=== PATIENT | female | born 1950 ===

== ENCOUNTER 2016-11-10 10:00 | Inpatient (IN) | payer MEDICARE, OTHER ==
[2016-11-10 10:00] VITALS: BMI 29.2
[2016-11-10 11:58] LABS: BASO # 0.2 K/uL (0.0-0.2); BASO % 1.2 % (0.0-2.0); EOS # 0.4 K/uL (0.0-0.7); EOS % 2.7 % (0.0-4.0); HEMATOCRIT 31.2 % (34.0-47.0); LYMPH % 6.5 % (20.0-40.0); MEAN CELL VOLUME 93.1 fL (81.0-99.0); MEAN CORPUSCULAR HEMOGLOBIN 29.7 pg (27.0-31.0); MEAN CORPUSCULAR HGB CONC 31.9 g/dL (33.0-37.0); MEAN PLATELET VOLUME 10.2 fL (7.2-11.7); MONO # 1.7 K/uL (0.0-0.8); MONO % 10.5 % (0.0-10.0); NRBC % 0.1 % (0.0-2.0); PLATELET COUNT 223 K/uL (130-400); WHITE BLOOD COUNT 15.8 K/uL (4.8-10.8)
[2016-11-10 12:10] LABS: POTASSIUM 4.7 mmol/L (3.6-5.2)
[2016-11-10 12:12] LABS: BILIRUBIN,TOTAL 0.8 mg/dL (0.2-1.3)
[2016-11-10 12:13] LABS: CALCIUM 9.1 mg/dl (8.6-10.4)
[2016-11-10 12:21] LABS: BASOPHIL 1 % (0-2); EOSINOPHIL 2 % (0-4); NEUTROPHIL 82 % (50-75); TOTAL CELLS COUNTED 100
[2016-11-10 12:22] LABS: LARGE PLATELETS PRESENT
[2016-11-10 12:23] LABS: GIANT PLATELETS PRESENT
--- NOTE | 2016-11-10 13:36 | C.PDOC ---
History Of Present Illness 66-year-old female PMHx includes Hypertension, Hypercholesterolemia, ESRD on HD (MWF- did not go today), presents to the emergency department with complaints of pain in B/L feet and calves. Patient denies numbness/weakness, nausea/ vomiting, fevers/chills, shortness of breath, chest pain, cough. Time Seen by Provider: 11/10/16 10:27 Chief Complaint (Nursing): Lower Extremity Problem/Injury History Per: Patient, EMS History/Exam Limitations: no limitations Onset/Duration Of Symptoms: Days Current Symptoms Are (Timing): Still Present Severity: Moderate Past Medical History Reviewed: Historical Data, Nursing Documentation, Vital Signs Vital Signs: Last Vital Signs Temp 98.9 F 11/23/16 08:00 Pulse 95 H 11/23/16 08:00 Resp 20 11/23/16 08:00 BP 140/72 11/23/16 09:28 Pulse Ox 97 11/23/16 08:00 - Medical History PMH: Anemia, Anxiety, Asthma, Atrial Fibrillation, CAD, CHF, COPD, Depression, Diabetes, Gastritis, HTN, Hypercholesterolemia, Peripheral Edema, Pneumonia, End Stage Renal Disease, Chronic Kidney Disease Surgical History: Carotid Endarterectomy (LEFT), Cholecystectomy, Endoscopy - [facility] Procedures ANGIOPLASTY OF OTHER NON-CORONARY VESSEL(S) (07/20/13) ASSISTANCE WITH RESPIRATORY VENTILATION, 24-96 HRS, CPAP (03/15/16) ATHERECTOMY OF OTHER NON-CORONARY VESSEL(S) (06/29/13) CENTRAL VENOUS CATHETER PLACEMENT WITH GUIDANCE (01/03/13) CONTRAST AORTOGRAM (06/29/13) CONTRAST ARTERIOGRAM-LEG (06/05/14) CORONAR ARTERIOGR-2 CATH (01/17/15) DILATE L FEM ART W INTRALUM DEV, DRUG BLLN, PERC (12/11/15) DILATE R EXT ILIAC ART W DRUG-ELUT INTRALUM, PERC (11/21/15) DILATION OF LEFT FEMORAL ARTERY, PERCUTANEOUS APPROACH (07/15/16) DILATION OF RIGHT FEMORAL ARTERY, PERCUTANEOUS APPROACH (11/21/15) EXCISION OF RIGHT KIDNEY PELVIS, PERC APPROACH, DIAGN (10/27/16) EXTIRPATION OF MATTER FROM L FEM ART, PERC APPROACH (07/15/16) EXTIRPATION OF MATTER FROM R FEM ART, PERC ENDO APPROACH (11/21/15) HEAD & NECK ENDARTER NEC (08/04/14) HEMODIALYSIS (04/09/15) INSEJ [id number] PERIPHERAL NON-CORONARY VES STENT(S) (07/20/13) INSERTION OF ONE VASCULAR STENT (07/20/13) INSERTION OF TWO VASCULAR STENTS (06/29/13) LEFT HEART CARDIAC CATH (06/29/13) LT HEART ANGIOCARDIOGRAM (06/29/13) NON-INVASIVE MECHANICAL VENTILATION (02/23/15) PACKED CELL TRANSFUSION (01/03/13) PERFORMANCE OF URINARY FILTRATION, MULTIPLE (10/27/16) PERFORMANCE OF URINARY FILTRATION, SINGLE (03/15/16) PROCEDURE ON SINGLE VESSEL (08/04/14) RT & LT HEART ANGIOCARD (01/17/15) RT/LEFT HEART CARD CATH (01/17/15) Family History: States: No Known Family Hx - Social History Hx Tobacco Use: No Hx Alcohol Use: No Hx Substance Use: No - Immunization History Hx Tetanus Toxoid Vaccination: Yes Hx Influenza Vaccination: Yes Hx Pneumococcal Vaccination: Yes Review Of Systems Except As Marked, All Systems Reviewed And Found Negative. Constitutional: Negative for: Fever Cardiovascular: Negative for: Chest Pain, Palpitations, Edema Respiratory: Negative for: Cough, Shortness of Breath Musculoskeletal: Positive for: Leg Pain, Foot Pain Skin: Negative for: Rash Neurological: Negative for: Weakness, Numbness Physical Exam - Physical Exam Appears: Well, Non-toxic Skin: Warm, Dry, No Rash Head: Normacephalic Eye(s): bilateral: Normal Inspection Oral Mucosa: Moist Cardiovascular: Rhythm Regular Respiratory: Normal Breath Sounds, No Accessory Muscle Use, No Rales, No Rhonchi , No Wheezing Gastrointestinal/Abdominal: Normal Exam, Bowel Sounds, Soft, No Tenderness Extremity: Normal ROM, Tenderness, No Deformity, Other (LEFT ARM- AV fistula with palpable bruit, right calf TTP and diminished pedal pulse, extremity not cold to touch) Extremity: Bilateral: Normal ROM Neurological/Psych: Oriented x3, Normal Motor, Normal Sensation ED Course And Treatment - Laboratory Results Result Diagrams: 11/23/16 08:14 11/23/16 08:14 O2 Sat by Pulse Oximetry: 93 (RA) Pulse Ox Interpretation: Abnormal - Radiology CXR: Interpreted by Me, Viewed By Me (pulmonary vascular congestion, no infiltrates) - Other Rad foot Xray X-Ray: Interpreted by Me, Viewed By Me (no fractures,dislocations, no gas, (+) vascular calcifications) Progress Note: Blood work, EKG, CXR, venous doppler of leg ordered and reviewed. Patient given PO tylenol. Doppler (-) for acute DVT. PMD confirms history of worsening PVD. - Physician Consult Information Physician Contacted: Haydee Frederick Outcome Of Conversation: Discussed patient with Dr. Trung Frederick, he agrees with admission for severe PVD, leg pain, ESRD on HD. Disposition - Disposition Disposition: HOSPITALIZED Disposition Time: 14:21 Condition: STABLE - Clinical Impression Clinical Impression: PVD (peripheral vascular disease), Leg pain, ESRD on dialysis - Scribe Statement The provider has reviewed the documentation as recorded by the Scriblexie Aguirre All medical record entries made by the Scribe were at my direction and personally dictated by me. I have reviewed the chart and agree that the record accurately reflects my personal performance of the history, physical exam, medical decision making, and the department course for this patient. I have also personally directed, reviewed, and agree with the discharge instructions and disposition. Decision To Admit - Pt Status Changed To: Hospital Disposition Of: Inpatient - Admit Certification Admit to Inpatient:: After my assessment, the patient will require hospitalization for at least two midnights. This is because of the severity of symptoms shown, intensity of services needed, and/or the medical risk in this patient being treated as an outpatient. - InPatient: Physician Admission Certification: I certify that this patient requires 2 or more midnights of care for the following reason:: see notes - . Bed Request Type: Regular Admitting Physician: Haydee Frederick Patient Diagnosis: PVD (peripheral vascular disease), Leg pain, ESRD on dialysis
[2016-11-10 14:41] LABS: TROPONIN I 0.069 ng/mL (0.00-0.120)
--- NOTE | 2016-11-10 14:53 | VASCLAB ---
PROCEDURE: Right Lower Extremity Venous Duplex Exam. HISTORY: rle pain, r/o dvt PRIORS: None. TECHNIQUE: Right common femoral, femoral, popliteal and posterior tibial, peroneal and great saphenous veins were evaluated. Flow was assessed with color Doppler, compressibility, assessment of phasic flow and augmentation response. Report prepared by SHRUTHI Rowland, RVT FINDINGS: RIGHT: 1. Common Femoral Vein: 1.1. Compressibility - Fully compressible: Thrombus - None: Flow - Phasic: Augmentation -Normal: Reflux - None. 2. Femoral Vein: 2.1. Compressibility - Fully compressible: Thrombus - None: Flow - Phasic: Augmentation -Normal: Reflux - None. 3. Popliteal Vein: 3.1. Compressibility - Fully compressible: Thrombus - None: Flow - Phasic: Augmentation -Normal: Reflux - None. 4. Posterior Tibial Vein: 4.1. Compressibility - Fully compressible: Thrombus - None: Flow - Phasic: Augmentation -Normal: Reflux - None. 5. Peroneal Vein: 5.1. Compressibility - Fully compressible: Thrombus - None: Flow - Phasic: Augmentation -Normal: Reflux - None. 6. Great Saphenous Vein: 6.1. Compressibility - Fully compressible: Thrombus -None: Flow - Phasic: Augmentation - Normal: Reflux - None. OTHER FINDINGS: IMPRESSION: No evidence of deep or superficial vein thrombosis of the right lower extremity with excellent venous flow. Normal valve function noted of the right side. Normal venous flow noted in the left common femoral vein.
--- NOTE | 2016-11-10 15:06 | RAD ---
Indication: r/o gas, periosteal elevation Foot left 2nd digit radiographs Comparison: None available Findings: Suboptimal evaluation of the distal phalanges on lateral/oblique view due to overlying soft tissues. Osseous demineralization limits evaluation for acute fracture lines. No acute displaced fracture identified. Linear lucency noted along the distal 2nd phalanx soft tissues of unclear significance; correlate clinically to exclude possibility of laceration. Soft tissue swelling. Extensive vascular calcifications. Impression: Limited study as above. Linear lucency noted along the distal 2nd phalanx soft tissues of unclear significance; correlate clinically to exclude possibility of laceration Soft tissue swelling. Please note that MRI without and with IV contrast is most sensitive in detection for acute osteomyelitis.
--- NOTE | 2016-11-10 15:31 | RAD ---
PROCEDURE: CHEST RADIOGRAPH, 1 VIEW HISTORY: admission, missed hemodialysis COMPARISON: 10/24/2016 FINDINGS: LUNGS: Moderate venous congestion. Bilateral hilar prominence. Bibasilar airspace opacities. Small bilateral pleural effusions. Upper lobe granulomatous changes. PLEURA: As above. CARDIOVASCULAR: Cardiomegaly. Calcification in the aorta OSSEOUS STRUCTURES: No significant abnormalities. VISUALIZED UPPER ABDOMEN: Normal. OTHER FINDINGS: None. IMPRESSION: Moderate venous congestion. Bilateral hilar prominence. Bibasilar airspace opacities. Small bilateral pleural effusions. Upper lobe granulomatous changes.
--- NOTE | 2016-11-10 17:05 | CP.PCM.HP ---
<Haydee Frederick S - Last Filed: 11/10/16 17:09> Past Patient History - Infectious Disease Hx of Infectious Diseases: None - Past Medical History & Family History Past Medical History?: Yes - Past Social History Smoking Status: Former Smoker - CARDIAC Hx Atrial Fibrillation: Yes Hx Congestive Heart Failure: Yes Hx Hypercholesterolemia: Yes Hx Hypertension: Yes Hx Peripheral Edema: Yes - PULMONARY Hx Asthma: Yes Hx Chronic Obstructive Pulmonary Disease (COPD): Yes Hx Pneumonia: Yes - HEENT Hx HEENT Problems: Yes Hx Cataracts: Yes - RENAL Hx Chronic Kidney Disease: Yes - ENDOCRINE/METABOLIC Hx Diabetes Mellitus Type 2: Yes - HEMATOLOGICAL/ONCOLOGICAL Hx Anemia: Yes - INTEGUMENTARY Hx Dermatological Problems: No - MUSCULOSKELETAL/RHEUMATOLOGICAL Hx Falls: Yes - GASTROINTESTINAL Hx Gastritis: Yes - GENITOURINARY/GYNECOLOGICAL Hx Genitourinary Disorders: No - PSYCHIATRIC Hx Anxiety: Yes Hx Depression: Yes Hx Substance Use: No - SURGICAL HISTORY Hx Carotid Endarterectomy: Yes (LEFT) Hx Cholecystectomy: Yes - ANESTHESIA Hx Anesthesia: Yes Hx Anesthesia Reactions: No Hx Malignant Hyperthermia: No Meds Allergies/Adverse Reactions: Allergies Allergy/AdvReac Type Severity Reaction Status Date / Time No Known Allergies Allergy Verified 11/10/16 10:02 Results - Vital Signs Recent Vital Signs: Last Vital Signs Temp 98.4 F 11/10/16 16:33 Pulse 80 11/10/16 16:33 Resp 18 11/10/16 16:33 BP 165/70 H 11/10/16 16:33 Pulse Ox 95 11/10/16 16:33 - Labs Result Diagrams: 11/10/16 11:54 11/10/16 11:54 Assessment & Plan - Assessment and Plan (Free Text) Plan: s/p hd and started having cramps so pt was bourght here for furtehr work up no new issuesw pain med viktoriya as orderd hd consultation with pulm <Mac Sorenson H - Last Filed: 11/11/16 13:39> Results - Vital Signs Recent Vital Signs: Last Vital Signs Temp 97.9 F 11/11/16 08:00 Pulse 86 11/11/16 08:00 Resp 20 11/11/16 08:00 BP 147/78 11/11/16 10:15 Pulse Ox 100 11/11/16 08:00 - Labs Result Diagrams: 11/10/16 11:54 11/10/16 11:54 Labs: Laboratory Results - last 24 hr 11/10/16 11/10/16 11/11/16 17:23 21:38 07:19 POC Glucose (mg/dL) 191 H 178 H 171 H 11/11/16 11:29 POC Glucose (mg/dL) 317 H Assessment & Plan (1) Leg pain, right Status: Acute (2) Acute systolic CHF (congestive heart failure) Status: Acute (3) Asthma attack Status: Acute (4) IDDM (insulin dependent diabetes mellitus) Status: Acute (5) Atrial fibrillation Status: Chronic (6) CAD (coronary artery disease) Status: Chronic (7) CHF (congestive heart failure) Status: Acute (8) COPD (chronic obstructive pulmonary disease) Status: Chronic (9) ESRD on dialysis Status: Chronic (10) HTN (hypertension) Status: Chronic (11) Prophylactic measure Status: Acute
[2016-11-10] MEDS ORDERED: diltiaZEM 300 mg/24 Hours CD Cap PO STA (17:50)
[2016-11-10] MEDS ORDERED: Pantoprazole 40 mg EC Tab PO STA (17:53)
[2016-11-10] MEDS: (Novolog Mix 70/30) Insulin Aspart/Insulin Aspar 100 units/ml SC SCH (22:13)
[2016-11-11] MEDS: Fluticasone-Salmeterol 250-50mcg Diskus INH SCH ×2 (08:24→19:28)
[2016-11-11] MEDS: Albuterol HFA 90 mcg/actuation (8 g) IH PRN ×2 (08:26→19:29)
--- NOTE | 2016-11-11 09:09 | CP.PCM.PN ---
<Mac Sorenson - Last Filed: 11/11/16 16:23> Subjective - Date & Time of Evaluation Date of Evaluation: 11/11/16 Time of Evaluation: 10:00 - Subjective Subjective: Patient was seen and evaluated in room. Patient currently denies pain, shortness of breath, or dizziness. Objective - Vital Signs/Intake and Output Vital Signs (last 24 hours): Temp Pulse Resp BP Pulse Ox 97.9 F 86 20 147/69 100 11/11/16 08:00 11/11/16 08:00 11/11/16 08:00 11/11/16 08:00 11/11/16 08:00 Intake and Output: 11/11/16 11/11/16 06:59 18:59 Intake Total 640 Output Total 0 Balance 640 - Medications Medications: Current Medications Acetaminophen (Tylenol 325mg Tab) 650 mg PO Q6 PRN PRN Reason: pain Last Admin: 11/10/16 20:18 Dose: 650 mg Albuterol (Ventolin Hfa 90 Mcg/Actuation (8 G)) 90 puff IH RQID PRN PRN Reason: Wheezing Last Admin: 11/11/16 08:26 Dose: 1 mcg Alprazolam (Xanax) 0.25 mg PO BID PRN PRN Reason: Anxiety Stop: 11/17/16 17:14 Aspirin (Ecotrin) 81 mg PO DAILY ON LICENSE OF [facility] Calcium Acetate (Phoslo) 667 mg PO TID ON LICENSE OF [facility] Last Admin: 11/10/16 17:31 Dose: 667 mg Clopidogrel Bisulfate (Plavix) 75 mg PO DAILY ON LICENSE OF [facility] Diltiazem HCl (Cardizem Cd) 300 mg PO DAILY ON LICENSE OF [facility] Escitalopram Oxalate (Lexapro) 5 mg PO DAILY ON LICENSE OF [facility] Furosemide (Lasix) 80 mg PO DAILY ON [facility] OF [facility] Gabapentin (Neurontin) 100 mg PO HS ON LICENSE OF [facility] Last Admin: 11/10/16 22:11 Dose: 100 mg Heparin Sodium (Porcine) (Heparin) 5,000 units SC Q8 ON LICENSE OF [facility] Last Admin: 11/11/16 05:24 Dose: 5,000 units Hydralazine HCl (Apresoline) 100 mg PO DAILY ON LICENSE OF [facility] Insulin Aspart (Novolog Mix 70/30 (70/30 Units/Ml)) 20 units SC HS ON LICENSE OF [facility] Last Admin: 11/10/16 22:13 Dose: Not Given Insulin Aspart (Novolog Mix 70/30 (70/30 Units/Ml)) 15 units SC ACB ON LICENSE OF [facility] Isosorbide Mononitrate (Imdur) 60 mg PO DAILY ON LICENSE OF [facility] Pantoprazole Sodium (Protonix Ec Tab) 40 mg PO DAILY ON LICENSE OF [facility] Prednisone (Prednisone Tab) 10 mg PO DAILY [facility] Rosuvastatin Calcium (Crestor) 10 mg PO DAILY ON LICENSE OF [facility] Fluticasone/Salmeterol (Advair Diskus 250/50) 1 puff INH RQ12 [facility] Last Admin: 11/11/16 08:24 Dose: 1 mcg - Constitutional Appears: Non-toxic, No Acute Distress - Respiratory Exam Respiratory Exam: Clear to Ausculation Bilateral. absent: Rhonchi, Wheezes - Cardiovascular Exam Cardiovascular Exam: REGULAR RHYTHM, RRR, +S1, +S2. absent: Gallop, Rubs - Extremities Exam Extremities Exam: Normal Inspection. absent: Pedal Edema - Back Exam Back Exam: NORMAL INSPECTION - Psychiatric Exam Psychiatric exam: Normal Affect, Normal Mood - Skin Skin Exam: Normal Color, Warm Assessment and Plan (1) Leg pain, right Assessment & Plan: X:ray shows soft tissue swelling, doppler negative for any evidence of DVT. Will given Tylenol for pain as needed. Status: Acute (2) IDDM (insulin dependent diabetes mellitus) Assessment & Plan: Patient on 70/30 Novolog 15 units at night and 10 units ACB. Sliding scale insuline with medium protocol and accu checks. Status: Acute (3) COPD (chronic obstructive pulmonary disease) Assessment & Plan: Albuterol prn and Advair. Status: Chronic (4) CAD (coronary artery disease) Assessment & Plan: Crestor 10mg, Aspirin 81mg, and Plavix 75mg Status: Chronic (5) Atrial fibrillation Status: Chronic (6) ESRD on dialysis Assessment & Plan: Patient is scheduled for dialysis tomorrow. Status: Chronic (7) CHF (congestive heart failure) Assessment & Plan: Lasix 80mg daily. Status: Acute (8) HTN (hypertension) Assessment & Plan: Cardizem 300mg daily, Imdur 60mg daily, Hydralazine 100mg TID Status: Chronic (9) Prophylactic measure Assessment & Plan: Pepcid 20mg 0.25mg Xanax prn for anxiety tylenol 650mg Q6H prn for pain Heparin 5000 units SC Q8H. Status: Acute <Frederick,Jayeshkuma S - Last Filed: 11/11/16 21:57> Objective - Vital Signs/Intake and Output Vital Signs (last 24 hours): Temp Pulse Resp BP Pulse Ox 98.7 F 86 20 173/64 H 100 11/11/16 16:09 11/11/16 16:09 11/11/16 16:09 11/11/16 16:09 11/11/16 16:09 - Medications Medications: Current Medications Acetaminophen (Tylenol 325mg Tab) 650 mg PO Q6 PRN PRN Reason: pain Last Admin: 11/10/16 20:18 Dose: 650 mg Albuterol (Ventolin Hfa 90 Mcg/Actuation (8 G)) 90 puff IH RQID PRN PRN Reason: Wheezing Last Admin: 11/11/16 19:29 Dose: 90 mcg Alprazolam (Xanax) 0.25 mg PO BID PRN PRN Reason: Anxiety Stop: 11/17/16 17:14 Aspirin (Ecotrin) 81 mg PO DAILY ON [facility] Last Admin: 11/11/16 10:15 Dose: 81 mg Calcium Acetate (Phoslo) 667 mg PO TID ON [facility] Last Admin: 11/11/16 17:00 Dose: 667 mg Clopidogrel Bisulfate (Plavix) 75 mg PO DAILY ON [facility] Last Admin: 11/11/16 10:15 Dose: 75 mg Diltiazem HCl (Cardizem Cd) 300 mg PO DAILY ON [facility] Last Admin: 11/11/16 10:15 Dose: 300 mg Escitalopram Oxalate (Lexapro) 5 mg PO DAILY ON [facility] Last Admin: 11/11/16 10:15 Dose: 5 mg Famotidine (Pepcid) 20 mg PO DAILY ON [facility] Furosemide (Lasix) 80 mg PO DAILY ON [facility] Last Admin: 11/11/16 10:15 Dose: 80 mg Gabapentin (Neurontin) 100 mg PO HS ON [facility] Last Admin: 11/11/16 21:33 Dose: 100 mg Heparin Sodium (Porcine) (Heparin) 5,000 units SC Q8 ON [facility] Last Admin: 11/11/16 21:32 Dose: 5,000 units Hydralazine HCl (Apresoline) 100 mg PO DAILY ON [facility] Last Admin: 11/11/16 10:16 Dose: 100 mg Insulin Aspart (Novolog Mix 70/30 (70/30 Units/Ml)) 20 units SC [facility] Last Admin: 11/11/16 21:35 Dose: 20 units Insulin Aspart (Novolog Mix 70/30 (70/30 Units/Ml)) 15 units SC ACB ON [facility] Last Admin: 11/11/16 10:17 Dose: 15 units Insulin Human Regular (Novolin R) 0 unit SC ACHS ON LICENSE OF [facility] PRN Reason: Protocol Last Admin: 11/11/16 21:35 Dose: 3 unit Isosorbide Mononitrate (Imdur) 60 mg PO DAILY ON [facility] Last Admin: 11/11/16 10:15 Dose: 60 mg Prednisone (Prednisone Tab) 10 mg PO DAILY ON [facility] Last Admin: 11/11/16 10:15 Dose: 10 mg Rosuvastatin Calcium (Crestor) 10 mg PO HS ON [facility] Last Admin: 11/11/16 21:33 Dose: 10 mg Fluticasone/Salmeterol (Advair Diskus 250/50) 1 puff INH RQ12 ON [facility] Last Admin: 11/11/16 19:28 Dose: 1 puff - Labs Labs: 11/11/16 14:02 11/11/16 14:02 Attending/Attestation - Attestation I have personally seen and examined this patient.: Yes I have fully participated in the care of the patient.: Yes I have reviewed all pertinent clinical information, including history, physical exam and plan: Yes Notes (Text): 11/11/16 21:57 case seen and discussed with staff and resident
[2016-11-11] MEDS ORDERED: Pantoprazole 40 mg EC Tab PO SCH (10:00)
[2016-11-11] MEDS: diltiaZEM 300 mg/24 Hours CD Cap PO SCH (10:15)
[2016-11-11] MEDS: (Novolog Mix 70/30) Insulin Aspart/Insulin Aspar 100 units/ml SC SCH ×2 (10:17→21:35)
[2016-11-11 14:10] LABS: BASO # 0.3 K/uL (0.0-0.2); BASO % 1.7 % (0.0-2.0); EOS # 0.3 K/uL (0.0-0.7); EOS % 1.6 % (0.0-4.0); HEMATOCRIT 30.6 % (34.0-47.0); LYMPH # 0.6 K/uL (1.0-4.3); LYMPH % 3.6 % (20.0-40.0); MEAN CELL VOLUME 93.1 fL (81.0-99.0); MEAN CORPUSCULAR HEMOGLOBIN 28.5 pg (27.0-31.0); MEAN CORPUSCULAR HGB CONC 30.6 g/dL (33.0-37.0); MEAN PLATELET VOLUME 11.2 fL (7.2-11.7); MONO % 6.2 % (0.0-10.0); PLATELET COUNT 182 K/uL (130-400); RED CELL DISTRIBUTION WIDTH 17.9 % (11.5-14.5); WHITE BLOOD COUNT 15.9 K/uL (4.8-10.8)
[2016-11-11 14:19] LABS: POTASSIUM 4.9 mmol/L (3.6-5.2)
[2016-11-11 14:21] LABS: BILIRUBIN,TOTAL 0.5 mg/dL (0.2-1.3); TOTAL PROTEIN 7.5 g/dL (6.3-8.3)
[2016-11-11 14:22] LABS: CALCIUM 8.9 mg/dl (8.6-10.4); MAGNESIUM 2.4 mg/dL (1.6-2.3); PHOSPHOROUS 4.9 mg/dL (2.5-4.5)
[2016-11-11 16:05] LABS: EOSINOPHIL 2 % (0-4); LARGE PLATELETS PRESENT; NEUTROPHIL 87 % (50-75); TOTAL CELLS COUNTED 100
[2016-11-11] MEDS: (Novolin R) Insulin Human Regular 100 units/ml vial SC SCH ×2 (17:01→21:35)
--- NOTE | 2016-11-11 21:58 | CP.PCM.PN ---
Subjective - Date & Time of Evaluation Date of Evaluation: 11/11/16 Time of Evaluation: 08:00 - Subjective Subjective: pain better pt iwth severe pvd Objective - Vital Signs/Intake and Output Vital Signs (last 24 hours): Temp Pulse Resp BP Pulse Ox 98.7 F 86 20 173/64 H 100 11/11/16 16:09 11/11/16 16:09 11/11/16 16:09 11/11/16 16:09 11/11/16 16:09 - Medications Medications: Current Medications Acetaminophen (Tylenol 325mg Tab) 650 mg PO Q6 PRN PRN Reason: pain Last Admin: 11/10/16 20:18 Dose: 650 mg Albuterol (Ventolin Hfa 90 Mcg/Actuation (8 G)) 90 puff IH RQID PRN PRN Reason: Wheezing Last Admin: 11/11/16 19:29 Dose: 90 mcg Alprazolam (Xanax) 0.25 mg PO BID PRN PRN Reason: Anxiety Stop: 11/17/16 17:14 Aspirin (Ecotrin) 81 mg PO DAILY [facility] Last Admin: 11/11/16 10:15 Dose: 81 mg Calcium Acetate (Phoslo) 667 mg PO TID [facility] Last Admin: 11/11/16 17:00 Dose: 667 mg Clopidogrel Bisulfate (Plavix) 75 mg PO DAILY [facility] Last Admin: 11/11/16 10:15 Dose: 75 mg Diltiazem HCl (Cardizem Cd) 300 mg PO DAILY [facility] Last Admin: 11/11/16 10:15 Dose: 300 mg Escitalopram Oxalate (Lexapro) 5 mg PO DAILY [facility] Last Admin: 11/11/16 10:15 Dose: 5 mg Famotidine (Pepcid) 20 mg PO DAILY [facility] Furosemide (Lasix) 80 mg PO DAILY [facility] Last Admin: 11/11/16 10:15 Dose: 80 mg Gabapentin (Neurontin) 100 mg PO HS [facility] Last Admin: 11/11/16 21:33 Dose: 100 mg Heparin Sodium (Porcine) (Heparin) 5,000 units SC Q8 [facility] Last Admin: 11/11/16 21:32 Dose: 5,000 units Hydralazine HCl (Apresoline) 100 mg PO DAILY [facility] Last Admin: 11/11/16 10:16 Dose: 100 mg Insulin Aspart (Novolog Mix 70/30 (70/30 Units/Ml)) 20 units SC HS [facility] Last Admin: 11/11/16 21:35 Dose: 20 units Insulin Aspart (Novolog Mix 70/30 (70/30 Units/Ml)) 15 units SC ACB [facility] Last Admin: 11/11/16 10:17 Dose: 15 units Insulin Human Regular (Novolin R) 0 unit SC ACHS [facility] PRN Reason: Protocol Last Admin: 11/11/16 21:35 Dose: 3 unit Isosorbide Mononitrate (Imdur) 60 mg PO DAILY [facility] Last Admin: 11/11/16 10:15 Dose: 60 mg Prednisone (Prednisone Tab) 10 mg PO DAILY [facility] Last Admin: 11/11/16 10:15 Dose: 10 mg Rosuvastatin Calcium (Crestor) 10 mg PO HS [facility] Last Admin: 11/11/16 21:33 Dose: 10 mg Fluticasone/Salmeterol (Advair Diskus 250/50) 1 puff INH RQ12 [facility] Last Admin: 11/11/16 19:28 Dose: 1 puff - Labs Labs: 11/11/16 14:02 11/11/16 14:02 - Constitutional Appears: Well - Head Exam Head Exam: ATRAUMATIC, NORMAL INSPECTION, NORMOCEPHALIC - Eye Exam Eye Exam: EOMI, Normal appearance, PERRL Pupil Exam: NORMAL ACCOMODATION, PERRL - ENT Exam ENT Exam: Mucous Membranes Moist, Normal Exam - Neck Exam Neck Exam: Full ROM, Normal Inspection. absent: Lymphadenopathy - Respiratory Exam Respiratory Exam: Decreased Breath Sounds - Cardiovascular Exam Cardiovascular Exam: REGULAR RHYTHM, +S1, +S2 - GI/Abdominal Exam GI & Abdominal Exam: Distended, Soft, Diminished Bowel Sounds - Rectal Exam Rectal Exam: Deferred - Neurological Exam Neurological Exam: Oriented x3 Assessment and Plan (1) Acute CHF Status: Acute (2) Acute systolic CHF (congestive heart failure) Status: Acute (3) Anemia Status: Acute (4) Atrial fibrillation with rapid ventricular response Status: Acute (5) CHF (congestive heart failure) Status: Acute (6) Diabetes Status: Acute (7) Dialysis patient, noncompliant Status: Acute (8) ESRD on dialysis Status: Acute (9) Hyperkalemia Status: Acute (10) Peripheral vascular complication Status: Acute (11) Pulmonary arterial hypertension Status: Acute (12) Pulmonary edema with congestive heart failure Status: Acute (13) CAD (coronary artery disease) Status: Chronic - Assessment and Plan (Free Text) Plan: asp plavix dr. 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
[2016-11-12] MEDS: (Novolog Mix 70/30) Insulin Aspart/Insulin Aspar 100 units/ml SC SCH ×2 (08:08→21:56)
[2016-11-12] MEDS: (Novolin R) Insulin Human Regular 100 units/ml vial SC SCH ×4 (08:09→21:57)
[2016-11-12 08:19] LABS: BASO # 0.1 K/uL (0.0-0.2); BASO % 0.8 % (0.0-2.0); EOS # 0.7 K/uL (0.0-0.7); EOS % 4.9 % (0.0-4.0); HEMATOCRIT 28.2 % (34.0-47.0); LYMPH # 1.1 K/uL (1.0-4.3); MEAN CELL VOLUME 92.7 fL (81.0-99.0); MEAN CORPUSCULAR HGB CONC 32.4 g/dL (33.0-37.0); MONO # 1.2 K/uL (0.0-0.8); MONO % 7.8 % (0.0-10.0); PLATELET COUNT 184 K/uL (130-400); RED CELL DISTRIBUTION WIDTH 17.7 % (11.5-14.5); WHITE BLOOD COUNT 15.2 K/uL (4.8-10.8)
[2016-11-12 08:24] LABS: POTASSIUM 4.9 mmol/L (3.6-5.2)
[2016-11-12 08:26] LABS: BILIRUBIN,TOTAL 0.6 mg/dL (0.2-1.3); PHOSPHOROUS 5.2 mg/dL (2.5-4.5); TOTAL PROTEIN 7.5 g/dL (6.3-8.3)
[2016-11-12 08:27] LABS: CALCIUM 9.1 mg/dl (8.6-10.4); MAGNESIUM 2.5 mg/dL (1.6-2.3)
[2016-11-12] MEDS ORDERED: Azithromycin 500mg/250ML NS 250 ML IVPB SCH (08:45)
--- NOTE | 2016-11-12 08:46 | CP.PCM.PN ---
<Keysha Motta H - Last Filed: 11/12/16 08:44> Subjective - Date & Time of Evaluation Date of Evaluation: 11/12/16 Time of Evaluation: 08:00 - Subjective Subjective: PGY2 Medicine Note - Dr. Ld Frederick's service: Patient seen and examined at bedside this AM. Patient reports right leg pain improving but still there. Patient reports SOB with cough productive of white phlegm. Patient denies fever, chills, chest pain, abdominal pain, nausea, vomiting. Objective - Vital Signs/Intake and Output Vital Signs (last 24 hours): Temp Pulse Resp BP Pulse Ox 98.5 F 91 H 20 186/73 H 98 11/12/16 07:49 11/12/16 07:49 11/12/16 07:49 11/12/16 07:49 11/12/16 07:49 Intake and Output: 11/12/16 11/12/16 06:59 18:59 Intake Total 120 Output Total 0 Balance 120 - Medications Medications: Current Medications Acetaminophen (Tylenol 325mg Tab) 650 mg PO Q6 PRN PRN Reason: pain Last Admin: 11/10/16 20:18 Dose: 650 mg Albuterol (Ventolin Hfa 90 Mcg/Actuation (8 G)) 90 puff IH RQID PRN PRN Reason: Wheezing Last Admin: 11/11/16 19:29 Dose: 90 mcg Alprazolam (Xanax) 0.25 mg PO BID PRN PRN Reason: Anxiety Stop: 11/17/16 17:14 Aspirin (Ecotrin) 81 mg PO DAILY [facility] Last Admin: 11/11/16 10:15 Dose: 81 mg Calcium Acetate (Phoslo) 667 mg PO TID [facility] Last Admin: 11/11/16 17:00 Dose: 667 mg Clopidogrel Bisulfate (Plavix) 75 mg PO DAILY [facility] Last Admin: 11/11/16 10:15 Dose: 75 mg Diltiazem HCl (Cardizem Cd) 300 mg PO DAILY [facility] Last Admin: 11/11/16 10:15 Dose: 300 mg Escitalopram Oxalate (Lexapro) 5 mg PO DAILY [facility] Last Admin: 11/11/16 10:15 Dose: 5 mg Famotidine (Pepcid) 20 mg PO DAILY [facility] Furosemide (Lasix) 80 mg PO DAILY [facility] Last Admin: 11/11/16 10:15 Dose: 80 mg Gabapentin (Neurontin) 100 mg PO HS [facility] Last Admin: 11/11/16 21:33 Dose: 100 mg Heparin Sodium (Porcine) (Heparin) 5,000 units SC Q8 [facility] Last Admin: 11/12/16 05:27 Dose: 5,000 units Hydralazine HCl (Apresoline) 100 mg PO BID [facility] Azithromycin (Zithromax 500mg In Ns Addvantage) 250 mls @ 167 mls/hr IVPB Q24H [facility] Ceftriaxone Sodium 1 gm/ (Sodium Chloride) 100 mls @ 100 mls/hr IVPB DAILY [facility] Insulin Aspart (Novolog Mix 70/30 (70/30 Units/Ml)) 20 units SC HS [facility] Last Admin: 11/11/16 21:35 Dose: 20 units Insulin Aspart (Novolog Mix 70/30 (70/30 Units/Ml)) 15 units SC ACB [facility] Last Admin: 11/12/16 08:08 Dose: 1 units Insulin Human Regular (Novolin R) 0 unit SC ACHS [facility] PRN Reason: Protocol Last Admin: 11/12/16 08:09 Dose: 2 unit Isosorbide Mononitrate (Imdur) 60 mg PO DAILY [facility] Last Admin: 11/11/16 10:15 Dose: 60 mg Prednisone (Prednisone Tab) 10 mg PO DAILY [facility] Last Admin: 11/11/16 10:15 Dose: 10 mg Rosuvastatin Calcium (Crestor) 10 mg PO HS [facility] Last Admin: 11/11/16 21:33 Dose: 10 mg Fluticasone/Salmeterol (Advair Diskus 250/50) 1 puff INH RQ12 [facility] Last Admin: 11/11/16 19:28 Dose: 1 puff - Labs Labs: 11/12/16 08:03 11/11/16 14:02 - Constitutional Appears: Non-toxic, No Acute Distress - Head Exam Head Exam: NORMAL INSPECTION - Eye Exam Eye Exam: EOMI - ENT Exam ENT Exam: Mucous Membranes Moist - Respiratory Exam Respiratory Exam: Rales, Rhonchi, NORMAL BREATHING PATTERN. absent: Accessory Muscle Use, Chest Wall Tenderness, Respiratory Distress - Cardiovascular Exam Cardiovascular Exam: REGULAR RHYTHM, +S1, +S2. absent: Gallop, Rubs - GI/Abdominal Exam GI & Abdominal Exam: Soft, Normal Bowel Sounds. absent: Guarding, Tenderness - Extremities Exam Extremities Exam: Pedal Edema Additional comments: right leg edema and dilated varicose veins - Neurological Exam Neurological Exam: Alert, Awake, Oriented x3 - Psychiatric Exam Psychiatric exam: Normal Affect, Normal Mood - Skin Skin Exam: Normal Color, Warm Assessment and Plan - Assessment and Plan (Free Text) Assessment: Leg pain, right Assessment & Plan: X ray shows soft tissue swelling, doppler negative for any evidence of DVT. F/U extremity arterial study Will given Tylenol for pain as needed. Possibly cellulitus Status: Acute Pneumonia Assessment & Plan CXR - moderate venous congestion. bilateral hilar prominence. Bibasilar airspace opacities. small b/l pleural effusions. Upper lobe granulomatous changes. Started zithromax 500mg IVPB daily and rocephin 1gm IVPB daily 11/12/16 Status: Acute IDDM (insulin dependent diabetes mellitus) Assessment & Plan: Patient on 70/30 Novolog 15 units at night and 10 units ACB. Sliding scale insulin with medium protocol and accuchecks. Status: Acute COPD (chronic obstructive pulmonary disease) Assessment & Plan: Albuterol prn and Advair. Status: Chronic CAD (coronary artery disease) Assessment & Plan: Crestor 10mg, Aspirin 81mg, and Plavix 75mg Status: Chronic Atrial fibrillation Status: Chronic Hep 5000U SC Q8 prophylaxis HR constrolled No anticoagulation besides Plavix and ASA ESRD on dialysis Assessment & Plan: Patient is scheduled for dialysis today Status: Chronic CHF (congestive heart failure) Assessment & Plan: Lasix 80mg PO daily. Status: Acute HTN (hypertension) Assessment & Plan: Cardizem 300mg daily, Imdur 60mg daily, Hydralazine 100mg TID Status: Chronic Prophylactic measure Assessment & Plan: Pepcid 20mg 0.25mg Xanax prn for anxiety tylenol 650mg Q6H prn for pain Heparin 5000 units SC Q8H. Status: Acute <Haydee Frederick S - Last Filed: 01/06/17 18:39> Objective - Vital Signs/Intake and Output Vital Signs (last 24 hours): Temp Pulse Resp BP Pulse Ox 98.3 F 82 20 179/55 H 99 12/04/16 16:00 12/04/16 16:00 12/04/16 16:00 12/04/16 16:00 12/04/16 16:00 - Labs Labs: 12/02/16 07:05 12/02/16 07:05 PT 12.4 SECONDS (9.7-12.2) H 11/19/16 11:38 INR 1.1 11/19/16 11:38 APTT 29 SECONDS (21-34) 11/19/16 11:38 Assessment and Plan (1) Acute CHF Status: Acute (2) Acute systolic CHF (congestive heart failure) Status: Acute (3) Anemia Status: Acute (4) Atrial fibrillation with rapid ventricular response Status: Acute (5) CHF (congestive heart failure) Status: Acute (6) Diabetes Status: Acute (7) Dialysis patient, noncompliant Status: Acute (8) ESRD on dialysis Status: Acute (9) Hyperkalemia Status: Acute (10) Peripheral vascular complication Status: Acute (11) Pulmonary arterial hypertension Status: Acute (12) Pulmonary edema with congestive heart failure Status: Acute (13) CAD (coronary artery disease) Status: Chronic Attending/Attestation - Attestation I have personally seen and examined this patient.: Yes I have fully participated in the care of the patient.: Yes I have reviewed all pertinent clinical information, including history, physical exam and plan: Yes Notes (Text): admitted with pneumonia cad cvd chf esrd with renal mass with non complnace iwht followup with urologist needs biopsy discused with staff
[2016-11-12] MEDS: Fluticasone-Salmeterol 250-50mcg Diskus INH SCH (08:50)
[2016-11-12 08:53] LABS: EOSINOPHIL 5 % (0-4); NEUTROPHIL 80 % (50-75); TOTAL CELLS COUNTED 100
[2016-11-12 08:57] LABS: LARGE PLATELETS PRESENT
[2016-11-12] MEDS: diltiaZEM 300 mg/24 Hours CD Cap PO SCH (10:59)
[2016-11-12] MEDS: Azithromycin 500 MG in Sodium Chloride 0.9% 250 ML IVPB SCH (15:00)
--- NOTE | 2016-11-12 15:08 | CP.PCM.PN ---
Subjective - Date & Time of Evaluation Date of Evaluation: 11/12/16 Time of Evaluation: 09:20 - Subjective Subjective: clinically same Objective - Vital Signs/Intake and Output Vital Signs (last 24 hours): Temp Pulse Resp BP Pulse Ox 98.3 F 90 18 180/79 H 98 11/12/16 09:00 11/12/16 14:04 11/12/16 09:00 11/12/16 13:10 11/12/16 07:49 Intake and Output: 11/12/16 11/12/16 06:59 18:59 Intake Total 120 200 Output Total 0 2 Balance 120 198 - Medications Medications: Current Medications Acetaminophen (Tylenol 325mg Tab) 650 mg PO Q6 PRN PRN Reason: pain Last Admin: 11/10/16 20:18 Dose: 650 mg Albuterol (Ventolin Hfa 90 Mcg/Actuation (8 G)) 90 puff IH RQID PRN PRN Reason: Wheezing Last Admin: 11/11/16 19:29 Dose: 90 mcg Alprazolam (Xanax) 0.25 mg PO BID PRN PRN Reason: Anxiety Stop: 11/17/16 17:14 Aspirin (Ecotrin) 81 mg PO DAILY [facility] Last Admin: 11/12/16 13:11 Dose: 81 mg Calcium Acetate (Phoslo) 667 mg PO TID [facility] Last Admin: 11/12/16 13:09 Dose: 667 mg Clopidogrel Bisulfate (Plavix) 75 mg PO DAILY [facility] Last Admin: 11/12/16 13:11 Dose: 75 mg Diltiazem HCl (Cardizem Cd) 300 mg PO DAILY [facility] Last Admin: 11/12/16 10:59 Dose: 300 mg Escitalopram Oxalate (Lexapro) 5 mg PO DAILY [facility] Last Admin: 11/12/16 13:10 Dose: 5 mg Famotidine (Pepcid) 20 mg PO DAILY [facility] Last Admin: 11/12/16 13:17 Dose: Not Given Furosemide (Lasix) 80 mg PO DAILY [facility] Last Admin: 11/12/16 13:10 Dose: 80 mg Gabapentin (Neurontin) 100 mg PO HS [facility] Last Admin: 11/11/16 21:33 Dose: 100 mg Heparin Sodium (Porcine) (Heparin) 5,000 units SC Q8 [facility] Last Admin: 11/12/16 13:17 Dose: 5,000 units Hydralazine HCl (Apresoline) 100 mg PO BID [facility] Last Admin: 11/12/16 13:12 Dose: 100 mg Ceftriaxone Sodium 1 gm/ (Sodium Chloride) 100 mls @ 100 mls/hr IVPB DAILY [facility] Last Admin: 11/12/16 13:16 Dose: 100 mls/hr Azithromycin 500 mg/ Sodium (Chloride) 250 mls @ 167 mls/hr IVPB Q24H [facility] Insulin Aspart (Novolog Mix 70/30 (70/30 Units/Ml)) 20 units SC HS [facility] Last Admin: 11/11/16 21:35 Dose: 20 units Insulin Aspart (Novolog Mix 70/30 (70/30 Units/Ml)) 15 units SC ACB [facility] Last Admin: 11/12/16 08:08 Dose: 1 units Insulin Human Regular (Novolin R) 0 unit SC ACHS [facility] PRN Reason: Protocol Last Admin: 11/12/16 13:09 Dose: Not Given Isosorbide Mononitrate (Imdur) 60 mg PO DAILY [facility] Last Admin: 11/12/16 11:01 Dose: 60 mg Prednisone (Prednisone Tab) 10 mg PO DAILY [facility] Last Admin: 11/12/16 13:11 Dose: 10 mg Rosuvastatin Calcium (Crestor) 10 mg PO HS [facility] Last Admin: 11/11/16 21:33 Dose: 10 mg Fluticasone/Salmeterol (Advair Diskus 250/50) 1 puff INH RQ12 [facility] Last Admin: 11/12/16 08:50 Dose: Not Given - Labs Labs: 11/12/16 08:03 11/12/16 08:03 - Constitutional Appears: Well - Head Exam Head Exam: ATRAUMATIC, NORMAL INSPECTION, NORMOCEPHALIC - Eye Exam Eye Exam: EOMI, Normal appearance, PERRL Pupil Exam: NORMAL ACCOMODATION, PERRL - ENT Exam ENT Exam: Mucous Membranes Moist, Normal Exam - Neck Exam Neck Exam: Full ROM, Normal Inspection. absent: Lymphadenopathy - Respiratory Exam Respiratory Exam: Decreased Breath Sounds - Cardiovascular Exam Cardiovascular Exam: REGULAR RHYTHM, +S1, +S2 - GI/Abdominal Exam GI & Abdominal Exam: Soft, Diminished Bowel Sounds - Rectal Exam Rectal Exam: Deferred Assessment and Plan (1) Acute CHF Status: Acute (2) Acute systolic CHF (congestive heart failure) Status: Acute (3) Arterial, arteriole and capillary disease Status: Acute (4) CHF (congestive heart failure) Status: Acute (5) CHF exacerbation Status: Acute (6) Chronic congestive heart failure Status: Acute (7) Diabetes Status: Acute (8) Dialysis patient, noncompliant Status: Acute (9) ESRD on dialysis Status: Acute (10) H/O fluid overload Status: Acute (11) PAD (peripheral artery disease) Status: Acute (12) PVD (peripheral vascular disease) Status: Acute (13) Pulmonary arterial hypertension Status: Acute (14) Hyperlipidemia Status: Chronic - Assessment and Plan (Free Text) Plan: asp plavix rocephin ithromax viktoriya same hd consultation renal biopsy ossible to schedule dr. peres other consultation as ordered
--- NOTE | 2016-11-12 22:08 | CARD ---
APPROVED REPORT EKG Measurement Heart [id number] CT 130P52 [id number] <Conclusion> Normal sinus rhythm Minimal voltage criteria for LVH, may be normal variant T wave abnormality, consider lateral ischemia Prolonged QT Abnormal ECG
[2016-11-13] MEDS: (Novolin R) Insulin Human Regular 100 units/ml vial SC SCH ×3 (07:55→16:30)
[2016-11-13] MEDS: (Novolog Mix 70/30) Insulin Aspart/Insulin Aspar 100 units/ml SC SCH (07:55)
[2016-11-13] MEDS: Fluticasone-Salmeterol 250-50mcg Diskus INH SCH ×2 (07:57→19:49)
[2016-11-13 08:39] LABS: BASO # 0.1 K/uL (0.0-0.2); BASO % 0.8 % (0.0-2.0); EOS # 1.1 K/uL (0.0-0.7); EOS % 6.8 % (0.0-4.0); LYMPH # 1.3 K/uL (1.0-4.3); LYMPH % 7.5 % (20.0-40.0); MEAN CELL VOLUME 91.4 fL (81.0-99.0); MEAN CORPUSCULAR HEMOGLOBIN 29.7 pg (27.0-31.0); MEAN CORPUSCULAR HGB CONC 32.5 g/dL (33.0-37.0); MONO # 1.5 K/uL (0.0-0.8); MONO % 8.7 % (0.0-10.0); PLATELET COUNT 201 K/uL (130-400); RED CELL DISTRIBUTION WIDTH 17.5 % (11.5-14.5); WHITE BLOOD COUNT 16.7 K/uL (4.8-10.8)
[2016-11-13 08:46] LABS: POTASSIUM 5.1 mmol/L (3.6-5.2)
[2016-11-13 08:49] LABS: ALB/GLOB RATIO 0.9 (1.0-2.1); CALCIUM 9.2 mg/dl (8.6-10.4); TOTAL PROTEIN 7.9 g/dL (6.3-8.3)
[2016-11-13 09:11] LABS: BILIRUBIN,TOTAL 0.6 mg/dL (0.2-1.3)
[2016-11-13] MEDS: diltiaZEM 300 mg/24 Hours CD Cap PO SCH (09:57)
--- NOTE | 2016-11-13 10:57 | CP.PCM.PN ---
Subjective - Date & Time of Evaluation Date of Evaluation: 11/13/16 Time of Evaluation: 11:00 - Subjective Subjective: Dr. Frederick service, Patient seen and examined in room, she is complaing of lower leg pain and some mild abdominal pain. No complaints of fever or chills. History is limited due to language barrier. Objective - Vital Signs/Intake and Output Vital Signs (last 24 hours): Temp Pulse Resp BP Pulse Ox 98.4 F 91 H 20 188/73 H 99 11/13/16 08:19 11/13/16 08:19 11/13/16 08:19 11/13/16 09:58 11/13/16 08:19 Intake and Output: 11/13/16 11/13/16 06:59 18:59 Intake Total 550 Balance 550 - Medications Medications: Current Medications Acetaminophen (Tylenol 325mg Tab) 650 mg PO Q6 PRN PRN Reason: pain Last Admin: 11/12/16 18:35 Dose: 650 mg Albuterol (Ventolin Hfa 90 Mcg/Actuation (8 G)) 90 puff IH RQID PRN PRN Reason: Wheezing Last Admin: 11/11/16 19:29 Dose: 90 mcg Alprazolam (Xanax) 0.25 mg PO BID PRN PRN Reason: Anxiety Stop: 11/17/16 17:14 Aspirin (Ecotrin) 81 mg PO DAILY [facility] Last Admin: 11/12/16 13:11 Dose: 81 mg Calcium Acetate (Phoslo) 667 mg PO TIDCC [facility] Clopidogrel Bisulfate (Plavix) 75 mg PO DAILY [facility] Last Admin: 11/12/16 13:11 Dose: 75 mg Diltiazem HCl (Cardizem Cd) 300 mg PO DAILY [facility] Last Admin: 11/13/16 09:57 Dose: 300 mg Escitalopram Oxalate (Lexapro) 5 mg PO DAILY [facility] Last Admin: 11/13/16 09:57 Dose: 5 mg Famotidine (Pepcid) 20 mg PO DAILY [facility] Last Admin: 11/13/16 09:30 Dose: 20 mg Furosemide (Lasix) 80 mg PO DAILY [facility] Last Admin: 11/13/16 09:58 Dose: 80 mg Gabapentin (Neurontin) 100 mg PO HS [facility] Last Admin: 11/12/16 22:03 Dose: 100 mg Heparin Sodium (Porcine) (Heparin) 5,000 units SC Q8 [facility] Last Admin: 11/13/16 05:57 Dose: Not Given Hydralazine HCl (Apresoline) 100 mg PO BID [facility] Last Admin: 11/13/16 09:31 Dose: 100 mg Ceftriaxone Sodium 1 gm/ (Sodium Chloride) 100 mls @ 100 mls/hr IVPB DAILY [facility] Last Admin: 11/13/16 09:56 Dose: 100 mls/hr Azithromycin 500 mg/ Sodium (Chloride) 250 mls @ 167 mls/hr IVPB Q24H [facility] Last Admin: 11/12/16 15:00 Dose: 167 mls/hr Insulin Aspart (Novolog Mix 70/30 (70/30 Units/Ml)) 20 units SC HS [facility] Last Admin: 11/12/16 21:56 Dose: 20 units Insulin Aspart (Novolog Mix 70/30 (70/30 Units/Ml)) 15 units SC ACB [facility] Last Admin: 11/13/16 07:55 Dose: Not Given Insulin Human Regular (Novolin R) 0 unit SC ACHS [facility] PRN Reason: Protocol Last Admin: 11/13/16 07:55 Dose: Not Given Isosorbide Mononitrate (Imdur) 60 mg PO DAILY [facility] Last Admin: 11/13/16 09:30 Dose: 60 mg Prednisone (Prednisone Tab) 10 mg PO DAILY [facility] Last Admin: 11/13/16 09:31 Dose: 10 mg Rosuvastatin Calcium (Crestor) 10 mg PO HS [facility] Last Admin: 11/12/16 21:56 Dose: 10 mg Fluticasone/Salmeterol (Advair Diskus 250/50) 1 puff INH RQ12 [facility] Last Admin: 11/13/16 07:57 Dose: 1 puff - Labs Labs: 11/13/16 08:27 11/13/16 08:27 PT 11.7 SECONDS (9.7-12.2) 11/13/16 08:27 INR 1.0 11/13/16 08:27 APTT 28 SECONDS (21-34) 11/13/16 08:27 - Constitutional Appears: Non-toxic, No Acute Distress - Head Exam Head Exam: ATRAUMATIC, NORMAL INSPECTION, NORMOCEPHALIC - Eye Exam Eye Exam: Normal appearance - Respiratory Exam Respiratory Exam: Clear to Ausculation Bilateral. absent: Rhonchi, Wheezes - Cardiovascular Exam Cardiovascular Exam: REGULAR RHYTHM, RRR. absent: Gallop, Rubs - GI/Abdominal Exam GI & Abdominal Exam: Soft, Normal Bowel Sounds. absent: Tenderness - Extremities Exam Extremities Exam: Normal Inspection - Back Exam Back Exam: NORMAL INSPECTION - Psychiatric Exam Psychiatric exam: Normal Affect, Normal Mood - Skin Skin Exam: Normal Color, Warm Assessment and Plan - Assessment and Plan (Free Text) Assessment: Kidney Mass Assessment & Plan: 11/13: Patient will need a kidney biopsy Leg pain, right Assessment & Plan: 11/13: continue current managment X ray shows soft tissue swelling, doppler negative for any evidence of DVT. F/U extremity arterial study Will given Tylenol for pain as needed. Possibly cellulitus Status: Acute Pneumonia Assessment & Plan 11/13: day 2 of Zithromax and Rocephin, fever, chest pain, or cough. She does have a WBC of 16.7 today with left shift, continue to monitor WBC. CXR - moderate venous congestion. bilateral hilar prominence. Bibasilar airspace opacities. small b/l pleural effusions. Upper lobe granulomatous changes. Started zithromax 500mg IVPB daily and rocephin 1gm IVPB daily 11/12/16 Status: Acute IDDM (insulin dependent diabetes mellitus) Assessment & Plan: Patient on 70/30 Novolog 15 units at night and 10 units ACB. Sliding scale insulin with medium protocol and accuchecks. Status: Acute COPD (chronic obstructive pulmonary disease) Assessment & Plan: Albuterol prn and Advair. Status: Chronic CAD (coronary artery disease) Assessment & Plan: Crestor 10mg, Aspirin 81mg, and Plavix 75mg Status: Chronic Atrial fibrillation Status: Chronic Hep 5000U SC Q8 prophylaxis HR constrolled No anticoagulation besides Plavix and ASA ESRD on dialysis Assessment & Plan: Patient is scheduled for dialysis today Status: Chronic CHF (congestive heart failure) Assessment & Plan: Lasix 80mg PO daily. Status: Acute HTN (hypertension) Assessment & Plan: Cardizem 300mg daily, Imdur 60mg daily, Hydralazine 100mg TID Status: Chronic Prophylactic measure Assessment & Plan: Pepcid 20mg 0.25mg Xanax prn for anxiety tylenol 650mg Q6H prn for pain Heparin 5000 units SC Q8H. Status: Acute
[2016-11-13 12:43] LABS: EOSINOPHIL 3 % (0-4); MYELOCYTE 1 % (0-0); NEUTROPHIL 86 % (50-75); TOTAL CELLS COUNTED 100
[2016-11-13 12:47] LABS: LARGE PLATELETS PRESENT
[2016-11-13] MEDS: Azithromycin 500 MG in Sodium Chloride 0.9% 250 ML IVPB SCH (15:31)
--- NOTE | 2016-11-13 16:10 | PCM.URO ---
Urology Progress Note - Objective Lab Results Last 24 Hours: Laboratory Results - last 24 hr 11/12/16 11/12/16 11/13/16 16:26 21:11 00:10 WBC RBC Hgb Hct MCV MCH MCHC RDW Plt Count MPV Neut % (Auto) Lymph % (Auto) [place] % (Auto) Eos % (Auto) Baso % (Auto) Neut # Lymph # [place] # Eos # Baso # Neutrophils % (Manual) Band Neutrophils % Lymphocytes % (Manual) Monocytes % (Manual) Eosinophils % (Manual) Myelocytes % Platelet Estimate Large Platelets Anisocytosis (manual) PT INR APTT Sodium Potassium Chloride Carbon Dioxide Anion Gap BUN Creatinine Est GFR ( Amer) Est GFR (Non-Af Amer) POC Glucose (mg/dL) 385 H 360 H 172 H Random Glucose Calcium Total Bilirubin AST ALT Alkaline Phosphatase Total Protein Albumin Globulin Albumin/Globulin Ratio 11/13/16 11/13/16 11/13/16 07:33 08:27 11:11 WBC 16.7 H RBC 3.18 L Hgb 9.4 L Hct 29.0 L MCV 91.4 MCH 29.7 MCHC 32.5 L RDW 17.5 H Plt Count 201 MPV 11.0 Neut % (Auto) 76.2 H Lymph % (Auto) 7.5 L [place] % (Auto) 8.7 Eos % (Auto) 6.8 H Baso % (Auto) 0.8 Neut # 12.7 H Lymph # 1.3 [place] # 1.5 H Eos # 1.1 H Baso # 0.1 Neutrophils % (Manual) 86 H Band Neutrophils % 1 Lymphocytes % (Manual) 6 L Monocytes % (Manual) 3 Eosinophils % (Manual) 3 Myelocytes % 1 H Platelet Estimate Normal Large Platelets Present Anisocytosis (manual) Slight PT 11.7 INR 1.0 APTT 28 Sodium 140 Potassium 5.1 Chloride 91 L Carbon Dioxide 31 H Anion Gap 23 H BUN 48 H Creatinine 5.9 H Est GFR ( Amer) 9 Est GFR (Non-Af Amer) 7 POC Glucose (mg/dL) 83 179 H Random Glucose 104 Calcium 9.2 Total Bilirubin 0.6 AST 25 ALT 26 Alkaline Phosphatase 97 Total Protein 7.9 Albumin 3.8 Globulin 4.1 H Albumin/Globulin Ratio 0.9 L Intake & Output: Intake & Output 11/12/16 11/13/16 11/13/16 18:59 06:59 18:59 Intake Total 200 550 Output Total 2 Balance 198 550 Intake: Intake, IV Amount 250 Right Antecubital 250 Oral 200 300 Output: Urine 2 Urine, Voided 2 Other: # Voids Urine, Voided 2 1 # Bowel Movements 0 0 Vital Signs: Vital Signs - 24 hr 11/12/16 11/13/16 11/13/16 17:11 00:00 00:07 Temperature 100.0 F H 98.5 F Pulse Rate 88 89 87 Respiratory 20 20 Rate Blood Pressure 124/54 L 156/72 H O2 Sat by Pulse 99 98 Oximetry 11/13/16 11/13/16 11/13/16 08:19 09:58 15:58 Temperature 98.4 F 99.4 F Pulse Rate 91 H 94 H Respiratory 20 20 Rate Blood Pressure 188/73 H 188/73 H 152/65 H O2 Sat by Pulse 99 98 Oximetry
--- NOTE | 2016-11-13 16:21 | CP.PCM.PN ---
Subjective - Date & Time of Evaluation Date of Evaluation: 11/13/16 Time of Evaluation: 09:20 - Subjective Subjective: clinically same Objective - Vital Signs/Intake and Output Vital Signs (last 24 hours): Temp Pulse Resp BP Pulse Ox 99.4 F 94 H 20 152/65 H 98 11/13/16 15:58 11/13/16 15:58 11/13/16 15:58 11/13/16 15:58 11/13/16 15:58 Intake and Output: 11/13/16 11/13/16 06:59 18:59 Intake Total 550 Balance 550 - Medications Medications: Current Medications Acetaminophen (Tylenol 325mg Tab) 650 mg PO Q6 PRN PRN Reason: pain Last Admin: 11/12/16 18:35 Dose: 650 mg Albuterol (Ventolin Hfa 90 Mcg/Actuation (8 G)) 90 puff IH RQID PRN PRN Reason: Wheezing Last Admin: 11/11/16 19:29 Dose: 90 mcg Alprazolam (Xanax) 0.25 mg PO BID PRN PRN Reason: Anxiety Stop: 11/17/16 17:14 Aspirin (Ecotrin) 81 mg PO DAILY [facility] Last Admin: 11/13/16 14:14 Dose: 81 mg Calcium Acetate (Phoslo) 667 mg PO TIDCC [facility] Last Admin: 11/13/16 11:57 Dose: Not Given Clopidogrel Bisulfate (Plavix) 75 mg PO DAILY [facility] Last Admin: 11/13/16 14:14 Dose: 75 mg Diltiazem HCl (Cardizem Cd) 300 mg PO DAILY [facility] Last Admin: 11/13/16 09:57 Dose: 300 mg Escitalopram Oxalate (Lexapro) 5 mg PO DAILY [facility] Last Admin: 11/13/16 09:57 Dose: 5 mg Famotidine (Pepcid) 20 mg PO DAILY [facility] Last Admin: 11/13/16 09:30 Dose: 20 mg Furosemide (Lasix) 80 mg PO DAILY [facility] Last Admin: 11/13/16 09:58 Dose: 80 mg Gabapentin (Neurontin) 100 mg PO HS [facility] Last Admin: 11/12/16 22:03 Dose: 100 mg Heparin Sodium (Porcine) (Heparin) 5,000 units SC Q8 [facility] Last Admin: 11/13/16 14:15 Dose: 5,000 units Hydralazine HCl (Apresoline) 100 mg PO BID [facility] Last Admin: 11/13/16 09:31 Dose: 100 mg Ceftriaxone Sodium 1 gm/ (Sodium Chloride) 100 mls @ 100 mls/hr IVPB DAILY [facility] Last Admin: 11/13/16 09:56 Dose: 100 mls/hr Azithromycin 500 mg/ Sodium (Chloride) 250 mls @ 167 mls/hr IVPB Q24H [facility] Last Admin: 11/13/16 15:31 Dose: 167 mls/hr Insulin Aspart (Novolog Mix 70/30 (70/30 Units/Ml)) 20 units SC HS [facility] Last Admin: 11/12/16 21:56 Dose: 20 units Insulin Aspart (Novolog Mix 70/30 (70/30 Units/Ml)) 15 units SC ACB [facility] Last Admin: 11/13/16 07:55 Dose: Not Given Insulin Human Regular (Novolin R) 0 unit SC ACHS [facility] PRN Reason: Protocol Last Admin: 11/13/16 11:57 Dose: Not Given Isosorbide Mononitrate (Imdur) 60 mg PO DAILY [facility] Last Admin: 11/13/16 09:30 Dose: 60 mg Prednisone (Prednisone Tab) 10 mg PO DAILY [facility] Last Admin: 11/13/16 09:31 Dose: 10 mg Rosuvastatin Calcium (Crestor) 10 mg PO [facility] Last Admin: 11/12/16 21:56 Dose: 10 mg Fluticasone/Salmeterol (Advair Diskus 250/50) 1 puff INH RQ12 [facility] Last Admin: 11/13/16 07:57 Dose: 1 puff - Labs Labs: 11/13/16 08:27 11/13/16 08:27 PT 11.7 SECONDS (9.7-12.2) 11/13/16 08:27 INR 1.0 11/13/16 08:27 APTT 28 SECONDS (21-34) 11/13/16 08:27 - Constitutional Appears: Well - Head Exam Head Exam: ATRAUMATIC, NORMAL INSPECTION, NORMOCEPHALIC - Eye Exam Eye Exam: EOMI, Normal appearance, PERRL Pupil Exam: NORMAL ACCOMODATION, PERRL - ENT Exam ENT Exam: Mucous Membranes Moist, Normal Exam - Neck Exam Neck Exam: Full ROM, Normal Inspection. absent: Lymphadenopathy - Respiratory Exam Respiratory Exam: Decreased Breath Sounds - Cardiovascular Exam Cardiovascular Exam: REGULAR RHYTHM, +S1, +S2 - GI/Abdominal Exam GI & Abdominal Exam: Soft, Diminished Bowel Sounds - Rectal Exam Rectal Exam: Deferred Assessment and Plan (1) Acute CHF Status: Acute (2) Acute systolic CHF (congestive heart failure) Status: Acute (3) Anemia Status: Acute (4) Arterial, arteriole and capillary disease Status: Acute (5) Asthma Status: Acute (6) Asthma attack Status: Acute (7) Atrial fibrillation with rapid ventricular response Status: Acute (8) CHF (congestive heart failure) Status: Acute (9) CHF exacerbation Status: Acute (10) Chronic congestive heart failure Status: Acute (11) Cough Status: Acute (12) Diabetes Status: Acute (13) Dialysis patient, noncompliant Status: Acute (14) ESRD on dialysis Status: Acute (15) H/O fluid overload Status: Acute (16) Hyperkalemia Status: Acute (17) IDDM (insulin dependent diabetes mellitus) Status: Acute (18) Leg pain Status: Acute (19) Leg pain, right Status: Acute (20) Leukocytosis (leucocytosis) Status: Acute (21) Occult blood positive stool Status: Acute (22) PAD (peripheral artery disease) Status: Acute (23) PVD (peripheral vascular disease) Status: Acute (24) Peripheral vascular complication Status: Acute (25) Pneumonia of both lower lobes Status: Acute (26) Prophylactic measure Status: Acute (27) Pulmonary arterial hypertension Status: Acute (28) Pulmonary edema Status: Acute (29) Pulmonary edema with congestive heart failure Status: Acute (30) Pulmonary hypertension Status: Acute (31) Renal mass Status: Acute (32) Respiratory distress Status: Acute (33) Tricuspid incompetence Status: Acute (34) Atrial fibrillation Status: Chronic (35) CAD (coronary artery disease) Status: Chronic (36) COPD (chronic obstructive pulmonary disease) Status: Chronic (37) COPD exacerbation Status: Chronic (38) CRF (chronic renal failure) Status: Chronic (39) Carotid stenosis, left Status: Chronic (40) Critical lower limb ischemia Status: Chronic (41) CHOE (dyspnea on exertion) Status: Chronic (42) HTN (hypertension) Status: Chronic (43) Hyperlipidemia Status: Chronic (44) Pulmonary hypertension associated with ESRD on dialysis Status: Chronic (45) Renal failure Status: Chronic (46) Pneumonia Status: Suspected (47) URI (upper respiratory infection) Status: Suspected - Assessment and Plan (Free Text) Plan: Labs reviewed Consults on board Azithromycin Ceftriaxone Hydralazine Cardizem Blood culture shows no growth till now
[2016-11-13] MEDS: Albuterol HFA 90 mcg/actuation (8 g) IH PRN (19:49)
[2016-11-13] MEDS ORDERED: Albuterol-Ipratrop 3 mg / 0.5 (3 ml) UD INH STA (22:12)
[2016-11-14] MEDS: Albuterol-Ipratrop 3 mg / 0.5 (3 ml) UD INH SCH ×4 (00:59→20:10)
[2016-11-14] MEDS: Fluticasone-Salmeterol 250-50mcg Diskus INH SCH ×2 (07:48→20:09)
[2016-11-14 08:10] LABS: BASO # 0.1 K/uL (0.0-0.2); BASO % 0.5 % (0.0-2.0); EOS # 0.5 K/uL (0.0-0.7); EOS % 3.3 % (0.0-4.0); HEMATOCRIT 28.9 % (34.0-47.0); LYMPH # 1.1 K/uL (1.0-4.3); LYMPH % 7.9 % (20.0-40.0); MEAN CELL VOLUME 92.4 fL (81.0-99.0); MEAN CORPUSCULAR HEMOGLOBIN 28.5 pg (27.0-31.0); MEAN CORPUSCULAR HGB CONC 30.9 g/dL (33.0-37.0); MEAN PLATELET VOLUME 11.5 fL (7.2-11.7); MONO # 1.2 K/uL (0.0-0.8); MONO % 8.9 % (0.0-10.0); PLATELET COUNT 188 K/uL (130-400); RED CELL DISTRIBUTION WIDTH 17.3 % (11.5-14.5)
[2016-11-14] MEDS: (Novolin R) Insulin Human Regular 100 units/ml vial SC SCH ×4 (08:17→21:35)
[2016-11-14] MEDS: (Novolog Mix 70/30) Insulin Aspart/Insulin Aspar 100 units/ml SC SCH ×2 (08:18→21:34)
[2016-11-14] MEDS ORDERED: Midazolam 2 MG/2 ML VIAL ONE (08:24)
[2016-11-14] MEDS ORDERED: Absorbable Gelatin Sponge Size 12-7 ONE (08:30)
[2016-11-14 08:38] LABS: POTASSIUM 5.6 mmol/L (3.6-5.2)
[2016-11-14 08:40] LABS: ALB/GLOB RATIO 0.9 (1.0-2.1); BILIRUBIN,TOTAL 0.5 mg/dL (0.2-1.3); TOTAL PROTEIN 7.7 g/dL (6.3-8.3)
[2016-11-14 09:01] LABS: EOSINOPHIL 5 % (0-4); NEUTROPHIL 81 % (50-75); TOTAL CELLS COUNTED 100
[2016-11-14 09:02] LABS: LARGE PLATELETS PRESENT
--- NOTE | 2016-11-14 09:19 | PCM.SURG1 ---
Surgeon's Initial Post Op Note - Surgeon's Notes Surgeon: Victoriano Jung MD Poultry Raiser: None Pre-Operative Diagnosis: Right renal mass. Operative Findings: CT shows a 3 cm right renal mass. Post-Operative Diagnosis: Right renal mass Operation Performed: CT guidede right renal mass biopsy. Six 18 g core specimen obtained. Specimen/Specimens Removed: 6 x 18 g core Estimated Blood Loss: EBL {In ML}: 1 Blood Products Given: N/A Drains Used: No Drains Post-Op Condition: Fair Date of Surgery/Procedure: 11/14/16 Time of Surgery/Procedure: 09:15
--- NOTE | 2016-11-14 10:46 | CT ---
PROCEDURE: Date of procedure: 11/14/2016 Procedure: CT-guided right renal mass biopsy, CPT 82634 CT scan guidance for biopsy, [address] Medications: The patient sedated by anesthesiologist along with physiologic monitoring. 1 percent lidocaine HISTORY: Right renal mass TECHNIQUE: Following informed consent, the Pt's right back was marked. The Pt was placed prone on the CT table and procedure time out was performed. A noncontrast CT scan was performed. Noncontrast CT scan showed a right lower pole renal mass. The patient right back was prepped and draped in the usual sterile fashion. After patient sedated by the anesthesiologist and the skin anesthetized with 1% lidocaine, an 18 gauge core needle was advanced percutaneously under CT guidance towards the lower pole mass. Upon confirmation of needle position, six-18 gauge core specimens were obtained and sent for routine pathology. The biopsy track was then embolized with Gelfoam. A post biopsy CT scan showed no hematoma. There were no immediate complications. IMPRESSION: CT-guided biopsy of right renal mass.
[2016-11-14] MEDS: diltiaZEM 300 mg/24 Hours CD Cap PO SCH (14:46)
[2016-11-14] MEDS: Azithromycin 500 MG in Sodium Chloride 0.9% 250 ML IVPB SCH (15:34)
--- NOTE | 2016-11-14 18:12 | CP.PCM.PN ---
Subjective - Date & Time of Evaluation Date of Evaluation: 11/14/16 Time of Evaluation: 09:20 - Subjective Subjective: clinically same Objective - Vital Signs/Intake and Output Vital Signs (last 24 hours): Temp Pulse Resp BP Pulse Ox 98 F 105 H 20 150/72 96 11/14/16 16:00 11/14/16 16:00 11/14/16 16:00 11/14/16 16:00 11/14/16 16:00 Intake and Output: 11/14/16 11/14/16 06:59 18:59 Intake Total 550 750 Balance 550 750 - Medications Medications: Current Medications Acetaminophen (Tylenol 325mg Tab) 650 mg PO Q6 PRN PRN Reason: pain Last Admin: 11/14/16 16:59 Dose: 650 mg Albuterol (Ventolin Hfa 90 Mcg/Actuation (8 G)) 90 puff IH RQID PRN PRN Reason: Wheezing Last Admin: 11/13/16 19:49 Dose: 90 mcg Albuterol/Ipratropium (Duoneb 3 Mg/0.5 Mg (3 Ml) Ud) 3 ml INH RQ6 [facility] Last Admin: 11/14/16 13:20 Dose: Not Given Alprazolam (Xanax) 0.25 mg PO BID PRN PRN Reason: Anxiety Stop: 11/17/16 17:14 Aspirin (Ecotrin) 81 mg PO DAILY [facility] Last Admin: 11/14/16 10:11 Dose: 81 mg Calcium Acetate (Phoslo) 667 mg PO TIDCC [facility] Last Admin: 11/14/16 14:45 Dose: 667 mg Clopidogrel Bisulfate (Plavix) 75 mg PO DAILY [facility] Last Admin: 11/14/16 10:10 Dose: 75 mg Diltiazem HCl (Cardizem Cd) 300 mg PO DAILY [facility] Last Admin: 11/14/16 14:46 Dose: 300 mg Escitalopram Oxalate (Lexapro) 5 mg PO DAILY [facility] Last Admin: 11/14/16 10:10 Dose: 5 mg Famotidine (Pepcid) 20 mg PO DAILY [facility] Last Admin: 11/14/16 10:10 Dose: 20 mg Furosemide (Lasix) 80 mg PO DAILY [facility] Last Admin: 11/14/16 14:46 Dose: 80 mg Gabapentin (Neurontin) 100 mg PO HS [facility] Last Admin: 11/12/16 22:03 Dose: 100 mg Hydralazine HCl (Apresoline) 100 mg PO BID [facility] Last Admin: 11/14/16 10:26 Dose: Not Given Ceftriaxone Sodium 1 gm/ (Sodium Chloride) 100 mls @ 100 mls/hr IVPB DAILY [facility] Last Admin: 11/14/16 14:47 Dose: 100 mls/hr Azithromycin 500 mg/ Sodium (Chloride) 250 mls @ 167 mls/hr IVPB Q24H [facility] Last Admin: 11/14/16 15:34 Dose: 167 mls/hr Insulin Aspart (Novolog Mix 70/30 (70/30 Units/Ml)) 20 units SC HS [facility] Last Admin: 11/12/16 21:56 Dose: 20 units Insulin Aspart (Novolog Mix 70/30 (70/30 Units/Ml)) 15 units SC ACB [facility] Last Admin: 11/14/16 08:18 Dose: Not Given Insulin Human Regular (Novolin R) 0 unit SC ACHS [facility] PRN Reason: Protocol Last Admin: 11/14/16 17:05 Dose: 8 unit Isosorbide Mononitrate (Imdur) 60 mg PO DAILY [facility] Last Admin: 11/14/16 14:45 Dose: 60 mg Prednisone (Prednisone Tab) 10 mg PO DAILY [facility] Last Admin: 11/14/16 10:11 Dose: 10 mg Rosuvastatin Calcium (Crestor) 10 mg PO [facility] Last Admin: 11/13/16 22:00 Dose: 10 mg Fluticasone/Salmeterol (Advair Diskus 250/50) 1 puff INH RQ12 [facility] Last Admin: 11/14/16 07:48 Dose: 1 puff - Labs Labs: 11/14/16 08:04 11/14/16 08:04 PT 11.7 SECONDS (9.7-12.2) 11/13/16 08:27 INR 1.0 11/13/16 08:27 APTT 28 SECONDS (21-34) 11/13/16 08:27 - Constitutional Appears: Well - Head Exam Head Exam: ATRAUMATIC, NORMAL INSPECTION, NORMOCEPHALIC - Eye Exam Eye Exam: EOMI, Normal appearance, PERRL Pupil Exam: NORMAL ACCOMODATION, PERRL - ENT Exam ENT Exam: Mucous Membranes Moist, Normal Exam - Neck Exam Neck Exam: Full ROM, Normal Inspection. absent: Lymphadenopathy - Respiratory Exam Respiratory Exam: Decreased Breath Sounds - Cardiovascular Exam Cardiovascular Exam: REGULAR RHYTHM, +S1, +S2 - GI/Abdominal Exam GI & Abdominal Exam: Soft, Diminished Bowel Sounds - Rectal Exam Rectal Exam: Deferred Assessment and Plan (1) Acute CHF Status: Acute (2) Acute systolic CHF (congestive heart failure) Status: Acute (3) Anemia Status: Acute (4) Arterial, arteriole and capillary disease Status: Acute (5) Asthma Status: Acute (6) Asthma attack Status: Acute (7) Atrial fibrillation with rapid ventricular response Status: Acute (8) CHF (congestive heart failure) Status: Acute (9) CHF exacerbation Status: Acute (10) Chronic congestive heart failure Status: Acute (11) Cough Status: Acute (12) Diabetes Status: Acute (13) Dialysis patient, noncompliant Status: Acute (14) ESRD on dialysis Status: Acute (15) H/O fluid overload Status: Acute (16) Hyperkalemia Status: Acute (17) IDDM (insulin dependent diabetes mellitus) Status: Acute (18) Leg pain Status: Acute (19) Leg pain, right Status: Acute (20) Leukocytosis (leucocytosis) Status: Acute (21) Occult blood positive stool Status: Acute (22) PAD (peripheral artery disease) Status: Acute (23) PVD (peripheral vascular disease) Status: Acute (24) Peripheral vascular complication Status: Acute (25) Pneumonia of both lower lobes Status: Acute (26) Prophylactic measure Status: Acute (27) Pulmonary arterial hypertension Status: Acute (28) Pulmonary edema Status: Acute (29) Pulmonary edema with congestive heart failure Status: Acute (30) Pulmonary hypertension Status: Acute (31) Renal mass Status: Acute (32) Respiratory distress Status: Acute (33) Tricuspid incompetence Status: Acute (34) Atrial fibrillation Status: Chronic (35) CAD (coronary artery disease) Status: Chronic (36) COPD (chronic obstructive pulmonary disease) Status: Chronic (37) COPD exacerbation Status: Chronic (38) CRF (chronic renal failure) Status: Chronic (39) Carotid stenosis, left Status: Chronic (40) Critical lower limb ischemia Status: Chronic (41) CHOE (dyspnea on exertion) Status: Chronic (42) HTN (hypertension) Status: Chronic (43) Hyperlipidemia Status: Chronic (44) Pulmonary hypertension associated with ESRD on dialysis Status: Chronic (45) Renal failure Status: Chronic (46) Pneumonia Status: Suspected (47) URI (upper respiratory infection) Status: Suspected - Assessment and Plan (Free Text) Plan: CT-guided kidney biopsy Labs next a.m. Royce Vital signs monitoring Consults Antibiotics as advised Hydralazine
--- NOTE | 2016-11-14 18:21 | CP.PCM.PN ---
<Mac Sorenson H - Last Filed: 11/14/16 18:21> Subjective - Date & Time of Evaluation Date of Evaluation: 11/14/16 Time of Evaluation: 09:30 - Subjective Subjective: Dr. Kelvin Frederick service: Patient seen and examined. Patient is is complaing of mild abdominal pain, but no fever, chills, nausea, vomiting. Objective - Vital Signs/Intake and Output Vital Signs (last 24 hours): Temp Pulse Resp BP Pulse Ox 98 F 105 H 20 150/72 96 11/14/16 16:00 11/14/16 16:00 11/14/16 16:00 11/14/16 16:00 11/14/16 16:00 Intake and Output: 11/14/16 11/14/16 06:59 18:59 Intake Total 550 750 Balance 550 750 - Medications Medications: Current Medications Acetaminophen (Tylenol 325mg Tab) 650 mg PO Q6 PRN PRN Reason: pain Last Admin: 11/14/16 16:59 Dose: 650 mg Albuterol (Ventolin Hfa 90 Mcg/Actuation (8 G)) 90 puff IH RQID PRN PRN Reason: Wheezing Last Admin: 11/13/16 19:49 Dose: 90 mcg Albuterol/Ipratropium (Duoneb 3 Mg/0.5 Mg (3 Ml) Ud) 3 ml INH RQ6 [facility] Last Admin: 11/14/16 13:20 Dose: Not Given Alprazolam (Xanax) 0.25 mg PO BID PRN PRN Reason: Anxiety Stop: 11/17/16 17:14 Aspirin (Ecotrin) 81 mg PO DAILY [facility] Last Admin: 11/14/16 10:11 Dose: 81 mg Calcium Acetate (Phoslo) 667 mg PO TIDCC [facility] Last Admin: 11/14/16 14:45 Dose: 667 mg Clopidogrel Bisulfate (Plavix) 75 mg PO DAILY [facility] Last Admin: 11/14/16 10:10 Dose: 75 mg Diltiazem HCl (Cardizem Cd) 300 mg PO DAILY [facility] Last Admin: 11/14/16 14:46 Dose: 300 mg Escitalopram Oxalate (Lexapro) 5 mg PO DAILY [facility] Last Admin: 11/14/16 10:10 Dose: 5 mg Famotidine (Pepcid) 20 mg PO DAILY [facility] Last Admin: 11/14/16 10:10 Dose: 20 mg Furosemide (Lasix) 80 mg PO DAILY [facility] Last Admin: 11/14/16 14:46 Dose: 80 mg Gabapentin (Neurontin) 100 mg PO [facility] Last Admin: 11/12/16 22:03 Dose: 100 mg Hydralazine HCl (Apresoline) 100 mg PO BID [facility] Last Admin: 11/14/16 10:26 Dose: Not Given Ceftriaxone Sodium 1 gm/ (Sodium Chloride) 100 mls @ 100 mls/hr IVPB DAILY [facility] Last Admin: 11/14/16 14:47 Dose: 100 mls/hr Azithromycin 500 mg/ Sodium (Chloride) 250 mls @ 167 mls/hr IVPB Q24H [facility] Last Admin: 11/14/16 15:34 Dose: 167 mls/hr Insulin Aspart (Novolog Mix 70/30 (70/30 Units/Ml)) 20 units SC HS [facility] Last Admin: 11/12/16 21:56 Dose: 20 units Insulin Aspart (Novolog Mix 70/30 (70/30 Units/Ml)) 15 units SC ACB [facility] Last Admin: 11/14/16 08:18 Dose: Not Given Insulin Human Regular (Novolin R) 0 unit SC [facility] PRN Reason: Protocol Last Admin: 11/14/16 17:05 Dose: 8 unit Isosorbide Mononitrate (Imdur) 60 mg PO DAILY [facility] Last Admin: 11/14/16 14:45 Dose: 60 mg Prednisone (Prednisone Tab) 10 mg PO DAILY [facility] Last Admin: 11/14/16 10:11 Dose: 10 mg Rosuvastatin Calcium (Crestor) 10 mg PO [facility] Last Admin: 11/13/16 22:00 Dose: 10 mg Fluticasone/Salmeterol (Advair Diskus 250/50) 1 puff INH RQ12 [facility] Last Admin: 11/14/16 07:48 Dose: 1 puff - Labs Labs: 11/14/16 08:04 11/14/16 08:04 PT 11.7 SECONDS (9.7-12.2) 11/13/16 08:27 INR 1.0 11/13/16 08:27 APTT 28 SECONDS (21-34) 11/13/16 08:27 - Constitutional Appears: Non-toxic, No Acute Distress - Head Exam Head Exam: NORMOCEPHALIC - Eye Exam Eye Exam: Normal appearance - ENT Exam ENT Exam: Normal Exam - Neck Exam Neck Exam: Normal Inspection - Respiratory Exam Respiratory Exam: Clear to Ausculation Bilateral. absent: Rales, Rhonchi, Wheezes - Cardiovascular Exam Cardiovascular Exam: REGULAR RHYTHM, RRR, +S1, +S2. absent: Gallop, Rubs - GI/Abdominal Exam GI & Abdominal Exam: Soft, Tenderness. absent: Distended, Guarding - Extremities Exam Extremities Exam: Normal Inspection. absent: Pedal Edema - Psychiatric Exam Psychiatric exam: Normal Affect, Normal Mood - Skin Skin Exam: Normal Color, Warm Assessment and Plan - Assessment and Plan (Free Text) Assessment: Kidney Mass Assessment & Plan: 11/14: Follow up biopsy results. Biopsy preformed today. 11/13: Patient will need a kidney biopsy Leg pain, right Assessment & Plan: 11/13: continue current managment X ray shows soft tissue swelling, doppler negative for any evidence of DVT. F/U extremity arterial study Will given Tylenol for pain as needed. Possibly cellulitus Status: Acute Pneumonia Assessment & Plan 11/14: Day 3 of Zithromax and Rocephin 11/13: day 2 of Zithromax and Rocephin, fever, chest pain, or cough. She does have a WBC of 16.7 today with left shift, continue to monitor WBC. CXR - moderate venous congestion. bilateral hilar prominence. Bibasilar airspace opacities. small b/l pleural effusions. Upper lobe granulomatous changes. Started zithromax 500mg IVPB daily and rocephin 1gm IVPB daily 11/12/16 Status: Acute IDDM (insulin dependent diabetes mellitus) Assessment & Plan: Patient on 70/30 Novolog 15 units at night and 10 units ACB. Sliding scale insulin with medium protocol and accuchecks. Status: Acute COPD (chronic obstructive pulmonary disease) Assessment & Plan: Albuterol prn and Advair. Status: Chronic CAD (coronary artery disease) Assessment & Plan: Crestor 10mg, Aspirin 81mg, and Plavix 75mg Status: Chronic Atrial fibrillation Status: Chronic Hep 5000U SC Q8 prophylaxis HR constrolled No anticoagulation besides Plavix and ASA ESRD on dialysis Assessment & Plan: Patient is scheduled for dialysis today Status: Chronic CHF (congestive heart failure) Assessment & Plan: Lasix 80mg PO daily. Status: Acute HTN (hypertension) Assessment & Plan: Cardizem 300mg daily, Imdur 60mg daily, Hydralazine 100mg TID Status: Chronic Prophylactic measure Assessment & Plan: Pepcid 20mg 0.25mg Xanax prn for anxiety tylenol 650mg Q6H prn for pain Heparin 5000 units SC Q8H. Status: Acute <Haydee Frederick S - Last Filed: 11/16/16 10:32> Subjective - Date & Time of Evaluation Date of Evaluation: 11/16/16 Objective - Vital Signs/Intake and Output Vital Signs (last 24 hours): Temp Pulse Resp BP Pulse Ox 98.7 F 110 H 22 186/73 H 94 L 11/16/16 08:07 11/16/16 08:07 11/16/16 08:07 11/16/16 10:19 11/16/16 08:07 Intake and Output: 11/16/16 11/16/16 06:59 18:59 Intake Total 610 Balance 610 - Medications Medications: Current Medications Acetaminophen (Tylenol 325mg Tab) 650 mg PO Q6 PRN PRN Reason: pain Last Admin: 11/16/16 06:42 Dose: 650 mg Albuterol (Ventolin Hfa 90 Mcg/Actuation (8 G)) 90 puff IH RQID PRN PRN Reason: Wheezing Last Admin: 11/13/16 19:49 Dose: 90 mcg Albuterol/Ipratropium (Duoneb 3 Mg/0.5 Mg (3 Ml) Ud) 3 ml INH RQ6 [facility] Last Admin: 11/16/16 08:18 Dose: 3 ml Alprazolam (Xanax) 0.25 mg PO BID PRN PRN Reason: Anxiety Stop: 11/17/16 17:14 Last Admin: 11/15/16 14:50 Dose: 0.25 mg Aspirin (Ecotrin) 81 mg PO DAILY [facility] Last Admin: 11/16/16 10:19 Dose: 81 mg Calcium Acetate (Phoslo) 667 mg PO TIDCC [facility] Last Admin: 11/16/16 07:52 Dose: 667 mg Clopidogrel Bisulfate (Plavix) 75 mg PO DAILY [facility] Last Admin: 11/16/16 10:18 Dose: 75 mg Diltiazem HCl (Cardizem Cd) 300 mg PO DAILY [facility] Last Admin: 11/16/16 10:18 Dose: 300 mg Escitalopram Oxalate (Lexapro) 5 mg PO DAILY [facility] Last Admin: 11/16/16 10:18 Dose: 5 mg Famotidine (Pepcid) 20 mg PO DAILY [facility] Last Admin: 11/16/16 10:19 Dose: 20 mg Furosemide (Lasix) 80 mg PO DAILY [facility] Last Admin: 11/16/16 10:19 Dose: 80 mg Gabapentin (Neurontin) 100 mg PO HS [facility] Last Admin: 11/15/16 22:39 Dose: 100 mg Hydralazine HCl (Apresoline) 100 mg PO BID [facility] Last Admin: 11/16/16 10:18 Dose: 100 mg Ceftriaxone Sodium 1 gm/ (Sodium Chloride) 100 mls @ 100 mls/hr IVPB DAILY [facility] Last Admin: 11/16/16 10:20 Dose: 100 mls/hr Azithromycin 500 mg/ Sodium (Chloride) 250 mls @ 167 mls/hr IVPB Q24H [facility] Last Admin: 11/15/16 15:00 Dose: 167 mls/hr Insulin Aspart (Novolog Mix 70/30 (70/30 Units/Ml)) 20 units SC HS [facility] Last Admin: 11/15/16 22:10 Dose: 20 units Insulin Aspart (Novolog Mix 70/30 (70/30 Units/Ml)) 15 units SC ACB [facility] Last Admin: 11/16/16 07:52 Dose: 15 units Insulin Human Regular (Novolin R) 0 unit SC ACHS [facility] PRN Reason: Protocol Last Admin: 11/16/16 07:49 Dose: Not Given Isosorbide Mononitrate (Imdur) 60 mg PO DAILY [facility] Last Admin: 11/16/16 10:18 Dose: 60 mg Prednisone (Prednisone Tab) 10 mg PO DAILY [facility] Last Admin: 11/16/16 10:18 Dose: 10 mg Rosuvastatin Calcium (Crestor) 10 mg PO HS [facility] Last Admin: 11/15/16 22:10 Dose: 10 mg Fluticasone/Salmeterol (Advair Diskus 250/50) 1 puff INH RQ12 [facility] Last Admin: 11/16/16 08:18 Dose: 1 puff - Labs Labs: 11/16/16 08:32 11/16/16 08:32 PT 11.7 SECONDS (9.7-12.2) 11/13/16 08:27 INR 1.0 11/13/16 08:27 APTT 28 SECONDS (21-34) 11/13/16 08:27 Attending/Attestation - Attestation I have personally seen and examined this patient.: Yes I have fully participated in the care of the patient.: Yes I have reviewed all pertinent clinical information, including history, physical exam and plan: Yes Notes (Text): 11/16/16 10:32 case joelle nd disucssed withs esequiel jenkinsn resident
[2016-11-15] MEDS: Albuterol-Ipratrop 3 mg / 0.5 (3 ml) UD INH SCH ×4 (01:42→19:15)
[2016-11-15 07:23] LABS: BASO # 0.1 K/uL (0.0-0.2); BASO % 0.4 % (0.0-2.0); EOS # 0.2 K/uL (0.0-0.7); EOS % 1.1 % (0.0-4.0); HEMATOCRIT 26.2 % (34.0-47.0); LYMPH # 0.9 K/uL (1.0-4.3); LYMPH % 6.1 % (20.0-40.0); MEAN CORPUSCULAR HEMOGLOBIN 29.1 pg (27.0-31.0); MEAN PLATELET VOLUME 10.8 fL (7.2-11.7); MONO # 1.6 K/uL (0.0-0.8); MONO % 10.6 % (0.0-10.0); PLATELET COUNT 194 K/uL (130-400); RED CELL DISTRIBUTION WIDTH 17.2 % (11.5-14.5); WHITE BLOOD COUNT 15.2 K/uL (4.8-10.8)
[2016-11-15] MEDS: (Novolog Mix 70/30) Insulin Aspart/Insulin Aspar 100 units/ml SC SCH ×2 (07:30→22:10)
[2016-11-15] MEDS: (Novolin R) Insulin Human Regular 100 units/ml vial SC SCH ×4 (07:30→22:00)
[2016-11-15 07:41] LABS: POTASSIUM 4.9 mmol/L (3.6-5.2)
[2016-11-15 07:44] LABS: BILIRUBIN,TOTAL 0.4 mg/dL (0.2-1.3); CALCIUM 8.9 mg/dl (8.6-10.4); TOTAL PROTEIN 7.1 g/dL (6.3-8.3)
[2016-11-15] MEDS: Fluticasone-Salmeterol 250-50mcg Diskus INH SCH ×2 (08:17→19:15)
[2016-11-15 09:22] LABS: EOSINOPHIL 2 % (0-4); NEUTROPHIL 83 % (50-75); TOTAL CELLS COUNTED 100
[2016-11-15 09:24] LABS: LARGE PLATELETS PRESENT
[2016-11-15] MEDS: diltiaZEM 300 mg/24 Hours CD Cap PO SCH (10:22)
--- NOTE | 2016-11-15 14:33 | CP.PCM.PN ---
Subjective - Date & Time of Evaluation Date of Evaluation: 11/15/16 Time of Evaluation: 09:20 - Subjective Subjective: clinically same Objective - Vital Signs/Intake and Output Vital Signs (last 24 hours): Temp Pulse Resp BP Pulse Ox 98.6 F 95 H 20 131/82 93 L 11/15/16 08:00 11/15/16 08:20 11/15/16 08:00 11/15/16 10:21 11/15/16 08:00 Intake and Output: 11/15/16 11/15/16 06:59 18:59 Intake Total 100 Balance 100 - Medications Medications: Current Medications Acetaminophen (Tylenol 325mg Tab) 650 mg PO Q6 PRN PRN Reason: pain Last Admin: 11/15/16 06:41 Dose: 650 mg Albuterol (Ventolin Hfa 90 Mcg/Actuation (8 G)) 90 puff IH RQID PRN PRN Reason: Wheezing Last Admin: 11/13/16 19:49 Dose: 90 mcg Albuterol/Ipratropium (Duoneb 3 Mg/0.5 Mg (3 Ml) Ud) 3 ml INH RQ6 ALISA Last Admin: 11/15/16 14:17 Dose: 3 ml Alprazolam (Xanax) 0.25 mg PO BID PRN PRN Reason: Anxiety Stop: 11/17/16 17:14 Aspirin (Ecotrin) 81 mg PO DAILY [facility] Last Admin: 11/15/16 10:22 Dose: 81 mg Calcium Acetate (Phoslo) 667 mg PO TIDCC [facility] Last Admin: 11/15/16 12:05 Dose: 667 mg Clopidogrel Bisulfate (Plavix) 75 mg PO DAILY [facility] Last Admin: 11/15/16 10:22 Dose: 75 mg Diltiazem HCl (Cardizem Cd) 300 mg PO DAILY [facility] Last Admin: 11/15/16 10:22 Dose: 300 mg Escitalopram Oxalate (Lexapro) 5 mg PO DAILY [facility] Last Admin: 11/15/16 10:20 Dose: 5 mg Famotidine (Pepcid) 20 mg PO DAILY [facility] Last Admin: 11/15/16 10:20 Dose: 20 mg Furosemide (Lasix) 80 mg PO DAILY [facility] Last Admin: 11/15/16 10:21 Dose: 80 mg Gabapentin (Neurontin) 100 mg PO HS [facility] Last Admin: 11/14/16 21:16 Dose: 100 mg Hydralazine HCl (Apresoline) 100 mg PO BID [facility] Last Admin: 11/15/16 10:20 Dose: 100 mg Ceftriaxone Sodium 1 gm/ (Sodium Chloride) 100 mls @ 100 mls/hr IVPB DAILY [facility] Last Admin: 11/14/16 14:47 Dose: 100 mls/hr Azithromycin 500 mg/ Sodium (Chloride) 250 mls @ 167 mls/hr IVPB Q24H [facility] Last Admin: 11/14/16 15:34 Dose: 167 mls/hr Insulin Aspart (Novolog Mix 70/30 (70/30 Units/Ml)) 20 units SC HS [facility] Last Admin: 11/14/16 21:34 Dose: 20 units Insulin Aspart (Novolog Mix 70/30 (70/30 Units/Ml)) 15 units SC ACB [facility] Last Admin: 11/15/16 07:30 Dose: 15 units Insulin Human Regular (Novolin R) 0 unit SC ACHS [facility] PRN Reason: Protocol Last Admin: 11/15/16 11:30 Dose: 4 unit Isosorbide Mononitrate (Imdur) 60 mg PO DAILY [facility] Last Admin: 11/15/16 10:22 Dose: 60 mg Prednisone (Prednisone Tab) 10 mg PO DAILY [facility] Last Admin: 11/15/16 10:20 Dose: 10 mg Rosuvastatin Calcium (Crestor) 10 mg PO HS [facility] Last Admin: 11/14/16 21:15 Dose: 10 mg Fluticasone/Salmeterol (Advair Diskus 250/50) 1 puff INH RQ12 [facility] Last Admin: 11/15/16 08:17 Dose: 1 puff - Labs Labs: 11/15/16 07:14 11/15/16 07:14 PT 11.7 SECONDS (9.7-12.2) 11/13/16 08:27 INR 1.0 11/13/16 08:27 APTT 28 SECONDS (21-34) 11/13/16 08:27 - Constitutional Appears: Well - Head Exam Head Exam: ATRAUMATIC, NORMAL INSPECTION, NORMOCEPHALIC - Eye Exam Eye Exam: EOMI, Normal appearance, PERRL Pupil Exam: NORMAL ACCOMODATION, PERRL - ENT Exam ENT Exam: Mucous Membranes Moist, Normal Exam - Neck Exam Neck Exam: Full ROM, Normal Inspection. absent: Lymphadenopathy - Respiratory Exam Respiratory Exam: Decreased Breath Sounds - Cardiovascular Exam Cardiovascular Exam: REGULAR RHYTHM, +S1, +S2 - GI/Abdominal Exam GI & Abdominal Exam: Soft, Diminished Bowel Sounds - Rectal Exam Rectal Exam: Deferred Assessment and Plan (1) Acute CHF Status: Acute (2) Acute systolic CHF (congestive heart failure) Status: Acute (3) Anemia Status: Acute (4) Arterial, arteriole and capillary disease Status: Acute (5) Asthma Status: Acute (6) Asthma attack Status: Acute (7) Atrial fibrillation with rapid ventricular response Status: Acute (8) CHF (congestive heart failure) Status: Acute (9) CHF exacerbation Status: Acute (10) Chronic congestive heart failure Status: Acute (11) Cough Status: Acute (12) Diabetes Status: Acute (13) Dialysis patient, noncompliant Status: Acute (14) ESRD on dialysis Status: Acute (15) H/O fluid overload Status: Acute (16) Hyperkalemia Status: Acute (17) IDDM (insulin dependent diabetes mellitus) Status: Acute (18) Leg pain Status: Acute (19) Leg pain, right Status: Acute (20) Leukocytosis (leucocytosis) Status: Acute (21) Occult blood positive stool Status: Acute (22) PAD (peripheral artery disease) Status: Acute (23) PVD (peripheral vascular disease) Status: Acute (24) Peripheral vascular complication Status: Acute (25) Pneumonia of both lower lobes Status: Acute (26) Prophylactic measure Status: Acute (27) Pulmonary arterial hypertension Status: Acute (28) Pulmonary edema Status: Acute (29) Pulmonary edema with congestive heart failure Status: Acute (30) Pulmonary hypertension Status: Acute (31) Renal mass Status: Acute (32) Respiratory distress Status: Acute (33) Tricuspid incompetence Status: Acute (34) Atrial fibrillation Status: Chronic (35) CAD (coronary artery disease) Status: Chronic (36) COPD (chronic obstructive pulmonary disease) Status: Chronic (37) COPD exacerbation Status: Chronic (38) CRF (chronic renal failure) Status: Chronic (39) Carotid stenosis, left Status: Chronic (40) Critical lower limb ischemia Status: Chronic (41) CHOE (dyspnea on exertion) Status: Chronic (42) HTN (hypertension) Status: Chronic (43) Hyperlipidemia Status: Chronic (44) Pulmonary hypertension associated with ESRD on dialysis Status: Chronic (45) Renal failure Status: Chronic (46) Pneumonia Status: Suspected (47) URI (upper respiratory infection) Status: Suspected - Assessment and Plan (Free Text) Plan: Consults as advised Vancomycin DuoNeb Blood sugar monitoring Ventolin inhaler DVT prophylaxis
[2016-11-15] MEDS: Azithromycin 500 MG in Sodium Chloride 0.9% 250 ML IVPB SCH (15:00)
[2016-11-16] MEDS: Albuterol-Ipratrop 3 mg / 0.5 (3 ml) UD INH SCH ×4 (01:22→19:22)
[2016-11-16] MEDS: (Novolin R) Insulin Human Regular 100 units/ml vial SC SCH ×4 (07:49→22:10)
[2016-11-16] MEDS: (Novolog Mix 70/30) Insulin Aspart/Insulin Aspar 100 units/ml SC SCH ×2 (07:52→22:00)
[2016-11-16] MEDS: Fluticasone-Salmeterol 250-50mcg Diskus INH SCH ×2 (08:18→19:22)
[2016-11-16 08:42] LABS: BASO # 0.1 K/uL (0.0-0.2); BASO % 0.3 % (0.0-2.0); EOS # 0.4 K/uL (0.0-0.7); LYMPH % 5.6 % (20.0-40.0); MEAN CELL VOLUME 91.1 fL (81.0-99.0); MEAN CORPUSCULAR HGB CONC 31.8 g/dL (33.0-37.0); MEAN PLATELET VOLUME 11.3 fL (7.2-11.7); MONO # 1.4 K/uL (0.0-0.8); MONO % 8.1 % (0.0-10.0); PLATELET COUNT 186 K/uL (130-400); RED CELL DISTRIBUTION WIDTH 17.5 % (11.5-14.5); WHITE BLOOD COUNT 17.4 K/uL (4.8-10.8)
[2016-11-16 08:53] LABS: ALB/GLOB RATIO 0.9 (1.0-2.1); BILIRUBIN,TOTAL 0.5 mg/dL (0.2-1.3); TOTAL PROTEIN 7.2 g/dL (6.3-8.3)
[2016-11-16 08:54] LABS: CALCIUM 8.8 mg/dl (8.6-10.4)
[2016-11-16] MEDS: diltiaZEM 300 mg/24 Hours CD Cap PO SCH (10:18)
[2016-11-16 10:30] LABS: EOSINOPHIL 4 % (0-4); LARGE PLATELETS PRESENT; NEUTROPHIL 82 % (50-75); TOTAL CELLS COUNTED 100
--- NOTE | 2016-11-16 10:33 | CP.PCM.PN ---
Subjective - Date & Time of Evaluation Date of Evaluation: 11/16/16 Time of Evaluation: 07:00 - Subjective Subjective: Clinically same Objective - Vital Signs/Intake and Output Vital Signs (last 24 hours): Temp Pulse Resp BP Pulse Ox 98.7 F 110 H 22 186/73 H 94 L 11/16/16 08:07 11/16/16 08:07 11/16/16 08:07 11/16/16 10:19 11/16/16 08:07 Intake and Output: 11/16/16 11/16/16 06:59 18:59 Intake Total 610 Balance 610 - Medications Medications: Current Medications Acetaminophen (Tylenol 325mg Tab) 650 mg PO Q6 PRN PRN Reason: pain Last Admin: 11/16/16 06:42 Dose: 650 mg Albuterol (Ventolin Hfa 90 Mcg/Actuation (8 G)) 90 puff IH RQID PRN PRN Reason: Wheezing Last Admin: 11/13/16 19:49 Dose: 90 mcg Albuterol/Ipratropium (Duoneb 3 Mg/0.5 Mg (3 Ml) Ud) 3 ml INH RQ6 ALISA Last Admin: 11/16/16 08:18 Dose: 3 ml Alprazolam (Xanax) 0.25 mg PO BID PRN PRN Reason: Anxiety Stop: 11/17/16 17:14 Last Admin: 11/15/16 14:50 Dose: 0.25 mg Aspirin (Ecotrin) 81 mg PO DAILY [facility] Last Admin: 11/16/16 10:19 Dose: 81 mg Calcium Acetate (Phoslo) 667 mg PO TIDCC [facility] Last Admin: 11/16/16 07:52 Dose: 667 mg Clopidogrel Bisulfate (Plavix) 75 mg PO DAILY [facility] Last Admin: 11/16/16 10:18 Dose: 75 mg Diltiazem HCl (Cardizem Cd) 300 mg PO DAILY [facility] Last Admin: 11/16/16 10:18 Dose: 300 mg Escitalopram Oxalate (Lexapro) 5 mg PO DAILY [facility] Last Admin: 11/16/16 10:18 Dose: 5 mg Famotidine (Pepcid) 20 mg PO DAILY [facility] Last Admin: 11/16/16 10:19 Dose: 20 mg Furosemide (Lasix) 80 mg PO DAILY [facility] Last Admin: 11/16/16 10:19 Dose: 80 mg Gabapentin (Neurontin) 100 mg PO HS [facility] Last Admin: 11/15/16 22:39 Dose: 100 mg Hydralazine HCl (Apresoline) 100 mg PO BID [facility] Last Admin: 11/16/16 10:18 Dose: 100 mg Ceftriaxone Sodium 1 gm/ (Sodium Chloride) 100 mls @ 100 mls/hr IVPB DAILY [facility] Last Admin: 11/16/16 10:20 Dose: 100 mls/hr Azithromycin 500 mg/ Sodium (Chloride) 250 mls @ 167 mls/hr IVPB Q24H [facility] Last Admin: 11/15/16 15:00 Dose: 167 mls/hr Insulin Aspart (Novolog Mix 70/30 (70/30 Units/Ml)) 20 units SC HS [facility] Last Admin: 11/15/16 22:10 Dose: 20 units Insulin Aspart (Novolog Mix 70/30 (70/30 Units/Ml)) 15 units SC ACB [facility] Last Admin: 11/16/16 07:52 Dose: 15 units Insulin Human Regular (Novolin R) 0 unit SC ACHS [facility] PRN Reason: Protocol Last Admin: 11/16/16 07:49 Dose: Not Given Isosorbide Mononitrate (Imdur) 60 mg PO DAILY [facility] Last Admin: 11/16/16 10:18 Dose: 60 mg Prednisone (Prednisone Tab) 10 mg PO DAILY [facility] Last Admin: 11/16/16 10:18 Dose: 10 mg Rosuvastatin Calcium (Crestor) 10 mg PO HS [facility] Last Admin: 11/15/16 22:10 Dose: 10 mg Fluticasone/Salmeterol (Advair Diskus 250/50) 1 puff INH RQ12 [facility] Last Admin: 11/16/16 08:18 Dose: 1 puff - Labs Labs: 11/16/16 08:32 11/16/16 08:32 PT 11.7 SECONDS (9.7-12.2) 11/13/16 08:27 INR 1.0 11/13/16 08:27 APTT 28 SECONDS (21-34) 11/13/16 08:27 - Constitutional Appears: Well - Head Exam Head Exam: ATRAUMATIC, NORMAL INSPECTION, NORMOCEPHALIC - Eye Exam Eye Exam: EOMI, Normal appearance, PERRL Pupil Exam: NORMAL ACCOMODATION, PERRL - ENT Exam ENT Exam: Mucous Membranes Moist, Normal Exam - Neck Exam Neck Exam: Full ROM, Normal Inspection. absent: Lymphadenopathy - Respiratory Exam Respiratory Exam: Clear to Ausculation Bilateral, NORMAL BREATHING PATTERN - Cardiovascular Exam Cardiovascular Exam: REGULAR RHYTHM, +S1, +S2. absent: Murmur - GI/Abdominal Exam GI & Abdominal Exam: Soft, Normal Bowel Sounds. absent: Tenderness - Rectal Exam Rectal Exam: Deferred Assessment and Plan (1) CRF (chronic renal failure) Status: Chronic (2) Hyperkalemia Status: Acute (3) ESRD on dialysis Status: Acute (4) Pneumonia Status: Suspected (5) Acute systolic CHF (congestive heart failure) Status: Acute (6) Respiratory distress Status: Acute (7) Prophylactic measure Status: Acute (8) IDDM (insulin dependent diabetes mellitus) Status: Acute (9) Pulmonary arterial hypertension Status: Acute - Assessment and Plan (Free Text) Plan: on ivantibiotic on hd gi and dvt prophy viktoriya as ordered consultation follow up
[2016-11-16] MEDS: Azithromycin 500 MG in Sodium Chloride 0.9% 250 ML IVPB SCH (15:30)
[2016-11-17] MEDS: Albuterol-Ipratrop 3 mg / 0.5 (3 ml) UD INH SCH ×4 (01:03→13:30)
[2016-11-17 07:10] LABS: BILIRUBIN,TOTAL 0.4 mg/dL (0.2-1.3); TOTAL PROTEIN 7.2 g/dL (6.3-8.3)
[2016-11-17 07:16] LABS: POTASSIUM 6.5 mmol/L (3.6-5.2)
[2016-11-17 07:34] LABS: BASO % 0.2 % (0.0-2.0); EOS # 0.2 K/uL (0.0-0.7); HEMATOCRIT 23.4 % (34.0-47.0); MEAN CELL VOLUME 91.7 fL (81.0-99.0); MEAN CORPUSCULAR HEMOGLOBIN 28.7 pg (27.0-31.0); MEAN CORPUSCULAR HGB CONC 31.3 g/dL (33.0-37.0); MEAN PLATELET VOLUME 11.6 fL (7.2-11.7); MONO # 1.6 K/uL (0.0-0.8); MONO % 8.1 % (0.0-10.0); PLATELET COUNT 222 K/uL (130-400); RED CELL DISTRIBUTION WIDTH 17.4 % (11.5-14.5); WHITE BLOOD COUNT 19.8 K/uL (4.8-10.8)
--- NOTE | 2016-11-17 07:38 | CP.PCM.PN ---
Subjective - Date & Time of Evaluation Date of Evaluation: 11/17/16 Time of Evaluation: 13:00 - Subjective Subjective: Dr. Frederick service, Patient is seen and examin in room and while in dialysis. She is complaining of shortness of breath on exertion, left lower abodminal pain and fatigue. She went for dialysis. While in dialysis she had some tachycardia. Later an EKG showed her to be in rapid afib with RVR. She was transferred to [facility] and Dr. Brenner was consulted. Objective - Vital Signs/Intake and Output Vital Signs (last 24 hours): Temp Pulse Resp BP Pulse Ox 98.7 F 103 H 20 161/72 H 100 11/17/16 00:00 11/17/16 00:00 11/17/16 00:00 11/17/16 00:00 11/17/16 00:00 Intake and Output: 11/17/16 11/17/16 06:59 18:59 Intake Total 800 Balance 800 - Medications Medications: Current Medications Acetaminophen (Tylenol 325mg Tab) 650 mg PO Q6 PRN PRN Reason: pain Last Admin: 11/16/16 13:09 Dose: 650 mg Albuterol (Ventolin Hfa 90 Mcg/Actuation (8 G)) 90 puff IH RQID PRN PRN Reason: Wheezing Last Admin: 11/13/16 19:49 Dose: 90 mcg Albuterol/Ipratropium (Duoneb 3 Mg/0.5 Mg (3 Ml) Ud) 3 ml INH RQ6 ALISA Last Admin: 11/17/16 05:48 Dose: 3 ml Alprazolam (Xanax) 0.25 mg PO BID PRN PRN Reason: Anxiety Stop: 11/17/16 17:14 Last Admin: 11/17/16 06:40 Dose: 0.25 mg Aspirin (Ecotrin) 81 mg PO DAILY [facility] Last Admin: 11/16/16 10:19 Dose: 81 mg Calcium Acetate (Phoslo) 667 mg PO TIDCC [facility] Last Admin: 11/16/16 17:56 Dose: 667 mg Clopidogrel Bisulfate (Plavix) 75 mg PO DAILY [facility] Last Admin: 11/16/16 10:18 Dose: 75 mg Diltiazem HCl (Cardizem Cd) 300 mg PO DAILY [facility] Last Admin: 11/16/16 10:18 Dose: 300 mg Escitalopram Oxalate (Lexapro) 5 mg PO DAILY [facility] Last Admin: 11/16/16 10:18 Dose: 5 mg Famotidine (Pepcid) 20 mg PO DAILY [facility] Last Admin: 11/16/16 10:19 Dose: 20 mg Furosemide (Lasix) 80 mg PO DAILY [facility] Last Admin: 11/16/16 10:19 Dose: 80 mg Gabapentin (Neurontin) 100 mg PO HS [facility] Last Admin: 11/16/16 22:10 Dose: 100 mg Hydralazine HCl (Apresoline) 100 mg PO BID [facility] Last Admin: 11/16/16 17:56 Dose: 100 mg Ceftriaxone Sodium 1 gm/ (Sodium Chloride) 100 mls @ 100 mls/hr IVPB DAILY [facility] Last Admin: 11/16/16 10:20 Dose: 100 mls/hr Azithromycin 500 mg/ Sodium (Chloride) 250 mls @ 167 mls/hr IVPB Q24H [facility] Last Admin: 11/16/16 15:30 Dose: 167 mls/hr Insulin Aspart (Novolog Mix 70/30 (70/30 Units/Ml)) 20 units SC HS [facility] Last Admin: 11/16/16 22:00 Dose: 20 units Insulin Aspart (Novolog Mix 70/30 (70/30 Units/Ml)) 15 units SC ACB [facility] Last Admin: 11/16/16 07:52 Dose: 15 units Insulin Human Regular (Novolin R) 0 unit SC ACHS [facility] PRN Reason: Protocol Last Admin: 11/16/16 22:10 Dose: Not Given Isosorbide Mononitrate (Imdur) 60 mg PO DAILY [facility] Last Admin: 11/16/16 10:18 Dose: 60 mg Prednisone (Prednisone Tab) 10 mg PO DAILY [facility] Last Admin: 11/16/16 10:18 Dose: 10 mg Rosuvastatin Calcium (Crestor) 10 mg PO HS [facility] Last Admin: 11/16/16 22:15 Dose: 10 mg Fluticasone/Salmeterol (Advair Diskus 250/50) 1 puff INH RQ12 [facility] Last Admin: 11/16/16 19:22 Dose: 1 puff - Labs Labs: 11/16/16 08:32 11/17/16 06:54 PT 11.7 SECONDS (9.7-12.2) 11/13/16 08:27 INR 1.0 11/13/16 08:27 APTT 28 SECONDS (21-34) 11/13/16 08:27 - Constitutional Appears: Non-toxic, No Acute Distress, Other (anxious) - Head Exam Head Exam: NORMAL INSPECTION - Eye Exam Eye Exam: Normal appearance Pupil Exam: NORMAL ACCOMODATION - Respiratory Exam Respiratory Exam: Clear to Ausculation Bilateral. absent: Rhonchi, Wheezes - Cardiovascular Exam Cardiovascular Exam: Irregular Rhythm, +S1, +S2, Murmur. absent: Gallop, REGULAR RHYTHM, RRR, Rubs - GI/Abdominal Exam GI & Abdominal Exam: Soft, Normal Bowel Sounds. absent: Tenderness - Extremities Exam Extremities Exam: Pedal Edema - Back Exam Back Exam: NORMAL INSPECTION - Neurological Exam Neurological Exam: Alert - Psychiatric Exam Psychiatric exam: Anxious - Skin Skin Exam: Normal Color, Warm Assessment and Plan - Assessment and Plan (Free Text) Assessment: Luekocyotsis Assessment & Plan: Hyperkalemia Assessment & Plan: Patient went for dialysis his repeat potassium afterward was 4.8 Kidney Mass Assessment & Plan: 11/17: Patient went for dialysis today 11/13: Patient will need a kidney biopsy Leg pain, right Assessment & Plan: 11/13: continue current managment X ray shows soft tissue swelling, doppler negative for any evidence of DVT. F/U extremity arterial study Will given Tylenol for pain as needed. Possibly cellulitus Status: Acute Pneumonia Assessment & Plan 11/17: Day 6 of Zithromax and Rocephin, WBC is still high 11/13: day 2 of Zithromax and Rocephin, fever, chest pain, or cough. She does have a WBC of 16.7 today with left shift, continue to monitor WBC at 19.8 with a left shift. CXR - moderate venous congestion. bilateral hilar prominence. Bibasilar airspace opacities. small b/l pleural effusions. Upper lobe granulomatous changes. Started zithromax 500mg IVPB daily and rocephin 1gm IVPB daily 11/12/16 Status: Acute IDDM (insulin dependent diabetes mellitus) Assessment & Plan: Patient on 70/30 Novolog 15 units at night and 10 units ACB. Sliding scale insulin with medium protocol and accuchecks. Status: Acute COPD (chronic obstructive pulmonary disease) Assessment & Plan: Albuterol prn and Advair. Status: Chronic CAD (coronary artery disease) Assessment & Plan: Crestor 10mg, Aspirin 81mg, and Plavix 75mg Status: Chronic Atrial fibrillation Status: Chronic 11/17: Today was in Rapid afib with RVR, she is on 300mg of Cardizem. Patient transferred to [facility] and cardiology, Dr. Brenner is consulted, help appreciated. Patient is on Aspirin and Plavix. Hep 5000U SC Q8 prophylaxis HR constrolled No anticoagulation besides Plavix and ASA ESRD on dialysis Assessment & Plan: Patient is scheduled for dialysis today Status: Chronic CHF (congestive heart failure) Assessment & Plan: Lasix 80mg PO daily. Status: Acute HTN (hypertension) Assessment & Plan: Cardizem 300mg daily, Imdur 60mg daily, Hydralazine 100mg TID Status: Chronic Prophylactic measure Assessment & Plan: Pepcid 20mg 0.25mg Xanax prn for anxiety tylenol 650mg Q6H prn for pain Heparin 5000 units SC Q8H. Status: Acute
[2016-11-17] MEDS: (Novolin R) Insulin Human Regular 100 units/ml vial SC SCH ×4 (08:04→21:38)
[2016-11-17] MEDS: (Novolog Mix 70/30) Insulin Aspart/Insulin Aspar 100 units/ml SC SCH ×2 (08:08→21:39)
[2016-11-17 08:32] LABS: EOSINOPHIL 1 % (0-4); NEUTROPHIL 83 % (50-75); TOTAL CELLS COUNTED 100
--- NOTE | 2016-11-17 09:08 | US ---
HISTORY: Abdominal pain COMPARISON: CT abdomen and pelvis from 10/27/2016. TECHNIQUE: Grayscale imaging was performed. FINDINGS: LIVER: Measures 17.4 cm. There is diffuse increased echogenicity of the liver parenchyma. No mass. No intrahepatic bile duct dilatation. GALLBLADDER: Surgically absent. COMMON BILE DUCT: Measures 5.0 mm. No stones. No dilatation. PANCREAS: Unremarkable as visualized. No mass. No ductal dilatation. RIGHT KIDNEY: Measures 9.6cm. There is diffuse increased echogenicity. No calculus or hydronephrosis. There is a 3.2 x 2.4 x 3.4 cm solid isoechoic mass in the interpolar region. Also noted is a septated fluid collection anterior to the kidney measuring 8.2 x 5.9 x 4.2 cm. LEFT KIDNEY: Measures 10.0cm. There is diffuse increased echogenicity. No calculus, mass, or hydronephrosis. SPLEEN: Normal in size and contour. No mass. AORTA: No aneurysmal dilatation. IVC: Unremarkable. OTHER FINDINGS: Note is made of small bilateral pleural effusions. IMPRESSION: 1. 3.2 x 2.4 x 3.4 cm solid isoechoic mass in the interpolar region of the right kidney. 2. Large septated fluid collection anterior to the kidney.
[2016-11-17] MEDS: Ferric Sodium Gluconat Complex 62.5 mg/5 ml Vial IVPB SCH (10:27)
[2016-11-17] MEDS: Epoetin Alfa Dialysis 20000 UNIT/ML Inj IV SCH (10:27)
[2016-11-17] MEDS: diltiaZEM 300 mg/24 Hours CD Cap PO SCH ×2 (11:21→14:35)
[2016-11-17] MEDS ORDERED: Dextrose 50% SYRINGE Inj (50 ml) IV STA (12:24)
[2016-11-17] MEDS: Fluticasone-Salmeterol 250-50mcg Diskus INH SCH (13:28)
[2016-11-17] MEDS: Azithromycin 500 MG in Sodium Chloride 0.9% 250 ML IVPB SCH (14:04)
--- NOTE | 2016-11-17 16:59 | CP.PCM.PN ---
Subjective - Date & Time of Evaluation Date of Evaluation: 11/17/16 Time of Evaluation: 09:20 - Subjective Subjective: clinically same Objective - Vital Signs/Intake and Output Vital Signs (last 24 hours): Temp Pulse Resp BP Pulse Ox 97.2 F L 89 20 112/55 L 97 11/17/16 12:50 11/17/16 12:50 11/17/16 12:50 11/17/16 12:50 11/17/16 12:50 Intake and Output: 11/17/16 11/17/16 06:59 18:59 Intake Total 800 600 Balance 800 600 - Medications Medications: Current Medications Acetaminophen (Tylenol 325mg Tab) 650 mg PO Q6 PRN PRN Reason: pain Last Admin: 11/16/16 13:09 Dose: 650 mg Albuterol (Ventolin Hfa 90 Mcg/Actuation (8 G)) 90 puff IH RQID PRN PRN Reason: Wheezing Last Admin: 11/13/16 19:49 Dose: 90 mcg Albuterol/Ipratropium (Duoneb 3 Mg/0.5 Mg (3 Ml) Ud) 3 ml INH RQ6 [facility] Last Admin: 11/17/16 13:30 Dose: Not Given Alprazolam (Xanax) 0.25 mg PO BID PRN PRN Reason: Anxiety Stop: 11/17/16 17:14 Last Admin: 11/17/16 06:40 Dose: 0.25 mg Aspirin (Ecotrin) 81 mg PO DAILY [facility] Last Admin: 11/17/16 11:21 Dose: Not Given Calcium Acetate (Phoslo) 667 mg PO TIDCC [facility] Last Admin: 11/17/16 11:57 Dose: Not Given Clopidogrel Bisulfate (Plavix) 75 mg PO DAILY [facility] Last Admin: 11/17/16 11:20 Dose: Not Given Diltiazem HCl (Cardizem Cd) 300 mg PO DAILY [facility] Last Admin: 11/17/16 14:35 Dose: 300 mg Epoetin Lucien (Procrit) 20,000 unit IV MWF [facility] Last Admin: 11/17/16 10:27 Dose: 20,000 unit Escitalopram Oxalate (Lexapro) 5 mg PO DAILY [facility] Last Admin: 11/17/16 11:25 Dose: 5 mg Famotidine (Pepcid) 20 mg PO DAILY [facility] Last Admin: 11/17/16 11:18 Dose: 20 mg Ferric Sodium Gluconate Complex (Ferrlecit) 125 mg IVPB MWF [facility] Stop: 11/25/16 09:01 Last Admin: 11/17/16 10:27 Dose: 125 mg Furosemide (Lasix) 80 mg PO DAILY [facility] Last Admin: 11/17/16 11:22 Dose: Not Given Gabapentin (Neurontin) 100 mg PO HS [facility] Last Admin: 11/16/16 22:10 Dose: 100 mg Hydralazine HCl (Apresoline) 100 mg PO BID [facility] Last Admin: 11/17/16 11:21 Dose: Not Given Azithromycin 500 mg/ Sodium (Chloride) 250 mls @ 167 mls/hr IVPB Q24H [facility] Last Admin: 11/17/16 14:04 Dose: 167 mls/hr Insulin Aspart (Novolog Mix 70/30 (70/30 Units/Ml)) 20 units SC HS [facility] Last Admin: 11/16/16 22:00 Dose: 20 units Insulin Aspart (Novolog Mix 70/30 (70/30 Units/Ml)) 15 units SC ACB [facility] Last Admin: 11/17/16 08:08 Dose: 15 units Insulin Human Regular (Novolin R) 0 unit SC ACHS [facility] PRN Reason: Protocol Last Admin: 11/17/16 11:56 Dose: Not Given Isosorbide Mononitrate (Imdur) 60 mg PO DAILY [facility] Last Admin: 11/17/16 11:22 Dose: Not Given Ondansetron HCl (Zofran Inj) 4 mg IVP Q4H PRN PRN Reason: Nausea/Vomiting Prednisone (Prednisone Tab) 10 mg PO DAILY [facility] Last Admin: 11/17/16 11:18 Dose: 10 mg Rosuvastatin Calcium (Crestor) 10 mg PO HS [facility] Last Admin: 11/16/16 22:15 Dose: 10 mg Fluticasone/Salmeterol (Advair Diskus 250/50) 1 puff INH RQ12 [facility] Last Admin: 11/17/16 13:28 Dose: 1 puff - Labs Labs: 11/17/16 06:54 11/17/16 06:54 PT 11.7 SECONDS (9.7-12.2) 11/13/16 08:27 INR 1.0 11/13/16 08:27 APTT 28 SECONDS (21-34) 11/13/16 08:27 - Constitutional Appears: Well - Head Exam Head Exam: ATRAUMATIC, NORMAL INSPECTION, NORMOCEPHALIC - Eye Exam Eye Exam: EOMI, Normal appearance, PERRL Pupil Exam: NORMAL ACCOMODATION, PERRL - ENT Exam ENT Exam: Mucous Membranes Moist, Normal Exam - Neck Exam Neck Exam: Full ROM, Normal Inspection. absent: Lymphadenopathy - Respiratory Exam Respiratory Exam: Decreased Breath Sounds - Cardiovascular Exam Cardiovascular Exam: REGULAR RHYTHM, +S1, +S2 - GI/Abdominal Exam GI & Abdominal Exam: Soft, Diminished Bowel Sounds - Rectal Exam Rectal Exam: Deferred Assessment and Plan (1) CRF (chronic renal failure) Status: Chronic (2) Hyperkalemia Status: Acute (3) ESRD on dialysis Status: Acute (4) Pneumonia Status: Suspected (5) Acute systolic CHF (congestive heart failure) Status: Acute (6) Respiratory distress Status: Acute (7) Prophylactic measure Status: Acute (8) IDDM (insulin dependent diabetes mellitus) Status: Acute (9) Pulmonary arterial hypertension Status: Acute - Assessment and Plan (Free Text) Plan: Cardiology consult Continue antibiotics Blood sugar control Procrit Zofran Physical therapy Stool for occult blood
[2016-11-17 17:24] LABS: POTASSIUM 4.8 mmol/L (3.6-5.2)
--- NOTE | 2016-11-17 17:26 | CP.PCM.CON ---
<IzaiahHarshal - Last Filed: 11/17/16 18:25> History of Present Illness - History of Present Illness History of Present Illness: Cardiology Consult Note- Dr. Brenner' service Patient is a 66 year old female that presented to the hospital for right leg pain and treatment of pneumonia. Patient's LE doppler was negative for DVT. Patient continues to receive zithromax and rocephin for pneumonia. Patient has a known history of atrial fibrillation but is not currently on anticoagulation. Cardiology was consulted because the patient had an episodeeof Atrial fibrillation with RVR, ventricular rate of 145bpm. Patient currently denies any chest pain, no acute complaints at this time. Patient also had a recent kidney biopsy for kidney mass on 11/14/16 with IR. PMHx of CAD, COPD, DM, CHF, ESRD on dialysis, Htn, renal mass Review of Systems - Constitutional Constitutional: absent: Anorexia, Daytime Sleepiness - EENT Eyes: absent: Change in Vision - Cardiovascular Cardiovascular: absent: Chest Pain, Irregular Heart Rhythm, Leg Edema, Palpitations, Pedal Edema - Musculoskeletal Musculoskeletal: absent: Back Pain, Myalgias, Numbness - Psychiatric Psychiatric: absent: Panic Attacks, Suicidal Ideation - Endocrine Endocrine: absent: Fatigue, Palpitations Past Patient History - Infectious Disease Hx of Infectious Diseases: None - Past Medical History & Family History Past Medical History?: Yes - Past Social History Smoking Status: Former Smoker - CARDIAC Hx Congestive Heart Failure: Yes Hx Hypercholesterolemia: Yes Hx Hypertension: Yes - PULMONARY Hx Chronic Obstructive Pulmonary Disease (COPD): Yes - HEENT Hx HEENT Problems: Yes Hx Cataracts: Yes - RENAL Hx Chronic Kidney Disease: Yes Date of Last Dialysis Treatment: 11/10/16 - ENDOCRINE/METABOLIC Hx Diabetes Mellitus Type 2: Yes - HEMATOLOGICAL/ONCOLOGICAL Hx Anemia: Yes - INTEGUMENTARY Hx Dermatological Problems: No - MUSCULOSKELETAL/RHEUMATOLOGICAL Hx Falls: Yes - GASTROINTESTINAL Hx Gastritis: Yes - GENITOURINARY/GYNECOLOGICAL Hx Genitourinary Disorders: No - PSYCHIATRIC Hx Anxiety: Yes Hx Depression: Yes Hx Substance Use: No - SURGICAL HISTORY Hx Carotid Endarterectomy: Yes (LEFT) Hx Cholecystectomy: Yes - ANESTHESIA Hx Anesthesia: Yes Hx Anesthesia Reactions: No Hx Malignant Hyperthermia: No Meds Allergies/Adverse Reactions: Allergies Allergy/AdvReac Type Severity Reaction Status Date / Time No Known Allergies Allergy Verified 11/10/16 10:02 - Medications Medications: Current Medications Acetaminophen (Tylenol 325mg Tab) 650 mg PO Q6 PRN PRN Reason: pain Last Admin: 11/16/16 13:09 Dose: 650 mg Albuterol (Ventolin Hfa 90 Mcg/Actuation (8 G)) 90 puff IH RQID PRN PRN Reason: Wheezing Last Admin: 11/13/16 19:49 Dose: 90 mcg Albuterol/Ipratropium (Duoneb 3 Mg/0.5 Mg (3 Ml) Ud) 3 ml INH RQ6 [facility] Last Admin: 11/17/16 13:30 Dose: Not Given Aspirin (Ecotrin) 81 mg PO DAILY [facility] Last Admin: 11/17/16 11:21 Dose: Not Given Calcium Acetate (Phoslo) 667 mg PO TIDCC [facility] Last Admin: 11/17/16 17:00 Dose: 667 mg Clopidogrel Bisulfate (Plavix) 75 mg PO DAILY [facility] Last Admin: 11/17/16 11:20 Dose: Not Given Diltiazem HCl (Cardizem Cd) 300 mg PO DAILY [facility] Last Admin: 11/17/16 14:35 Dose: 300 mg Epoetin Lucien (Procrit) 20,000 unit IV [facility] Last Admin: 11/17/16 10:27 Dose: 20,000 unit Escitalopram Oxalate (Lexapro) 5 mg PO DAILY [facility] Last Admin: 11/17/16 11:25 Dose: 5 mg Famotidine (Pepcid) 20 mg PO DAILY [facility] Last Admin: 11/17/16 11:18 Dose: 20 mg Ferric Sodium Gluconate Complex (Ferrlecit) 125 mg IVPB [facility] Stop: 11/25/16 09:01 Last Admin: 11/17/16 10:27 Dose: 125 mg Furosemide (Lasix) 80 mg PO DAILY [facility] Last Admin: 11/17/16 11:22 Dose: Not Given Gabapentin (Neurontin) 100 mg PO HS [facility] Last Admin: 11/16/16 22:10 Dose: 100 mg Hydralazine HCl (Apresoline) 100 mg PO BID [facility] Last Admin: 11/17/16 17:00 Dose: 100 mg Azithromycin 500 mg/ Sodium (Chloride) 250 mls @ 167 mls/hr IVPB Q24H [facility] Last Admin: 11/17/16 14:04 Dose: 167 mls/hr Insulin Aspart (Novolog Mix 70/30 (70/30 Units/Ml)) 20 units SC HS [facility] Last Admin: 11/16/16 22:00 Dose: 20 units Insulin Aspart (Novolog Mix 70/30 (70/30 Units/Ml)) 15 units SC ACB [facility] Last Admin: 11/17/16 08:08 Dose: 15 units Insulin Human Regular (Novolin R) 0 unit SC ACHS [facility] PRN Reason: Protocol Last Admin: 11/17/16 17:01 Dose: Not Given Isosorbide Mononitrate (Imdur) 60 mg PO DAILY [facility] Last Admin: 11/17/16 11:22 Dose: Not Given Ondansetron HCl (Zofran Inj) 4 mg IVP Q4H PRN PRN Reason: Nausea/Vomiting Prednisone (Prednisone Tab) 10 mg PO DAILY [facility] Last Admin: 11/17/16 11:18 Dose: 10 mg Rosuvastatin Calcium (Crestor) 10 mg PO [facility] Last Admin: 11/16/16 22:15 Dose: 10 mg Fluticasone/Salmeterol (Advair Diskus 250/50) 1 puff INH RQ12 [facility] Last Admin: 11/17/16 13:28 Dose: 1 puff Physical Exam - Constitutional Appears: Non-toxic, No Acute Distress, Chronically Ill - Head Exam Head Exam: ATRAUMATIC, NORMOCEPHALIC - Eye Exam Pupil Exam: NORMAL ACCOMODATION, PERRL - ENT Exam ENT Exam: Mucous Membranes Moist - Respiratory Exam Respiratory Exam: Clear to Auscultation Bilateral, NORMAL BREATHING PATTERN. absent: Prolonged Expiratory Phase, Rales - Cardiovascular Exam Cardiovascular Exam: REGULAR RHYTHM, +S1 - GI/Abdominal Exam GI & Abdominal Exam: Normal Bowel Sounds, Tenderness. absent: Firm - Extremities Exam Extremities exam: Positive for: normal capillary refill, pedal pulses present - Neurological Exam Neurological exam: Alert - Psychiatric Exam Psychiatric exam: Normal Affect, Normal Mood - Skin Skin Exam: Dry, Normal Color, Warm Results - Vital Signs Recent Vital Signs: Last Vital Signs Temp 97.2 F L 11/17/16 12:50 Pulse 89 11/17/16 12:50 Resp 20 11/17/16 12:50 BP 112/55 L 11/17/16 12:50 Pulse Ox 97 11/17/16 12:50 - Labs Result Diagrams: 11/17/16 06:54 11/17/16 17:06 Labs: Laboratory Results - last 24 hr 11/16/16 11/17/16 11/17/16 21:06 01:53 06:54 WBC 19.8 H RBC 2.56 L Hgb 7.3 L Hct 23.4 L MCV 91.7 MCH 28.7 MCHC 31.3 L RDW 17.4 H Plt Count 222 MPV 11.6 Neut % (Auto) 85.7 H Lymph % (Auto) 5.0 L Hayes % (Auto) 8.1 Eos % (Auto) 1.0 Baso % (Auto) 0.2 Neut # 16.9 H Lymph # 1.0 Hayes # 1.6 H Eos # 0.2 Baso # 0.0 Neutrophils % (Manual) 83 H Lymphocytes % (Manual) 9 L Monocytes % (Manual) 7 Eosinophils % (Manual) 1 Platelet Estimate Normal Polychromasia Slight Hypochromasia (manual) Slight Anisocytosis (manual) Slight Ovalocytes Slight Sodium 137 Potassium 6.5 H* Chloride 90 L Carbon Dioxide 24 Anion Gap 30 H BUN 104 H* D Creatinine 8.8 H* Est GFR ( Amer) 5 Est GFR (Non-Af Amer) 4 POC Glucose (mg/dL) 278 H 78 Random Glucose 115 H Calcium 9.0 Total Bilirubin 0.4 AST 18 ALT 17 Alkaline Phosphatase 81 Total Protein 7.2 Albumin 3.6 Globulin 3.6 Albumin/Globulin Ratio 1.0 11/17/16 11/17/16 11/17/16 07:26 12:16 12:39 WBC RBC Hgb Hct MCV MCH MCHC RDW Plt Count MPV Neut % (Auto) Lymph % (Auto) Hayes % (Auto) Eos % (Auto) Baso % (Auto) Neut # Lymph # Hayes # Eos # Baso # Neutrophils % (Manual) Lymphocytes % (Manual) Monocytes % (Manual) Eosinophils % (Manual) Platelet Estimate Polychromasia Hypochromasia (manual) Anisocytosis (manual) Ovalocytes Sodium Potassium Chloride Carbon Dioxide Anion Gap BUN Creatinine Est GFR ( Amer) Est GFR (Non-Af Amer) POC Glucose (mg/dL) 139 H 59 L 75 Random Glucose Calcium Total Bilirubin AST ALT Alkaline Phosphatase Total Protein Albumin Globulin Albumin/Globulin Ratio 11/17/16 16:34 WBC RBC Hgb Hct MCV MCH MCHC RDW Plt Count MPV Neut % (Auto) Lymph % (Auto) Hayes % (Auto) Eos % (Auto) Baso % (Auto) Neut # Lymph # Hayes # Eos # Baso # Neutrophils % (Manual) Lymphocytes % (Manual) Monocytes % (Manual) Eosinophils % (Manual) Platelet Estimate Polychromasia Hypochromasia (manual) Anisocytosis (manual) Ovalocytes Sodium Potassium Chloride Carbon Dioxide Anion Gap BUN Creatinine Est GFR ( Amer) Est GFR (Non-Af Amer) POC Glucose (mg/dL) 132 H Random Glucose Calcium Total Bilirubin AST ALT Alkaline Phosphatase Total Protein Albumin Globulin Albumin/Globulin Ratio Assessment & Plan (1) Atrial fibrillation with rapid ventricular response Status: Acute Comment: Continue Cardizem CD 300mg PO Daily. Continue BP control with Hydralazin 100mg PO BID, Imdur 60mg PO Daily. Patient's HAS BLED score is 3, 5.8% risk of major bleed. Continue Asa 81mg PO Daily and Plavix 75mg PO Daily. - Assessment and Plan (Free Text) Assessment: case and plan discussed with Dr. Brenner. <Hlaina Brenner - Last Filed: 11/22/16 05:03> Meds - Medications Medications: Current Medications Acetaminophen (Tylenol 325mg Tab) 650 mg PO Q6 PRN PRN Reason: pain Last Admin: 11/21/16 23:51 Dose: 650 mg Albuterol (Ventolin Hfa 90 Mcg/Actuation (8 G)) 90 puff IH RQID PRN PRN Reason: Wheezing Last Admin: 11/13/16 19:49 Dose: 90 mcg Albuterol/Ipratropium (Duoneb 3 Mg/0.5 Mg (3 Ml) Ud) 3 ml INH RQ6 [facility] Last Admin: 11/22/16 01:37 Dose: 3 ml Calcium Acetate (Phoslo) 667 mg PO TIDCC [facility] Last Admin: 11/21/16 17:00 Dose: 667 mg Diltiazem HCl (Cardizem Cd) 300 mg PO DAILY [facility] Last Admin: 11/21/16 13:19 Dose: Not Given Epoetin Lucien (Procrit) 20,000 unit IV MWF [facility] Last Admin: 11/21/16 09:43 Dose: 20,000 unit Escitalopram Oxalate (Lexapro) 5 mg PO DAILY [facility] Last Admin: 11/21/16 13:17 Dose: 5 mg Famotidine (Pepcid) 20 mg PO DAILY [facility] Last Admin: 11/21/16 13:17 Dose: 20 mg Ferric Sodium Gluconate Complex (Ferrlecit) 125 mg IVPB [facility] Stop: 11/25/16 09:01 Last Admin: 11/21/16 09:43 Dose: 125 mg Furosemide (Lasix) 80 mg PO DAILY [facility] Last Admin: 11/21/16 13:18 Dose: Not Given Gabapentin (Neurontin) 100 mg PO [facility] Last Admin: 11/21/16 20:59 Dose: 100 mg Hydralazine HCl (Apresoline) 100 mg PO BID [facility] Last Admin: 11/21/16 18:57 Dose: 100 mg Hydrochlorothiazide (Hydrodiuril) 50 mg PO DAILY [facility] Last Admin: 11/21/16 13:18 Dose: 50 mg Cefepime HCl (Maxipime Iv 1 Gm Premix) 50 mls @ 100 mls/hr IVPB Q24H [facility] Last Admin: 11/21/16 16:33 Dose: 100 mls/hr Vancomycin HCl 500 mg/ Sodium (Chloride) 100 mls @ 100 mls/hr IVPB [facility] Insulin Aspart (Novolog Mix 70/30 (70/30 Units/Ml)) 20 units SC [facility] Last Admin: 11/21/16 22:00 Dose: Not Given Insulin Aspart (Novolog Mix 70/30 (70/30 Units/Ml)) 15 units SC ACB [facility] Last Admin: 11/21/16 07:53 Dose: 15 units Insulin Human Regular (Novolin R) 0 unit SC [facility] PRN Reason: Protocol Last Admin: 11/21/16 22:00 Dose: Not Given Isosorbide Mononitrate (Imdur) 60 mg PO DAILY [facility] Last Admin: 11/21/16 13:15 Dose: Not Given Ondansetron HCl (Zofran Inj) 4 mg IVP Q4H PRN PRN Reason: Nausea/Vomiting Last Admin: 11/20/16 19:09 Dose: 4 mg Polyethylene Glycol (Miralax) 17 gm PO DAILY [facility] Stop: 11/22/16 10:01 Last Admin: 11/21/16 18:11 Dose: 17 gm Prednisone (Prednisone Tab) 10 mg PO DAILY [facility] Last Admin: 11/21/16 13:18 Dose: 10 mg Rosuvastatin Calcium (Crestor) 10 mg PO HS [facility] Last Admin: 11/21/16 20:59 Dose: 10 mg Fluticasone/Salmeterol (Advair Diskus 250/50) 1 puff INH RQ12 [facility] Last Admin: 11/21/16 19:43 Dose: 1 puff Vitamin B Complex/Vit C/Folic Acid (Nephro-Niranjan) 1 tab PO DAILY [facility] Last Admin: 11/21/16 13:17 Dose: 1 tab Results - Vital Signs Recent Vital Signs: Last Vital Signs Temp 98.6 F 11/21/16 23:18 Pulse 91 H 11/22/16 03:41 Resp 20 11/21/16 23:18 BP 119/53 L 11/21/16 23:18 Pulse Ox 100 11/21/16 23:18 - Labs Result Diagrams: 11/21/16 05:45 11/21/16 05:45 Labs: Laboratory Results - last 24 hr 11/21/16 11/21/16 11/21/16 05:45 06:00 11:19 WBC 19.8 H RBC 2.83 L Hgb 8.1 L Hct 25.0 L MCV 88.4 MCH 28.5 MCHC 32.3 L RDW 17.9 H Plt Count 240 MPV 10.7 Neut % (Auto) 85.1 H Lymph % (Auto) 4.8 L Hayes % (Auto) 8.8 Eos % (Auto) 1.0 Baso % (Auto) 0.3 Neut # 16.8 H Lymph # 0.9 L Hayes # 1.7 H Eos # 0.2 Baso # 0.1 Neutrophils % (Manual) 83 H Band Neutrophils % 6 H Lymphocytes % (Manual) 4 L Reactive Lymphs % 1 H Monocytes % (Manual) 4 Metamyelocytes % 2 H Nucleated RBC % 1 H Toxic Granulation Present Platelet Estimate Normal Hypochromasia (manual) Slight Anisocytosis (manual) Slight Ovalocytes Slight Sodium 136 Potassium 5.6 H Chloride 89 L Carbon Dioxide 27 Anion Gap 26 H BUN 77 H Creatinine 7.4 H* D Est GFR ( Amer) 7 Est GFR (Non-Af Amer) 5 POC Glucose (mg/dL) 208 H 123 H Random Glucose 197 H Calcium 8.5 L Total Bilirubin 0.7 AST 18 ALT 20 Alkaline Phosphatase 90 Total Protein 6.7 Albumin 3.3 L Globulin 3.3 Albumin/Globulin Ratio 1.0 11/21/16 11/21/16 16:54 21:10 WBC RBC Hgb Hct MCV MCH MCHC RDW Plt Count MPV Neut % (Auto) Lymph % (Auto) Hayes % (Auto) Eos % (Auto) Baso % (Auto) Neut # Lymph # Hayes # Eos # Baso # Neutrophils % (Manual) Band Neutrophils % Lymphocytes % (Manual) Reactive Lymphs % Monocytes % (Manual) Metamyelocytes % Nucleated RBC % Toxic Granulation Platelet Estimate Hypochromasia (manual) Anisocytosis (manual) Ovalocytes Sodium Potassium Chloride Carbon Dioxide Anion Gap BUN Creatinine Est GFR ( Amer) Est GFR (Non-Af Amer) POC Glucose (mg/dL) 253 H 303 H Random Glucose Calcium Total Bilirubin AST ALT Alkaline Phosphatase Total Protein Albumin Globulin Albumin/Globulin Ratio Attending/Attestation - Attestation I have personally seen and examined this patient.: Yes I have fully participated in the care of the patient.: Yes I have reviewed all pertinent clinical information: Yes Notes (Text): 11/22/16 05:02 catdizem for rate control nl coronaries
[2016-11-17 17:27] LABS: CALCIUM 8.7 mg/dl (8.6-10.4)
--- NOTE | 2016-11-17 20:25 | PCM.URO ---
Urology Progress Note - Subjective Abdominal Pain: No Hematuria: No - Objective Lab Studies: Reviewed (CREAT=5 LEUKOCYTOSIS) Lab Results Last 24 Hours: Laboratory Results - last 24 hr 11/16/16 11/17/16 11/17/16 21:06 01:53 06:54 WBC 19.8 H RBC 2.56 L Hgb 7.3 L Hct 23.4 L MCV 91.7 MCH 28.7 MCHC 31.3 L RDW 17.4 H Plt Count 222 MPV 11.6 Neut % (Auto) 85.7 H Lymph % (Auto) 5.0 L [place] % (Auto) 8.1 Eos % (Auto) 1.0 Baso % (Auto) 0.2 Neut # 16.9 H Lymph # 1.0 [place] # 1.6 H Eos # 0.2 Baso # 0.0 Neutrophils % (Manual) 83 H Lymphocytes % (Manual) 9 L Monocytes % (Manual) 7 Eosinophils % (Manual) 1 Platelet Estimate Normal Polychromasia Slight Hypochromasia (manual) Slight Anisocytosis (manual) Slight Ovalocytes Slight Sodium 137 Potassium 6.5 H* Chloride 90 L Carbon Dioxide 24 Anion Gap 30 H BUN 104 H* D Creatinine 8.8 H* Est GFR ( Amer) 5 Est GFR (Non-Af Amer) 4 POC Glucose (mg/dL) 278 H 78 Random Glucose 115 H Calcium 9.0 Total Bilirubin 0.4 AST 18 ALT 17 Alkaline Phosphatase 81 Total Protein 7.2 Albumin 3.6 Globulin 3.6 Albumin/Globulin Ratio 1.0 11/17/16 11/17/16 11/17/16 07:26 12:16 12:39 WBC RBC Hgb Hct MCV MCH MCHC RDW Plt Count MPV Neut % (Auto) Lymph % (Auto) [place] % (Auto) Eos % (Auto) Baso % (Auto) Neut # Lymph # [place] # Eos # Baso # Neutrophils % (Manual) Lymphocytes % (Manual) Monocytes % (Manual) Eosinophils % (Manual) Platelet Estimate Polychromasia Hypochromasia (manual) Anisocytosis (manual) Ovalocytes Sodium Potassium Chloride Carbon Dioxide Anion Gap BUN Creatinine Est GFR ( Amer) Est GFR (Non-Af Amer) POC Glucose (mg/dL) 139 H 59 L 75 Random Glucose Calcium Total Bilirubin AST ALT Alkaline Phosphatase Total Protein Albumin Globulin Albumin/Globulin Ratio 11/17/16 11/17/16 16:34 17:06 WBC RBC Hgb Hct MCV MCH MCHC RDW Plt Count MPV Neut % (Auto) Lymph % (Auto) [place] % (Auto) Eos % (Auto) Baso % (Auto) Neut # Lymph # [place] # Eos # Baso # Neutrophils % (Manual) Lymphocytes % (Manual) Monocytes % (Manual) Eosinophils % (Manual) Platelet Estimate Polychromasia Hypochromasia (manual) Anisocytosis (manual) Ovalocytes Sodium 138 Potassium 4.8 Chloride 89 L Carbon Dioxide 29 Anion Gap 24 H BUN 50 H Creatinine 5.0 H Est GFR ( Amer) 10 Est GFR (Non-Af Amer) 9 POC Glucose (mg/dL) 132 H Random Glucose 129 H Calcium 8.7 Total Bilirubin AST ALT Alkaline Phosphatase Total Protein Albumin Globulin Albumin/Globulin Ratio Intake & Output: Intake & Output 11/17/16 11/17/16 11/18/16 06:59 18:59 06:59 Intake Total 800 600 Balance 800 600 Intake: Intake, IV Amount 250 300 Right Antecubital 250 300 Oral 550 300 Other: # Voids Urine, Voided 0 # Bowel Movements 0 Vital Signs: Vital Signs - 24 hr 11/16/16 11/17/16 11/17/16 23:30 00:00 09:08 Temperature 98.7 F 99 F Pulse Rate 102 H 103 H 112 H Pulse Rate [ Right Brachial] Respiratory 20 22 Rate Blood Pressure 161/72 H 152/60 H Blood Pressure [Right Arm] O2 Sat by Pulse 100 97 Oximetry 11/17/16 11/17/16 11/17/16 09:30 09:45 09:50 Temperature 98.2 F 97.5 F L 97.5 F L Pulse Rate 95 H 108 H Pulse Rate [ 108 H Right Brachial] Respiratory 20 20 20 Rate Blood Pressure 140/68 150/67 Blood Pressure 147/64 [Right Arm] O2 Sat by Pulse 100 96 Oximetry 11/17/16 11/17/16 11/17/16 10:05 10:20 10:35 Temperature Pulse Rate Pulse Rate [ Right Brachial] Respiratory Rate Blood Pressure Blood Pressure 143/67 134/63 121/62 [Right Arm] O2 Sat by Pulse Oximetry 11/17/16 11/17/16 11/17/16 10:50 11:20 11:50 Temperature Pulse Rate Pulse Rate [ Right Brachial] Respiratory Rate Blood Pressure Blood Pressure 131/60 117/49 L 102/48 L [Right Arm] O2 Sat by Pulse Oximetry 11/17/16 11/17/16 11/17/16 12:20 12:50 17:40 Temperature 97.2 F L Pulse Rate 109 H Pulse Rate [ 89 Right Brachial] Respiratory 20 Rate Blood Pressure Blood Pressure 111/52 L 112/55 L [Right Arm] O2 Sat by Pulse 97 Oximetry 11/17/16 17:45 Temperature Pulse Rate 108 H Pulse Rate [ Right Brachial] Respiratory Rate Blood Pressure Blood Pressure [Right Arm] O2 Sat by Pulse Oximetry - Physical Exam Abdominal Exam: Soft. absent: Non-Distended Back: No CVA Tenderness - Plan Additional Information: IMP: RENAL TUMOR. RENAL FAILURE. PLAN: BIOPSY PENDING - Date & Time of Note Date: 11/17/16 Time: 20:25
[2016-11-18] MEDS: Albuterol-Ipratrop 3 mg / 0.5 (3 ml) UD INH SCH ×4 (01:02→20:28)
[2016-11-18 06:18] LABS: BASO # 0.1 K/uL (0.0-0.2); BASO % 0.7 % (0.0-2.0); EOS # 0.1 K/uL (0.0-0.7); EOS % 0.9 % (0.0-4.0); HEMATOCRIT 20.2 % (34.0-47.0); LYMPH # 1.1 K/uL (1.0-4.3); LYMPH % 6.1 % (20.0-40.0); MEAN CELL VOLUME 91.5 fL (81.0-99.0); MEAN CORPUSCULAR HEMOGLOBIN 28.8 pg (27.0-31.0); MEAN CORPUSCULAR HGB CONC 31.4 g/dL (33.0-37.0); MONO # 1.4 K/uL (0.0-0.8); MONO % 8.2 % (0.0-10.0); PLATELET COUNT 205 K/uL (130-400); RED CELL DISTRIBUTION WIDTH 17.8 % (11.5-14.5); WHITE BLOOD COUNT 17.1 K/uL (4.8-10.8)
[2016-11-18 06:33] LABS: POTASSIUM 5.4 mmol/L (3.6-5.2)
[2016-11-18 06:35] LABS: ALB/GLOB RATIO 1.1 (1.0-2.1); BILIRUBIN,TOTAL 0.6 mg/dL (0.2-1.3); CALCIUM 8.2 mg/dl (8.6-10.4); PHOSPHOROUS 5.4 mg/dL (2.5-4.5); TOTAL PROTEIN 6.5 g/dL (6.3-8.3)
[2016-11-18 06:36] LABS: MAGNESIUM 2.2 mg/dL (1.6-2.3)
[2016-11-18] MEDS: (Novolog Mix 70/30) Insulin Aspart/Insulin Aspar 100 units/ml SC SCH ×2 (07:30→21:04)
[2016-11-18] MEDS: (Novolin R) Insulin Human Regular 100 units/ml vial SC SCH ×4 (07:30→23:25)
[2016-11-18 07:33] LABS: FOLATE 15.4 ng/mL
[2016-11-18] MEDS: Fluticasone-Salmeterol 250-50mcg Diskus INH SCH ×2 (08:26→20:29)
[2016-11-18 08:52] LABS: BASOPHIL 1 % (0-2); EOSINOPHIL 1 % (0-4); NEUTROPHIL 87 % (50-75); TOTAL CELLS COUNTED 100
--- NOTE | 2016-11-18 09:23 | PCM.URO ---
Urology Progress Note - Objective Lab Results Last 24 Hours: Laboratory Results - last 24 hr 11/17/16 11/17/16 11/17/16 12:16 12:39 16:34 WBC RBC Hgb Hct MCV MCH MCHC RDW Plt Count MPV Neut % (Auto) Lymph % (Auto) Real % (Auto) Eos % (Auto) Baso % (Auto) Neut # Lymph # Real # Eos # Baso # Neutrophils % (Manual) Lymphocytes % (Manual) Monocytes % (Manual) Eosinophils % (Manual) Basophils % (Manual) Platelet Estimate Hypochromasia (manual) Anisocytosis (manual) Retic Count Sodium Potassium Chloride Carbon Dioxide Anion Gap BUN Creatinine Est GFR ( Amer) Est GFR (Non-Af Amer) POC Glucose (mg/dL) 59 L 75 132 H Random Glucose Calcium Phosphorus Magnesium % Saturation Ferritin Total Bilirubin AST ALT Alkaline Phosphatase Total Protein Albumin Globulin Albumin/Globulin Ratio 11/17/16 11/17/16 11/18/16 17:06 21:31 02:05 WBC RBC Hgb Hct MCV MCH MCHC RDW Plt Count MPV Neut % (Auto) Lymph % (Auto) Real % (Auto) Eos % (Auto) Baso % (Auto) Neut # Lymph # Real # Eos # Baso # Neutrophils % (Manual) Lymphocytes % (Manual) Monocytes % (Manual) Eosinophils % (Manual) Basophils % (Manual) Platelet Estimate Hypochromasia (manual) Anisocytosis (manual) Retic Count Sodium 138 Potassium 4.8 Chloride 89 L Carbon Dioxide 29 Anion Gap 24 H BUN 50 H Creatinine 5.0 H Est GFR ( Amer) 10 Est GFR (Non-Af Amer) 9 POC Glucose (mg/dL) 417 H* 72 Random Glucose 129 H Calcium 8.7 Phosphorus Magnesium % Saturation Ferritin Total Bilirubin AST ALT Alkaline Phosphatase Total Protein Albumin Globulin Albumin/Globulin Ratio 11/18/16 11/18/16 06:08 07:01 WBC 17.1 H RBC 2.21 L Hgb 6.4 L* Hct 20.2 L MCV 91.5 MCH 28.8 MCHC 31.4 L RDW 17.8 H Plt Count 205 MPV 11.0 Neut % (Auto) 84.1 H Lymph % (Auto) 6.1 L Real % (Auto) 8.2 Eos % (Auto) 0.9 Baso % (Auto) 0.7 Neut # 14.4 H Lymph # 1.1 Real # 1.4 H Eos # 0.1 Baso # 0.1 Neutrophils % (Manual) 87 H Lymphocytes % (Manual) 4 L Monocytes % (Manual) 7 Eosinophils % (Manual) 1 Basophils % (Manual) 1 Platelet Estimate Normal Hypochromasia (manual) Slight Anisocytosis (manual) Slight Retic Count 1.2 Sodium 137 Potassium 5.4 H Chloride 91 L Carbon Dioxide 28 Anion Gap 23 H BUN 71 H Creatinine 6.0 H Est GFR ( Amer) 8 Est GFR (Non-Af Amer) 7 POC Glucose (mg/dL) 281 H Random Glucose 285 H Calcium 8.2 L Phosphorus 5.4 H Magnesium 2.2 % Saturation 51 Ferritin 999.0 Total Bilirubin 0.6 AST 18 ALT 20 Alkaline Phosphatase 78 Total Protein 6.5 Albumin 3.4 L Globulin 3.1 Albumin/Globulin Ratio 1.1 Intake & Output: Intake & Output 11/17/16 11/18/16 11/18/16 18:59 06:59 18:59 Intake Total 600 350 Balance 600 350 Intake: Intake, IV Amount 300 Right Antecubital 300 Oral 300 350 Other: # Voids Urine, Voided 1 # Bowel Movements 0 Vital Signs: Vital Signs - 24 hr 11/17/16 11/17/16 11/17/16 09:30 09:45 09:50 Temperature 98.2 F 97.5 F L 97.5 F L Pulse Rate 95 H 108 H Pulse Rate [ 108 H Right Brachial] Respiratory 20 20 20 Rate Blood Pressure 140/68 150/67 Blood Pressure 147/64 [Right Arm] O2 Sat by Pulse 100 96 Oximetry 11/17/16 11/17/16 11/17/16 10:05 10:20 10:35 Temperature Pulse Rate Pulse Rate [ Right Brachial] Respiratory Rate Blood Pressure Blood Pressure 143/67 134/63 121/62 [Right Arm] O2 Sat by Pulse Oximetry 11/17/16 11/17/16 11/17/16 10:50 11:20 11:50 Temperature Pulse Rate Pulse Rate [ Right Brachial] Respiratory Rate Blood Pressure Blood Pressure 131/60 117/49 L 102/48 L [Right Arm] O2 Sat by Pulse Oximetry 11/17/16 11/17/16 11/17/16 12:20 12:50 17:40 Temperature 97.2 F L Pulse Rate 109 H Pulse Rate [ 89 Right Brachial] Respiratory 20 Rate Blood Pressure Blood Pressure 111/52 L 112/55 L [Right Arm] O2 Sat by Pulse 97 Oximetry 11/17/16 11/17/16 11/17/16 17:45 22:15 23:32 Temperature 98.3 F Pulse Rate 108 H 98 H 97 H Pulse Rate [ Right Brachial] Respiratory 20 Rate Blood Pressure 107/58 L Blood Pressure [Right Arm] O2 Sat by Pulse 97 Oximetry 11/18/16 11/18/16 11/18/16 04:00 07:00 07:46 Temperature 98.3 F 98.3 F Pulse Rate 101 H 98 H 99 H Pulse Rate [ Right Brachial] Respiratory 20 20 Rate Blood Pressure 138/66 147/70 Blood Pressure [Right Arm] O2 Sat by Pulse 97 97 Oximetry
[2016-11-18] MEDS: diltiaZEM 300 mg/24 Hours CD Cap PO SCH (09:50)
--- NOTE | 2016-11-18 11:00 | CP.PCM.PN ---
Addendum entered and electronically signed by Keysha Motta DO 11/18/16 14: 38: Right kidney biopsy - renal cell carcinoma. who/isup grade 2 Heme/Onc consult - Dr. Leonardo - f/u recs Original Note: <Keysha Motta - Last Filed: 11/18/16 10:53> Subjective - Date & Time of Evaluation Date of Evaluation: 11/18/16 Time of Evaluation: 07:35 - Subjective Subjective: PGY2 Medicine Note - Dr. Ld Frederick's service: Patient seen and examined at bedside this AM. Patient reports right leg pain improving but still there. Patient reports SOB with cough productive of white phlegm. Patient denies fever, chills, chest pain, abdominal pain, nausea, vomiting. Objective - Vital Signs/Intake and Output Vital Signs (last 24 hours): Temp Pulse Resp BP Pulse Ox 98.3 F 99 H 20 140/80 97 11/18/16 07:46 11/18/16 07:46 11/18/16 07:46 11/18/16 09:56 11/18/16 07:46 Intake and Output: 11/18/16 11/18/16 06:59 18:59 Intake Total 350 Balance 350 - Medications Medications: Current Medications Acetaminophen (Tylenol 325mg Tab) 650 mg PO Q6 PRN PRN Reason: pain Last Admin: 11/16/16 13:09 Dose: 650 mg Albuterol (Ventolin Hfa 90 Mcg/Actuation (8 G)) 90 puff IH RQID PRN PRN Reason: Wheezing Last Admin: 11/13/16 19:49 Dose: 90 mcg Albuterol/Ipratropium (Duoneb 3 Mg/0.5 Mg (3 Ml) Ud) 3 ml INH RQ6 [facility] Last Admin: 11/18/16 07:23 Dose: 3 ml Aspirin (Ecotrin) 81 mg PO DAILY [facility] Last Admin: 11/18/16 09:41 Dose: 81 mg Calcium Acetate (Phoslo) 667 mg PO TIDCC [facility] Last Admin: 11/18/16 08:08 Dose: 667 mg Clopidogrel Bisulfate (Plavix) 75 mg PO DAILY [facility] Last Admin: 11/18/16 09:41 Dose: 75 mg Diltiazem HCl (Cardizem Cd) 300 mg PO DAILY [facility] Last Admin: 11/18/16 09:50 Dose: 300 mg Epoetin Lucien (Procrit) 20,000 unit IV MWF [facility] Last Admin: 11/17/16 10:27 Dose: 20,000 unit Escitalopram Oxalate (Lexapro) 5 mg PO DAILY [facility] Last Admin: 11/18/16 09:50 Dose: 5 mg Famotidine (Pepcid) 20 mg PO DAILY [facility] Last Admin: 11/18/16 10:12 Dose: 20 mg Ferric Sodium Gluconate Complex (Ferrlecit) 125 mg IVPB [facility] [place] Stop: 11/25/16 09:01 Last Admin: 11/17/16 10:27 Dose: 125 mg Furosemide (Lasix) 80 mg PO DAILY [facility] Last Admin: 11/18/16 09:56 Dose: 80 mg Gabapentin (Neurontin) 100 mg PO [facility] Last Admin: 11/17/16 21:25 Dose: 100 mg Hydralazine HCl (Apresoline) 100 mg PO BID [facility] Last Admin: 11/18/16 10:12 Dose: 100 mg Azithromycin 500 mg/ Sodium (Chloride) 250 mls @ 167 mls/hr IVPB Q24H [facility] Last Admin: 11/17/16 14:04 Dose: 167 mls/hr Insulin Aspart (Novolog Mix 70/30 (70/30 Units/Ml)) 20 units SC HS [facility] Last Admin: 11/17/16 21:39 Dose: 20 units Insulin Aspart (Novolog Mix 70/30 (70/30 Units/Ml)) 15 units SC ACB [facility] Last Admin: 11/18/16 07:30 Dose: 15 units Insulin Human Regular (Novolin R) 0 unit SC ACHS [facility] PRN Reason: Protocol Last Admin: 11/18/16 07:30 Dose: 4 unit Isosorbide Mononitrate (Imdur) 60 mg PO DAILY [facility] Last Admin: 11/18/16 09:41 Dose: 60 mg Ondansetron HCl (Zofran Inj) 4 mg IVP Q4H PRN PRN Reason: Nausea/Vomiting Prednisone (Prednisone Tab) 10 mg PO DAILY [facility] Last Admin: 11/18/16 09:40 Dose: 10 mg Rosuvastatin Calcium (Crestor) 10 mg PO [facility] Last Admin: 11/17/16 21:25 Dose: 10 mg Fluticasone/Salmeterol (Advair Diskus 250/50) 1 puff INH RQ12 [facility] Last Admin: 11/17/16 13:28 Dose: 1 puff - Labs Labs: 11/18/16 06:08 11/18/16 06:08 PT 11.7 SECONDS (9.7-12.2) 11/13/16 08:27 INR 1.0 11/13/16 08:27 APTT 28 SECONDS (21-34) 11/13/16 08:27 - Constitutional Appears: Non-toxic, No Acute Distress - Head Exam Head Exam: NORMAL INSPECTION - Eye Exam Eye Exam: EOMI - ENT Exam ENT Exam: Mucous Membranes Moist - Respiratory Exam Respiratory Exam: Clear to Ausculation Bilateral, NORMAL BREATHING PATTERN. absent: Rales, Rhonchi, Wheezes - Cardiovascular Exam Cardiovascular Exam: REGULAR RHYTHM, +S1, +S2 - GI/Abdominal Exam GI & Abdominal Exam: Soft, Normal Bowel Sounds. absent: Firm, Guarding, Tenderness - Extremities Exam Extremities Exam: Normal Capillary Refill, Tenderness (right heel). absent: Pedal Edema - Neurological Exam Neurological Exam: Alert, Oriented x3 - Psychiatric Exam Psychiatric exam: Normal Affect, Normal Mood - Skin Skin Exam: Normal Color, Warm Assessment and Plan - Assessment and Plan (Free Text) Assessment: Anemia Assessment & Plan: Hgb 6.4 from 7.3 yesterday percent saturation and ferritin and reticulocyte count normal F/U stool OB 1 unit transfusion today Leukocyotsis Assessment & Plan: Likely secondary to steroids v. infection Afebrile Hyperkalemia Assessment & Plan: On dialysis Kidney Mass Assessment & Plan: 11/18: F/U results of kidney biopsy Urology consult - Dr. Ba - help appreciated 11/17: Patient went for dialysis today 11/13: Patient will need a kidney biopsy Leg pain, right Assessment & Plan: 11/18: swelling improved continue current management X ray shows soft tissue swelling, doppler negative for any evidence of DVT. Will given Tylenol for pain as needed. Status: Acute Pneumonia Assessment & Plan 11/18: Day 7 of Zithromax and Rocephin, WBC is still high 11/13: day 2 of Zithromax and Rocephin, fever, chest pain, or cough. She does have a WBC of 16.7 today with left shift, continue to monitor WBC at 19.8 with a left shift. CXR - moderate venous congestion. bilateral hilar prominence. Bibasilar airspace opacities. small b/l pleural effusions. Upper lobe granulomatous changes. Started zithromax 500mg IVPB daily and rocephin 1gm IVPB daily 11/12/16 Status: Acute IDDM (insulin dependent diabetes mellitus) Assessment & Plan: Patient on 70/30 Novolog 15 units at night and 10 units ACB. Sliding scale insulin with medium protocol and accuchecks. Status: Acute COPD (chronic obstructive pulmonary disease) Assessment & Plan: Albuterol prn and Advair. Status: Chronic CAD (coronary artery disease) Assessment & Plan: Crestor 10mg, Aspirin 81mg, and Plavix 75mg Status: Chronic Atrial fibrillation Status: Chronic 11/18:continue Cardizem, Hep, Plavix and ASA 11/17: Today was in Rapid afib with RVR, she is on 300mg of Cardizem. Patient transferred to [facility] and cardiology, Dr. Brenner is consulted, help appreciated. Patient is on Aspirin and Plavix. Hep 5000U SC Q8 prophylaxis HR constrolled No anticoagulation besides Plavix and ASA ESRD on dialysis Assessment & Plan: Patient is scheduled for dialysis tomorrow Status: Chronic CHF (congestive heart failure) Assessment & Plan: Lasix 80mg PO daily. Status: Acute HTN (hypertension) Assessment & Plan: Cardizem 300mg daily, Imdur 60mg daily, Hydralazine 100mg TID Status: Chronic Prophylactic measure Assessment & Plan: Pepcid 20mg 0.25mg Xanax prn for anxiety tylenol 650mg Q6H prn for pain Heparin 5000 units SC Q8H. Status: Acute <Haydee Frederick S - Last Filed: 11/18/16 20:00> Objective - Vital Signs/Intake and Output Vital Signs (last 24 hours): Temp Pulse Resp BP Pulse Ox 98.9 F 86 16 160/62 H 98 11/18/16 19:51 11/18/16 19:51 11/18/16 19:51 11/18/16 19:51 11/18/16 16:16 Intake and Output: 11/18/16 11/19/16 18:59 06:59 Intake Total 460 325 Balance 460 325 - Medications Medications: Current Medications Acetaminophen (Tylenol 325mg Tab) 650 mg PO Q6 PRN PRN Reason: pain Last Admin: 11/18/16 16:11 Dose: 650 mg Albuterol (Ventolin Hfa 90 Mcg/Actuation (8 G)) 90 puff IH RQID PRN PRN Reason: Wheezing Last Admin: 11/13/16 19:49 Dose: 90 mcg Albuterol/Ipratropium (Duoneb 3 Mg/0.5 Mg (3 Ml) Ud) 3 ml INH RQ6 [facility] Last Admin: 11/18/16 13:26 Dose: Not Given Calcium Acetate (Phoslo) 667 mg PO TIDCC [facility] Last Admin: 11/18/16 17:36 Dose: 667 mg Diltiazem HCl (Cardizem Cd) 300 mg PO DAILY [facility] Last Admin: 11/18/16 09:50 Dose: 300 mg Epoetin Lucien (Procrit) 20,000 unit IV [facility] [place] Last Admin: 11/17/16 10:27 Dose: 20,000 unit Escitalopram Oxalate (Lexapro) 5 mg PO DAILY [facility] Last Admin: 11/18/16 09:50 Dose: 5 mg Famotidine (Pepcid) 20 mg PO DAILY [facility] Last Admin: 11/18/16 10:12 Dose: 20 mg Ferric Sodium Gluconate Complex (Ferrlecit) 125 mg IVPB [facility] [place] Stop: 11/25/16 09:01 Last Admin: 11/17/16 10:27 Dose: 125 mg Furosemide (Lasix) 80 mg PO DAILY [facility] Last Admin: 11/18/16 09:56 Dose: 80 mg Gabapentin (Neurontin) 100 mg PO [facility] Last Admin: 11/17/16 21:25 Dose: 100 mg Hydralazine HCl (Apresoline) 100 mg PO BID [facility] Last Admin: 11/18/16 17:36 Dose: 100 mg Azithromycin 500 mg/ Sodium (Chloride) 250 mls @ 167 mls/hr IVPB Q24H [facility] Last Admin: 11/17/16 14:04 Dose: 167 mls/hr Ceftriaxone Sodium 1 gm/ (Sodium Chloride) 100 mls @ 100 mls/hr IVPB DAILY [facility] Last Admin: 11/18/16 12:30 Dose: 100 mls/hr Insulin Aspart (Novolog Mix 70/30 (70/30 Units/Ml)) 20 units SC [facility] Last Admin: 11/17/16 21:39 Dose: 20 units Insulin Aspart (Novolog Mix 70/30 (70/30 Units/Ml)) 15 units SC ACB [facility] Last Admin: 11/18/16 07:30 Dose: 15 units Insulin Human Regular (Novolin R) 0 unit SC ACHS [facility] PRN Reason: Protocol Last Admin: 11/18/16 17:36 Dose: 6 unit Isosorbide Mononitrate (Imdur) 60 mg PO DAILY [facility] Last Admin: 11/18/16 09:41 Dose: 60 mg Ondansetron HCl (Zofran Inj) 4 mg IVP Q4H PRN PRN Reason: Nausea/Vomiting Prednisone (Prednisone Tab) 10 mg PO DAILY [facility] Last Admin: 11/18/16 09:40 Dose: 10 mg Rosuvastatin Calcium (Crestor) 10 mg PO HS [facility] Last Admin: 11/17/16 21:25 Dose: 10 mg Fluticasone/Salmeterol (Advair Diskus 250/50) 1 puff INH RQ12 [facility] Last Admin: 11/18/16 08:26 Dose: Not Given Vitamin B Complex/Vit C/Folic Acid (Nephro-Niranjan) 1 tab PO DAILY [facility] - Labs Labs: 11/18/16 06:08 11/18/16 06:08 PT 11.7 SECONDS (9.7-12.2) 11/13/16 08:27 INR 1.0 11/13/16 08:27 APTT 28 SECONDS (21-34) 11/13/16 08:27 Assessment and Plan (1) Acute systolic CHF (congestive heart failure) Status: Acute (2) Hyperkalemia Status: Acute (3) IDDM (insulin dependent diabetes mellitus) Status: Acute (4) Prophylactic measure Status: Acute (5) Pulmonary arterial hypertension Status: Acute (6) Respiratory distress Status: Acute (7) CRF (chronic renal failure) Status: Chronic (8) ESRD on dialysis Status: Chronic (9) Pneumonia Status: Suspected Attending/Attestation - Attestation I have personally seen and examined this patient.: Yes I have fully participated in the care of the patient.: Yes I have reviewed all pertinent clinical information, including history, physical exam and plan: Yes Notes (Text): 11/18/16 19:59 case seen and discussed with staff and mx agreed
--- NOTE | 2016-11-18 13:50 | CP.PCM.PN ---
<Korin Lott - Last Filed: 11/18/16 13:46> Subjective - Date & Time of Evaluation Date of Evaluation: 11/18/16 Time of Evaluation: 13:00 - Subjective Subjective: Cardiology Progress Note for Dr. Brenner Patient seen and examined at bedside. There were no acute overnight events. Patient reports feeling well today. She denies having CP, SOB, n/v/d, palpitations, vision changes, numbness/tingling or weakness. She reports having some pain in her R ankle. It does not radiate and is chronic. Objective - Vital Signs/Intake and Output Vital Signs (last 24 hours): Temp Pulse Resp BP Pulse Ox 98.3 F 99 H 20 140/80 97 11/18/16 07:46 11/18/16 07:46 11/18/16 07:46 11/18/16 09:56 11/18/16 07:46 Intake and Output: 11/18/16 11/18/16 06:59 18:59 Intake Total 350 Balance 350 - Medications Medications: Current Medications Acetaminophen (Tylenol 325mg Tab) 650 mg PO Q6 PRN PRN Reason: pain Last Admin: 11/16/16 13:09 Dose: 650 mg Albuterol (Ventolin Hfa 90 Mcg/Actuation (8 G)) 90 puff IH RQID PRN PRN Reason: Wheezing Last Admin: 11/13/16 19:49 Dose: 90 mcg Albuterol/Ipratropium (Duoneb 3 Mg/0.5 Mg (3 Ml) Ud) 3 ml INH RQ6 [facility] Last Admin: 11/18/16 13:26 Dose: Not Given Calcium Acetate (Phoslo) 667 mg PO TIDCC [facility] Last Admin: 11/18/16 12:35 Dose: 667 mg Diltiazem HCl (Cardizem Cd) 300 mg PO DAILY [facility] Last Admin: 11/18/16 09:50 Dose: 300 mg Epoetin Lucien (Procrit) 20,000 unit IV MWF [facility] Last Admin: 11/17/16 10:27 Dose: 20,000 unit Escitalopram Oxalate (Lexapro) 5 mg PO DAILY [facility] Last Admin: 11/18/16 09:50 Dose: 5 mg Famotidine (Pepcid) 20 mg PO DAILY [facility] Last Admin: 11/18/16 10:12 Dose: 20 mg Ferric Sodium Gluconate Complex (Ferrlecit) 125 mg IVPB MWF [facility] Stop: 11/25/16 09:01 Last Admin: 11/17/16 10:27 Dose: 125 mg Furosemide (Lasix) 80 mg PO DAILY [facility] Last Admin: 11/18/16 09:56 Dose: 80 mg Gabapentin (Neurontin) 100 mg PO HS [facility] Last Admin: 11/17/16 21:25 Dose: 100 mg Hydralazine HCl (Apresoline) 100 mg PO BID [facility] Last Admin: 11/18/16 10:12 Dose: 100 mg Azithromycin 500 mg/ Sodium (Chloride) 250 mls @ 167 mls/hr IVPB Q24H [facility] Last Admin: 11/17/16 14:04 Dose: 167 mls/hr Ceftriaxone Sodium 1 gm/ (Sodium Chloride) 100 mls @ 100 mls/hr IVPB DAILY [facility] Insulin Aspart (Novolog Mix 70/30 (70/30 Units/Ml)) 20 units SC HS [facility] Last Admin: 11/17/16 21:39 Dose: 20 units Insulin Aspart (Novolog Mix 70/30 (70/30 Units/Ml)) 15 units SC ACB [facility] Last Admin: 11/18/16 07:30 Dose: 15 units Insulin Human Regular (Novolin R) 0 unit SC ACHS [facility] PRN Reason: Protocol Last Admin: 11/18/16 11:30 Dose: Not Given Isosorbide Mononitrate (Imdur) 60 mg PO DAILY [facility] Last Admin: 11/18/16 09:41 Dose: 60 mg Ondansetron HCl (Zofran Inj) 4 mg IVP Q4H PRN PRN Reason: Nausea/Vomiting Prednisone (Prednisone Tab) 10 mg PO DAILY [facility] Last Admin: 11/18/16 09:40 Dose: 10 mg Rosuvastatin Calcium (Crestor) 10 mg PO HS [facility] Last Admin: 11/17/16 21:25 Dose: 10 mg Fluticasone/Salmeterol (Advair Diskus 250/50) 1 puff INH RQ12 [facility] Last Admin: 11/18/16 08:26 Dose: Not Given Vitamin B Complex/Vit C/Folic Acid (Nephro-Niranjan) 1 tab PO DAILY [facility] - Labs Labs: 11/18/16 06:08 11/18/16 06:08 PT 11.7 SECONDS (9.7-12.2) 11/13/16 08:27 INR 1.0 11/13/16 08:27 APTT 28 SECONDS (21-34) 11/13/16 08:27 - Constitutional Appears: No Acute Distress - Head Exam Head Exam: ATRAUMATIC, NORMAL INSPECTION, NORMOCEPHALIC - Eye Exam Eye Exam: Normal appearance Pupil Exam: NORMAL ACCOMODATION - ENT Exam ENT Exam: Mucous Membranes Moist - Respiratory Exam Respiratory Exam: Clear to Ausculation Bilateral, NORMAL BREATHING PATTERN. absent: Rales, Rhonchi, Wheezes - Cardiovascular Exam Cardiovascular Exam: Tachycardia, REGULAR RHYTHM, +S1, +S2. absent: Gallop, Rubs, Murmur - GI/Abdominal Exam GI & Abdominal Exam: Soft, Normal Bowel Sounds. absent: Rigid, Tenderness, Mass , Rebound - Extremities Exam Extremities Exam: Normal Inspection. absent: Calf Tenderness, Pedal Edema Additional comments: Bilateral telangectasia - Neurological Exam Neurological Exam: Alert, Awake, CN II-XII Intact, Oriented x3 - Psychiatric Exam Psychiatric exam: Normal Affect, Normal Mood - Skin Skin Exam: Dry, Intact, Normal Color, Warm Assessment and Plan - Assessment and Plan (Free Text) Assessment: This is a 66Y F with PMH CAD, COPD, ESRD on HD, HTN, DM, renal mass admitted for pneumonia found to have 1) Atrial fibrillation with RVR- rhythm but not rate controlled 2) HTN 3) CAD 4) HLD 5) s/p renal mass biopsy POD #1 Plan: - CHADS-Vasc score of 5 (7.2% yearly stroke risk) with BLED score of 4 (8.9% risk of bleed per year) - Continue Plavix and Cardizem - Continue Imdur, Lasix, Hydralazine - Continue Crestor - Consider adding amiodarone if a.fib not controlled GI ppx: Pepcid DVT ppx: Plavix Case seen, reviewed and discussed with Dr. Elidia Lott PGY-1 <Halina Brenner - Last Filed: 11/21/16 10:51> Objective - Vital Signs/Intake and Output Vital Signs (last 24 hours): Temp Pulse Resp BP Pulse Ox 98.6 F 98 H 16 142/60 96 11/21/16 09:12 11/21/16 09:12 11/21/16 09:12 11/21/16 10:13 11/20/16 23:20 Intake and Output: 11/21/16 11/21/16 06:59 18:59 Intake Total 250 Output Total 1 Balance 249 - Medications Medications: Current Medications Acetaminophen (Tylenol 325mg Tab) 650 mg PO Q6 PRN PRN Reason: pain Last Admin: 11/20/16 08:21 Dose: 650 mg Albuterol (Ventolin Hfa 90 Mcg/Actuation (8 G)) 90 puff IH RQID PRN PRN Reason: Wheezing Last Admin: 11/13/16 19:49 Dose: 90 mcg Albuterol/Ipratropium (Duoneb 3 Mg/0.5 Mg (3 Ml) Ud) 3 ml INH RQ6 [facility] Last Admin: 11/21/16 07:40 Dose: 3 ml Calcium Acetate (Phoslo) 667 mg PO TIDCC [facility] Last Admin: 11/21/16 07:53 Dose: 667 mg Diltiazem HCl (Cardizem Cd) 300 mg PO DAILY [facility] Last Admin: 11/20/16 10:23 Dose: 300 mg Epoetin Lucien (Procrit) 20,000 unit IV [facility] Last Admin: 11/21/16 09:43 Dose: 20,000 unit Escitalopram Oxalate (Lexapro) 5 mg PO DAILY [facility] Last Admin: 11/20/16 10:24 Dose: 5 mg Famotidine (Pepcid) 20 mg PO DAILY [facility] Last Admin: 11/20/16 10:22 Dose: 20 mg Ferric Sodium Gluconate Complex (Ferrlecit) 125 mg IVPB [facility] [place] Stop: 11/25/16 09:01 Last Admin: 11/21/16 09:43 Dose: 125 mg Furosemide (Lasix) 80 mg PO DAILY [facility] Last Admin: 11/20/16 10:24 Dose: 80 mg Gabapentin (Neurontin) 100 mg PO HS [facility] Last Admin: 11/20/16 21:25 Dose: Not Given Hydralazine HCl (Apresoline) 100 mg PO BID [facility] Last Admin: 11/20/16 17:24 Dose: 100 mg Hydrochlorothiazide (Hydrodiuril) 50 mg PO DAILY [facility] Last Admin: 11/20/16 10:22 Dose: 50 mg Azithromycin 500 mg/ Sodium (Chloride) 250 mls @ 167 mls/hr IVPB Q24H [facility] Last Admin: 11/20/16 17:24 Dose: 167 mls/hr Ceftriaxone Sodium (Rocephin Iv 1 Gm Duplex) 50 mls @ 100 mls/hr IVPB DAILY [facility] Insulin Aspart (Novolog Mix 70/30 (70/30 Units/Ml)) 20 units SC HS [facility] Last Admin: 11/20/16 21:25 Dose: Not Given Insulin Aspart (Novolog Mix 70/30 (70/30 Units/Ml)) 15 units SC ACB [facility] Last Admin: 11/21/16 07:53 Dose: 15 units Insulin Human Regular (Novolin R) 0 unit SC ACHS [facility] PRN Reason: Protocol Last Admin: 11/21/16 07:55 Dose: 3 unit Isosorbide Mononitrate (Imdur) 60 mg PO DAILY [facility] Last Admin: 11/20/16 10:22 Dose: 60 mg Ondansetron HCl (Zofran Inj) 4 mg IVP Q4H PRN PRN Reason: Nausea/Vomiting Last Admin: 11/20/16 19:09 Dose: 4 mg Prednisone (Prednisone Tab) 10 mg PO DAILY [facility] Last Admin: 11/20/16 10:23 Dose: 10 mg Rosuvastatin Calcium (Crestor) 10 mg PO HS [facility] Last Admin: 11/20/16 21:24 Dose: Not Given Fluticasone/Salmeterol (Advair Diskus 250/50) 1 puff INH RQ12 [facility] Last Admin: 11/21/16 07:40 Dose: 1 puff Vitamin B Complex/Vit C/Folic Acid (Nephro-Niranjan) 1 tab PO DAILY [facility] Last Admin: 11/20/16 10:22 Dose: 1 tab - Labs Labs: 11/21/16 05:45 11/21/16 05:45 PT 12.4 SECONDS (9.7-12.2) H 11/19/16 11:38 INR 1.1 11/19/16 11:38 APTT 29 SECONDS (21-34) 11/19/16 11:38 Attending/Attestation - Attestation I have personally seen and examined this patient.: Yes I have fully participated in the care of the patient.: Yes I have reviewed all pertinent clinical information, including history, physical exam and plan: Yes Notes (Text): 11/21/16 10:51 pt rate control and asa with plavix h/o bleed
[2016-11-18] MEDS ORDERED: Iohexol 350mg/ml 100 ML ONE (14:39)
--- NOTE | 2016-11-18 16:43 | CP.PCM.PN ---
Subjective - Date & Time of Evaluation Date of Evaluation: 11/18/16 Time of Evaluation: 11:20 - Subjective Subjective: clinically same Objective - Vital Signs/Intake and Output Vital Signs (last 24 hours): Temp Pulse Resp BP Pulse Ox 99 F 96 H 16 143/62 98 11/18/16 16:35 11/18/16 16:35 11/18/16 16:35 11/18/16 16:35 11/18/16 16:16 Intake and Output: 11/18/16 11/18/16 06:59 18:59 Intake Total 350 460 Balance 350 460 - Medications Medications: Current Medications Acetaminophen (Tylenol 325mg Tab) 650 mg PO Q6 PRN PRN Reason: pain Last Admin: 11/18/16 16:11 Dose: 650 mg Albuterol (Ventolin Hfa 90 Mcg/Actuation (8 G)) 90 puff IH RQID PRN PRN Reason: Wheezing Last Admin: 11/13/16 19:49 Dose: 90 mcg Albuterol/Ipratropium (Duoneb 3 Mg/0.5 Mg (3 Ml) Ud) 3 ml INH RQ6 [facility] Last Admin: 11/18/16 13:26 Dose: Not Given Calcium Acetate (Phoslo) 667 mg PO TIDCC [facility] Last Admin: 11/18/16 12:35 Dose: 667 mg Diltiazem HCl (Cardizem Cd) 300 mg PO DAILY [facility] Last Admin: 11/18/16 09:50 Dose: 300 mg Epoetin Lucien (Procrit) 20,000 unit IV [facility] Last Admin: 11/17/16 10:27 Dose: 20,000 unit Escitalopram Oxalate (Lexapro) 5 mg PO DAILY [facility] Last Admin: 11/18/16 09:50 Dose: 5 mg Famotidine (Pepcid) 20 mg PO DAILY [facility] Last Admin: 11/18/16 10:12 Dose: 20 mg Ferric Sodium Gluconate Complex (Ferrlecit) 125 mg IVPB [facility] Stop: 11/25/16 09:01 Last Admin: 11/17/16 10:27 Dose: 125 mg Furosemide (Lasix) 80 mg PO DAILY [facility] Last Admin: 11/18/16 09:56 Dose: 80 mg Gabapentin (Neurontin) 100 mg PO [facility] Last Admin: 11/17/16 21:25 Dose: 100 mg Hydralazine HCl (Apresoline) 100 mg PO BID [facility] Last Admin: 11/18/16 10:12 Dose: 100 mg Azithromycin 500 mg/ Sodium (Chloride) 250 mls @ 167 mls/hr IVPB Q24H [facility] Last Admin: 11/17/16 14:04 Dose: 167 mls/hr Ceftriaxone Sodium 1 gm/ (Sodium Chloride) 100 mls @ 100 mls/hr IVPB DAILY [facility] Last Admin: 11/18/16 12:30 Dose: 100 mls/hr Insulin Aspart (Novolog Mix 70/30 (70/30 Units/Ml)) 20 units SC HS [facility] Last Admin: 11/17/16 21:39 Dose: 20 units Insulin Aspart (Novolog Mix 70/30 (70/30 Units/Ml)) 15 units SC ACB [facility] Last Admin: 11/18/16 07:30 Dose: 15 units Insulin Human Regular (Novolin R) 0 unit SC ACHS [facility] PRN Reason: Protocol Last Admin: 11/18/16 11:30 Dose: Not Given Isosorbide Mononitrate (Imdur) 60 mg PO DAILY [facility] Last Admin: 11/18/16 09:41 Dose: 60 mg Ondansetron HCl (Zofran Inj) 4 mg IVP Q4H PRN PRN Reason: Nausea/Vomiting Prednisone (Prednisone Tab) 10 mg PO DAILY [facility] Last Admin: 11/18/16 09:40 Dose: 10 mg Rosuvastatin Calcium (Crestor) 10 mg PO [facility] Last Admin: 11/17/16 21:25 Dose: 10 mg Fluticasone/Salmeterol (Advair Diskus 250/50) 1 puff INH RQ12 [facility] Last Admin: 11/18/16 08:26 Dose: Not Given Vitamin B Complex/Vit C/Folic Acid (Nephro-Niranjan) 1 tab PO DAILY [facility] - Labs Labs: 11/18/16 06:08 11/18/16 06:08 PT 11.7 SECONDS (9.7-12.2) 11/13/16 08:27 INR 1.0 11/13/16 08:27 APTT 28 SECONDS (21-34) 11/13/16 08:27 - Constitutional Appears: Well - Head Exam Head Exam: ATRAUMATIC, NORMAL INSPECTION, NORMOCEPHALIC - Eye Exam Eye Exam: EOMI, Normal appearance, PERRL Pupil Exam: NORMAL ACCOMODATION, PERRL - ENT Exam ENT Exam: Mucous Membranes Moist, Normal Exam - Neck Exam Neck Exam: Full ROM, Normal Inspection. absent: Lymphadenopathy - Respiratory Exam Respiratory Exam: Decreased Breath Sounds - Cardiovascular Exam Cardiovascular Exam: REGULAR RHYTHM, +S1, +S2 - GI/Abdominal Exam GI & Abdominal Exam: Soft, Diminished Bowel Sounds - Rectal Exam Rectal Exam: Deferred Assessment and Plan (1) Acute systolic CHF (congestive heart failure) Status: Acute (2) Hyperkalemia Status: Acute (3) IDDM (insulin dependent diabetes mellitus) Status: Acute (4) Prophylactic measure Status: Acute (5) Pulmonary arterial hypertension Status: Acute (6) Respiratory distress Status: Acute (7) CRF (chronic renal failure) Status: Chronic (8) ESRD on dialysis Status: Chronic (9) Pneumonia Status: Suspected - Assessment and Plan (Free Text) Plan: urology as pt has renal cell cancer christin huggins for renal cell ca as oncocpnti same pt may need to remove julianne calvert sprbcs dr. joseph for a fibconti as ordered
--- NOTE | 2016-11-18 17:30 | CT ---
PROCEDURE: CT Abdomen and Pelvis without intravenous contrast HISTORY: possible hematoma at site of renal biopsy COMPARISON: Ultrasound from 11/17/2016and CT scan from 10/27/2016 TECHNIQUE: CT scan of the abdomen and pelvis was performed without intravenous administration of contrast. Oral contrast was not administered. Coronal and sagittal reformatted images were obtained. Radiation dose: Total exam DLP = 675.33 mGy-cm. FINDINGS: LOWER THORAX: There is subsegmental atelectasis/scarring in the visualized lungs, moderate right and small left pleural effusions. There is mild cardiomegaly and atherosclerotic calcifications in the coronary arteries. There is significant low attenuation in the visualized ventricles and aorta suggestive of anemia. LIVER: The liver is normal in size. There is no intra hepatic biliary ductal dilatation. GALLBLADDER AND BILE DUCTS: The gallbladder is surgically absent. PANCREAS: There is diffuse fatty atrophy of the pancreas. SPLEEN: The spleen is normal in size. ADRENALS: Both adrenal glands are normal in size without discrete nodule. KIDNEYS AND URETERS: There is a lobular isodense mass in the interpolar region of the right kidney. There is an approximately 8.4 by 3.4 by 10.6 cm right perinephric fluid collection demonstrating slightly higher attenuation than simple fluid (24 -26 HU) which was also identified on the ultrasound done from the previous day. There is cortical atrophy of both kidneys. There is no hydronephrosis. VASCULATURE: Unremarkable. No aortic aneurysmAll there are advanced atherosclerotic vascular calcifications. No aortic aneurysm. . BOWEL: The small bowel loops are normal in caliber. There is a large amount of stool in the colon. APPENDIX: No CT evidence for acute appendicitis PERITONEUM: No free fluid. No free air. LYMPH NODES: No enlarged lymph nodes. BLADDER: Unremarkable. REPRODUCTIVE: The uterus is surgically absent BONES: No acute fracture. Multilevel degenerative changes in the spine. OTHER FINDINGS: None. IMPRESSION: 1. Large slightly complicated right perinephric fluid collection. The differential considerations include evolving subacute hematoma or post intervention complicated fluid collection/ seroma. Redemonstration of solid mass in the interpolar region of the right kidney. 2. Moderate right and small left pleural effusions. 3. Constipation. 4. Anemia.
[2016-11-19] MEDS: Albuterol-Ipratrop 3 mg / 0.5 (3 ml) UD INH SCH ×4 (01:45→19:45)
[2016-11-19 07:27] LABS: POTASSIUM 6.1 mmol/L (3.6-5.2)
[2016-11-19 07:29] LABS: BILIRUBIN,TOTAL 0.4 mg/dL (0.2-1.3); CALCIUM 8.7 mg/dl (8.6-10.4); TOTAL PROTEIN 6.8 g/dL (6.3-8.3)
[2016-11-19] MEDS: (Novolin R) Insulin Human Regular 100 units/ml vial SC SCH ×5 (07:30→22:00)
--- NOTE | 2016-11-19 07:34 | CP.PCM.PN ---
<Korin Lott - Last Filed: 11/19/16 08:44> Subjective - Date & Time of Evaluation Date of Evaluation: 11/19/16 Time of Evaluation: 07:30 - Subjective Subjective: Cardiology Progress Note for Dr. Brenner Patient seen and examined at bedside. Overnight patient was noted to be hypogylcemic with glucose of 54, which was treated with juice. Patient was asymptomatic at the time. Yesterday she was noted to have a drop in her Hgb and was transfused [address] scan showed R perinephric fluid secondary to her renal biopsy which could represent a subacute hematoma or post intervention seroma. As of this morning, patient was resting comfortably in bed. She denies having any pain, CP, SOB, n/v/d, numbness/tingling. Objective - Vital Signs/Intake and Output Vital Signs (last 24 hours): Temp Pulse Resp BP Pulse Ox 99.2 F 102 H 20 179/66 H 97 11/19/16 07:25 11/19/16 07:25 11/19/16 07:25 11/19/16 07:25 11/19/16 07:25 Intake and Output: 11/19/16 11/19/16 06:59 18:59 Intake Total 325 Balance 325 - Medications Medications: Current Medications Acetaminophen (Tylenol 325mg Tab) 650 mg PO Q6 PRN PRN Reason: pain Last Admin: 11/18/16 16:11 Dose: 650 mg Albuterol (Ventolin Hfa 90 Mcg/Actuation (8 G)) 90 puff IH RQID PRN PRN Reason: Wheezing Last Admin: 11/13/16 19:49 Dose: 90 mcg Albuterol/Ipratropium (Duoneb 3 Mg/0.5 Mg (3 Ml) Ud) 3 ml INH RQ6 [facility] Last Admin: 11/19/16 07:24 Dose: 3 ml Calcium Acetate (Phoslo) 667 mg PO TIDCC [facility] Last Admin: 11/18/16 17:36 Dose: 667 mg Diltiazem HCl (Cardizem Cd) 300 mg PO DAILY [facility] Last Admin: 11/18/16 09:50 Dose: 300 mg Epoetin Lucien (Procrit) 20,000 unit IV MWF [facility] Last Admin: 11/17/16 10:27 Dose: 20,000 unit Escitalopram Oxalate (Lexapro) 5 mg PO DAILY [facility] Last Admin: 11/18/16 09:50 Dose: 5 mg Famotidine (Pepcid) 20 mg PO DAILY [facility] Last Admin: 11/18/16 10:12 Dose: 20 mg Ferric Sodium Gluconate Complex (Ferrlecit) 125 mg IVPB [facility] Stop: 11/25/16 09:01 Last Admin: 11/17/16 10:27 Dose: 125 mg Furosemide (Lasix) 80 mg PO DAILY [facility] Last Admin: 11/18/16 09:56 Dose: 80 mg Gabapentin (Neurontin) 100 mg PO [facility] Last Admin: 11/18/16 21:03 Dose: 100 mg Hydralazine HCl (Apresoline) 100 mg PO BID [facility] Last Admin: 11/18/16 17:36 Dose: 100 mg Azithromycin 500 mg/ Sodium (Chloride) 250 mls @ 167 mls/hr IVPB Q24H [facility] Last Admin: 11/17/16 14:04 Dose: 167 mls/hr Ceftriaxone Sodium 1 gm/ (Sodium Chloride) 100 mls @ 100 mls/hr IVPB DAILY [facility] Last Admin: 11/18/16 12:30 Dose: 100 mls/hr Insulin Aspart (Novolog Mix 70/30 (70/30 Units/Ml)) 20 units SC HS [facility] Last Admin: 11/18/16 21:04 Dose: 20 units Insulin Aspart (Novolog Mix 70/30 (70/30 Units/Ml)) 15 units SC ACB [facility] Last Admin: 11/18/16 07:30 Dose: 15 units Insulin Human Regular (Novolin R) 0 unit SC [facility] PRN Reason: Protocol Last Admin: 11/18/16 23:25 Dose: Not Given Isosorbide Mononitrate (Imdur) 60 mg PO DAILY [facility] Last Admin: 11/18/16 09:41 Dose: 60 mg Ondansetron HCl (Zofran Inj) 4 mg IVP Q4H PRN PRN Reason: Nausea/Vomiting Prednisone (Prednisone Tab) 10 mg PO DAILY [facility] Last Admin: 11/18/16 09:40 Dose: 10 mg Rosuvastatin Calcium (Crestor) 10 mg PO HS [facility] Last Admin: 11/18/16 21:03 Dose: 10 mg Fluticasone/Salmeterol (Advair Diskus 250/50) 1 puff INH RQ12 [facility] Last Admin: 11/18/16 20:29 Dose: Not Given Vitamin B Complex/Vit C/Folic Acid (Nephro-Niranjan) 1 tab PO DAILY [facility] - Labs Labs: 11/18/16 06:08 11/18/16 06:08 PT 11.7 SECONDS (9.7-12.2) 11/13/16 08:27 INR 1.0 11/13/16 08:27 APTT 28 SECONDS (21-34) 11/13/16 08:27 - Constitutional Appears: No Acute Distress - Head Exam Head Exam: ATRAUMATIC, NORMAL INSPECTION, NORMOCEPHALIC - Eye Exam Eye Exam: Normal appearance Pupil Exam: NORMAL ACCOMODATION - ENT Exam ENT Exam: Mucous Membranes Moist - Respiratory Exam Respiratory Exam: Clear to Ausculation Bilateral, NORMAL BREATHING PATTERN. absent: Rales, Rhonchi, Wheezes - Cardiovascular Exam Cardiovascular Exam: REGULAR RHYTHM, +S1, +S2. absent: Gallop, Rubs, Murmur - GI/Abdominal Exam GI & Abdominal Exam: Soft, Normal Bowel Sounds. absent: Rigid, Tenderness, Mass , Rebound - Extremities Exam Extremities Exam: Normal Inspection. absent: Calf Tenderness, Pedal Edema - Neurological Exam Neurological Exam: Alert, CN II-XII Intact, Oriented x3 - Psychiatric Exam Psychiatric exam: Normal Affect, Normal Mood - Skin Skin Exam: Dry, Normal Color, Warm Assessment and Plan - Assessment and Plan (Free Text) Assessment: This is a 66Y F with PMH CAD, COPD, ESRD on HD, HTN, DM, renal mass admitted for pneumonia found to have 1) Atrial fibrillation with RVR- rhythm and rate controlled 2) Anemia s/p 1U PRBC 3) Renal cell carcinoma- confirmed on kidney biopsy POD #4 4) Pneumonia 5) HTN 6) CAD 7) HLD Plan: - Hgb 7.4 this am, Plavix on hold - Continue to monitor CBC - Continue Cardizem - Continue Imdur, Lasix, Hydralazine - Continue Crestor GI ppx: Pepcid DVT ppx: SCDs Case seen, reviewed and discussed with Dr. Elidia Lott PGY-1 <Halina Brenner - Last Filed: 11/21/16 10:42> Objective - Vital Signs/Intake and Output Vital Signs (last 24 hours): Temp Pulse Resp BP Pulse Ox 98.6 F 98 H 16 142/60 96 11/21/16 09:12 11/21/16 09:12 11/21/16 09:12 11/21/16 10:13 11/20/16 23:20 Intake and Output: 11/21/16 11/21/16 06:59 18:59 Intake Total 250 Output Total 1 Balance 249 - Medications Medications: Current Medications Acetaminophen (Tylenol 325mg Tab) 650 mg PO Q6 PRN PRN Reason: pain Last Admin: 11/20/16 08:21 Dose: 650 mg Albuterol (Ventolin Hfa 90 Mcg/Actuation (8 G)) 90 puff IH RQID PRN PRN Reason: Wheezing Last Admin: 11/13/16 19:49 Dose: 90 mcg Albuterol/Ipratropium (Duoneb 3 Mg/0.5 Mg (3 Ml) Ud) 3 ml INH RQ6 [facility] Last Admin: 11/21/16 07:40 Dose: 3 ml Calcium Acetate (Phoslo) 667 mg PO TIDCC [facility] Last Admin: 11/21/16 07:53 Dose: 667 mg Diltiazem HCl (Cardizem Cd) 300 mg PO DAILY [facility] Last Admin: 11/20/16 10:23 Dose: 300 mg Epoetin Lucien (Procrit) 20,000 unit IV [facility] Last Admin: 11/21/16 09:43 Dose: 20,000 unit Escitalopram Oxalate (Lexapro) 5 mg PO DAILY [facility] Last Admin: 11/20/16 10:24 Dose: 5 mg Famotidine (Pepcid) 20 mg PO DAILY [facility] Last Admin: 11/20/16 10:22 Dose: 20 mg Ferric Sodium Gluconate Complex (Ferrlecit) 125 mg IVPB [facility] Stop: 11/25/16 09:01 Last Admin: 11/21/16 09:43 Dose: 125 mg Furosemide (Lasix) 80 mg PO DAILY [facility] Last Admin: 11/20/16 10:24 Dose: 80 mg Gabapentin (Neurontin) 100 mg PO HS [facility] Last Admin: 11/20/16 21:25 Dose: Not Given Hydralazine HCl (Apresoline) 100 mg PO BID [facility] Last Admin: 03/23/17 17:24 Dose: 100 mg Hydrochlorothiazide (Hydrodiuril) 50 mg PO DAILY [facility] Last Admin: 11/20/16 10:22 Dose: 50 mg Azithromycin 500 mg/ Sodium (Chloride) 250 mls @ 167 mls/hr IVPB Q24H [facility] Last Admin: 11/20/16 17:24 Dose: 167 mls/hr Ceftriaxone Sodium (Rocephin Iv 1 Gm Duplex) 50 mls @ 100 mls/hr IVPB DAILY [facility] Insulin Aspart (Novolog Mix 70/30 (70/30 Units/Ml)) 20 units SC HS [facility] Last Admin: 11/20/16 21:25 Dose: Not Given Insulin Aspart (Novolog Mix 70/30 (70/30 Units/Ml)) 15 units SC ACB [facility] Last Admin: 11/21/16 07:53 Dose: 15 units Insulin Human Regular (Novolin R) 0 unit SC ACHS [facility] PRN Reason: Protocol Last Admin: 11/21/16 07:55 Dose: 3 unit Isosorbide Mononitrate (Imdur) 60 mg PO DAILY [facility] Last Admin: 11/20/16 10:22 Dose: 60 mg Ondansetron HCl (Zofran Inj) 4 mg IVP Q4H PRN PRN Reason: Nausea/Vomiting Last Admin: 11/20/16 19:09 Dose: 4 mg Prednisone (Prednisone Tab) 10 mg PO DAILY [facility] Last Admin: 11/20/16 10:23 Dose: 10 mg Rosuvastatin Calcium (Crestor) 10 mg PO HS [facility] Last Admin: 11/20/16 21:24 Dose: Not Given Fluticasone/Salmeterol (Advair Diskus 250/50) 1 puff INH RQ12 [facility] Last Admin: 11/21/16 07:40 Dose: 1 puff Vitamin B Complex/Vit C/Folic Acid (Nephro-Niranjan) 1 tab PO DAILY [facility] Last Admin: 11/20/16 10:22 Dose: 1 tab - Labs Labs: 11/21/16 05:45 11/21/16 05:45 PT 12.4 SECONDS (9.7-12.2) H 11/19/16 11:38 INR 1.1 11/19/16 11:38 APTT 29 SECONDS (21-34) 11/19/16 11:38 Attending/Attestation - Attestation I have personally seen and examined this patient.: Yes I have fully participated in the care of the patient.: Yes I have reviewed all pertinent clinical information, including history, physical exam and plan: Yes Notes (Text): 11/21/16 10:42 low hgb transfuse hr now low 100
[2016-11-19 07:47] LABS: BASO # 0.1 K/uL (0.0-0.2); BASO % 0.3 % (0.0-2.0); EOS # 0.2 K/uL (0.0-0.7); EOS % 1.3 % (0.0-4.0); HEMATOCRIT 22.9 % (34.0-47.0); LYMPH # 1.2 K/uL (1.0-4.3); LYMPH % 6.3 % (20.0-40.0); MEAN CELL VOLUME 89.7 fL (81.0-99.0); MEAN CORPUSCULAR HGB CONC 32.3 g/dL (33.0-37.0); MONO # 1.6 K/uL (0.0-0.8); MONO % 8.4 % (0.0-10.0); PLATELET COUNT 227 K/uL (130-400); RED CELL DISTRIBUTION WIDTH 17.8 % (11.5-14.5); WHITE BLOOD COUNT 19.1 K/uL (4.8-10.8)
[2016-11-19] MEDS: (Novolog Mix 70/30) Insulin Aspart/Insulin Aspar 100 units/ml SC SCH ×2 (08:20→22:47)
[2016-11-19 09:12] LABS: EOSINOPHIL 2 % (0-4); NEUTROPHIL 87 % (50-75); NUCLEATED RED BLOOD CELL 1 % (0-0); TOTAL CELLS COUNTED 100
[2016-11-19 09:13] LABS: GIANT PLATELETS PRESENT; LARGE PLATELETS PRESENT
[2016-11-19] MEDS: diltiaZEM 300 mg/24 Hours CD Cap PO SCH ×2 (10:00→13:01)
[2016-11-19] MEDS: Multivitamin Vitamin B Complex (Nephro-Vite) Tab PO SCH ×2 (10:00→13:02)
[2016-11-19] MEDS: Fluticasone-Salmeterol 250-50mcg Diskus INH SCH ×2 (10:21→19:44)
--- NOTE | 2016-11-19 10:38 | CP.PCM.PN ---
<ÁngelaKeysha H - Last Filed: 11/19/16 10:33> Subjective - Date & Time of Evaluation Date of Evaluation: 11/19/16 Time of Evaluation: 07:15 - Subjective Subjective: PGY2 Medicine Note - Dr. Ld Frederick's service: Patient seen and examined at bedside this AM. Patient reports right leg pain improving but still there. Patient reports SOB with cough productive of white phlegm. Patient reports lower abdominal pain. Patient denies fever, chills, chest pain, nausea, vomiting, constipation, diarrhea. Objective - Vital Signs/Intake and Output Vital Signs (last 24 hours): Temp Pulse Resp BP Pulse Ox 98.3 F 100 H 18 153/49 H 99 11/19/16 09:47 11/19/16 09:47 11/19/16 09:47 11/19/16 09:47 11/19/16 09:32 Intake and Output: 11/19/16 11/19/16 06:59 18:59 Intake Total 325 0 Balance 325 0 - Medications Medications: Current Medications Acetaminophen (Tylenol 325mg Tab) 650 mg PO Q6 PRN PRN Reason: pain Last Admin: 11/18/16 16:11 Dose: 650 mg Albuterol (Ventolin Hfa 90 Mcg/Actuation (8 G)) 90 puff IH RQID PRN PRN Reason: Wheezing Last Admin: 11/13/16 19:49 Dose: 90 mcg Albuterol/Ipratropium (Duoneb 3 Mg/0.5 Mg (3 Ml) Ud) 3 ml INH RQ6 ALISA Last Admin: 11/19/16 07:24 Dose: 3 ml Calcium Acetate (Phoslo) 667 mg PO TIDCC [facility] Last Admin: 11/18/16 17:36 Dose: 667 mg Diltiazem HCl (Cardizem Cd) 300 mg PO DAILY [facility] Last Admin: 11/18/16 09:50 Dose: 300 mg Epoetin Lucien (Procrit) 20,000 unit IV MWF [facility] Last Admin: 11/17/16 10:27 Dose: 20,000 unit Escitalopram Oxalate (Lexapro) 5 mg PO DAILY [facility] Last Admin: 11/18/16 09:50 Dose: 5 mg Famotidine (Pepcid) 20 mg PO DAILY [facility] Last Admin: 11/18/16 10:12 Dose: 20 mg Ferric Sodium Gluconate Complex (Ferrlecit) 125 mg IVPB MWF [facility] Stop: 11/25/16 09:01 Last Admin: 11/17/16 10:27 Dose: 125 mg Furosemide (Lasix) 80 mg PO DAILY [facility] Last Admin: 11/18/16 09:56 Dose: 80 mg Gabapentin (Neurontin) 100 mg PO [facility] Last Admin: 11/18/16 21:03 Dose: 100 mg Hydralazine HCl (Apresoline) 100 mg PO BID [facility] Last Admin: 11/18/16 17:36 Dose: 100 mg Hydrochlorothiazide (Hydrodiuril) 50 mg PO DAILY [facility] Azithromycin 500 mg/ Sodium (Chloride) 250 mls @ 167 mls/hr IVPB Q24H [facility] Last Admin: 11/17/16 14:04 Dose: 167 mls/hr Ceftriaxone Sodium 1 gm/ (Sodium Chloride) 100 mls @ 100 mls/hr IVPB DAILY [facility] Last Admin: 11/18/16 12:30 Dose: 100 mls/hr Insulin Aspart (Novolog Mix 70/30 (70/30 Units/Ml)) 20 units SC HS [facility] Last Admin: 11/18/16 21:04 Dose: 20 units Insulin Aspart (Novolog Mix 70/30 (70/30 Units/Ml)) 15 units SC ACB [facility] Last Admin: 11/19/16 08:20 Dose: 15 units Insulin Human Regular (Novolin R) 0 unit SC ACHS [facility] PRN Reason: Protocol Last Admin: 11/19/16 08:21 Dose: 3 unit Isosorbide Mononitrate (Imdur) 60 mg PO DAILY [facility] Last Admin: 11/18/16 09:41 Dose: 60 mg Ondansetron HCl (Zofran Inj) 4 mg IVP Q4H PRN PRN Reason: Nausea/Vomiting Prednisone (Prednisone Tab) 10 mg PO DAILY [facility] Last Admin: 11/18/16 09:40 Dose: 10 mg Rosuvastatin Calcium (Crestor) 10 mg PO [facility] Last Admin: 11/18/16 21:03 Dose: 10 mg Fluticasone/Salmeterol (Advair Diskus 250/50) 1 puff INH RQ12 [facility] Last Admin: 11/19/16 10:21 Dose: Not Given Vitamin B Complex/Vit C/Folic Acid (Nephro-Niranjan) 1 tab PO DAILY [facility] - Labs Labs: 11/19/16 07:09 11/19/16 07:09 PT 11.7 SECONDS (9.7-12.2) 11/13/16 08:27 INR 1.0 11/13/16 08:27 APTT 28 SECONDS (21-34) 11/13/16 08:27 - Constitutional Appears: Non-toxic, No Acute Distress - Head Exam Head Exam: NORMAL INSPECTION - Eye Exam Eye Exam: EOMI - ENT Exam ENT Exam: Mucous Membranes Moist - Respiratory Exam Respiratory Exam: Clear to Ausculation Bilateral, NORMAL BREATHING PATTERN. absent: Rales, Rhonchi, Wheezes - Cardiovascular Exam Cardiovascular Exam: REGULAR RHYTHM, +S1, +S2. absent: Gallop, Rubs, Murmur - GI/Abdominal Exam GI & Abdominal Exam: Soft, Tenderness (lower abdomen), Normal Bowel Sounds - Extremities Exam Extremities Exam: Normal Capillary Refill. absent: Pedal Edema - Neurological Exam Neurological Exam: Alert, Awake - Psychiatric Exam Psychiatric exam: Normal Affect, Normal Mood - Skin Skin Exam: Normal Color, Warm Assessment and Plan - Assessment and Plan (Free Text) Assessment: Renal Cell Carcinoma Assessment & Plan: 11/14/16 right kidney biopsy - renal cell carcinoma Oncology consult - Dr. Leonardo- help appreciated Per Dr. Leonardo, best course of action is handling hematoma and then excision of renal mass if urology agrees Urology consult - Dr. Ba - f/u recommendations Anemia Assessment & Plan: Likely secondary to renal hematoma at site of biopsy Hgb 7.4 from 6.4 yesterday s/p 1unit pRBCs 1 unit transfusion today percent saturation and ferritin and reticulocyte count normal F/U stool OB Leukocyotsis Assessment & Plan: Likely secondary to steroids v. infection Afebrile F/U UA and urine culture Hyperkalemia Assessment & Plan: On dialysis Leg pain, right Assessment & Plan: 11/19: swelling improved continue current management X ray shows soft tissue swelling, doppler negative for any evidence of DVT. Will given Tylenol for pain as needed. Status: Acute Pneumonia Assessment & Plan 11/19: Day 8 of Zithromax and Rocephin, WBC is still high 11/13: day 2 of Zithromax and Rocephin, fever, chest pain, or cough. She does have a WBC of 16.7 today with left shift, continue to monitor WBC at 19.8 with a left shift. CXR - moderate venous congestion. bilateral hilar prominence. Bibasilar airspace opacities. small b/l pleural effusions. Upper lobe granulomatous changes. Started zithromax 500mg IVPB daily and rocephin 1gm IVPB daily 11/12/16 Status: Acute IDDM (insulin dependent diabetes mellitus) Assessment & Plan: Patient on 70/30 Novolog 15 units at night and 10 units ACB. Sliding scale insulin with medium protocol and accuchecks. Status: Acute COPD (chronic obstructive pulmonary disease) Assessment & Plan: Albuterol prn and Advair. Status: Chronic CAD (coronary artery disease) Assessment & Plan: Crestor 10mg, Aspirin 81mg, and Plavix 75mg Status: Chronic Atrial fibrillation Status: Chronic 11/19: continue Cardizem Hep, Plavix and ASA stopped secondary to renal hematoma 11/18:continue Cardizem, Hep, Plavix and ASA 11/17: Today was in Rapid afib with RVR, she is on 300mg of Cardizem. Patient transferred to [facility] and cardiology, Dr. Brenner is consulted, help appreciated. Patient is on Aspirin and Plavix. Hep 5000U SC Q8 prophylaxis HR constrolled No anticoagulation besides Plavix and ASA ESRD on dialysis Assessment & Plan: Patient is scheduled for dialysis tomorrow Status: Chronic CHF (congestive heart failure) Assessment & Plan: Lasix 80mg PO daily. Status: Acute HTN (hypertension) Assessment & Plan: Cardizem 300mg daily, Imdur 60mg daily, Hydralazine 100mg TID Status: Chronic Prophylactic measure Assessment & Plan: Pepcid 20mg 0.25mg Xanax prn for anxiety tylenol 650mg Q6H prn for pain Status: Acute <Haydee Frederick S - Last Filed: 11/19/16 22:46> Objective - Vital Signs/Intake and Output Vital Signs (last 24 hours): Temp Pulse Resp BP Pulse Ox 99.6 F 114 H 22 154/65 H 94 L 11/19/16 16:00 11/19/16 16:00 11/19/16 16:00 11/19/16 16:00 11/19/16 16:00 Intake and Output: 11/19/16 11/20/16 18:59 06:59 Intake Total 565 Balance 565 - Medications Medications: Current Medications Acetaminophen (Tylenol 325mg Tab) 650 mg PO Q6 PRN PRN Reason: pain Last Admin: 11/19/16 17:51 Dose: 650 mg Albuterol (Ventolin Hfa 90 Mcg/Actuation (8 G)) 90 puff IH RQID PRN PRN Reason: Wheezing Last Admin: 11/13/16 19:49 Dose: 90 mcg Albuterol/Ipratropium (Duoneb 3 Mg/0.5 Mg (3 Ml) Ud) 3 ml INH RQ6 ALISA Last Admin: 11/19/16 19:45 Dose: 3 ml Calcium Acetate (Phoslo) 667 mg PO TIDCC [facility] Last Admin: 11/19/16 17:37 Dose: 667 mg Diltiazem HCl (Cardizem Cd) 300 mg PO DAILY [facility] Last Admin: 11/19/16 13:01 Dose: 300 mg Epoetin Lucien (Procrit) 20,000 unit IV [facility] Last Admin: 11/19/16 11:16 Dose: 20,000 unit Escitalopram Oxalate (Lexapro) 5 mg PO DAILY [facility] Last Admin: 11/19/16 13:01 Dose: 5 mg Famotidine (Pepcid) 20 mg PO DAILY [facility] Last Admin: 11/19/16 13:03 Dose: 20 mg Ferric Sodium Gluconate Complex (Ferrlecit) 125 mg IVPB [facility] Stop: 11/25/16 09:01 Last Admin: 11/19/16 11:15 Dose: 125 mg Furosemide (Lasix) 80 mg PO DAILY [facility] Last Admin: 11/19/16 13:04 Dose: 80 mg Gabapentin (Neurontin) 100 mg PO HS [facility] Last Admin: 11/19/16 21:53 Dose: 100 mg Hydralazine HCl (Apresoline) 100 mg PO BID [facility] Last Admin: 11/19/16 17:37 Dose: 100 mg Hydrochlorothiazide (Hydrodiuril) 50 mg PO DAILY [facility] Last Admin: 11/19/16 13:01 Dose: 50 mg Azithromycin 500 mg/ Sodium (Chloride) 250 mls @ 167 mls/hr IVPB Q24H [facility] Last Admin: 11/19/16 14:35 Dose: 167 mls/hr Ceftriaxone Sodium 1 gm/ (Sodium Chloride) 100 mls @ 100 mls/hr IVPB DAILY [facility] Last Admin: 11/19/16 13:05 Dose: 100 mls/hr Insulin Aspart (Novolog Mix 70/30 (70/30 Units/Ml)) 20 units SC HS [facility] Last Admin: 11/18/16 21:04 Dose: 20 units Insulin Aspart (Novolog Mix 70/30 (70/30 Units/Ml)) 15 units SC ACB [facility] Last Admin: 11/19/16 08:20 Dose: 15 units Insulin Human Regular (Novolin R) 0 unit SC ACHS [facility] PRN Reason: Protocol Last Admin: 11/19/16 22:00 Dose: Not Given Isosorbide Mononitrate (Imdur) 60 mg PO DAILY [facility] Last Admin: 11/19/16 13:02 Dose: 60 mg Ondansetron HCl (Zofran Inj) 4 mg IVP Q4H PRN PRN Reason: Nausea/Vomiting Prednisone (Prednisone Tab) 10 mg PO DAILY [facility] Last Admin: 11/19/16 13:05 Dose: 10 mg Rosuvastatin Calcium (Crestor) 10 mg PO HS [facility] Last Admin: 11/18/16 21:03 Dose: 10 mg Fluticasone/Salmeterol (Advair Diskus 250/50) 1 puff INH RQ12 [facility] Last Admin: 11/19/16 19:44 Dose: Not Given Vitamin B Complex/Vit C/Folic Acid (Nephro-Niranjan) 1 tab PO DAILY [facility] Last Admin: 11/19/16 13:02 Dose: 1 tab - Labs Labs: 11/19/16 07:09 11/19/16 07:09 PT 12.4 SECONDS (9.7-12.2) H 11/19/16 11:38 INR 1.1 11/19/16 11:38 APTT 29 SECONDS (21-34) 11/19/16 11:38 Assessment and Plan (1) Acute systolic CHF (congestive heart failure) Status: Acute (2) Hyperkalemia Status: Acute (3) IDDM (insulin dependent diabetes mellitus) Status: Acute (4) Prophylactic measure Status: Acute (5) Pulmonary arterial hypertension Status: Acute (6) Respiratory distress Status: Acute (7) CRF (chronic renal failure) Status: Chronic (8) ESRD on dialysis Status: Chronic (9) Pneumonia Status: Suspected Attending/Attestation - Attestation I have personally seen and examined this patient.: Yes I have fully participated in the care of the patient.: Yes I have reviewed all pertinent clinical information, including history, physical exam and plan: Yes Notes (Text): 11/19/16 22:46 case seen and discussed with staff and resident mx as agreed
[2016-11-19] MEDS: Ferric Sodium Gluconat Complex 62.5 mg/5 ml Vial IVPB SCH (11:15)
[2016-11-19] MEDS: Epoetin Alfa Dialysis 20000 UNIT/ML Inj IV SCH (11:16)
--- NOTE | 2016-11-19 11:44 | CON ---
DATE: 11/19/2016 REASON FOR CONSULTATION: Right renal cell carcinoma. HISTORY OF PRESENT ILLNESS: This is a 66-year-old female who was seen by me last month for a right r enal mass. Underwent a biopsy which initially did not show the malignancy. A repeat biopsy was perf ormed on 11/14/2016 which now confirms renal cell carcinoma. Hence, hematology/oncology consult has been requested. The patient is also found to now have some bleed from the biopsy site and has a subc utaneous hematoma. She is currently receiving dialysis. PAST MEDICAL HISTORY: CAD, COPD, diabetes, CHF; end-stage renal disease, on dialysis; hypertension, renal mass. REVIEW OF SYSTEMS: Anorexic, sleepy. MEDICATIONS: She is on Tylenol, albuterol, aspirin, Plavix which has now been held secondary to her hematoma, diltiazem, Procrit, Lexapro, Prevacid, Ferrlecit. ALLERGIES: No known drug allergies. SURGICAL HISTORY: History of carotid endarterectomy and cholecystectomy. LABORATORY DATA: Show a white count of 19.8, hemoglobin of 7.3, platelets of 222. PHYSICAL EXAMINATION: VITAL SIGNS: Temperature is 98.2, blood pressure is 100/70, pulse is 90, respirations 20. HEENT: Pale. No scleral icterus was seen. NECK: Supple. CHEST: Bilateral air entry is fair. CARDIOVASCULAR: S1, S2, regular rate and rhythm. ABDOMEN: Soft, nondistended. CAT scan of the chest, abdomen, and pelvis shows the right renal mass along with a hematoma. No evid ence of metastatic disease. ASSESSMENT AND PLAN: A 66-year-old female with a right renal mass, now with a right subcutaneous hem atoma around the renal mass, most likely procedure related side effect. Plavix and aspirin have been held. The patient will need followup with urology to see if she is a candidate for resection of the mass since that would be the ideal situation. Will await urology input regarding surgical intervent ion. Further recommendations once that is obtained. Thank you for the consult. Will follow the patient with you. Whit Leonardo MD cc: [phone] TT: 11/19/2016 11:43:53 Confirmation # [id number] Dictation # [id number]
[2016-11-19 11:55] LABS: INR 1.1
[2016-11-19] MEDS: Azithromycin 500 MG in Sodium Chloride 0.9% 250 ML IVPB SCH (14:35)
--- NOTE | 2016-11-19 18:11 | CP.PCM.PN ---
Subjective - Date & Time of Evaluation Date of Evaluation: 11/19/16 Time of Evaluation: 12:40 - Subjective Subjective: clinically same Objective - Vital Signs/Intake and Output Vital Signs (last 24 hours): Temp Pulse Resp BP Pulse Ox 99.6 F 114 H 22 154/65 H 94 L 11/19/16 16:00 11/19/16 16:00 11/19/16 16:00 11/19/16 16:00 11/19/16 16:00 Intake and Output: 11/19/16 11/19/16 06:59 18:59 Intake Total 325 565 Balance 325 565 - Medications Medications: Current Medications Acetaminophen (Tylenol 325mg Tab) 650 mg PO Q6 PRN PRN Reason: pain Last Admin: 11/19/16 17:51 Dose: 650 mg Albuterol (Ventolin Hfa 90 Mcg/Actuation (8 G)) 90 puff IH RQID PRN PRN Reason: Wheezing Last Admin: 11/13/16 19:49 Dose: 90 mcg Albuterol/Ipratropium (Duoneb 3 Mg/0.5 Mg (3 Ml) Ud) 3 ml INH RQ6 ALISA Last Admin: 11/19/16 13:11 Dose: Not Given Calcium Acetate (Phoslo) 667 mg PO TIDCC [facility] Last Admin: 11/19/16 17:37 Dose: 667 mg Diltiazem HCl (Cardizem Cd) 300 mg PO DAILY [facility] Last Admin: 11/19/16 13:01 Dose: 300 mg Epoetin Lucien (Procrit) 20,000 unit IV [facility] Last Admin: 11/19/16 11:16 Dose: 20,000 unit Escitalopram Oxalate (Lexapro) 5 mg PO DAILY [facility] Last Admin: 11/19/16 13:01 Dose: 5 mg Famotidine (Pepcid) 20 mg PO DAILY [facility] Last Admin: 11/19/16 13:03 Dose: 20 mg Ferric Sodium Gluconate Complex (Ferrlecit) 125 mg IVPB [facility] Stop: 11/25/16 09:01 Last Admin: 11/19/16 11:15 Dose: 125 mg Furosemide (Lasix) 80 mg PO DAILY [facility] Last Admin: 11/19/16 13:04 Dose: 80 mg Gabapentin (Neurontin) 100 mg PO [facility] Last Admin: 11/18/16 21:03 Dose: 100 mg Hydralazine HCl (Apresoline) 100 mg PO BID [facility] Last Admin: 11/19/16 17:37 Dose: 100 mg Hydrochlorothiazide (Hydrodiuril) 50 mg PO DAILY [facility] Last Admin: 11/19/16 13:01 Dose: 50 mg Azithromycin 500 mg/ Sodium (Chloride) 250 mls @ 167 mls/hr IVPB Q24H [facility] Last Admin: 11/19/16 14:35 Dose: 167 mls/hr Ceftriaxone Sodium 1 gm/ (Sodium Chloride) 100 mls @ 100 mls/hr IVPB DAILY [facility] Last Admin: 11/19/16 13:05 Dose: 100 mls/hr Insulin Aspart (Novolog Mix 70/30 (70/30 Units/Ml)) 20 units SC HS [facility] Last Admin: 11/18/16 21:04 Dose: 20 units Insulin Aspart (Novolog Mix 70/30 (70/30 Units/Ml)) 15 units SC ACB [facility] Last Admin: 11/19/16 08:20 Dose: 15 units Insulin Human Regular (Novolin R) 0 unit SC ACHS [facility] PRN Reason: Protocol Last Admin: 11/19/16 17:00 Dose: Not Given Isosorbide Mononitrate (Imdur) 60 mg PO DAILY [facility] Last Admin: 11/19/16 13:02 Dose: 60 mg Ondansetron HCl (Zofran Inj) 4 mg IVP Q4H PRN PRN Reason: Nausea/Vomiting Prednisone (Prednisone Tab) 10 mg PO DAILY [facility] Last Admin: 11/19/16 13:05 Dose: 10 mg Rosuvastatin Calcium (Crestor) 10 mg PO [facility] Last Admin: 11/18/16 21:03 Dose: 10 mg Fluticasone/Salmeterol (Advair Diskus 250/50) 1 puff INH RQ12 [facility] Last Admin: 11/19/16 10:21 Dose: Not Given Vitamin B Complex/Vit C/Folic Acid (Nephro-Niranjan) 1 tab PO DAILY [facility] Last Admin: 11/19/16 13:02 Dose: 1 tab - Labs Labs: 11/19/16 07:09 11/19/16 07:09 PT 12.4 SECONDS (9.7-12.2) H 11/19/16 11:38 INR 1.1 11/19/16 11:38 APTT 29 SECONDS (21-34) 11/19/16 11:38 - Constitutional Appears: Well - Head Exam Head Exam: ATRAUMATIC, NORMAL INSPECTION, NORMOCEPHALIC - Eye Exam Eye Exam: EOMI, Normal appearance, PERRL Pupil Exam: NORMAL ACCOMODATION, PERRL - ENT Exam ENT Exam: Mucous Membranes Moist, Normal Exam - Neck Exam Neck Exam: Full ROM, Normal Inspection. absent: Lymphadenopathy - Respiratory Exam Respiratory Exam: Decreased Breath Sounds - Cardiovascular Exam Cardiovascular Exam: REGULAR RHYTHM, +S1, +S2 - GI/Abdominal Exam GI & Abdominal Exam: Soft, Diminished Bowel Sounds - Rectal Exam Rectal Exam: Deferred Assessment and Plan (1) CRF (chronic renal failure) Status: Chronic (2) Hyperkalemia Status: Acute (3) ESRD on dialysis Status: Acute (4) Pneumonia Status: Suspected (5) Acute systolic CHF (congestive heart failure) Status: Acute (6) Respiratory distress Status: Acute (7) Prophylactic measure Status: Acute (8) IDDM (insulin dependent diabetes mellitus) Status: Acute (9) Pulmonary arterial hypertension Status: Acute - Assessment and Plan (Free Text) Plan: Continue antibiotics Blood transfusion On hemodialysis He met oncology consult Hydrochlorothiazide
[2016-11-20] MEDS: Albuterol-Ipratrop 3 mg / 0.5 (3 ml) UD INH SCH ×3 (01:24→19:07)
[2016-11-20 06:39] LABS: ALB/GLOB RATIO 1.1 (1.0-2.1); BILIRUBIN,TOTAL 0.6 mg/dL (0.2-1.3); CALCIUM 8.5 mg/dl (8.6-10.4); TOTAL PROTEIN 6.8 g/dL (6.3-8.3)
[2016-11-20 06:43] LABS: BASO % 0.2 % (0.0-2.0); EOS # 0.2 K/uL (0.0-0.7); HEMATOCRIT 26.5 % (34.0-47.0); LYMPH # 1.1 K/uL (1.0-4.3); LYMPH % 5.6 % (20.0-40.0); MEAN CELL VOLUME 88.1 fL (81.0-99.0); MEAN CORPUSCULAR HEMOGLOBIN 29.1 pg (27.0-31.0); MEAN CORPUSCULAR HGB CONC 33.1 g/dL (33.0-37.0); MEAN PLATELET VOLUME 10.7 fL (7.2-11.7); MONO # 1.7 K/uL (0.0-0.8); MONO % 8.6 % (0.0-10.0); NRBC % 0.1 % (0.0-2.0); PLATELET COUNT 226 K/uL (130-400); RED CELL DISTRIBUTION WIDTH 17.9 % (11.5-14.5); WHITE BLOOD COUNT 19.2 K/uL (4.8-10.8)
--- NOTE | 2016-11-20 07:07 | PCM.URO ---
Urology Progress Note - Objective Lab Results Last 24 Hours: Laboratory Results - last 24 hr 11/18/16 11/19/16 11/19/16 11:27 07:09 11:38 WBC 19.1 H RBC 2.55 L Hgb 7.4 L Hct 22.9 L MCV 89.7 MCH 29.0 MCHC 32.3 L RDW 17.8 H Plt Count 227 MPV 11.0 Neut % (Auto) 83.7 H Lymph % (Auto) 6.3 L [place] % (Auto) 8.4 Eos % (Auto) 1.3 Baso % (Auto) 0.3 Neut # 16.0 H Lymph # 1.2 [place] # 1.6 H Eos # 0.2 Baso # 0.1 Neutrophils % (Manual) 87 H Lymphocytes % (Manual) 5 L Monocytes % (Manual) 6 Eosinophils % (Manual) 2 Nucleated RBC % 1 H Toxic Granulation Present Platelet Estimate Normal Large Platelets Present Giant Platelets Present Hypochromasia (manual) Slight Poikilocytosis (manual Slight Basophilic Stippling Slight Anisocytosis (manual) Slight Ovalocytes Slight PT 12.4 H INR 1.1 APTT 29 Sodium 136 Potassium 6.1 H Chloride 90 L Carbon Dioxide 26 Anion Gap 26 H BUN 87 H Creatinine 7.8 H* D Est GFR ( Amer) 6 Est GFR (Non-Af Amer) 5 POC Glucose (mg/dL) Random Glucose 192 H Calcium 8.7 Total Bilirubin 0.4 AST 23 ALT 23 Alkaline Phosphatase 84 Total Protein 6.8 Albumin 3.4 L Globulin 3.4 Albumin/Globulin Ratio 1.0 Blood Type B POSITIVE Antibody Screen Negative 11/19/16 11/19/16 11/19/16 11:59 17:18 22:08 WBC RBC Hgb Hct MCV MCH MCHC RDW Plt Count MPV Neut % (Auto) Lymph % (Auto) [place] % (Auto) Eos % (Auto) Baso % (Auto) Neut # Lymph # [place] # Eos # Baso # Neutrophils % (Manual) Lymphocytes % (Manual) Monocytes % (Manual) Eosinophils % (Manual) Nucleated RBC % Toxic Granulation Platelet Estimate Large Platelets Giant Platelets Hypochromasia (manual) Poikilocytosis (manual Basophilic Stippling Anisocytosis (manual) Ovalocytes PT INR APTT Sodium Potassium Chloride Carbon Dioxide Anion Gap BUN Creatinine Est GFR ( Amer) Est GFR (Non-Af Amer) POC Glucose (mg/dL) 173 H 132 H 227 H Random Glucose Calcium Total Bilirubin AST ALT Alkaline Phosphatase Total Protein Albumin Globulin Albumin/Globulin Ratio Blood Type Antibody Screen 11/20/16 11/20/16 06:08 06:20 WBC 19.2 H RBC 3.00 L Hgb 8.8 L Hct 26.5 L MCV 88.1 MCH 29.1 MCHC 33.1 RDW 17.9 H Plt Count 226 MPV 10.7 Neut % (Auto) 84.6 H Lymph % (Auto) 5.6 L [place] % (Auto) 8.6 Eos % (Auto) 1.0 Baso % (Auto) 0.2 Neut # 16.2 H Lymph # 1.1 [place] # 1.7 H Eos # 0.2 Baso # 0.0 Neutrophils % (Manual) Lymphocytes % (Manual) Monocytes % (Manual) Eosinophils % (Manual) Nucleated RBC % Toxic Granulation Platelet Estimate Large Platelets Giant Platelets Hypochromasia (manual) Poikilocytosis (manual Basophilic Stippling Anisocytosis (manual) Ovalocytes PT INR APTT Sodium 138 Potassium 5.0 Chloride 90 L Carbon Dioxide 31 H Anion Gap 22 H BUN 54 H Creatinine 5.5 H Est GFR ( Amer) 9 Est GFR (Non-Af Amer) 8 POC Glucose (mg/dL) 144 H Random Glucose 157 H Calcium 8.5 L Total Bilirubin 0.6 AST 23 ALT 17 Alkaline Phosphatase 90 Total Protein 6.8 Albumin 3.5 Globulin 3.3 Albumin/Globulin Ratio 1.1 Blood Type Antibody Screen Intake & Output: Intake & Output 11/19/16 11/20/16 11/20/16 18:59 06:59 18:59 Intake Total 565 600 Balance 565 600 Intake: Intake, IV Amount 250 Right Antecubital 250 Oral 240 350 Blood Product 300 Red Blood Cells Cpd As1 300 Lr Unit [id number] Other 25 Red Blood Cells Cpd As1 25 Lr Unit [id number] Other: # Voids Urine, Voided 1 0 # Bowel Movements 1 0 Vital Signs: Vital Signs - 24 hr 11/19/16 11/19/16 11/19/16 07:25 08:00 09:10 Temperature 99.2 F 98.2 F Pulse Rate 102 H 100 H 105 H Pulse Rate [ Apical] Respiratory 20 16 Rate Blood Pressure 179/66 H 172/68 H Blood Pressure [Right Arm] O2 Sat by Pulse 97 Oximetry 11/19/16 11/19/16 11/19/16 09:17 09:23 09:32 Temperature 98.2 F 98.2 F 98.2 F Pulse Rate 105 H 105 H Pulse Rate [ 105 H 105 H Apical] Respiratory 18 16 18 Rate Blood Pressure 172/68 H 155/55 H Blood Pressure 173/63 H 155/55 H [Right Arm] O2 Sat by Pulse 99 99 Oximetry 11/19/16 11/19/16 11/19/16 09:47 10:02 10:06 Temperature 98.3 F 98 F Pulse Rate 100 H 99 H Pulse Rate [ Apical] Respiratory 18 18 Rate Blood Pressure 153/49 H 151/50 H Blood Pressure 153/49 H 151/50 H [Right Arm] O2 Sat by Pulse Oximetry 11/19/16 11/19/16 11/19/16 10:32 10:39 11:00 Temperature 98 F Pulse Rate 99 H Pulse Rate [ Apical] Respiratory 18 Rate Blood Pressure 153/54 H Blood Pressure 153/54 H 145/60 [Right Arm] O2 Sat by Pulse Oximetry 11/19/16 11/19/16 11/19/16 11:30 11:47 12:10 Temperature 98.2 F Pulse Rate Pulse Rate [ 102 H Apical] Respiratory 18 Rate Blood Pressure Blood Pressure 108/40 L 126/44 L 124/94 H [Right Arm] O2 Sat by Pulse 100 Oximetry 11/19/16 11/19/16 11/19/16 13:04 15:00 16:00 Temperature 99.6 F Pulse Rate 111 H 114 H Pulse Rate [ Apical] Respiratory 22 Rate Blood Pressure 169/72 H 154/65 H Blood Pressure [Right Arm] O2 Sat by Pulse 94 L Oximetry 11/19/16 11/19/16 23:20 23:30 Temperature 98.7 F Pulse Rate 99 H 101 H Pulse Rate [ Apical] Respiratory 20 Rate Blood Pressure 170/64 H Blood Pressure [Right Arm] O2 Sat by Pulse 100 Oximetry
--- NOTE | 2016-11-20 07:32 | CP.PCM.PN ---
<Korin Lott - Last Filed: 11/20/16 10:24> Subjective - Date & Time of Evaluation Date of Evaluation: 11/20/16 Time of Evaluation: 07:00 - Subjective Subjective: Cardiology Progress Note for Dr. Brenner Patient seen and examined at bedside. There were no acute overnight events. Yesterday she received 1 PRBC during hemodialysis. This am she complains of some epigastric discomfort. It is not associated with food. She denies n/v/d, numbness/tingling, CP, SOB, dysuria, hematuria or weakness. Objective - Vital Signs/Intake and Output Vital Signs (last 24 hours): Temp Pulse Resp BP Pulse Ox 98.7 F 101 H 20 170/64 H 100 11/19/16 23:20 11/19/16 23:30 11/19/16 23:20 11/19/16 23:20 11/19/16 23:20 Intake and Output: 11/20/16 11/20/16 06:59 18:59 Intake Total 600 Balance 600 - Medications Medications: Current Medications Acetaminophen (Tylenol 325mg Tab) 650 mg PO Q6 PRN PRN Reason: pain Last Admin: 11/19/16 17:51 Dose: 650 mg Albuterol (Ventolin Hfa 90 Mcg/Actuation (8 G)) 90 puff IH RQID PRN PRN Reason: Wheezing Last Admin: 11/13/16 19:49 Dose: 90 mcg Albuterol/Ipratropium (Duoneb 3 Mg/0.5 Mg (3 Ml) Ud) 3 ml INH RQ6 [facility] Last Admin: 11/20/16 01:24 Dose: Not Given Calcium Acetate (Phoslo) 667 mg PO TIDCC [facility] Last Admin: 11/19/16 17:37 Dose: 667 mg Diltiazem HCl (Cardizem Cd) 300 mg PO DAILY [facility] Last Admin: 11/19/16 13:01 Dose: 300 mg Epoetin Lucien (Procrit) 20,000 unit IV MWF [facility] Last Admin: 11/19/16 11:16 Dose: 20,000 unit Escitalopram Oxalate (Lexapro) 5 mg PO DAILY [facility] Last Admin: 11/19/16 13:01 Dose: 5 mg Famotidine (Pepcid) 20 mg PO DAILY [facility] Last Admin: 11/19/16 13:03 Dose: 20 mg Ferric Sodium Gluconate Complex (Ferrlecit) 125 mg IVPB MWF [facility] Stop: 11/25/16 09:01 Last Admin: 11/19/16 11:15 Dose: 125 mg Furosemide (Lasix) 80 mg PO DAILY [facility] Last Admin: 11/19/16 13:04 Dose: 80 mg Gabapentin (Neurontin) 100 mg PO HS [facility] Last Admin: 11/19/16 21:53 Dose: 100 mg Hydralazine HCl (Apresoline) 100 mg PO BID [facility] Last Admin: 11/19/16 17:37 Dose: 100 mg Hydrochlorothiazide (Hydrodiuril) 50 mg PO DAILY [facility] Last Admin: 11/19/16 13:01 Dose: 50 mg Azithromycin 500 mg/ Sodium (Chloride) 250 mls @ 167 mls/hr IVPB Q24H [facility] Last Admin: 11/19/16 14:35 Dose: 167 mls/hr Ceftriaxone Sodium 1 gm/ (Sodium Chloride) 100 mls @ 100 mls/hr IVPB DAILY [facility] Last Admin: 11/19/16 13:05 Dose: 100 mls/hr Insulin Aspart (Novolog Mix 70/30 (70/30 Units/Ml)) 20 units SC HS [facility] Last Admin: 11/19/16 22:47 Dose: Not Given Insulin Aspart (Novolog Mix 70/30 (70/30 Units/Ml)) 15 units SC ACB [facility] Last Admin: 11/19/16 08:20 Dose: 15 units Insulin Human Regular (Novolin R) 0 unit SC ACHS [facility] PRN Reason: Protocol Last Admin: 11/19/16 22:00 Dose: Not Given Isosorbide Mononitrate (Imdur) 60 mg PO DAILY [facility] Last Admin: 11/19/16 13:02 Dose: 60 mg Ondansetron HCl (Zofran Inj) 4 mg IVP Q4H PRN PRN Reason: Nausea/Vomiting Prednisone (Prednisone Tab) 10 mg PO DAILY [facility] Last Admin: 11/19/16 13:05 Dose: 10 mg Rosuvastatin Calcium (Crestor) 10 mg PO [facility] Last Admin: 11/19/16 22:47 Dose: 10 mg Fluticasone/Salmeterol (Advair Diskus 250/50) 1 puff INH RQ12 [facility] Last Admin: 11/19/16 19:44 Dose: Not Given Vitamin B Complex/Vit C/Folic Acid (Nephro-Niranjan) 1 tab PO DAILY [facility] Last Admin: 11/19/16 13:02 Dose: 1 tab - Labs Labs: 11/20/16 06:20 11/20/16 06:20 PT 12.4 SECONDS (9.7-12.2) H 11/19/16 11:38 INR 1.1 11/19/16 11:38 APTT 29 SECONDS (21-34) 11/19/16 11:38 - Constitutional Appears: No Acute Distress - Head Exam Head Exam: ATRAUMATIC, NORMAL INSPECTION, NORMOCEPHALIC - Eye Exam Eye Exam: Normal appearance Pupil Exam: NORMAL ACCOMODATION - ENT Exam ENT Exam: Mucous Membranes Moist - Neck Exam Neck Exam: Full ROM, Normal Inspection - Respiratory Exam Respiratory Exam: Clear to Ausculation Bilateral, NORMAL BREATHING PATTERN. absent: Rales, Rhonchi, Wheezes - Cardiovascular Exam Cardiovascular Exam: REGULAR RHYTHM, +S1, +S2. absent: Gallop, Rubs, Murmur - GI/Abdominal Exam GI & Abdominal Exam: Soft, Tenderness, Normal Bowel Sounds. absent: Rigid ( mild epigastric tenderness), Mass, Rebound - Extremities Exam Extremities Exam: Normal Inspection. absent: Calf Tenderness, Pedal Edema - Neurological Exam Neurological Exam: Alert, Awake, CN II-XII Intact, Oriented x3 - Psychiatric Exam Psychiatric exam: Normal Affect, Normal Mood - Skin Skin Exam: Dry, Normal Color, Warm Assessment and Plan - Assessment and Plan (Free Text) Assessment: This is a 66Y F with PMH CAD, COPD, ESRD on HD, HTN, DM, renal mass admitted for pneumonia found to have 1) Atrial fibrillation with RVR- rhythm and rate controlled 2) Anemia s/p 1U PRBC 3) Renal cell carcinoma- confirmed on kidney biopsy POD #6 4) Pneumonia 5) HTN 6) CAD 7) HLD Plan: - Hgb stable s/p transfusion 1 PRBC during HD - Plavix and ASA on hold - Continue Cardizem - Continue Imdur, Lasix, Hydralazine, Crestor GI ppx: Pepcid DVT ppx: SCDs Case seen, reviewed and discussed with Dr. Elidia Lott PGY-1 <Halina Brenner - Last Filed: 11/21/16 10:38> Objective - Vital Signs/Intake and Output Vital Signs (last 24 hours): Temp Pulse Resp BP Pulse Ox 98.6 F 98 H 16 142/60 96 11/21/16 09:12 11/21/16 09:12 11/21/16 09:12 11/21/16 10:13 11/20/16 23:20 Intake and Output: 11/21/16 11/21/16 06:59 18:59 Intake Total 250 Output Total 1 Balance 249 - Medications Medications: Current Medications Acetaminophen (Tylenol 325mg Tab) 650 mg PO Q6 PRN PRN Reason: pain Last Admin: 11/20/16 08:21 Dose: 650 mg Albuterol (Ventolin Hfa 90 Mcg/Actuation (8 G)) 90 puff IH RQID PRN PRN Reason: Wheezing Last Admin: 11/13/16 19:49 Dose: 90 mcg Albuterol/Ipratropium (Duoneb 3 Mg/0.5 Mg (3 Ml) Ud) 3 ml INH RQ6 [facility] Last Admin: 11/21/16 07:40 Dose: 3 ml Calcium Acetate (Phoslo) 667 mg PO TIDCC [facility] Last Admin: 11/21/16 07:53 Dose: 667 mg Diltiazem HCl (Cardizem Cd) 300 mg PO DAILY [facility] Last Admin: 11/20/16 10:23 Dose: 300 mg Epoetin Lucien (Procrit) 20,000 unit IV [facility] Last Admin: 11/21/16 09:43 Dose: 20,000 unit Escitalopram Oxalate (Lexapro) 5 mg PO DAILY [facility] Last Admin: 11/20/16 10:24 Dose: 5 mg Famotidine (Pepcid) 20 mg PO DAILY [facility] Last Admin: 11/20/16 10:22 Dose: 20 mg Ferric Sodium Gluconate Complex (Ferrlecit) 125 mg IVPB [facility] Stop: 11/25/16 09:01 Last Admin: 11/21/16 09:43 Dose: 125 mg Furosemide (Lasix) 80 mg PO DAILY [facility] Last Admin: 11/20/16 10:24 Dose: 80 mg Gabapentin (Neurontin) 100 mg PO HS [facility] Last Admin: 11/20/16 21:25 Dose: Not Given Hydralazine HCl (Apresoline) 100 mg PO BID [facility] Last Admin: 11/20/16 17:24 Dose: 100 mg Hydrochlorothiazide (Hydrodiuril) 50 mg PO DAILY [facility] Last Admin: 11/20/16 10:22 Dose: 50 mg Azithromycin 500 mg/ Sodium (Chloride) 250 mls @ 167 mls/hr IVPB Q24H [facility] Last Admin: 11/20/16 17:24 Dose: 167 mls/hr Ceftriaxone Sodium (Rocephin Iv 1 Gm Duplex) 50 mls @ 100 mls/hr IVPB DAILY [facility] Insulin Aspart (Novolog Mix 70/30 (70/30 Units/Ml)) 20 units SC HS [facility] Last Admin: 11/20/16 21:25 Dose: Not Given Insulin Aspart (Novolog Mix 70/30 (70/30 Units/Ml)) 15 units SC ACB [facility] Last Admin: 11/21/16 07:53 Dose: 15 units Insulin Human Regular (Novolin R) 0 unit SC ACHS [facility] PRN Reason: Protocol Last Admin: 11/21/16 07:55 Dose: 3 unit Isosorbide Mononitrate (Imdur) 60 mg PO DAILY [facility] Last Admin: 11/20/16 10:22 Dose: 60 mg Ondansetron HCl (Zofran Inj) 4 mg IVP Q4H PRN PRN Reason: Nausea/Vomiting Last Admin: 11/20/16 19:09 Dose: 4 mg Prednisone (Prednisone Tab) 10 mg PO DAILY [facility] Last Admin: 11/20/16 10:23 Dose: 10 mg Rosuvastatin Calcium (Crestor) 10 mg PO HS [facility] Last Admin: 11/20/16 21:24 Dose: Not Given Fluticasone/Salmeterol (Advair Diskus 250/50) 1 puff INH RQ12 [facility] Last Admin: 11/21/16 07:40 Dose: 1 puff Vitamin B Complex/Vit C/Folic Acid (Nephro-Niranjan) 1 tab PO DAILY [facility] Last Admin: 11/20/16 10:22 Dose: 1 tab - Labs Labs: 11/21/16 05:45 11/21/16 05:45 PT 12.4 SECONDS (9.7-12.2) H 11/19/16 11:38 INR 1.1 11/19/16 11:38 APTT 29 SECONDS (21-34) 11/19/16 11:38 Attending/Attestation - Attestation I have personally seen and examined this patient.: Yes I have fully participated in the care of the patient.: Yes I have reviewed all pertinent clinical information, including history, physical exam and plan: Yes Notes (Text): 11/21/16 10:37 s/p 1 unit PRBCs transfusion asa plavix for afib stroke prevention rate control plavix
[2016-11-20] MEDS: (Novolin R) Insulin Human Regular 100 units/ml vial SC SCH ×4 (07:59→21:25)
--- NOTE | 2016-11-20 08:24 | CP.PCM.PN ---
Subjective - Date & Time of Evaluation Date of Evaluation: 11/20/16 Time of Evaluation: 10:00 - Subjective Subjective: Dr. Frederick service: Patient seen and examined in room. She is sitting up comfortable with sitter in room. She is complaining of some mild pain in her legs. During rounds today we discussed possible surgery to remove kidney. Objective - Vital Signs/Intake and Output Vital Signs (last 24 hours): Temp Pulse Resp BP Pulse Ox 98.4 F 100 H 20 167/63 H 99 11/20/16 08:01 11/20/16 08:01 11/20/16 08:01 11/20/16 08:01 11/20/16 08:01 Intake and Output: 11/20/16 11/20/16 06:59 18:59 Intake Total 600 Balance 600 - Medications Medications: Current Medications Acetaminophen (Tylenol 325mg Tab) 650 mg PO Q6 PRN PRN Reason: pain Last Admin: 11/20/16 08:21 Dose: 650 mg Albuterol (Ventolin Hfa 90 Mcg/Actuation (8 G)) 90 puff IH RQID PRN PRN Reason: Wheezing Last Admin: 11/13/16 19:49 Dose: 90 mcg Albuterol/Ipratropium (Duoneb 3 Mg/0.5 Mg (3 Ml) Ud) 3 ml INH RQ6 [facility] Last Admin: 11/20/16 01:24 Dose: Not Given Calcium Acetate (Phoslo) 667 mg PO TIDCC [facility] Last Admin: 11/20/16 08:20 Dose: 667 mg Diltiazem HCl (Cardizem Cd) 300 mg PO DAILY [facility] Last Admin: 11/19/16 13:01 Dose: 300 mg Epoetin Lucien (Procrit) 20,000 unit IV [facility] Last Admin: 11/19/16 11:16 Dose: 20,000 unit Escitalopram Oxalate (Lexapro) 5 mg PO DAILY [facility] Last Admin: 11/19/16 13:01 Dose: 5 mg Famotidine (Pepcid) 20 mg PO DAILY [facility] Last Admin: 11/19/16 13:03 Dose: 20 mg Ferric Sodium Gluconate Complex (Ferrlecit) [facility] Stop: 11/25/16 09:01 Last Admin: 11/19/16 11:15 Dose: 125 mg Furosemide (Lasix) 80 mg PO DAILY [facility] Last Admin: 11/19/16 13:04 Dose: 80 mg Gabapentin (Neurontin) 100 mg PO HS [facility] Last Admin: 11/19/16 21:53 Dose: 100 mg Hydralazine HCl (Apresoline) 100 mg PO BID [facility] Last Admin: 11/19/16 17:37 Dose: 100 mg Hydrochlorothiazide (Hydrodiuril) 50 mg PO DAILY [facility] Last Admin: 11/19/16 13:01 Dose: 50 mg Azithromycin 500 mg/ Sodium (Chloride) 250 mls @ 167 mls/hr IVPB Q24H [facility] Last Admin: 11/19/16 14:35 Dose: 167 mls/hr Ceftriaxone Sodium 1 gm/ (Sodium Chloride) 100 mls @ 100 mls/hr IVPB DAILY [facility] Last Admin: 11/19/16 13:05 Dose: 100 mls/hr Insulin Aspart (Novolog Mix 70/30 (70/30 Units/Ml)) 20 units SC HS [facility] Last Admin: 11/19/16 22:47 Dose: Not Given Insulin Aspart (Novolog Mix 70/30 (70/30 Units/Ml)) 15 units SC ACB [facility] Last Admin: 11/19/16 08:20 Dose: 15 units Insulin Human Regular (Novolin R) 0 unit SC ACHS [facility] PRN Reason: Protocol Last Admin: 11/20/16 07:59 Dose: Not Given Isosorbide Mononitrate (Imdur) 60 mg PO DAILY [facility] Last Admin: 11/19/16 13:02 Dose: 60 mg Ondansetron HCl (Zofran Inj) 4 mg IVP Q4H PRN PRN Reason: Nausea/Vomiting Prednisone (Prednisone Tab) 10 mg PO DAILY [facility] Last Admin: 11/19/16 13:05 Dose: 10 mg Rosuvastatin Calcium (Crestor) 10 mg PO HS [facility] Last Admin: 11/19/16 22:47 Dose: 10 mg Fluticasone/Salmeterol (Advair Diskus 250/50) 1 puff INH RQ12 [facility] Last Admin: 11/19/16 19:44 Dose: Not Given Vitamin B Complex/Vit C/Folic Acid (Nephro-Niranjan) 1 tab PO DAILY [facility] Last Admin: 11/19/16 13:02 Dose: 1 tab - Labs Labs: 11/20/16 06:20 11/20/16 06:20 PT 12.4 SECONDS (9.7-12.2) H 11/19/16 11:38 INR 1.1 11/19/16 11:38 APTT 29 SECONDS (21-34) 11/19/16 11:38 - Constitutional Appears: Non-toxic, No Acute Distress - Head Exam Head Exam: NORMAL INSPECTION - Eye Exam Eye Exam: Normal appearance - ENT Exam ENT Exam: Normal Exam - Respiratory Exam Respiratory Exam: Clear to Ausculation Bilateral. absent: Rales, Rhonchi, Wheezes - Cardiovascular Exam Cardiovascular Exam: REGULAR RHYTHM, RRR, +S1, +S2. absent: Gallop, Rubs - GI/Abdominal Exam GI & Abdominal Exam: Soft, Normal Bowel Sounds. absent: Guarding, Rigid, Tenderness - Extremities Exam Extremities Exam: Normal Inspection. absent: Pedal Edema - Back Exam Back Exam: NORMAL INSPECTION - Psychiatric Exam Psychiatric exam: Normal Affect, Normal Mood - Skin Skin Exam: Normal Color. absent: Warm Assessment and Plan - Assessment and Plan (Free Text) Assessment: Renal Cell Carcinoma Assessment & Plan: 11/20: Patient will most likely need Nephrectomy. 11/14/16 right kidney biopsy - renal cell carcinoma Oncology consult - Dr. Leonardo- help appreciated Per Dr. Leonardo, best course of action is handling hematoma and then excision of renal mass if urology agrees Urology consult - Dr. Ba - f/u recommendations Anemia Assessment & Plan: 11/20: Hbg is today at around 8.8, continue to monitor. Likely secondary to renal hematoma at site of biopsy Hgb 7.4 from 6.4 yesterday s/p 1unit pRBCs 1 unit transfusion today percent saturation and ferritin and reticulocyte count normal F/U stool OB Leukocyotsis Assessment & Plan: Likely secondary to steroids v. infection Afebrile F/U UA and urine culture Hyperkalemia Assessment & Plan: On dialysis Leg pain, right Assessment & Plan: 11/19: swelling improved continue current management X ray shows soft tissue swelling, doppler negative for any evidence of DVT. Will given Tylenol for pain as needed. Status: Acute Pneumonia Assessment & Plan 11/19: Day 8 of Zithromax and Rocephin, WBC is still high 11/13: day 2 of Zithromax and Rocephin, fever, chest pain, or cough. She does have a WBC of 16.7 today with left shift, continue to monitor WBC at 19.8 with a left shift. CXR - moderate venous congestion. bilateral hilar prominence. Bibasilar airspace opacities. small b/l pleural effusions. Upper lobe granulomatous changes. Started zithromax 500mg IVPB daily and rocephin 1gm IVPB daily 11/12/16 Status: Acute IDDM (insulin dependent diabetes mellitus) Assessment & Plan: Patient on 70/30 Novolog 15 units at night and 10 units ACB. Sliding scale insulin with medium protocol and accuchecks. Status: Acute COPD (chronic obstructive pulmonary disease) Assessment & Plan: Albuterol prn and Advair. Status: Chronic CAD (coronary artery disease) Assessment & Plan: Crestor 10mg, Aspirin 81mg, and Plavix 75mg Status: Chronic Atrial fibrillation Status: Chronic 11/19: continue Cardizem Hep, Plavix and ASA stopped secondary to renal hematoma 11/18:continue Cardizem, Hep, Plavix and ASA 11/17: Today was in Rapid afib with RVR, she is on 300mg of Cardizem. Patient transferred to [facility] and cardiology, Dr. Brenner is consulted, help appreciated. Patient is on Aspirin and Plavix. Hep 5000U SC Q8 prophylaxis HR constrolled No anticoagulation besides Plavix and ASA ESRD on dialysis Assessment & Plan: Patient is scheduled for dialysis tomorrow Status: Chronic CHF (congestive heart failure) Assessment & Plan: Lasix 80mg PO daily. Status: Acute HTN (hypertension) Assessment & Plan: Cardizem 300mg daily, Imdur 60mg daily, Hydralazine 100mg TID Status: Chronic Prophylactic measure Assessment & Plan: Pepcid 20mg 0.25mg Xanax prn for anxiety tylenol 650mg Q6H prn for pain
[2016-11-20] MEDS: (Novolog Mix 70/30) Insulin Aspart/Insulin Aspar 100 units/ml SC SCH ×2 (08:28→21:25)
[2016-11-20 08:33] LABS: EOSINOPHIL 2 % (0-4); NEUTROPHIL 86 % (50-75); NUCLEATED RED BLOOD CELL 1 % (0-0); TOTAL CELLS COUNTED 100
[2016-11-20] MEDS: Multivitamin Vitamin B Complex (Nephro-Vite) Tab PO SCH (10:22)
[2016-11-20] MEDS: diltiaZEM 300 mg/24 Hours CD Cap PO SCH (10:23)
--- NOTE | 2016-11-20 11:48 | PN ---
DATE: 11/20/2016 The patient is resting comfortably in bed, status post 1 unit PRBC yesterday, hemoglobin is now 8.8. Denies any complaints at this time. OBJECTIVE: VITAL SIGN: Temperature of 99.2, blood pressure is 170/60, pulse 100, respirations 18. HEENT: PERRL. EOMI. No scleral icterus is seen. NECK: Supple. CHEST: Bilateral air entry. CARDIOVASCULAR: S1, S2, regular rate and rhythm. ABDOMEN: Soft. EXTREMITIES: No edema. LABORATORY DATA: Show white count 19.1, hemoglobin 8.8, platelets 220. ASSESSMENT AND PLAN: Right renal cell carcinoma. Will discuss with Dr. Ba to decide about furt her management. The patient will need resection of the renal mass. Further recommendations once brandie e discussed with neurology. Whit Leonardo MD cc: [id number] TT: 11/20/2016 11:47:24 Confirmation # [id number] Dictation # [id number]
[2016-11-20] MEDS: Fluticasone-Salmeterol 250-50mcg Diskus INH SCH ×2 (11:49→19:08)
--- NOTE | 2016-11-20 12:51 | CP.PCM.PN ---
Subjective - Date & Time of Evaluation Date of Evaluation: 11/20/16 Time of Evaluation: 12:00 - Subjective Subjective: clinically same Objective - Vital Signs/Intake and Output Vital Signs (last 24 hours): Temp Pulse Resp BP Pulse Ox 98.4 F 100 H 20 163/73 H 99 11/20/16 08:01 11/20/16 08:01 11/20/16 08:01 11/20/16 10:24 11/20/16 08:01 Intake and Output: 11/20/16 11/20/16 06:59 18:59 Intake Total 600 Balance 600 - Medications Medications: Current Medications Acetaminophen (Tylenol 325mg Tab) 650 mg PO Q6 PRN PRN Reason: pain Last Admin: 11/20/16 08:21 Dose: 650 mg Albuterol (Ventolin Hfa 90 Mcg/Actuation (8 G)) 90 puff IH RQID PRN PRN Reason: Wheezing Last Admin: 11/13/16 19:49 Dose: 90 mcg Albuterol/Ipratropium (Duoneb 3 Mg/0.5 Mg (3 Ml) Ud) 3 ml INH RQ6 [facility] Last Admin: 11/20/16 08:19 Dose: 3 ml Calcium Acetate (Phoslo) 667 mg PO TIDCC [facility] Last Admin: 11/20/16 08:20 Dose: 667 mg Diltiazem HCl (Cardizem Cd) 300 mg PO DAILY [facility] Last Admin: 11/20/16 10:23 Dose: 300 mg Epoetin Lucien (Procrit) 20,000 unit IV [facility] Last Admin: 11/19/16 11:16 Dose: 20,000 unit Escitalopram Oxalate (Lexapro) 5 mg PO DAILY [facility] Last Admin: 11/20/16 10:24 Dose: 5 mg Famotidine (Pepcid) 20 mg PO DAILY [facility] Last Admin: 11/20/16 10:22 Dose: 20 mg Ferric Sodium Gluconate Complex (Ferrlecit) 125 mg IVPB [facility] Stop: 11/25/16 09:01 Last Admin: 11/19/16 11:15 Dose: 125 mg Furosemide (Lasix) 80 mg PO DAILY [facility] Last Admin: 11/20/16 10:24 Dose: 80 mg Gabapentin (Neurontin) 100 mg PO [facility] Last Admin: 11/19/16 21:53 Dose: 100 mg Hydralazine HCl (Apresoline) 100 mg PO BID [facility] Last Admin: 11/20/16 10:27 Dose: Not Given Hydrochlorothiazide (Hydrodiuril) 50 mg PO DAILY [facility] Last Admin: 11/20/16 10:22 Dose: 50 mg Azithromycin 500 mg/ Sodium (Chloride) 250 mls @ 167 mls/hr IVPB Q24H [facility] Last Admin: 11/19/16 14:35 Dose: 167 mls/hr Ceftriaxone Sodium 1 gm/ (Sodium Chloride) 100 mls @ 100 mls/hr IVPB DAILY [facility] Last Admin: 11/20/16 10:30 Dose: 100 mls/hr Insulin Aspart (Novolog Mix 70/30 (70/30 Units/Ml)) 20 units SC HS [facility] Last Admin: 11/19/16 22:47 Dose: Not Given Insulin Aspart (Novolog Mix 70/30 (70/30 Units/Ml)) 15 units SC ACB [facility] Last Admin: 11/20/16 08:28 Dose: Not Given Insulin Human Regular (Novolin R) 0 unit SC ACHS [facility] PRN Reason: Protocol Last Admin: 11/20/16 11:49 Dose: 4 unit Isosorbide Mononitrate (Imdur) 60 mg PO DAILY [facility] Last Admin: 11/20/16 10:22 Dose: 60 mg Ondansetron HCl (Zofran Inj) 4 mg IVP Q4H PRN PRN Reason: Nausea/Vomiting Prednisone (Prednisone Tab) 10 mg PO DAILY [facility] Last Admin: 11/20/16 10:23 Dose: 10 mg Rosuvastatin Calcium (Crestor) 10 mg PO HS [facility] Last Admin: 11/19/16 22:47 Dose: 10 mg Fluticasone/Salmeterol (Advair Diskus 250/50) 1 puff INH RQ12 [facility] Last Admin: 11/20/16 11:49 Dose: Not Given Vitamin B Complex/Vit C/Folic Acid (Nephro-Niranjan) 1 tab PO DAILY [facility] Last Admin: 11/20/16 10:22 Dose: 1 tab - Labs Labs: 11/20/16 06:20 11/20/16 06:20 PT 12.4 SECONDS (9.7-12.2) H 11/19/16 11:38 INR 1.1 11/19/16 11:38 APTT 29 SECONDS (21-34) 11/19/16 11:38 - Constitutional Appears: Well - Head Exam Head Exam: ATRAUMATIC, NORMAL INSPECTION, NORMOCEPHALIC - Eye Exam Eye Exam: EOMI, Normal appearance, PERRL Pupil Exam: NORMAL ACCOMODATION, PERRL - ENT Exam ENT Exam: Mucous Membranes Moist, Normal Exam - Neck Exam Neck Exam: Full ROM, Normal Inspection. absent: Lymphadenopathy - Respiratory Exam Respiratory Exam: Decreased Breath Sounds - Cardiovascular Exam Cardiovascular Exam: REGULAR RHYTHM, +S1, +S2 - GI/Abdominal Exam GI & Abdominal Exam: Soft, Diminished Bowel Sounds - Rectal Exam Rectal Exam: Deferred Assessment and Plan (1) Acute systolic CHF (congestive heart failure) Status: Acute (2) Hyperkalemia Status: Acute (3) IDDM (insulin dependent diabetes mellitus) Status: Acute (4) Prophylactic measure Status: Acute (5) Pulmonary arterial hypertension Status: Acute (6) Respiratory distress Status: Acute (7) CRF (chronic renal failure) Status: Chronic (8) ESRD on dialysis Status: Chronic (9) Pneumonia Status: Suspected - Assessment and Plan (Free Text) Plan: for surg urology dr. hurst to clear pt for surgery and also dr. hernandez to clera pt as pt has pulm htn
--- NOTE | 2016-11-20 13:20 | RAD ---
HISTORY: possible pneumonia COMPARISON: Comparison chest dated 11/10/2016. FINDINGS: LUNGS: Mild pulmonary venous congestive changes with what may represent mild bibasilar atelectasis and or alveolar-type infiltrates and small bilateral effusions left right greater than left PLEURA: No significant pleural effusion identified, no pneumothorax apparent. CARDIOVASCULAR: Normal. OSSEOUS STRUCTURES: No significant abnormalities. VISUALIZED UPPER ABDOMEN: Normal. OTHER FINDINGS: None. IMPRESSION: Mild pulmonary venous congestive changes with what may represent mild bibasilar atelectasis and or alveolar-type infiltrates and small bilateral effusions left right greater than left
[2016-11-20] MEDS: Azithromycin 500 MG in Sodium Chloride 0.9% 250 ML IVPB SCH (17:24)
[2016-11-20 19:09] LABS: RBC URINE 6 /hpf (0-3); TRANSITIONAL EPITHIAL 1 /hpf (0-3); URINE BACTERIA OCC (<OCC); URINE BILIRUBIN NEGATIVE (NEGATIVE); URINE COLOR Yellow (YELLOW); URINE GLUCOSE (UA) 2+ mg/dL (Normal); URINE KETONE NEGATIVE (NEGATIVE); URINE PROTEIN 2+ mg/dL (NEGATIVE); URINE UROBILINOGEN NORMAL mg/dL (0.2-1.0); WBC URINE 34 /hpf (0-5)
[2016-11-20 19:10] LABS: URINE BLOOD 1+ (NEGATIVE); URINE LEUKOCYTE ESTERASE 3+ Leu/uL (Negative)
[2016-11-21] MEDS: Albuterol-Ipratrop 3 mg / 0.5 (3 ml) UD INH SCH ×4 (01:11→19:43)
[2016-11-21 06:35] LABS: BASO # 0.1 K/uL (0.0-0.2); BASO % 0.3 % (0.0-2.0); EOS # 0.2 K/uL (0.0-0.7); LYMPH # 0.9 K/uL (1.0-4.3); LYMPH % 4.8 % (20.0-40.0); MEAN CELL VOLUME 88.4 fL (81.0-99.0); MEAN CORPUSCULAR HEMOGLOBIN 28.5 pg (27.0-31.0); MEAN CORPUSCULAR HGB CONC 32.3 g/dL (33.0-37.0); MEAN PLATELET VOLUME 10.7 fL (7.2-11.7); MONO # 1.7 K/uL (0.0-0.8); MONO % 8.8 % (0.0-10.0); PLATELET COUNT 240 K/uL (130-400); RED CELL DISTRIBUTION WIDTH 17.9 % (11.5-14.5); WHITE BLOOD COUNT 19.8 K/uL (4.8-10.8)
[2016-11-21 06:44] LABS: POTASSIUM 5.6 mmol/L (3.6-5.2)
[2016-11-21 06:46] LABS: BILIRUBIN,TOTAL 0.7 mg/dL (0.2-1.3); TOTAL PROTEIN 6.7 g/dL (6.3-8.3)
[2016-11-21 06:47] LABS: CALCIUM 8.5 mg/dl (8.6-10.4)
--- NOTE | 2016-11-21 07:33 | CP.PCM.PN ---
<Korin Lott - Last Filed: 11/21/16 09:02> Subjective - Date & Time of Evaluation Date of Evaluation: 11/21/16 Time of Evaluation: 07:40 - Subjective Subjective: Cardiology Progress Note for Dr. Brenner Patient seen and examined at bedside. There were no acute overnight events. Yesterday she was nauseous and did vomit her dinner. As of this morning, she says she feels a little nauseous, but no vomiting. She did have a Bm this morning as well. She denies CP, SOB, v/d, numbness/tingling, fever or chills. Sitter is at bedside. Patient reports she does not feel anxious this am. Objective - Vital Signs/Intake and Output Vital Signs (last 24 hours): Temp Pulse Resp BP Pulse Ox 98.7 F 100 H 20 174/71 H 96 11/20/16 23:20 11/20/16 23:30 11/20/16 23:20 11/20/16 23:20 11/20/16 23:20 Intake and Output: 11/21/16 11/21/16 06:59 18:59 Intake Total 250 Output Total 1 Balance 249 - Medications Medications: Current Medications Acetaminophen (Tylenol 325mg Tab) 650 mg PO Q6 PRN PRN Reason: pain Last Admin: 11/20/16 08:21 Dose: 650 mg Albuterol (Ventolin Hfa 90 Mcg/Actuation (8 G)) 90 puff IH RQID PRN PRN Reason: Wheezing Last Admin: 11/13/16 19:49 Dose: 90 mcg Albuterol/Ipratropium (Duoneb 3 Mg/0.5 Mg (3 Ml) Ud) 3 ml INH RQ6 [facility] Last Admin: 11/21/16 01:11 Dose: 3 ml Calcium Acetate (Phoslo) 667 mg PO TIDCC [facility] Last Admin: 11/20/16 17:23 Dose: 667 mg Diltiazem HCl (Cardizem Cd) 300 mg PO DAILY [facility] Last Admin: 11/20/16 10:23 Dose: 300 mg Epoetin Lucien (Procrit) 20,000 unit IV MWF [facility] [place] Last Admin: 11/19/16 11:16 Dose: 20,000 unit Escitalopram Oxalate (Lexapro) 5 mg PO DAILY [facility] [place] Last Admin: 11/20/16 10:24 Dose: 5 mg Famotidine (Pepcid) 20 mg PO DAILY [facility] [place] Last Admin: 11/20/16 10:22 Dose: 20 mg Ferric Sodium Gluconate Complex (Ferrlecit) [facility] Stop: 11/25/16 09:01 Last Admin: 11/19/16 11:15 Dose: 125 mg Furosemide (Lasix) 80 mg PO DAILY [facility] [place] Last Admin: 11/20/16 10:24 Dose: 80 mg Gabapentin (Neurontin) 100 mg PO [facility] Last Admin: 11/20/16 21:25 Dose: Not Given Hydralazine HCl (Apresoline) 100 mg PO BID [facility] [place] Last Admin: 11/20/16 17:24 Dose: 100 mg Hydrochlorothiazide (Hydrodiuril) 50 mg PO DAILY [facility] [place] Last Admin: 11/20/16 10:22 Dose: 50 mg Azithromycin 500 mg/ Sodium (Chloride) 250 mls @ 167 mls/hr IVPB Q24H [facility] [place] Last Admin: 11/20/16 17:24 Dose: 167 mls/hr Ceftriaxone Sodium (Rocephin Iv 1 Gm Duplex) 50 mls @ 100 mls/hr IVPB DAILY [facility] [place] Insulin Aspart (Novolog Mix 70/30 (70/30 Units/Ml)) 20 units SC HS [facility] Last Admin: 11/20/16 21:25 Dose: Not Given Insulin Aspart (Novolog Mix 70/30 (70/30 Units/Ml)) 15 units SC ACB [facility] [facility] Last Admin: 11/20/16 08:28 Dose: Not Given Insulin Human Regular (Novolin R) 0 unit SC [facility] PRN Reason: Protocol Last Admin: 11/20/16 21:25 Dose: Not Given Isosorbide Mononitrate (Imdur) 60 mg PO DAILY [facility] Last Admin: 11/20/16 10:22 Dose: 60 mg Ondansetron HCl (Zofran Inj) 4 mg IVP Q4H PRN PRN Reason: Nausea/Vomiting Last Admin: 11/20/16 19:09 Dose: 4 mg Prednisone (Prednisone Tab) 10 mg PO DAILY [facility] [facility] Last Admin: 11/20/16 10:23 Dose: 10 mg Rosuvastatin Calcium (Crestor) 10 mg PO HS [facility] Last Admin: 11/20/16 21:24 Dose: Not Given Fluticasone/Salmeterol (Advair Diskus 250/50) 1 puff INH RQ12 [facility] Last Admin: 11/20/16 19:08 Dose: 1 puff Vitamin B Complex/Vit C/Folic Acid (Nephro-Niranjan) 1 tab PO DAILY [facility] Last Admin: 11/20/16 10:22 Dose: 1 tab - Labs Labs: 11/21/16 05:45 11/21/16 05:45 PT 12.4 SECONDS (9.7-12.2) H 11/19/16 11:38 INR 1.1 11/19/16 11:38 APTT 29 SECONDS (21-34) 11/19/16 11:38 - Constitutional Appears: No Acute Distress - Head Exam Head Exam: ATRAUMATIC, NORMAL INSPECTION, NORMOCEPHALIC - Eye Exam Eye Exam: Normal appearance, PERRL Pupil Exam: NORMAL ACCOMODATION - ENT Exam ENT Exam: Mucous Membranes Moist - Neck Exam Neck Exam: Normal Inspection - Respiratory Exam Respiratory Exam: Clear to Ausculation Bilateral, NORMAL BREATHING PATTERN. absent: Rales, Rhonchi, Wheezes - Cardiovascular Exam Cardiovascular Exam: REGULAR RHYTHM, +S1, +S2. absent: Gallop, Rubs, Murmur - GI/Abdominal Exam GI & Abdominal Exam: Soft, Normal Bowel Sounds. absent: Distended, Tenderness, Mass, Rebound - Extremities Exam Extremities Exam: Normal Inspection. absent: Calf Tenderness, Pedal Edema - Neurological Exam Neurological Exam: Alert, Awake, CN II-XII Intact, Oriented x3 - Psychiatric Exam Psychiatric exam: Normal Affect, Normal Mood - Skin Skin Exam: Dry, Intact, Normal Color, Warm Assessment and Plan - Assessment and Plan (Free Text) Assessment: This is a 66Y F with PMH CAD, COPD, ESRD on HD, HTN, DM, renal mass admitted for 1) Atrial fibrillation with RVR- rhythm and rate controlled 2) Anemia - stable 3) Renal cell carcinoma 4) Pneumonia 5) Leukocytosis 6) HTN 7) CAD 8) HLD Plan: - HD today - Patient should proceed with nephrectomy for renal cell carcinoma- the benefits outweigh the risks - Continue to hold Plavix and ASA - Stool occult positive, Continue to monitor Hgb - Continue Lasix, Hydralazine, HCTZ and Imdur - Continue Crestor and Cardizem GI ppx: Pepcid DVT ppx: SCDs Case seen, reviewed and discussed with Dr. Elidia Lott PGY1 <Halina Brenner - Last Filed: 11/21/16 10:37> Objective - Vital Signs/Intake and Output Vital Signs (last 24 hours): Temp Pulse Resp BP Pulse Ox 98.6 F 98 H 16 142/60 96 11/21/16 09:12 11/21/16 09:12 11/21/16 09:12 11/21/16 10:13 11/20/16 23:20 Intake and Output: 11/21/16 11/21/16 06:59 18:59 Intake Total 250 Output Total 1 Balance 249 - Medications Medications: Current Medications Acetaminophen (Tylenol 325mg Tab) 650 mg PO Q6 PRN PRN Reason: pain Last Admin: 11/20/16 08:21 Dose: 650 mg Albuterol (Ventolin Hfa 90 Mcg/Actuation (8 G)) 90 puff IH RQID PRN PRN Reason: Wheezing Last Admin: 11/13/16 19:49 Dose: 90 mcg Albuterol/Ipratropium (Duoneb 3 Mg/0.5 Mg (3 Ml) Ud) 3 ml INH RQ6 [facility] Last Admin: 11/21/16 07:40 Dose: 3 ml Calcium Acetate (Phoslo) 667 mg PO TIDCC [facility] [place] Last Admin: 11/21/16 07:53 Dose: 667 mg Diltiazem HCl (Cardizem Cd) 300 mg PO DAILY [facility] [facility] Last Admin: 11/20/16 10:23 Dose: 300 mg Epoetin Lucien (Procrit) 20,000 unit IV [facility] Last Admin: 11/21/16 09:43 Dose: 20,000 unit Escitalopram Oxalate (Lexapro) 5 mg PO DAILY [facility] Last Admin: 11/20/16 10:24 Dose: 5 mg Famotidine (Pepcid) 20 mg PO DAILY [facility] Last Admin: 11/20/16 10:22 Dose: 20 mg Ferric Sodium Gluconate Complex (Ferrlecit) 125 mg IVPB [facility] Stop: 11/25/16 09:01 Last Admin: 11/21/16 09:43 Dose: 125 mg Furosemide (Lasix) 80 mg PO DAILY [facility] Last Admin: 11/20/16 10:24 Dose: 80 mg Gabapentin (Neurontin) 100 mg PO HS [facility] Last Admin: 11/20/16 21:25 Dose: Not Given Hydralazine HCl (Apresoline) 100 mg PO BID [facility] Last Admin: 11/20/16 17:24 Dose: 100 mg Hydrochlorothiazide (Hydrodiuril) 50 mg PO DAILY [facility] Last Admin: 11/20/16 10:22 Dose: 50 mg Azithromycin 500 mg/ Sodium (Chloride) 250 mls @ 167 mls/hr IVPB Q24H [facility] Last Admin: 11/20/16 17:24 Dose: 167 mls/hr Ceftriaxone Sodium (Rocephin Iv 1 Gm Duplex) 50 mls @ 100 mls/hr IVPB DAILY [facility] Insulin Aspart (Novolog Mix 70/30 (70/30 Units/Ml)) 20 units SC [facility] Last Admin: 11/20/16 21:25 Dose: Not Given Insulin Aspart (Novolog Mix 70/30 (70/30 Units/Ml)) 15 units SC ACB [facility] Last Admin: 11/21/16 07:53 Dose: 15 units Insulin Human Regular (Novolin R) 0 unit SC [facility] PRN Reason: Protocol Last Admin: 11/21/16 07:55 Dose: 3 unit Isosorbide Mononitrate (Imdur) 60 mg PO DAILY [facility] Last Admin: 11/20/16 10:22 Dose: 60 mg Ondansetron HCl (Zofran Inj) 4 mg IVP Q4H PRN PRN Reason: Nausea/Vomiting Last Admin: 11/20/16 19:09 Dose: 4 mg Prednisone (Prednisone Tab) 10 mg PO DAILY [facility] Last Admin: 11/20/16 10:23 Dose: 10 mg Rosuvastatin Calcium (Crestor) 10 mg PO [facility] Last Admin: 11/20/16 21:24 Dose: Not Given Fluticasone/Salmeterol (Advair Diskus 250/50) 1 puff INH RQ12 [facility] [place] Last Admin: 11/21/16 07:40 Dose: 1 puff Vitamin B Complex/Vit C/Folic Acid (Nephro-Niranjan) 1 tab PO DAILY [facility] Last Admin: 11/20/16 10:22 Dose: 1 tab - Labs Labs: 11/21/16 05:45 11/21/16 05:45 PT 12.4 SECONDS (9.7-12.2) H 11/19/16 11:38 INR 1.1 11/19/16 11:38 APTT 29 SECONDS (21-34) 11/19/16 11:38 Attending/Attestation - Attestation I have personally seen and examined this patient.: Yes I have fully participated in the care of the patient.: Yes I have reviewed all pertinent clinical information, including history, physical exam and plan: Yes Notes (Text): 11/21/16 10:35 pt with bleed in past continue ASA and plavix stroke prevent cadiac cath 2012 no coronay disease EF nl would repeat echo proceed with renal cell ca surgery benefit outweigh risks
[2016-11-21] MEDS: Fluticasone-Salmeterol 250-50mcg Diskus INH SCH ×2 (07:40→19:43)
[2016-11-21] MEDS: (Novolog Mix 70/30) Insulin Aspart/Insulin Aspar 100 units/ml SC SCH ×2 (07:53→22:00)
[2016-11-21] MEDS: (Novolin R) Insulin Human Regular 100 units/ml vial SC SCH ×4 (07:55→22:00)
[2016-11-21] MEDS: Ferric Sodium Gluconat Complex 62.5 mg/5 ml Vial IVPB SCH (09:43)
[2016-11-21] MEDS: Epoetin Alfa Dialysis 20000 UNIT/ML Inj IV SCH (09:43)
[2016-11-21] MEDS ORDERED: cefTRIAXone IV 1 gm in Dextros 1 GM in Dextrose 5% In Water 50 ML IVPB SCH (10:00)
[2016-11-21] MEDS ORDERED: Azithromycin 500 MG in Sodium Chloride 0.9% 250 ML IVPB SCH (10:00)
--- NOTE | 2016-11-21 10:00 | CP.PCM.PN ---
Subjective - Date & Time of Evaluation Date of Evaluation: 11/21/16 Time of Evaluation: 09:00 - Subjective Subjective: Dr. Frederick Service: Patient seen and examined in room. She is complaining of abdominal pain. According to nursing staff she has not had a bowel movement for a few days. She also had one episode of emisis last night after eating soup. Objective - Vital Signs/Intake and Output Vital Signs (last 24 hours): Temp Pulse Resp BP Pulse Ox 98.6 F 98 H 16 146/63 96 11/21/16 09:12 11/21/16 09:12 11/21/16 09:12 11/21/16 09:28 11/20/16 23:20 Intake and Output: 11/21/16 11/21/16 06:59 18:59 Intake Total 250 Output Total 1 Balance 249 - Medications Medications: Current Medications Acetaminophen (Tylenol 325mg Tab) 650 mg PO Q6 PRN PRN Reason: pain Last Admin: 11/20/16 08:21 Dose: 650 mg Albuterol (Ventolin Hfa 90 Mcg/Actuation (8 G)) 90 puff IH RQID PRN PRN Reason: Wheezing Last Admin: 11/13/16 19:49 Dose: 90 mcg Albuterol/Ipratropium (Duoneb 3 Mg/0.5 Mg (3 Ml) Ud) 3 ml INH RQ6 [facility] Last Admin: 11/21/16 07:40 Dose: 3 ml Calcium Acetate (Phoslo) 667 mg PO TIDCC [facility] Last Admin: 11/21/16 07:53 Dose: 667 mg Diltiazem HCl (Cardizem Cd) 300 mg PO DAILY [facility] Last Admin: 11/20/16 10:23 Dose: 300 mg Epoetin Lucien (Procrit) 20,000 unit IV [facility] [place] Last Admin: 11/21/16 09:43 Dose: 20,000 unit Escitalopram Oxalate (Lexapro) 5 mg PO DAILY [facility] Last Admin: 11/20/16 10:24 Dose: 5 mg Famotidine (Pepcid) 20 mg PO DAILY [facility] Last Admin: 11/20/16 10:22 Dose: 20 mg Ferric Sodium Gluconate Complex (Ferrlecit) 125 mg IVPB [facility] [place] Stop: 11/25/16 09:01 Last Admin: 11/21/16 09:43 Dose: 125 mg Furosemide (Lasix) 80 mg PO DAILY [facility] Last Admin: 11/20/16 10:24 Dose: 80 mg Gabapentin (Neurontin) 100 mg PO HS [facility] Last Admin: 11/20/16 21:25 Dose: Not Given Hydralazine HCl (Apresoline) 100 mg PO BID [facility] Last Admin: 11/20/16 17:24 Dose: 100 mg Hydrochlorothiazide (Hydrodiuril) 50 mg PO DAILY [facility] Last Admin: 11/20/16 10:22 Dose: 50 mg Azithromycin 500 mg/ Sodium (Chloride) 250 mls @ 167 mls/hr IVPB Q24H [facility] Last Admin: 11/20/16 17:24 Dose: 167 mls/hr Ceftriaxone Sodium (Rocephin Iv 1 Gm Duplex) 50 mls @ 100 mls/hr IVPB DAILY [facility] Insulin Aspart (Novolog Mix 70/30 (70/30 Units/Ml)) 20 units SC HS [facility] Last Admin: 11/20/16 21:25 Dose: Not Given Insulin Aspart (Novolog Mix 70/30 (70/30 Units/Ml)) 15 units SC ACB [facility] Last Admin: 11/21/16 07:53 Dose: 15 units Insulin Human Regular (Novolin R) 0 unit SC [facility] PRN Reason: Protocol Last Admin: 11/21/16 07:55 Dose: 3 unit Isosorbide Mononitrate (Imdur) 60 mg PO DAILY [facility] Last Admin: 11/20/16 10:22 Dose: 60 mg Ondansetron HCl (Zofran Inj) 4 mg IVP Q4H PRN PRN Reason: Nausea/Vomiting Last Admin: 11/20/16 19:09 Dose: 4 mg Prednisone (Prednisone Tab) 10 mg PO DAILY [facility] Last Admin: 11/20/16 10:23 Dose: 10 mg Rosuvastatin Calcium (Crestor) 10 mg PO HS [facility] Last Admin: 11/20/16 21:24 Dose: Not Given Fluticasone/Salmeterol (Advair Diskus 250/50) 1 puff INH RQ12 [facility] Last Admin: 11/21/16 07:40 Dose: 1 puff Vitamin B Complex/Vit C/Folic Acid (Nephro-Niranjan) 1 tab PO DAILY [facility] Last Admin: 11/20/16 10:22 Dose: 1 tab - Labs Labs: 11/21/16 05:45 11/21/16 05:45 PT 12.4 SECONDS (9.7-12.2) H 11/19/16 11:38 INR 1.1 11/19/16 11:38 APTT 29 SECONDS (21-34) 11/19/16 11:38 - Constitutional Appears: Non-toxic, No Acute Distress - Head Exam Head Exam: NORMAL INSPECTION - Eye Exam Eye Exam: Normal appearance - ENT Exam ENT Exam: Normal Exam - Respiratory Exam Respiratory Exam: Clear to Ausculation Bilateral. absent: Rhonchi, Wheezes - Cardiovascular Exam Cardiovascular Exam: REGULAR RHYTHM, RRR, +S1, +S2. absent: Gallop, Rubs - GI/Abdominal Exam GI & Abdominal Exam: Soft, Normal Bowel Sounds. absent: Tenderness - Extremities Exam Extremities Exam: Normal Inspection. absent: Pedal Edema - Back Exam Back Exam: NORMAL INSPECTION - Psychiatric Exam Psychiatric exam: Normal Affect, Normal Mood - Skin Skin Exam: Normal Color Assessment and Plan - Assessment and Plan (Free Text) Assessment: A Renal Cell Carcinoma Assessment & Plan: 11/21: Patient will need clearance from cardiology before surgery X:ray today showed no evidence of SBO but did show stool in the colon. Give miralax 17gm twice, consider more if still no bowel movement. 11/20: Patient will most likely need Nephrectomy. 11/14/16 right kidney biopsy - renal cell carcinoma Oncology consult - Dr. Leonardo- help appreciated Per Dr. Leonardo, best course of action is handling hematoma and then excision of renal mass if urology agrees Urology consult - Dr. Ba - f/u recommendations Anemia Assessment & Plan: 11/21: Stool heme occult positive. Dr. Caraballo consulted, Hbg today is 8.1, follow up iron studies tomorrow morning 11/20: Hbg is today at around 8.8, continue to monitor. Likely secondary to renal hematoma at site of biopsy Hgb 7.4 from 6.4 yesterday s/p 1unit pRBCs 1 unit transfusion today percent saturation and ferritin and reticulocyte count normal F/U stool OB Leukocyotsis Assessment & Plan: Likely secondary to steroids v. infection Afebrile F/U UA and urine culture Hyperkalemia Assessment & Plan: On dialysis Leg pain, right Assessment & Plan: 11/19: swelling improved continue current management X ray shows soft tissue swelling, doppler negative for any evidence of DVT. Will given Tylenol for pain as needed. Status: Acute Pneumonia Assessment & Plan 11/19: Day 8 of Zithromax and Rocephin, WBC is still high 11/13: day 2 of Zithromax and Rocephin, fever, chest pain, or cough. She does have a WBC of 16.7 today with left shift, continue to monitor WBC at 19.8 with a left shift. CXR - moderate venous congestion. bilateral hilar prominence. Bibasilar airspace opacities. small b/l pleural effusions. Upper lobe granulomatous changes. Started zithromax 500mg IVPB daily and rocephin 1gm IVPB daily 11/12/16 Status: Acute IDDM (insulin dependent diabetes mellitus) Assessment & Plan: Patient on 70/30 Novolog 15 units at night and 10 units ACB. Sliding scale insulin with medium protocol and accuchecks. Status: Acute COPD (chronic obstructive pulmonary disease) Assessment & Plan: Albuterol prn and Advair. Status: Chronic CAD (coronary artery disease) Assessment & Plan: Crestor 10mg, Aspirin 81mg, and Plavix 75mg Status: Chronic Atrial fibrillation Status: Chronic 11/19: continue Cardizem Hep, Plavix and ASA stopped secondary to renal hematoma 11/18:continue Cardizem, Hep, Plavix and ASA 11/17: Today was in Rapid afib with RVR, she is on 300mg of Cardizem. Patient transferred to tele and cardiology, Dr. Brenner is consulted, help appreciated. Patient is on Aspirin and Plavix. Hep 5000U SC Q8 prophylaxis HR constrolled No anticoagulation besides Plavix and ASA ESRD on dialysis Assessment & Plan: Patient is scheduled for dialysis tomorrow Status: Chronic CHF (congestive heart failure) Assessment & Plan: Lasix 80mg PO daily. Status: Acute HTN (hypertension) Assessment & Plan: Cardizem 300mg daily, Imdur 60mg daily, Hydralazine 100mg TID Status: Chronic Prophylactic measure Assessment & Plan: Pepcid 20mg 0.25mg Xanax prn for anxiety tylenol 650mg Q6H prn for pain
[2016-11-21 10:44] LABS: METAMYELOCYTE 2 % (0-0); NEUTROPHIL 83 % (50-75); NUCLEATED RED BLOOD CELL 1 % (0-0); REACTIVE LYMPHOCYTES 1 % (0-0); TOTAL CELLS COUNTED 100
--- NOTE | 2016-11-21 10:45 | CP.PCM.PN ---
Subjective - Date & Time of Evaluation Date of Evaluation: 11/21/16 Time of Evaluation: 11:20 - Subjective Subjective: clinically same Objective - Vital Signs/Intake and Output Vital Signs (last 24 hours): Temp Pulse Resp BP Pulse Ox 98.6 F 98 H 16 142/60 96 11/21/16 09:12 11/21/16 09:12 11/21/16 09:12 11/21/16 10:13 11/20/16 23:20 Intake and Output: 11/21/16 11/21/16 06:59 18:59 Intake Total 250 Output Total 1 Balance 249 - Medications Medications: Current Medications Acetaminophen (Tylenol 325mg Tab) 650 mg PO Q6 PRN PRN Reason: pain Last Admin: 11/20/16 08:21 Dose: 650 mg Albuterol (Ventolin Hfa 90 Mcg/Actuation (8 G)) 90 puff IH RQID PRN PRN Reason: Wheezing Last Admin: 11/13/16 19:49 Dose: 90 mcg Albuterol/Ipratropium (Duoneb 3 Mg/0.5 Mg (3 Ml) Ud) 3 ml INH RQ6 [facility] Last Admin: 11/21/16 07:40 Dose: 3 ml Calcium Acetate (Phoslo) 667 mg PO TIDCC [facility] Last Admin: 11/21/16 07:53 Dose: 667 mg Diltiazem HCl (Cardizem Cd) 300 mg PO DAILY [facility] Last Admin: 11/20/16 10:23 Dose: 300 mg Epoetin Lucien (Procrit) 20,000 unit IV [facility] [place] Last Admin: 11/21/16 09:43 Dose: 20,000 unit Escitalopram Oxalate (Lexapro) 5 mg PO DAILY [facility] Last Admin: 11/20/16 10:24 Dose: 5 mg Famotidine (Pepcid) 20 mg PO DAILY [facility] Last Admin: 11/20/16 10:22 Dose: 20 mg Ferric Sodium Gluconate Complex (Ferrlecit) 125 mg IVPB [facility] [place] Stop: 11/25/16 09:01 Last Admin: 11/21/16 09:43 Dose: 125 mg Furosemide (Lasix) 80 mg PO DAILY [facility] Last Admin: 11/20/16 10:24 Dose: 80 mg Gabapentin (Neurontin) 100 mg PO [facility] Last Admin: 03/23/17 21:25 Dose: Not Given Hydralazine HCl (Apresoline) 100 mg PO BID [facility] Last Admin: 11/20/16 17:24 Dose: 100 mg Hydrochlorothiazide (Hydrodiuril) 50 mg PO DAILY [facility] Last Admin: 11/20/16 10:22 Dose: 50 mg Azithromycin 500 mg/ Sodium (Chloride) 250 mls @ 167 mls/hr IVPB Q24H [facility] Last Admin: 11/20/16 17:24 Dose: 167 mls/hr Ceftriaxone Sodium (Rocephin Iv 1 Gm Duplex) 50 mls @ 100 mls/hr IVPB DAILY [facility] Insulin Aspart (Novolog Mix 70/30 (70/30 Units/Ml)) 20 units SC HS [facility] Last Admin: 11/20/16 21:25 Dose: Not Given Insulin Aspart (Novolog Mix 70/30 (70/30 Units/Ml)) 15 units SC ACB [facility] Last Admin: 11/21/16 07:53 Dose: 15 units Insulin Human Regular (Novolin R) 0 unit SC [facility] PRN Reason: Protocol Last Admin: 11/21/16 07:55 Dose: 3 unit Isosorbide Mononitrate (Imdur) 60 mg PO DAILY [facility] Last Admin: 11/20/16 10:22 Dose: 60 mg Ondansetron HCl (Zofran Inj) 4 mg IVP Q4H PRN PRN Reason: Nausea/Vomiting Last Admin: 11/20/16 19:09 Dose: 4 mg Prednisone (Prednisone Tab) 10 mg PO DAILY [facility] Last Admin: 11/20/16 10:23 Dose: 10 mg Rosuvastatin Calcium (Crestor) 10 mg PO HS [facility] Last Admin: 11/20/16 21:24 Dose: Not Given Fluticasone/Salmeterol (Advair Diskus 250/50) 1 puff INH RQ12 [facility] Last Admin: 11/21/16 07:40 Dose: 1 puff Vitamin B Complex/Vit C/Folic Acid (Nephro-Niranjan) 1 tab PO DAILY [facility] Last Admin: 11/20/16 10:22 Dose: 1 tab - Labs Labs: 11/21/16 05:45 11/21/16 05:45 PT 12.4 SECONDS (9.7-12.2) H 11/19/16 11:38 INR 1.1 11/19/16 11:38 APTT 29 SECONDS (21-34) 11/19/16 11:38 - Constitutional Appears: Well - Head Exam Head Exam: ATRAUMATIC, NORMAL INSPECTION, NORMOCEPHALIC - Eye Exam Eye Exam: EOMI, Normal appearance, PERRL Pupil Exam: NORMAL ACCOMODATION, PERRL - ENT Exam ENT Exam: Mucous Membranes Moist, Normal Exam - Neck Exam Neck Exam: Full ROM, Normal Inspection. absent: Lymphadenopathy - Respiratory Exam Respiratory Exam: Decreased Breath Sounds - Cardiovascular Exam Cardiovascular Exam: REGULAR RHYTHM, +S1, +S2 - GI/Abdominal Exam GI & Abdominal Exam: Soft, Diminished Bowel Sounds - Rectal Exam Rectal Exam: Deferred Assessment and Plan (1) CRF (chronic renal failure) Status: Chronic (2) Hyperkalemia Status: Acute (3) ESRD on dialysis Status: Acute (4) Pneumonia Status: Suspected (5) Acute systolic CHF (congestive heart failure) Status: Acute (6) Respiratory distress Status: Acute (7) Prophylactic measure Status: Acute (8) IDDM (insulin dependent diabetes mellitus) Status: Acute (9) Pulmonary arterial hypertension Status: Acute - Assessment and Plan (Free Text) Plan: Gastroenterology consult continue antibiotics meds reviewed DVT prophylaxis labs next a.m.
[2016-11-21] MEDS: cefTRIAXone IV 1 gm in Dextros 50 ML IVPB SCH ×2 (13:15→13:16)
[2016-11-21] MEDS: Multivitamin Vitamin B Complex (Nephro-Vite) Tab PO SCH ×2 (13:17)
[2016-11-21] MEDS: diltiaZEM 300 mg/24 Hours CD Cap PO SCH ×2 (13:18→13:19)
[2016-11-21] MEDS: Azithromycin 500 MG in Sodium Chloride 0.9% 250 ML IVPB SCH (14:08)
--- NOTE | 2016-11-21 15:43 | CP.PCM.CON ---
History of Present Illness - History of Present Illness History of Present Illness: 66 year old female that presented to the hospital for right leg pain and treatment of pneumonia. Patient's LE doppler was negative for DVT. Patient continues to receive zithromax and rocephin for pneumonia. Patient has a known history of atrial fibrillation Patient currently denies any chest pain, no acute complaints at this time. Patient also had a recent kidney biopsy for kidney mass on 11/14/16 with IR. PMHx of CAD, COPD, DM, CHF, ESRD on dialysis, Htn, renal mass Review of Systems - Review of Systems Systems not reviewed;Unavailable: Altered Mental Status - Constitutional Constitutional: As Per HPI - EENT Eyes: absent: As Per HPI, Blind Spots, Blurred Vision, Change in Vision, Decreased Night Vision, Diplopia, Discharge, Dry Eye, Exophthalmos, Floaters, Irritation, Itchy Eyes, Loss of Peripheral Vision, Pain, Photophobia, Requires Corrective Lenses, Sees Flashes, Spots in Vision, Tunnel Vision, Other Visual Disturbances, Loss of Vision, Other Ears: absent: As Per HPI, Decreased Hearing, Ear Discharge, Ear Pain, Tinnitus, Abnormal Hearing, Disequilibrium, Dizziness, Other Nose/Mouth/Throat: absent: As Per HPI, Epistaxis, Nasal Congestion, Nasal Discharge, Nasal Obstruction, Nasal Trauma, Nose Pain, Post Nasal Drip, Sinus Pain, Sinus Pressure, Bleeding Gums, Change in Voice, Dental Pain, Dry Mouth, Dysphagia, Halitosis, Hoarsness, Lip Swelling, Mouth Lesions, Mouth Pain, Odynophagia, Sore Throat, Throat Swelling, Tongue Swelling, Facial Pain, Neck Pain, Neck Mass, Other - Breasts Breasts: absent: As Per HPI, Change in Shape, Mass, Pain, Nipple Discharge, Nipple Inversion, Skin Changes, Swelling, Other - Cardiovascular Cardiovascular: absent: As Per HPI, Acrocyanosis, Chest Pain, Chest Pain at Rest , Chest Pain with Activity, Claudication, Diaphoresis, Dyspnea, Dyspnea on Exertion, Edema, Irregular Heart Rhythm, Pain Radiating to Arm/Neck/Jaw, Leg Edema, Leg Ulcers, Lightheadedness, Orthopnea, Palpitations, Paroxysmal Nocturnal Dyspnea, Pedal Edema, Radiating Pain, Rapid Heart Rate, Slow Heart Rate, Syncope, Other - Respiratory Respiratory: As Per HPI - Gastrointestinal Gastrointestinal: absent: As Per HPI, Abdominal Pain, Belching, Bloating, Change in Bowel Habits, Change in Stool Character, Coffee Ground Emesis, Constipation, Cramping, Diarrhea, Dyspepsia, Dysphagia, Early Satiety, Excessive Flatus, Fecal Incontinence, Heartburn, Hematemesis, Hematochezia, Loose Stools, Melena, Nausea, Odynophagia, Temesmus, Vomiting, Other - Genitourinary Genitourinary: absent: As Per HPI, Change in Urinary Stream, Difficulty Urinating, Dysuria, Flank Pain, Hematuria, Pyuria, Nocturia, Urinary Incontinence, Urinary Frequency, Urinary Hesitance, Urinary Urgency, Voiding Freq/Small Amts, Freq UTI, Hx Renal/Bladder Calculi, Hx /Renal Surgery, Bladder Distension, Other - Reproductive: Female Reproductive:Female: absent: As Per HPI, Amenorrhea, Amenorrhea/ Control, Currently Menstual, Cycle <21 Days, Cycle >35 Days, Cycle Variable, Menses 1-7 Days, Menses >/= 8 Days, Menses Variable, Cycle > 4 Weeks Between, No Menses for 6 Months, Heavy Menses, Light Menses, Normal Menses, Spotting Between Cycles , S/P Hysterectomy, Menopausal, Post Menopausal, Premenarche, Abnormal Vaginal Bleeding, Dysmenorrhea, Dyspareunia, Genital Lesions, Genital Pruritis, Pelvic Pain, Prolapse Symptoms, Sexual Dysfunction, Vaginal Discharge, Vaginal Dryness , Vaginal Odor, Vaginal Pruritis, Other - Menstruation Menstruation: absent: As Per HPI, Amenorrhea, Amenorrhea/ Control, Currently Menstual, Cycle <21 Days, Cycle >35 Days, Cycle Variable, Menses 1-7 Days, Menses >/= 8 Days, Menses Variable, Cycle > 4 Weeks Between, No Menses for 6 Months, Heavy Menses, Light Menses, Normal Menses, Spotting Between Cycles , S/P Hysterectomy, Menopausal, Post Menopausal, Premenarche, Abnormal Vaginal Bleeding, Dysmenorrhea, Other - Musculoskeletal Musculoskeletal: absent: As Per HPI, Abnormal Gait, Arthralgias, Atrophy, Back Pain, Deformity, Joint Swelling, Limited Range of Motion, Loss of Height, Muscle Cramps, Muscle Weakness, Myalgias, Neck Pain, Numbness, Radiating Pain into Limb, Stiffness, Tingling, Other - Integumentary Integumentary: absent: As Per HPI, Acne, Alopecia, Bleeding Lesions, Change in Hair, Change in Nails, Change in Pigmentation, Changing Lesions, Dry Skin, Erythema, Furuncle, Hirsutism, Lesions, New Lesions, Non-Healing Lesions, Photosensitivity, Pruritus, Rash, Skin Pain, Skin Ulcer, Sores, Striae, Swelling , Unusual Bruising, Wounds, Jaundice, Other - Neurological Neurological: absent: As Per HPI, Abnormal Gait, Abnormal Hearing, Abnormal Movements, Abnormal Speech, Behavioral Changes, Burning Sensations, Confusion, Convulsions, Disequilibrium, Dizziness, Numbness, Focal Weakness, Frequent Falls , Headaches, Lack of Coordination, Loss of Vision, Memory Loss, Paresthesias, Radicular Pain, Restless Legs, Sensory Deficit, Syncope, Tingling, Tremor, Vertigo, Weakness, Other Visual Disturbances, Other - Psychiatric Psychiatric: As Per HPI - Endocrine Endocrine: absent: As Per HPI, Change in Body Appearance, Change in Libido, Cold Intolorance, Deepening of Voice, Excessive Sweating, Fatigue, Flushing, Heat Intolorance, Increase in Ring/Shoe/Hat Size, Palpitations, Polydipsia, Polyphagia, Polyuria, Other - Hematologic/Lymphatic Hematologic: absent: As Per HPI, Easy Bleeding, Easy Bruising, Lymphadenopathy, Other Past Patient History - Infectious Disease Hx of Infectious Diseases: None - Past Medical History & Family History Past Medical History?: Yes - Past Social History Smoking Status: Former Smoker - CARDIAC Hx Congestive Heart Failure: Yes Hx Hypercholesterolemia: Yes Hx Hypertension: Yes - PULMONARY Hx Chronic Obstructive Pulmonary Disease (COPD): Yes - HEENT Hx HEENT Problems: Yes Hx Cataracts: Yes - RENAL Hx Chronic Kidney Disease: Yes Date of Last Dialysis Treatment: 11/10/16 - ENDOCRINE/METABOLIC Hx Diabetes Mellitus Type 2: Yes - HEMATOLOGICAL/ONCOLOGICAL Hx Anemia: Yes - INTEGUMENTARY Hx Dermatological Problems: No - MUSCULOSKELETAL/RHEUMATOLOGICAL Hx Falls: Yes - GASTROINTESTINAL Hx Gastritis: Yes - GENITOURINARY/GYNECOLOGICAL Hx Genitourinary Disorders: No - PSYCHIATRIC Hx Anxiety: Yes Hx Depression: Yes Hx Substance Use: No - SURGICAL HISTORY Hx Carotid Endarterectomy: Yes (LEFT) Hx Cholecystectomy: Yes - ANESTHESIA Hx Anesthesia: Yes Hx Anesthesia Reactions: No Hx Malignant Hyperthermia: No Meds Allergies/Adverse Reactions: Allergies Allergy/AdvReac Type Severity Reaction Status Date / Time No Known Allergies Allergy Verified 11/10/16 10:02 - Medications Medications: Current Medications Acetaminophen (Tylenol 325mg Tab) 650 mg PO Q6 PRN PRN Reason: pain Last Admin: 11/20/16 08:21 Dose: 650 mg Albuterol (Ventolin Hfa 90 Mcg/Actuation (8 G)) 90 puff IH RQID PRN PRN Reason: Wheezing Last Admin: 11/13/16 19:49 Dose: 90 mcg Albuterol/Ipratropium (Duoneb 3 Mg/0.5 Mg (3 Ml) Ud) 3 ml INH RQ6 [facility] Last Admin: 11/21/16 14:20 Dose: 3 ml Calcium Acetate (Phoslo) 667 mg PO TIDCC [facility] Last Admin: 11/21/16 13:19 Dose: 667 mg Diltiazem HCl (Cardizem Cd) 300 mg PO DAILY [facility] Last Admin: 11/21/16 13:19 Dose: Not Given Epoetin [place] (Procrit) [place],000 [place] [facility] [place] Admin: 11/21/16 09:43 Dose: 20,000 unit Escitalopram Oxalate (Lexapro) 5 mg PO DAILY [facility] Last Admin: 11/21/16 13:17 Dose: 5 mg Famotidine (Pepcid) 20 mg PO DAILY [facility] Last Admin: 11/21/16 13:17 Dose: 20 mg Ferric Sodium Gluconate Complex (Ferrlecit) 125 mg [place] [facility] [place] Stop: 11/25/16 09:01 Last Admin: 11/21/16 09:43 Dose: 125 mg Furosemide (Lasix) 80 mg PO DAILY [facility] Last Admin: 11/21/16 13:18 Dose: Not Given Gabapentin (Neurontin) 100 mg PO HS [facility] Last Admin: 11/20/16 21:25 Dose: Not Given Hydralazine HCl (Apresoline) 100 mg PO BID [facility] Last Admin: 11/21/16 13:17 Dose: Not Given Hydrochlorothiazide (Hydrodiuril) 50 mg PO DAILY [facility] Last Admin: 11/21/16 13:18 Dose: 50 mg Azithromycin 500 mg/ Sodium (Chloride) 250 mls @ 167 mls/hr IVPB Q24H [facility] Last Admin: 11/21/16 14:08 Dose: 167 mls/hr Ceftriaxone Sodium (Rocephin Iv 1 Gm Duplex) 50 mls @ 100 mls/hr IVPB DAILY [facility] Last Admin: 11/21/16 13:16 Dose: Not Given Insulin Aspart (Novolog Mix 70/30 (70/30 Units/Ml)) 20 units SC HS [facility] Last Admin: 11/20/16 21:25 Dose: Not Given Insulin Aspart (Novolog Mix 70/30 (70/30 Units/Ml)) 15 units SC ACB [facility] Last Admin: 11/21/16 07:53 Dose: 15 units Insulin Human Regular (Novolin R) 0 unit SC ACHS [facility] PRN Reason: Protocol Last Admin: 11/21/16 11:30 Dose: Not Given Isosorbide Mononitrate (Imdur) 60 mg PO DAILY [facility] Last Admin: 11/21/16 13:15 Dose: Not Given Ondansetron HCl (Zofran Inj) 4 mg IVP Q4H PRN PRN Reason: Nausea/Vomiting Last Admin: 11/20/16 19:09 Dose: 4 mg Prednisone (Prednisone Tab) 10 mg PO DAILY [facility] Last Admin: 11/21/16 13:18 Dose: 10 mg Rosuvastatin Calcium (Crestor) 10 mg PO HS [facility] Last Admin: 11/20/16 21:24 Dose: Not Given Fluticasone/Salmeterol (Advair Diskus 250/50) 1 puff INH RQ12 [facility] Last Admin: 11/21/16 07:40 Dose: 1 puff Vitamin B Complex/Vit C/Folic Acid (Nephro-Niranjan) 1 tab PO DAILY [facility] Last Admin: 11/21/16 13:17 Dose: 1 tab Physical Exam - Constitutional Appears: Non-toxic, Confused, Cachectic, Chronically Ill - Head Exam Head Exam: ATRAUMATIC, NORMAL INSPECTION, NORMOCEPHALIC - Eye Exam Eye Exam: EOMI, PERRL. absent: Scleral icterus - ENT Exam ENT Exam: Mucous Membranes Dry, Normal External Ear Exam, Normal Oropharynx - Neck Exam Neck exam: Negative for: Lymphadenopathy, Thyromegaly - Respiratory Exam Respiratory Exam: Decreased Breath Sounds, Rhonchi - Cardiovascular Exam Cardiovascular Exam: Tachycardia, REGULAR RHYTHM, +S1, +S2 - GI/Abdominal Exam GI & Abdominal Exam: Diminished Bowel Sounds, Soft. absent: Tenderness - Rectal Exam Rectal Exam: Deferred - Exam Exam: NORMAL INSPECTION - Extremities Exam Extremities exam: Negative for: calf tenderness, pedal edema, tenderness, pedal pulses present - Back Exam Back exam: absent: CVA tenderness (L), CVA tenderness (R), paraspinal tenderness - Neurological Exam Neurological exam: Alert, Altered, CN II-XII Intact, Reflexes Normal - Psychiatric Exam Psychiatric exam: Depressed - Skin Skin Exam: Dry Results - Vital Signs Recent Vital Signs: Last Vital Signs Temp 98.6 F 11/21/16 12:13 Pulse 98 H 11/21/16 15:00 Resp 16 11/21/16 12:13 BP 135/59 L 11/21/16 13:17 Pulse Ox 100 11/21/16 12:13 - Labs Result Diagrams: 11/21/16 05:45 11/21/16 05:45 Labs: Laboratory Results - last 24 hr 11/20/16 11/20/16 11/20/16 16:12 18:48 21:12 WBC RBC Hgb Hct MCV MCH MCHC RDW Plt Count MPV Neut % (Auto) Lymph % (Auto) [place] % (Auto) Eos % (Auto) Baso % (Auto) Neut # Lymph # [place] # Eos # Baso # Neutrophils % (Manual) Band Neutrophils % Lymphocytes % (Manual) Reactive Lymphs % Monocytes % (Manual) Metamyelocytes % Nucleated RBC % Toxic Granulation Platelet Estimate Hypochromasia (manual) Anisocytosis (manual) Ovalocytes Sodium Potassium Chloride Carbon Dioxide Anion Gap BUN Creatinine Est GFR ( Amer) Est GFR (Non-Af Amer) POC Glucose (mg/dL) 89 223 H Random Glucose Calcium Total Bilirubin AST ALT Alkaline Phosphatase Total Protein Albumin Globulin Albumin/Globulin Ratio Urine Color Yellow Urine Clarity Hazy Urine pH 8.0 Ur Specific [place] 1.012 Urine Protein 2+ H Urine Glucose (UA) 2+ H Urine Ketones Negative Urine Blood 1+ H Urine Nitrate Negative Urine Bilirubin Negative Urine Urobilinogen Normal Ur Leukocyte Esterase 3+ H Urine WBC (Auto) 34 H Urine RBC (Auto) 6 H Ur Squamous Epith Cells 102 H Ur Transition Epith Cell 1 Urine Bacteria Occ H Urine Yeast (Budding) Occ H Stool Occult Blood Positive H 11/21/16 11/21/16 11/21/16 05:45 06:00 11:19 WBC 19.8 H RBC 2.83 L Hgb 8.1 L Hct 25.0 L MCV 88.4 MCH 28.5 MCHC 32.3 L RDW 17.9 H Plt Count 240 MPV 10.7 Neut % (Auto) 85.1 H Lymph % (Auto) 4.8 L [place] % (Auto) 8.8 Eos % (Auto) 1.0 Baso % (Auto) 0.3 Neut # 16.8 H Lymph # 0.9 L [place] # 1.7 H Eos # 0.2 Baso # 0.1 Neutrophils % (Manual) 83 H Band Neutrophils % 6 H Lymphocytes % (Manual) 4 L Reactive Lymphs % 1 H Monocytes % (Manual) 4 Metamyelocytes % 2 H Nucleated RBC % 1 H Toxic Granulation Present Platelet Estimate Normal Hypochromasia (manual) Slight Anisocytosis (manual) Slight Ovalocytes Slight Sodium 136 Potassium 5.6 H Chloride 89 L Carbon Dioxide 27 Anion Gap 26 H BUN 77 H Creatinine 7.4 H* D Est GFR ( Amer) 7 Est GFR (Non-Af Amer) 5 POC Glucose (mg/dL) 208 H 123 H Random Glucose 197 H Calcium 8.5 L Total Bilirubin 0.7 AST 18 ALT 20 Alkaline Phosphatase 90 Total Protein 6.7 Albumin 3.3 L Globulin 3.3 Albumin/Globulin Ratio 1.0 Urine Color Urine Clarity Urine pH Ur Specific [place] Urine Protein Urine Glucose (UA) Urine Ketones Urine Blood Urine Nitrate Urine Bilirubin Urine Urobilinogen Ur Leukocyte Esterase Urine WBC (Auto) Urine RBC (Auto) Ur Squamous Epith Cells Ur Transition Epith Cell Urine Bacteria Urine Yeast (Budding) Stool Occult Blood Assessment & Plan (1) Acute systolic CHF (congestive heart failure) Status: Acute (2) Anemia Status: Acute (3) Asthma attack Status: Acute (4) Atrial fibrillation with rapid ventricular response Status: Acute (5) IDDM (insulin dependent diabetes mellitus) Status: Acute (6) Renal mass Status: Acute - Assessment and Plan (Free Text) Assessment: leukocytosis renal mass possible renal cell ca r/o lung mets vs infection cont rx check cultures oncology eval
--- NOTE | 2016-11-21 15:48 | RAD ---
Abdomen History: Nausea/vomiting. Comparison: Comparison is made to radiographs of the hips from 11/20/2015. Findings: Two views of the abdomen were obtained. No definite air-fluid levels identified. Focally dilated loop of bowel seen in the right lower quadrant, nonspecific. Extensive stool throughout the colon suggestive of constipation/fecal retention. Degenerative changes involving the hips. Extensive vascular calcifications. Presumed vascular stents noted. Surgical clips in the right upper quadrant of the abdomen noted. Impression: No definite radiographic evidence of bowel obstruction. However, if symptoms persist, CT of the abdomen and pelvis should be obtained. Extensive stool burden throughout the colon.
[2016-11-21] MEDS ORDERED: Cefepime IV 1 gm in Dextrose 50 ML IVPB SCH (17:00)
[2016-11-21] MEDS: POLYETHYLENE GLYCOL 3350 17 GM/Dose PACKET PO SCH (18:11)
[2016-11-22] MEDS: Albuterol-Ipratrop 3 mg / 0.5 (3 ml) UD INH SCH ×4 (01:37→19:42)
[2016-11-22] MEDS ORDERED: Tramadol 25 mg PO ONE (03:05)
[2016-11-22 06:14] LABS: BASO # 0.1 K/uL (0.0-0.2); BASO % 0.7 % (0.0-2.0); EOS # 0.2 K/uL (0.0-0.7); HEMATOCRIT 26.3 % (34.0-47.0); LYMPH # 1.5 K/uL (1.0-4.3); LYMPH % 7.5 % (20.0-40.0); MEAN CELL VOLUME 89.2 fL (81.0-99.0); MEAN CORPUSCULAR HEMOGLOBIN 28.1 pg (27.0-31.0); MEAN CORPUSCULAR HGB CONC 31.5 g/dL (33.0-37.0); MEAN PLATELET VOLUME 10.7 fL (7.2-11.7); MONO # 1.6 K/uL (0.0-0.8); MONO % 8.3 % (0.0-10.0); NRBC % 0.1 % (0.0-2.0); PLATELET COUNT 256 K/uL (130-400); RED CELL DISTRIBUTION WIDTH 17.6 % (11.5-14.5); WHITE BLOOD COUNT 19.5 K/uL (4.8-10.8)
[2016-11-22 06:22] LABS: CHLORIDE 90 mmol/L (98-107)
[2016-11-22 06:23] LABS: POTASSIUM 4.5 mmol/L (3.6-5.2); SODIUM 137 mmol/L (132-148)
[2016-11-22 06:25] LABS: ALKALINE PHOSPHATASE 93 U/L (38-126); AST/SGOT 16 U/L (14-36); BILIRUBIN,TOTAL 0.7 mg/dL (0.2-1.3); BLOOD UREA NITROGEN 47 mg/dL (7-17); CARBON DIOXIDE 30 mmol/L (22-30); GFR AFRICAN-AMERICAN 9; GLUCOSE,RANDOM 156 mg/dL (65-105); TOTAL PROTEIN 7.1 g/dL (6.3-8.3)
[2016-11-22 06:26] LABS: ALT/SGPT 19 U/L (9-52); CALCIUM 8.3 mg/dl (8.6-10.4); MAGNESIUM 2.1 mg/dL (1.6-2.3); PHOSPHOROUS 5.3 mg/dL (2.5-4.5)
[2016-11-22 07:28] LABS: RBC URINE 5 /hpf (0-3); URINE BACTERIA OCC (<OCC); URINE BILIRUBIN NEGATIVE (NEGATIVE); URINE BLOOD NEGATIVE (NEGATIVE); URINE COLOR Yellow (YELLOW); URINE GLUCOSE (UA) 3+ mg/dL (Normal); URINE KETONE NEGATIVE (NEGATIVE); URINE LEUKOCYTE ESTERASE TRACE Leu/uL (Negative); URINE PROTEIN 2+ mg/dL (NEGATIVE); URINE UROBILINOGEN NORMAL mg/dL (0.2-1.0); WBC URINE 27 /hpf (0-5)
[2016-11-22 07:32] LABS: FOLATE > 20.0 ng/mL
[2016-11-22] MEDS: (Novolin R) Insulin Human Regular 100 units/ml vial SC SCH ×4 (07:49→21:37)
[2016-11-22 08:53] LABS: EOSINOPHIL 4 % (0-4); GIANT PLATELETS PRESENT; LARGE PLATELETS PRESENT; METAMYELOCYTE 1 % (0-0); NEUTROPHIL 80 % (50-75); TOTAL CELLS COUNTED 100
[2016-11-22] MEDS: Fluticasone-Salmeterol 250-50mcg Diskus INH SCH ×2 (09:02→19:41)
[2016-11-22] MEDS: (Novolog Mix 70/30) Insulin Aspart/Insulin Aspar 100 units/ml SC SCH ×2 (09:05→21:38)
[2016-11-22] MEDS: Multivitamin Vitamin B Complex (Nephro-Vite) Tab PO SCH (09:18)
[2016-11-22] MEDS: diltiaZEM 300 mg/24 Hours CD Cap PO SCH (09:29)
[2016-11-22] MEDS: POLYETHYLENE GLYCOL 3350 17 GM/Dose PACKET PO SCH (09:29)
--- NOTE | 2016-11-22 11:59 | CP.PCM.CON ---
History of Present Illness - History of Present Illness History of Present Illness: This is a 66 year old woman admitted with bilateral foot and calf pain. GI is consulted for positive stool occult blood test. Patient denies having abdominal pain, nausea, vomiting, diarrhea, constipation or rectal bleeding. She has not had difficulty swallowing or heartburn. Review of Systems - Review of Systems All systems: reviewed and no additional remarkable complaints except - Constitutional Constitutional: absent: Fever - Cardiovascular Cardiovascular: absent: Chest Pain, Edema - Respiratory Respiratory: absent: Dyspnea - Gastrointestinal Gastrointestinal: absent: Constipation, Diarrhea, Dysphagia, Heartburn, Hematochezia, Nausea, Vomiting Past Patient History - Infectious Disease Hx of Infectious Diseases: None - Past Medical History & Family History Past Medical History?: Yes - Past Social History Smoking Status: Former Smoker - CARDIAC Hx Congestive Heart Failure: Yes Hx Hypercholesterolemia: Yes Hx Hypertension: Yes - PULMONARY Hx Chronic Obstructive Pulmonary Disease (COPD): Yes - HEENT Hx HEENT Problems: Yes Hx Cataracts: Yes - RENAL Hx Chronic Kidney Disease: Yes Date of Last Dialysis Treatment: 11/10/16 - ENDOCRINE/METABOLIC Hx Diabetes Mellitus Type 2: Yes - HEMATOLOGICAL/ONCOLOGICAL Hx Anemia: Yes - INTEGUMENTARY Hx Dermatological Problems: No - MUSCULOSKELETAL/RHEUMATOLOGICAL Hx Falls: Yes - GASTROINTESTINAL Hx Gastritis: Yes - GENITOURINARY/GYNECOLOGICAL Hx Genitourinary Disorders: No - PSYCHIATRIC Hx Anxiety: Yes Hx Depression: Yes Hx Substance Use: No - SURGICAL HISTORY Hx Carotid Endarterectomy: Yes (LEFT) Hx Cholecystectomy: Yes - ANESTHESIA Hx Anesthesia: Yes Hx Anesthesia Reactions: No Hx Malignant Hyperthermia: No Meds Allergies/Adverse Reactions: Allergies Allergy/AdvReac Type Severity Reaction Status Date / Time No Known Allergies Allergy Verified 11/10/16 10:02 - Medications Medications: Current Medications Acetaminophen (Tylenol 325mg Tab) 650 mg PO Q6 PRN PRN Reason: pain Last Admin: 11/22/16 09:17 Dose: 650 mg Albuterol (Ventolin Hfa 90 Mcg/Actuation (8 G)) 1 puff IH RQID PRN PRN Reason: Wheezing Albuterol/Ipratropium (Duoneb 3 Mg/0.5 Mg (3 Ml) Ud) 3 ml INH RQ6 [facility] Last Admin: 11/22/16 09:02 Dose: 3 ml Calcium Acetate (Phoslo) 667 mg PO TIDCC [facility] Last Admin: 11/22/16 07:49 Dose: 667 mg Diltiazem HCl (Cardizem Cd) 300 mg PO DAILY [facility] Last Admin: 11/22/16 09:29 Dose: 300 mg Epoetin Lucien (Procrit) 20,000 [place] [facility] [place] Last Admin: 11/21/16 09:43 Dose: 20,000 unit Escitalopram Oxalate (Lexapro) 5 mg PO DAILY [facility] Last Admin: 11/22/16 09:29 Dose: 5 mg Famotidine (Pepcid) 20 mg PO DAILY [facility] Last Admin: 11/22/16 09:18 Dose: 20 mg Ferric Sodium Gluconate Complex (Ferrlecit) 125 mg IVPB [facility] [place] Stop: 11/25/16 09:01 Last Admin: 11/21/16 09:43 Dose: 125 mg Furosemide (Lasix) 80 mg PO DAILY [facility] Last Admin: 11/22/16 09:29 Dose: 80 mg Gabapentin (Neurontin) 100 mg PO [facility] Last Admin: 11/21/16 20:59 Dose: 100 mg Hydralazine HCl (Apresoline) 100 mg PO BID [facility] Last Admin: 11/22/16 09:19 Dose: 100 mg Hydrochlorothiazide (Hydrodiuril) 50 mg PO DAILY [facility] Last Admin: 11/22/16 09:19 Dose: 50 mg Cefepime HCl (Maxipime Iv 1 Gm Premix) 50 mls @ 100 mls/hr IVPB Q24H [facility] Last Admin: 11/21/16 16:33 Dose: 100 mls/hr Vancomycin HCl 500 mg/ Sodium (Chloride) 100 mls @ 100 mls/hr IVPB [facility] [place] Insulin Aspart (Novolog Mix 70/30 (70/30 Units/Ml)) 20 units SC [facility] Last Admin: 11/21/16 22:00 Dose: Not Given Insulin Aspart (Novolog Mix 70/30 (70/30 Units/Ml)) 15 units SC ACB [facility] Last Admin: 11/22/16 09:05 Dose: 15 units Insulin Human Regular (Novolin R) 0 unit SC [facility] PRN Reason: Protocol Last Admin: 11/22/16 07:49 Dose: 2 unit Isosorbide Mononitrate (Imdur) 60 mg PO DAILY [facility] Last Admin: 11/22/16 09:19 Dose: 60 mg Ondansetron HCl (Zofran Inj) 4 mg IVP Q4H PRN PRN Reason: Nausea/Vomiting Last Admin: 11/20/16 19:09 Dose: 4 mg Prednisone (Prednisone Tab) 10 mg PO DAILY [facility] Last Admin: 11/22/16 09:19 Dose: 10 mg Rosuvastatin Calcium (Crestor) 10 mg PO HS [facility] Last Admin: 11/21/16 20:59 Dose: 10 mg Fluticasone/Salmeterol (Advair Diskus 250/50) 1 puff INH RQ12 [facility] Last Admin: 11/22/16 09:02 Dose: 1 puff Vitamin B Complex/Vit C/Folic Acid (Nephro-Niranjan) 1 tab PO DAILY [facility] Last Admin: 11/22/16 09:18 Dose: 1 tab Physical Exam - Head Exam Head Exam: ATRAUMATIC, NORMOCEPHALIC - Eye Exam Eye Exam: EOMI, PERRL - Neck Exam Neck exam: Negative for: Lymphadenopathy, Thyromegaly - Respiratory Exam Respiratory Exam: NORMAL BREATHING PATTERN. absent: Rales, Rhonchi, Wheezes - Cardiovascular Exam Cardiovascular Exam: REGULAR RHYTHM, +S1, +S2. absent: Gallop, Rubs, Systolic Murmur - GI/Abdominal Exam GI & Abdominal Exam: Normal Bowel Sounds, Soft. absent: Mass, Organomegaly, Tenderness - Rectal Exam Rectal Exam: Deferred - Extremities Exam Extremities exam: Negative for: pedal edema Results - Vital Signs Recent Vital Signs: Last Vital Signs Temp 98.6 F 11/21/16 23:18 Pulse 91 H 11/22/16 03:41 Resp 20 11/21/16 23:18 BP 158/70 H 11/22/16 09:29 Pulse Ox 100 11/21/16 23:18 - Labs Result Diagrams: 11/22/16 05:58 11/22/16 05:58 Labs: Laboratory Results - last 24 hr 11/21/16 11/21/16 11/22/16 16:54 21:10 05:58 WBC 19.5 H RBC 2.95 L Hgb 8.3 L Hct 26.3 L MCV 89.2 MCH 28.1 MCHC 31.5 L RDW 17.6 H Plt Count 256 MPV 10.7 Neut % (Auto) 82.5 H Lymph % (Auto) 7.5 L [place] % (Auto) 8.3 Eos % (Auto) 1.0 Baso % (Auto) 0.7 Neut # 16.1 H Lymph # 1.5 [place] # 1.6 H Eos # 0.2 Baso # 0.1 Neutrophils % (Manual) 80 H Band Neutrophils % 1 Lymphocytes % (Manual) 5 L Monocytes % (Manual) 9 Eosinophils % (Manual) 4 Metamyelocytes % 1 H Toxic Granulation Present Platelet Estimate Normal Large Platelets Present Giant Platelets Present Polychromasia Slight Hypochromasia (manual) Slight Poikilocytosis (manual Slight Anisocytosis (manual) Moderate Ovalocytes Slight Retic Count 1.6 H Sodium 137 Potassium 4.5 Chloride 90 L Carbon Dioxide 30 Anion Gap 22 H BUN 47 H Creatinine 5.5 H Est GFR ( Amer) 9 Est GFR (Non-Af Amer) 8 POC Glucose (mg/dL) 253 H 303 H Random Glucose 156 H Calcium 8.3 L Phosphorus 5.3 H Magnesium 2.1 TIBC 149 L % Saturation 30 Ferritin 1260.0 Total Bilirubin 0.7 AST 16 ALT 19 Alkaline Phosphatase 93 Total Protein 7.1 Albumin 3.5 Globulin 3.6 Albumin/Globulin Ratio 1.0 Vitamin B12 838 Folate > 20.0 Urine Color Urine Clarity Urine pH Ur Specific [place] Urine Protein Urine Glucose (UA) Urine Ketones Urine Blood Urine Nitrate Urine Bilirubin Urine Urobilinogen Ur Leukocyte Esterase Urine WBC (Auto) Urine RBC (Auto) Ur Squamous Epith Cells Urine Bacteria Urine Yeast (Budding) 11/22/16 11/22/16 06:06 06:52 WBC RBC Hgb Hct MCV MCH MCHC RDW Plt Count MPV Neut % (Auto) Lymph % (Auto) [place] % (Auto) Eos % (Auto) Baso % (Auto) Neut # Lymph # [place] # Eos # Baso # Neutrophils % (Manual) Band Neutrophils % Lymphocytes % (Manual) Monocytes % (Manual) Eosinophils % (Manual) Metamyelocytes % Toxic Granulation Platelet Estimate Large Platelets Giant Platelets Polychromasia Hypochromasia (manual) Poikilocytosis (manual Anisocytosis (manual) Ovalocytes Retic Count Sodium Potassium Chloride Carbon Dioxide Anion Gap BUN Creatinine Est GFR ( Amer) Est GFR (Non-Af Amer) POC Glucose (mg/dL) 162 H Random Glucose Calcium Phosphorus Magnesium TIBC % Saturation Ferritin Total Bilirubin AST ALT Alkaline Phosphatase Total Protein Albumin Globulin Albumin/Globulin Ratio Vitamin B12 Folate Urine Color Yellow Urine Clarity Hazy Urine pH 7.0 Ur Specific [place] 1.011 Urine Protein 2+ H Urine Glucose (UA) 3+ H Urine Ketones Negative Urine Blood Negative Urine Nitrate Negative Urine Bilirubin Negative Urine Urobilinogen Normal Ur Leukocyte Esterase Trace Urine WBC (Auto) 27 H Urine RBC (Auto) 5 H Ur Squamous Epith Cells 75 H Urine Bacteria Occ H Urine Yeast (Budding) Occ H Assessment & Plan (1) Occult blood positive stool Assessment and Plan: Patient had positive test for fecal occult blood but no gloria bleeding. She should have colonoscopy, which can be arranged as an outpatient. Please arrange for the patient to follow up in the office. Status: Acute
--- NOTE | 2016-11-22 14:59 | CARD ---
APPROVED REPORT EKG Measurement Heart [id number] <Conclusion> Normal sinus rhythm Normal ECG
--- NOTE | 2016-11-22 15:00 | CP.PCM.PN ---
Subjective - Date & Time of Evaluation Date of Evaluation: 11/22/16 Time of Evaluation: 10:00 - Subjective Subjective: clinically same Objective - Vital Signs/Intake and Output Vital Signs (last 24 hours): Temp Pulse Resp BP Pulse Ox 98.6 F 91 H 20 158/70 H 100 11/21/16 23:18 11/22/16 03:41 11/21/16 23:18 11/22/16 09:29 11/21/16 23:18 Intake and Output: 11/22/16 11/22/16 06:59 18:59 Intake Total 400 Output Total 100 Balance 300 - Medications Medications: Current Medications Acetaminophen (Tylenol 325mg Tab) 650 mg PO Q6 PRN PRN Reason: pain Last Admin: 11/22/16 09:17 Dose: 650 mg Albuterol (Ventolin Hfa 90 Mcg/Actuation (8 G)) 1 puff IH RQID PRN PRN Reason: Wheezing Albuterol/Ipratropium (Duoneb 3 Mg/0.5 Mg (3 Ml) Ud) 3 ml INH RQ6 [facility] Last Admin: 11/22/16 13:47 Dose: 3 ml Calcium Acetate (Phoslo) 667 mg PO TIDCC [facility] Last Admin: 11/22/16 12:17 Dose: 667 mg Diltiazem HCl (Cardizem Cd) 300 mg PO DAILY [facility] Last Admin: 11/22/16 09:29 Dose: 300 mg Epoetin Lucien (Procrit) 20,000 unit [place] [facility] [place] Admin: 11/21/16 09:43 Dose: 20,000 unit Escitalopram Oxalate (Lexapro) 5 mg PO DAILY [facility] Last Admin: 11/22/16 09:29 Dose: 5 mg Famotidine (Pepcid) 20 mg PO DAILY [facility] Last Admin: 11/22/16 09:18 Dose: 20 mg Ferric Sodium Gluconate Complex (Ferrlecit) 125 mg IVPB [facility] [place] Stop: 11/25/16 09:01 Last Admin: 11/21/16 09:43 Dose: 125 mg Furosemide (Lasix) 80 mg PO DAILY [facility] Last Admin: 11/22/16 09:29 Dose: 80 mg Gabapentin (Neurontin) 100 mg PO HS [facility] Last Admin: 11/21/16 20:59 Dose: 100 mg Hydralazine HCl (Apresoline) 100 mg PO BID [facility] Last Admin: 11/22/16 09:19 Dose: 100 mg Hydrochlorothiazide (Hydrodiuril) 50 mg PO DAILY [facility] Last Admin: 11/22/16 09:19 Dose: 50 mg Cefepime HCl (Maxipime Iv 1 Gm Premix) 50 mls @ 100 mls/hr IVPB Q24H [facility] Last Admin: 11/21/16 16:33 Dose: 100 mls/hr Vancomycin HCl 500 mg/ Sodium (Chloride) 100 mls @ 100 mls/hr IVPB MWF [facility] Insulin Aspart (Novolog Mix 70/30 (70/30 Units/Ml)) 20 units SC HS [facility] Last Admin: 11/21/16 22:00 Dose: Not Given Insulin Aspart (Novolog Mix 70/30 (70/30 Units/Ml)) 15 units SC ACB [facility] Last Admin: 11/22/16 09:05 Dose: 15 units Insulin Human Regular (Novolin R) 0 unit SC ACHS [facility] PRN Reason: Protocol Last Admin: 11/22/16 12:13 Dose: 4 unit Isosorbide Mononitrate (Imdur) 60 mg PO DAILY [facility] Last Admin: 11/22/16 09:19 Dose: 60 mg Ondansetron HCl (Zofran Inj) 4 mg IVP Q4H PRN PRN Reason: Nausea/Vomiting Last Admin: 11/20/16 19:09 Dose: 4 mg Prednisone (Prednisone Tab) 10 mg PO DAILY [facility] Last Admin: 11/22/16 09:19 Dose: 10 mg Rosuvastatin Calcium (Crestor) 10 mg PO HS [facility] Last Admin: 11/21/16 20:59 Dose: 10 mg Fluticasone/Salmeterol (Advair Diskus 250/50) 1 puff INH RQ12 [facility] Last Admin: 11/22/16 09:02 Dose: 1 puff Vitamin B Complex/Vit C/Folic Acid (Nephro-Niranjan) 1 tab PO DAILY [facility] Last Admin: 11/22/16 09:18 Dose: 1 tab - Labs Labs: 11/22/16 05:58 11/22/16 05:58 PT 12.4 SECONDS (9.7-12.2) H 11/19/16 11:38 INR 1.1 11/19/16 11:38 APTT 29 SECONDS (21-34) 11/19/16 11:38 - Constitutional Appears: Well - Head Exam Head Exam: ATRAUMATIC, NORMAL INSPECTION, NORMOCEPHALIC - Eye Exam Eye Exam: EOMI, Normal appearance, PERRL Pupil Exam: NORMAL ACCOMODATION, PERRL - ENT Exam ENT Exam: Mucous Membranes Moist, Normal Exam - Neck Exam Neck Exam: Full ROM, Normal Inspection. absent: Lymphadenopathy - Respiratory Exam Respiratory Exam: Decreased Breath Sounds - Cardiovascular Exam Cardiovascular Exam: REGULAR RHYTHM, +S1, +S2 - GI/Abdominal Exam GI & Abdominal Exam: Soft, Diminished Bowel Sounds - Rectal Exam Rectal Exam: Deferred Assessment and Plan (1) CRF (chronic renal failure) Status: Chronic (2) Hyperkalemia Status: Acute (3) ESRD on dialysis Status: Acute (4) Pneumonia Status: Suspected (5) Acute systolic CHF (congestive heart failure) Status: Acute (6) Respiratory distress Status: Acute (7) Prophylactic measure Status: Acute (8) IDDM (insulin dependent diabetes mellitus) Status: Acute (9) Pulmonary arterial hypertension Status: Acute - Assessment and Plan (Free Text) Plan: Continue same meds Antibiotics as advised Consults [facility] [place] Cefepime Urine analysis
[2016-11-22] MEDS: Cefepime 1 GM in Sodium Chloride 0.9% 100 ML IVPB SCH (20:31)
[2016-11-23] MEDS: Albuterol-Ipratrop 3 mg / 0.5 (3 ml) UD INH SCH ×2 (01:51→08:48)
[2016-11-23] MEDS: (Novolin R) Insulin Human Regular 100 units/ml vial SC SCH ×4 (07:30→22:09)
[2016-11-23] MEDS: (Novolog Mix 70/30) Insulin Aspart/Insulin Aspar 100 units/ml SC SCH ×2 (08:00→22:09)
[2016-11-23 08:34] LABS: BASO # 0.1 K/uL (0.0-0.2); BASO % 0.4 % (0.0-2.0); EOS # 0.3 K/uL (0.0-0.7); EOS % 1.5 % (0.0-4.0); HEMATOCRIT 25.8 % (34.0-47.0); LYMPH # 1.3 K/uL (1.0-4.3); LYMPH % 6.7 % (20.0-40.0); MEAN CELL VOLUME 89.6 fL (81.0-99.0); MEAN CORPUSCULAR HEMOGLOBIN 28.2 pg (27.0-31.0); MEAN CORPUSCULAR HGB CONC 31.5 g/dL (33.0-37.0); MEAN PLATELET VOLUME 10.8 fL (7.2-11.7); MONO # 1.7 K/uL (0.0-0.8); MONO % 8.5 % (0.0-10.0); NRBC % 0.3 % (0.0-2.0); PLATELET COUNT 271 K/uL (130-400); RED CELL DISTRIBUTION WIDTH 17.5 % (11.5-14.5); WHITE BLOOD COUNT 20.2 K/uL (4.8-10.8)
[2016-11-23 08:42] LABS: POTASSIUM 4.7 mmol/L (3.6-5.2)
[2016-11-23 08:44] LABS: BILIRUBIN,TOTAL 0.7 mg/dL (0.2-1.3)
[2016-11-23 08:45] LABS: CALCIUM 8.5 mg/dl (8.6-10.4)
[2016-11-23] MEDS: Fluticasone-Salmeterol 250-50mcg Diskus INH SCH ×2 (08:48→19:18)
[2016-11-23] MEDS: Multivitamin Vitamin B Complex (Nephro-Vite) Tab PO SCH (09:26)
[2016-11-23] MEDS: diltiaZEM 300 mg/24 Hours CD Cap PO SCH (09:27)
[2016-11-23 10:30] LABS: EOSINOPHIL 1 % (0-4); METAMYELOCYTE 1 % (0-0); NEUTROPHIL 80 % (50-75); NUCLEATED RED BLOOD CELL 1 % (0-0); REACTIVE LYMPHOCYTES 1 % (0-0); TOTAL CELLS COUNTED 100
[2016-11-23 10:31] LABS: LARGE PLATELETS PRESENT
--- NOTE | 2016-11-23 14:54 | CP.PCM.PN ---
Subjective - Date & Time of Evaluation Date of Evaluation: 11/23/16 Time of Evaluation: 07:00 - Subjective Subjective: 66 year old female that presented to the hospital for right leg pain and treatment of pneumonia. Patient's LE doppler was negative for DVT. Patient continues to receive zithromax and rocephin for pneumonia. Patient has a known history of atrial fibrillation Patient currently denies any chest pain, no acute complaints at this time. Patient also had a recent kidney biopsy for kidney mass on 11/14/16 with IR. WBC REMAINS ELEVATED HEME EVAL MAY BE WARRANTED CONT RX PMHx of CAD, COPD, DM, CHF, ESRD on dialysis, Htn, renal mass Objective - Vital Signs/Intake and Output Vital Signs (last 24 hours): Temp Pulse Resp BP Pulse Ox 98.9 F 95 H 20 140/72 93 L 11/23/16 08:00 11/23/16 08:00 11/23/16 08:00 11/23/16 09:28 11/23/16 13:10 Intake and Output: 11/23/16 11/23/16 06:59 18:59 Intake Total 1550 Balance 1550 - Medications Medications: Current Medications Acetaminophen (Tylenol 325mg Tab) 650 mg PO Q6 PRN PRN Reason: pain Last Admin: 11/22/16 09:17 Dose: 650 mg Albuterol (Ventolin Hfa 90 Mcg/Actuation (8 G)) 1 puff IH RQID PRN PRN Reason: Wheezing Calcium Acetate (Phoslo) 667 mg PO TIDCC [facility] Last Admin: 11/23/16 12:11 Dose: 667 mg Diltiazem HCl (Cardizem Cd) 300 mg PO DAILY [facility] Last Admin: 11/23/16 09:27 Dose: 300 mg Epoetin Lucien (Procrit) 20,000 unit [place] [facility] [place] Last Admin: 11/21/16 09:43 Dose: 20,000 unit Escitalopram Oxalate (Lexapro) 5 mg PO DAILY [facility] Last Admin: 11/23/16 09:28 Dose: 5 mg Famotidine (Pepcid) 20 mg PO DAILY [facility] Last Admin: 11/23/16 09:27 Dose: 20 mg Ferric Sodium Gluconate Complex (Ferrlecit) 125 mg IVPB [facility] [place] Stop: 11/25/16 09:01 Last Admin: 11/21/16 09:43 Dose: 125 mg Furosemide (Lasix) 80 mg PO DAILY [facility] Last Admin: 11/23/16 09:28 Dose: 80 mg Gabapentin (Neurontin) 100 mg PO [facility] Last Admin: 11/22/16 21:29 Dose: 100 mg Hydralazine HCl (Apresoline) 100 mg PO BID [facility] Last Admin: 11/23/16 09:26 Dose: 100 mg Hydrochlorothiazide (Hydrodiuril) 50 mg PO DAILY [facility] Last Admin: 11/23/16 09:26 Dose: 50 mg Vancomycin HCl 500 mg/ Sodium (Chloride) 100 mls @ 100 mls/hr IVPB MWF [facility] Cefepime HCl 1 gm/ Sodium (Chloride) 100 mls @ 100 mls/hr IVPB Q24H [facility] Last Admin: 11/22/16 20:31 Dose: 100 mls/hr Insulin Aspart (Novolog Mix 70/30 (70/30 Units/Ml)) 20 units SC [facility] Last Admin: 11/22/16 21:38 Dose: 20 units Insulin Aspart (Novolog Mix 70/30 (70/30 Units/Ml)) 15 units SC ACB [facility] Last Admin: 11/23/16 08:00 Dose: 15 units Insulin Human Regular (Novolin R) 0 unit SC ACHS [facility] PRN Reason: Protocol Last Admin: 11/23/16 12:13 Dose: 6 unit Isosorbide Mononitrate (Imdur) 60 mg PO DAILY [facility] Last Admin: 11/23/16 09:26 Dose: 60 mg Ondansetron HCl (Zofran Inj) 4 mg IVP Q4H PRN PRN Reason: Nausea/Vomiting Last Admin: 11/20/16 19:09 Dose: 4 mg Prednisone (Prednisone Tab) 10 mg PO DAILY [facility] Last Admin: 11/23/16 09:26 Dose: 10 mg Rosuvastatin Calcium (Crestor) 10 mg PO [facility] Last Admin: 11/22/16 21:29 Dose: 10 mg Fluticasone/Salmeterol (Advair Diskus 250/50) 1 puff INH RQ12 [facility] Last Admin: 11/23/16 08:48 Dose: Not Given Vitamin B Complex/Vit C/Folic Acid (Nephro-Niranjan) 1 tab PO DAILY [facility] Last Admin: 11/23/16 09:26 Dose: 1 tab - Labs Labs: 11/23/16 08:14 11/23/16 08:14 PT 12.4 SECONDS (9.7-12.2) H 11/19/16 11:38 INR 1.1 11/19/16 11:38 APTT 29 SECONDS (21-34) 11/19/16 11:38 - Constitutional Appears: Non-toxic, Confused - Head Exam Head Exam: NORMAL INSPECTION, NORMOCEPHALIC - Eye Exam Eye Exam: PERRL. absent: Scleral icterus - ENT Exam ENT Exam: Mucous Membranes Dry, Normal External Ear Exam - Neck Exam Neck Exam: absent: Lymphadenopathy - Respiratory Exam Respiratory Exam: Decreased Breath Sounds, Rhonchi - Cardiovascular Exam Cardiovascular Exam: REGULAR RHYTHM, +S1, +S2 - GI/Abdominal Exam GI & Abdominal Exam: Distended, Soft. absent: Tenderness - Rectal Exam Rectal Exam: Deferred - Extremities Exam Extremities Exam: Pedal Edema, Tenderness. absent: Calf Tenderness - Back Exam Back Exam: absent: CVA tenderness (L), CVA tenderness (R) - Neurological Exam Neurological Exam: Alert, Awake, Oriented x3 Neuro motor strength exam: Left Upper Extremity: 3, Right Upper Extremity: 3, Left Lower Extremity: 3, Right Lower Extremity: 3 - Psychiatric Exam Psychiatric exam: Normal Mood - Skin Skin Exam: Dry Assessment and Plan (1) Acute systolic CHF (congestive heart failure) Status: Acute (2) Anemia Status: Acute (3) Asthma attack Status: Acute (4) Atrial fibrillation with rapid ventricular response Status: Acute (5) IDDM (insulin dependent diabetes mellitus) Status: Acute (6) Renal mass Status: Acute
--- NOTE | 2016-11-23 17:27 | CP.PCM.PN ---
Subjective - Date & Time of Evaluation Date of Evaluation: 11/23/16 Time of Evaluation: 09:00 - Subjective Subjective: clinically same Objective - Vital Signs/Intake and Output Vital Signs (last 24 hours): Temp Pulse Resp BP Pulse Ox 98.9 F 85 20 142/63 97 11/23/16 15:11 11/23/16 15:11 11/23/16 15:11 11/23/16 15:11 11/23/16 15:11 Intake and Output: 11/23/16 11/23/16 06:59 18:59 Intake Total 1550 500 Balance 1550 500 - Medications Medications: Current Medications Acetaminophen (Tylenol 325mg Tab) 650 mg PO Q6 PRN PRN Reason: pain Last Admin: 11/22/16 09:17 Dose: 650 mg Albuterol (Ventolin Hfa 90 Mcg/Actuation (8 G)) 1 puff IH RQID PRN PRN Reason: Wheezing Calcium Acetate (Phoslo) 667 mg PO TIDCC [facility] Last Admin: 11/23/16 16:51 Dose: 667 mg Diltiazem HCl (Cardizem Cd) 300 mg PO DAILY [facility] Last Admin: 11/23/16 09:27 Dose: 300 mg Epoetin Lucien (Procrit) 20,000 unit IV [facility] [place] Last Admin: 11/21/16 09:43 Dose: 20,000 unit Escitalopram Oxalate (Lexapro) 5 mg PO DAILY [facility] Last Admin: 11/23/16 09:28 Dose: 5 mg Famotidine (Pepcid) 20 mg PO DAILY [facility] Last Admin: 11/23/16 09:27 Dose: 20 mg Ferric Sodium Gluconate Complex (Ferrlecit) 125 mg IVPB [facility] [place] Stop: 11/25/16 09:01 Last Admin: 11/21/16 09:43 Dose: 125 mg Furosemide (Lasix) 80 mg PO DAILY [facility] Last Admin: 11/23/16 09:28 Dose: 80 mg Gabapentin (Neurontin) 100 mg PO HS [facility] Last Admin: 11/22/16 21:29 Dose: 100 mg Hydralazine HCl (Apresoline) 100 mg PO BID [facility] Last Admin: 11/23/16 17:21 Dose: 100 mg Hydrochlorothiazide (Hydrodiuril) 50 mg PO DAILY [facility] Last Admin: 11/23/16 09:26 Dose: 50 mg Vancomycin HCl 500 mg/ Sodium (Chloride) 100 mls @ 100 mls/hr IVPB MWF [facility] Cefepime HCl 1 gm/ Sodium (Chloride) 100 mls @ 100 mls/hr IVPB Q24H [facility] Last Admin: 11/22/16 20:31 Dose: 100 mls/hr Insulin Aspart (Novolog Mix 70/30 (70/30 Units/Ml)) 20 units SC HS [facility] Last Admin: 11/22/16 21:38 Dose: 20 units Insulin Aspart (Novolog Mix 70/30 (70/30 Units/Ml)) 15 units SC ACB [facility] Last Admin: 11/23/16 08:00 Dose: 15 units Insulin Human Regular (Novolin R) 0 unit SC ACHS [facility] PRN Reason: Protocol Last Admin: 11/23/16 16:50 Dose: 2 unit Isosorbide Mononitrate (Imdur) 60 mg PO DAILY [facility] Last Admin: 11/23/16 09:26 Dose: 60 mg Ondansetron HCl (Zofran Inj) 4 mg IVP Q4H PRN PRN Reason: Nausea/Vomiting Last Admin: 11/20/16 19:09 Dose: 4 mg Prednisone (Prednisone Tab) 10 mg PO DAILY [facility] Last Admin: 11/23/16 09:26 Dose: 10 mg Rosuvastatin Calcium (Crestor) 10 mg PO HS [facility] Last Admin: 11/22/16 21:29 Dose: 10 mg Fluticasone/Salmeterol (Advair Diskus 250/50) 1 puff INH RQ12 [facility] Last Admin: 11/23/16 08:48 Dose: Not Given Vitamin B Complex/Vit C/Folic Acid (Nephro-Niranjan) 1 tab PO DAILY [facility] Last Admin: 11/23/16 09:26 Dose: 1 tab - Labs Labs: 11/23/16 08:14 11/23/16 08:14 PT 12.4 SECONDS (9.7-12.2) H 11/19/16 11:38 INR 1.1 11/19/16 11:38 APTT 29 SECONDS (21-34) 11/19/16 11:38 - Constitutional Appears: Well - Head Exam Head Exam: ATRAUMATIC, NORMAL INSPECTION, NORMOCEPHALIC - Eye Exam Eye Exam: EOMI, Normal appearance, PERRL Pupil Exam: NORMAL ACCOMODATION, PERRL - ENT Exam ENT Exam: Mucous Membranes Moist, Normal Exam - Neck Exam Neck Exam: Full ROM, Normal Inspection. absent: Lymphadenopathy - Respiratory Exam Respiratory Exam: Decreased Breath Sounds - Cardiovascular Exam Cardiovascular Exam: REGULAR RHYTHM, +S1, +S2 - GI/Abdominal Exam GI & Abdominal Exam: Soft, Diminished Bowel Sounds - Rectal Exam Rectal Exam: Deferred Assessment and Plan (1) CRF (chronic renal failure) Status: Chronic (2) Hyperkalemia Status: Acute (3) ESRD on dialysis Status: Acute (4) Pneumonia Status: Suspected (5) Acute systolic CHF (congestive heart failure) Status: Acute (6) Respiratory distress Status: Acute (7) Prophylactic measure Status: Acute (8) IDDM (insulin dependent diabetes mellitus) Status: Acute (9) Pulmonary arterial hypertension Status: Acute - Assessment and Plan (Free Text) Plan: Continue vancomycin Cefepime Blood sugar monitoring Insulin Consults on board Hemodialysis Blood pressure control
--- NOTE | 2016-11-23 17:28 | CP.PCM.PN ---
Subjective - Date & Time of Evaluation Date of Evaluation: 11/23/16 Time of Evaluation: 07:35 - Subjective Subjective: tolerating po stable Objective - Vital Signs/Intake and Output Vital Signs (last 24 hours): Temp Pulse Resp BP Pulse Ox 98.9 F 85 20 142/63 97 11/23/16 15:11 11/23/16 15:11 11/23/16 15:11 11/23/16 15:11 11/23/16 15:11 Intake and Output: 11/23/16 11/23/16 06:59 18:59 Intake Total 1550 500 Balance 1550 500 - Medications Medications: Current Medications Acetaminophen (Tylenol 325mg Tab) 650 mg PO Q6 PRN PRN Reason: pain Last Admin: 11/22/16 09:17 Dose: 650 mg Albuterol (Ventolin Hfa 90 Mcg/Actuation (8 G)) 1 puff IH RQID PRN PRN Reason: Wheezing Calcium Acetate (Phoslo) 667 mg PO TIDCC [facility] Last Admin: 11/23/16 16:51 Dose: 667 mg Diltiazem HCl (Cardizem Cd) 300 mg PO DAILY [facility] Last Admin: 11/23/16 09:27 Dose: 300 mg Epoetin Lucien (Procrit) 20,000 [place] [facility] [place] Admin: 11/21/16 09:43 Dose: 20,000 unit Escitalopram Oxalate (Lexapro) 5 mg PO DAILY [facility] Last Admin: 11/23/16 09:28 Dose: 5 mg Famotidine (Pepcid) 20 mg PO DAILY [facility] Last Admin: 11/23/16 09:27 Dose: 20 mg Ferric Sodium Gluconate Complex (Ferrlecit) 125 mg IVPB [facility] [place]: 11/25/16 09:01 Last Admin: 11/21/16 09:43 Dose: 125 mg Furosemide (Lasix) 80 mg PO DAILY [facility] Last Admin: 11/23/16 09:28 Dose: 80 mg Gabapentin (Neurontin) 100 mg PO HS [facility] Last Admin: 11/22/16 21:29 Dose: 100 mg Hydralazine HCl (Apresoline) 100 mg PO BID [facility] Last Admin: 11/23/16 17:21 Dose: 100 mg Hydrochlorothiazide (Hydrodiuril) 50 mg PO DAILY [facility] Last Admin: 03/26/17 09:26 Dose: 50 mg Vancomycin HCl 500 mg/ Sodium (Chloride) 100 mls @ 100 mls/hr IVPB MWF [facility] Cefepime HCl 1 gm/ Sodium (Chloride) 100 mls @ 100 mls/hr IVPB Q24H [facility] Last Admin: 11/22/16 20:31 Dose: 100 mls/hr Insulin Aspart (Novolog Mix 70/30 (70/30 Units/Ml)) 20 units SC HS [facility] Last Admin: 11/22/16 21:38 Dose: 20 units Insulin Aspart (Novolog Mix 70/30 (70/30 Units/Ml)) 15 units SC ACB [facility] Last Admin: 11/23/16 08:00 Dose: 15 units Insulin Human Regular (Novolin R) 0 unit SC ACHS [facility] PRN Reason: Protocol Last Admin: 11/23/16 16:50 Dose: 2 unit Isosorbide Mononitrate (Imdur) 60 mg PO DAILY [facility] Last Admin: 11/23/16 09:26 Dose: 60 mg Ondansetron HCl (Zofran Inj) 4 mg IVP Q4H PRN PRN Reason: Nausea/Vomiting Last Admin: 11/20/16 19:09 Dose: 4 mg Prednisone (Prednisone Tab) 10 mg PO DAILY [facility] Last Admin: 11/23/16 09:26 Dose: 10 mg Rosuvastatin Calcium (Crestor) 10 mg PO [facility] Last Admin: 11/22/16 21:29 Dose: 10 mg Fluticasone/Salmeterol (Advair Diskus 250/50) 1 puff INH RQ12 [facility] Last Admin: 11/23/16 08:48 Dose: Not Given Vitamin B Complex/Vit C/Folic Acid (Nephro-Niranjan) 1 tab PO DAILY [facility] Last Admin: 11/23/16 09:26 Dose: 1 tab - Labs Labs: 11/23/16 08:14 11/23/16 08:14 PT 12.4 SECONDS (9.7-12.2) H 11/19/16 11:38 INR 1.1 11/19/16 11:38 APTT 29 SECONDS (21-34) 11/19/16 11:38 - Constitutional Appears: Well - Head Exam Head Exam: ATRAUMATIC - Eye Exam Eye Exam: Normal appearance - ENT Exam ENT Exam: Mucous Membranes Moist - Respiratory Exam Respiratory Exam: Rhonchi - Cardiovascular Exam Cardiovascular Exam: Irregular Rhythm, Murmur - GI/Abdominal Exam GI & Abdominal Exam: Normal Bowel Sounds - Exam External exam: absent: Ecchymosis - Extremities Exam Extremities Exam: Normal Inspection - Back Exam Back Exam: absent: rash noted - Neurological Exam Neurological Exam: Awake - Psychiatric Exam Psychiatric exam: Anxious - Skin Skin Exam: Warm Assessment and Plan (1) Acute CHF Assessment & Plan: continue fluid removal with dialysis rate control bp control Status: Acute
[2016-11-23] MEDS: Cefepime 1 GM in Sodium Chloride 0.9% 100 ML IVPB SCH (20:16)
--- NOTE | 2016-11-24 07:32 | CP.PCM.PN ---
<Korin Lott - Last Filed: 11/24/16 09:27> Subjective - Date & Time of Evaluation Date of Evaluation: 11/24/16 Time of Evaluation: 07:30 - Subjective Subjective: Cardiology Progress Note for Dr. Brenner Patient seen and examined at bedside. There were no acute overnight events. Patient denies having CP, SOB, n/v/d, numbness/tingling, fever/chills. Objective - Vital Signs/Intake and Output Vital Signs (last 24 hours): Temp Pulse Resp BP Pulse Ox 98.7 F 102 H 20 181/65 H 96 11/24/16 00:28 11/24/16 00:28 11/24/16 00:28 11/24/16 00:28 11/24/16 00:28 Intake and Output: 11/24/16 11/24/16 06:59 18:59 Intake Total 480 Balance 480 - Medications Medications: Current Medications Acetaminophen (Tylenol 325mg Tab) 650 mg PO Q6 PRN PRN Reason: pain Last Admin: 11/22/16 09:17 Dose: 650 mg Albuterol (Ventolin Hfa 90 Mcg/Actuation (8 G)) 1 puff IH RQID PRN PRN Reason: Wheezing Calcium Acetate (Phoslo) 667 mg PO TIDCC [facility] Last Admin: 11/23/16 16:51 Dose: 667 mg Diltiazem HCl (Cardizem Cd) 300 mg PO DAILY [facility] Last Admin: 11/23/16 09:27 Dose: 300 mg Epoetin Lucien (Procrit) 20,000 unit IV [facility] [place] [facility] Last Admin: 11/21/16 09:43 Dose: 20,000 unit Escitalopram Oxalate (Lexapro) 5 mg PO DAILY [facility] Last Admin: 11/23/16 09:28 Dose: 5 mg Famotidine (Pepcid) 20 mg PO DAILY [facility] Last Admin: 11/23/16 09:27 Dose: 20 mg Ferric Sodium Gluconate Complex (Ferrlecit) 125 mg IVPB [facility] Stop: 11/25/16 09:01 Last Admin: 11/21/16 09:43 Dose: 125 mg Furosemide (Lasix) 80 mg PO DAILY [facility] Last Admin: 11/23/16 09:28 Dose: 80 mg Gabapentin (Neurontin) 100 mg PO [facility] Last Admin: 11/23/16 22:04 Dose: 100 mg Hydralazine HCl (Apresoline) 100 mg PO BID [facility] Last Admin: 11/23/16 17:21 Dose: 100 mg Hydrochlorothiazide (Hydrodiuril) 50 mg PO DAILY [facility] Last Admin: 11/23/16 09:26 Dose: 50 mg Vancomycin HCl 500 mg/ Sodium (Chloride) 100 mls @ 100 mls/hr IVPB MWF [facility] Cefepime HCl 1 gm/ Sodium (Chloride) 100 mls @ 100 mls/hr IVPB Q24H [facility] [place] Last Admin: 11/23/16 20:16 Dose: 100 mls/hr Insulin Aspart (Novolog Mix 70/30 (70/30 Units/Ml)) 20 units SC HS [facility] [place] Last Admin: 11/23/16 22:09 Dose: 20 units Insulin Aspart (Novolog Mix 70/30 (70/30 Units/Ml)) 15 units SC ACB [facility] [place] Last Admin: 11/23/16 08:00 Dose: 15 units Insulin Human Regular (Novolin R) 0 unit SC ACHS [facility] PRN Reason: Protocol Last Admin: 11/23/16 22:09 Dose: 2 unit Isosorbide Mononitrate (Imdur) 60 mg PO DAILY [facility] [place] Last Admin: 11/23/16 09:26 Dose: 60 mg Ondansetron HCl (Zofran Inj) 4 mg IVP Q4H PRN PRN Reason: Nausea/Vomiting Last Admin: 11/20/16 19:09 Dose: 4 mg Prednisone (Prednisone Tab) 10 mg PO DAILY [facility] [place] Last Admin: 11/23/16 09:26 Dose: 10 mg Rosuvastatin Calcium (Crestor) 10 mg PO HS [facility] [place] Last Admin: 11/23/16 22:04 Dose: 10 mg Fluticasone/Salmeterol (Advair Diskus 250/50) 1 puff INH RQ12 [facility] [place] Last Admin: 11/23/16 19:18 Dose: 1 puff Vitamin B Complex/Vit C/Folic Acid (Nephro-Niranjan) 1 tab PO DAILY [facility] [place] Last Admin: 11/23/16 09:26 Dose: 1 tab - Labs Labs: 11/23/16 08:14 11/23/16 08:14 PT 12.4 SECONDS (9.7-12.2) H 11/19/16 11:38 INR 1.1 11/19/16 11:38 APTT 29 SECONDS (21-34) 11/19/16 11:38 - Constitutional Appears: No Acute Distress - Head Exam Head Exam: ATRAUMATIC, NORMAL INSPECTION, NORMOCEPHALIC - Eye Exam Eye Exam: Normal appearance Pupil Exam: NORMAL ACCOMODATION - ENT Exam ENT Exam: Mucous Membranes Moist - Respiratory Exam Respiratory Exam: Clear to Ausculation Bilateral, NORMAL BREATHING PATTERN. absent: Rhonchi, Wheezes - Cardiovascular Exam Cardiovascular Exam: Tachycardia, REGULAR RHYTHM, +S1, +S2. absent: Gallop, Rubs, Murmur - GI/Abdominal Exam GI & Abdominal Exam: Soft, Normal Bowel Sounds. absent: Rigid, Tenderness, Mass , Rebound - Extremities Exam Extremities Exam: Normal Inspection. absent: Calf Tenderness, Pedal Edema - Neurological Exam Neurological Exam: Alert, Awake, CN II-XII Intact - Skin Skin Exam: Dry, Intact, Normal Color, Warm Assessment and Plan - Assessment and Plan (Free Text) Assessment: This is a 66Y F with PMH CAD, COPD, ESRD on HD, HTN, DM, renal mass admitted for 1) Atrial fibrillation- rhythm and rate controlled 2) Anemia with positive stool occult blood 3) Renal cell carcinoma 4) Pneumonia 5) Leukocytosis 6) HTN 7) CAD 8) HLD Plan: - For removal of renal cell carcinoma, pt's Revised Cardiac Risk Index is 4 - 1 point for Cr >2, 1 point for DM, 1 point for CHF and 1 point for intraperitoneal surgery - Score of 4 correlates to 11% risk of major cardiac event - Pt is still able to proceed with surgery benefits outweigh risks - Continue to hold Plavix and ASA since stool occult positive - HAS-BLED score of 3, 5.8% risk of bleed - Continue Imdur, Hydralazine, HCTZ and lasix - Continue Crestor and Cardizem GI ppx: Pepcid DVT ppx: SCDs Case seen, reviewed and discussed with Dr. Elidia Lott PGY1 <Halina Brenner - Last Filed: 01/05/17 06:18> Objective - Vital Signs/Intake and Output Vital Signs (last 24 hours): Temp Pulse Resp BP Pulse Ox 98.3 F 82 20 179/55 H 99 12/04/16 16:00 12/04/16 16:00 12/04/16 16:00 12/04/16 16:00 12/04/16 16:00 - Labs Labs: 12/02/16 07:05 12/02/16 07:05 PT 12.4 SECONDS (9.7-12.2) H 11/19/16 11:38 INR 1.1 11/19/16 11:38 APTT 29 SECONDS (21-34) 11/19/16 11:38 Assessment and Plan (1) Acute CHF Status: Acute (2) Anemia Status: Acute Attending/Attestation - Attestation I have personally seen and examined this patient.: Yes I have fully participated in the care of the patient.: Yes I have reviewed all pertinent clinical information, including history, physical exam and plan: Yes Notes (Text): 01/05/17 06:17 no events overnight stable continue dialysis
[2016-11-24] MEDS: Fluticasone-Salmeterol 250-50mcg Diskus INH SCH ×2 (07:38→20:35)
[2016-11-24] MEDS: (Novolin R) Insulin Human Regular 100 units/ml vial SC SCH ×4 (08:15→22:16)
[2016-11-24] MEDS: (Novolog Mix 70/30) Insulin Aspart/Insulin Aspar 100 units/ml SC SCH ×2 (08:32→22:03)
--- NOTE | 2016-11-24 09:06 | CP.PCM.PN ---
<Mac Sorenson H - Last Filed: 11/24/16 19:25> Subjective - Date & Time of Evaluation Date of Evaluation: 11/24/16 Time of Evaluation: 10:45 - Subjective Subjective: Dr. Frederick service: Patient seen and examined in room. She is still complaining of some minor abodminal pain. She is still complaing of constipation. Objective - Vital Signs/Intake and Output Vital Signs (last 24 hours): Temp Pulse Resp BP Pulse Ox 99.8 F H 94 H 20 175/76 H 97 11/24/16 07:30 11/24/16 07:30 11/24/16 07:30 11/24/16 07:30 11/24/16 07:30 Intake and Output: 11/24/16 11/24/16 06:59 18:59 Intake Total 480 Balance 480 - Medications Medications: Current Medications Acetaminophen (Tylenol 325mg Tab) 650 mg PO Q6 PRN PRN Reason: pain Last Admin: 11/22/16 09:17 Dose: 650 mg Albuterol (Ventolin Hfa 90 Mcg/Actuation (8 G)) 1 puff IH RQID PRN PRN Reason: Wheezing Calcium Acetate (Phoslo) 667 mg PO TIDCC [facility] Last Admin: 11/24/16 08:39 Dose: 667 mg Diltiazem HCl (Cardizem Cd) 300 mg PO DAILY [facility] Last Admin: 11/23/16 09:27 Dose: 300 mg Epoetin Lucien (Procrit) 20,000 unit IV [facility] [place] Last Admin: 11/21/16 09:43 Dose: 20,000 unit Escitalopram Oxalate (Lexapro) 5 mg PO DAILY [facility] Last Admin: 11/23/16 09:28 Dose: 5 mg Famotidine (Pepcid) 20 mg PO DAILY [facility] Last Admin: 11/23/16 09:27 Dose: 20 mg Ferric Sodium [facility]conate [facility] ([facility]cit[facility] Stop: 11/25/16 09:01 Last Admin: 11/21/16 09:43 Dose: 125 mg Furosemide (Lasix) 80 mg PO DAILY [facility] Last Admin: 11/23/16 09:28 Dose: 80 mg Gabapentin (Neurontin) 100 mg PO [facility] Last Admin: 11/23/16 22:04 Dose: 100 mg Hydralazine HCl (Apresoline) 100 mg PO BID [facility] Last Admin: 11/23/16 17:21 Dose: 100 mg Hydrochlorothiazide (Hydrodiuril) 50 mg PO DAILY [facility] Last Admin: 11/23/16 09:26 Dose: 50 mg Vancomycin HCl 500 mg/ Sodium (Chloride) 100 mls @ 100 mls/hr IVPB MWF [facility] Cefepime HCl 1 gm/ Sodium (Chloride) 100 mls @ 100 mls/hr IVPB Q24H [facility] Last Admin: 11/23/16 20:16 Dose: 100 mls/hr Insulin Aspart (Novolog Mix 70/30 (70/30 Units/Ml)) 20 units SC HS [facility] Last Admin: 11/23/16 22:09 Dose: 20 units Insulin Aspart (Novolog Mix 70/30 (70/30 Units/Ml)) 15 units SC ACB [facility] Last Admin: 11/24/16 08:32 Dose: Not Given Insulin Human Regular (Novolin R) 0 unit SC ACHS [facility] PRN Reason: Protocol Last Admin: 11/24/16 08:15 Dose: Not Given Isosorbide Mononitrate (Imdur) 60 mg PO DAILY [facility] Last Admin: 11/23/16 09:26 Dose: 60 mg Ondansetron HCl (Zofran Inj) 4 mg IVP Q4H PRN PRN Reason: Nausea/Vomiting Last Admin: 11/20/16 19:09 Dose: 4 mg Prednisone (Prednisone Tab) 10 mg PO DAILY [facility] Last Admin: 11/23/16 09:26 Dose: 10 mg Rosuvastatin Calcium (Crestor) 10 mg PO HS [facility] Last Admin: 11/23/16 22:04 Dose: 10 mg Fluticasone/Salmeterol (Advair Diskus 250/50) 1 puff INH RQ12 [facility] Last Admin: 11/24/16 07:38 Dose: Not Given Vitamin B Complex/Vit C/Folic Acid (Nephro-Niranjan) 1 tab PO DAILY [facility] Last Admin: 11/23/16 09:26 Dose: 1 tab - Labs Labs: 11/23/16 08:14 11/23/16 08:14 PT 12.4 SECONDS (9.7-12.2) H 11/19/16 11:38 INR 1.1 11/19/16 11:38 APTT 29 SECONDS (21-34) 11/19/16 11:38 - Constitutional Appears: Non-toxic, No Acute Distress - Head Exam Head Exam: NORMOCEPHALIC - ENT Exam ENT Exam: Normal Exam - Respiratory Exam Respiratory Exam: Clear to Ausculation Bilateral. absent: Rhonchi, Wheezes - Cardiovascular Exam Cardiovascular Exam: Irregular Rhythm, +S1, +S2. absent: Gallop, REGULAR RHYTHM , RRR, Rubs - GI/Abdominal Exam GI & Abdominal Exam: Soft, Normal Bowel Sounds. absent: Tenderness - Back Exam Back Exam: absent: CVA tenderness (L), CVA tenderness (R) - Neurological Exam Neurological Exam: Alert, Normal Gait - Psychiatric Exam Psychiatric exam: Normal Affect, Normal Mood - Skin Skin Exam: Normal Color, Warm Assessment and Plan - Assessment and Plan (Free Text) Assessment: Renal Cell Carcinoma Assessment & Plan: 11/24: Still needs clearance for surgery, surgery date is pending 11/21: Patient will need clearance from cardiology before surgery X:ray today showed no evidence of SBO but did show stool in the colon. Give miralax 17gm twice, consider more if still no bowel movement. 11/20: Patient will most likely need Nephrectomy. 11/14/16 right kidney biopsy - renal cell carcinoma Oncology consult - Dr. Leonardo- help appreciated Per Dr. Leonardo, best course of action is handling hematoma and then excision of renal mass if urology agrees Urology consult - Dr. Ba - f/u recommendations Anemia Assessment & Plan: 11/24: Hbg today is 8.0, consider tranfusion if it continues to drop before surgery 11/21: Stool heme occult positive. Dr. Caraballo consulted, Hbg today is 8.1, follow up iron studies tomorrow morning 11/20: Hbg is today at around 8.8, continue to monitor. Likely secondary to renal hematoma at site of biopsy Hgb 7.4 from 6.4 yesterday s/p 1unit pRBCs 1 unit transfusion today percent saturation and ferritin and reticulocyte count normal F/U stool OB Leukocyotsis Assessment & Plan: Likely secondary to steroids v. infection Afebrile F/U UA and urine culture Hyperkalemia Assessment & Plan: On dialysis Leg pain, right Assessment & Plan: 11/19: swelling improved continue current management X ray shows soft tissue swelling, doppler negative for any evidence of DVT. Will given Tylenol for pain as needed. Status: Acute Pneumonia Assessment & Plan 11/19: Day 8 of Zithromax and Rocephin, WBC is still high 11/13: day 2 of Zithromax and Rocephin, fever, chest pain, or cough. She does have a WBC of 16.7 today with left shift, continue to monitor WBC at 19.8 with a left shift. CXR - moderate venous congestion. bilateral hilar prominence. Bibasilar airspace opacities. small b/l pleural effusions. Upper lobe granulomatous changes. Started zithromax 500mg IVPB daily and rocephin 1gm IVPB daily 11/12/16 Status: Acute IDDM (insulin dependent diabetes mellitus) Assessment & Plan: Patient on 70/30 Novolog 15 units at night and 10 units ACB. Sliding scale insulin with medium protocol and accuchecks. Status: Acute COPD (chronic obstructive pulmonary disease) Assessment & Plan: Albuterol prn and Advair. Status: Chronic CAD (coronary artery disease) Assessment & Plan: Crestor 10mg, Aspirin 81mg, and Plavix 75mg Status: Chronic Atrial fibrillation Status: Chronic 11/19: continue Cardizem Hep, Plavix and ASA stopped secondary to renal hematoma 11/18:continue Cardizem, Hep, Plavix and ASA 11/17: Today was in Rapid afib with RVR, she is on 300mg of Cardizem. Patient transferred to [facility] and cardiology, Dr. Brenner is consulted, help appreciated. Patient is on Aspirin and Plavix. Hep 5000U SC Q8 prophylaxis HR constrolled No anticoagulation besides Plavix and ASA ESRD on dialysis Assessment & Plan: Patient is scheduled for dialysis tomorrow Status: Chronic CHF (congestive heart failure) Assessment & Plan: Lasix 80mg PO daily. Status: Acute HTN (hypertension) Assessment & Plan: Cardizem 300mg daily, Imdur 60mg daily, Hydralazine 100mg TID Status: Chronic Prophylactic measure Assessment & Plan: Pepcid 20mg 0.25mg Xanax prn for anxiety tylenol 650mg Q6H prn for pain <Haydee Frederick - Last Filed: 11/25/16 18:18> Objective - Vital Signs/Intake and Output Vital Signs (last 24 hours): Temp Pulse Resp BP Pulse Ox 99.7 F H 96 H 20 132/68 97 11/25/16 16:00 11/25/16 17:09 11/25/16 16:00 11/25/16 16:00 11/25/16 16:00 Intake and Output: 11/25/16 11/25/16 06:59 18:59 Intake Total 380 Balance 380 - Medications Medications: Current Medications Acetaminophen (Tylenol 325mg Tab) 650 mg PO Q6 PRN PRN Reason: pain Last Admin: 11/22/16 09:17 Dose: 650 mg Albuterol (Ventolin Hfa 90 Mcg/Actuation (8 G)) 1 puff IH RQID PRN PRN Reason: Wheezing Calcium Acetate (Phoslo) 667 mg PO TIDCC [facility] Last Admin: 11/25/16 17:18 Dose: 667 mg Diltiazem HCl (Cardizem Cd) 300 mg PO DAILY [facility] Last Admin: 11/25/16 10:00 Dose: 300 mg Docusate Sodium (Colace) 100 mg PO TID [facility] Last Admin: 11/25/16 17:18 Dose: 100 mg Epoetin Lucien (Procrit) 20,000 unit IV [place] [facility] [place] Last Admin: 11/24/16 10:52 Dose: 20,000 unit Escitalopram Oxalate (Lexapro) 5 mg PO DAILY [facility] Last Admin: 11/25/16 10:00 Dose: 5 mg Famotidine (Pepcid) 20 mg PO DAILY [facility] Last Admin: 11/25/16 09:59 Dose: 20 mg Furosemide (Lasix) 80 mg PO DAILY [facility] Last Admin: 11/25/16 10:00 Dose: 80 mg Gabapentin (Neurontin) 100 mg PO HS [facility] Last Admin: 11/24/16 21:00 Dose: 100 mg Hydralazine HCl (Apresoline) 100 mg PO BID [facility] Last Admin: 11/25/16 17:18 Dose: 100 mg Hydrochlorothiazide (Hydrodiuril) 50 mg PO DAILY [facility] Last Admin: 11/25/16 10:03 Dose: 50 mg Vancomycin HCl 500 mg/ Sodium (Chloride) 100 mls @ 100 mls/hr IVPB MWF [facility] Last Admin: 11/24/16 14:43 Dose: 100 mls/hr Cefepime HCl 1 gm/ Sodium (Chloride) 100 mls @ 100 mls/hr IVPB Q24H [facility] Last Admin: 11/24/16 20:08 Dose: 100 mls/hr Insulin Aspart (Novolog Mix 70/30 (70/30 Units/Ml)) 20 units SC HS [facility] Last Admin: 11/24/16 22:03 Dose: 20 units Insulin Aspart (Novolog Mix 70/30 (70/30 Units/Ml)) 15 units SC ACB [facility] Last Admin: 11/25/16 08:46 Dose: 15 units Insulin Human Regular (Novolin R) 0 unit SC ACHS [facility] PRN Reason: Protocol Last Admin: 11/25/16 17:18 Dose: Not Given Isosorbide Mononitrate (Imdur) 60 mg PO DAILY [facility] Last Admin: 11/25/16 09:59 Dose: 60 mg Ondansetron HCl (Zofran Inj) 4 mg IVP Q4H PRN PRN Reason: Nausea/Vomiting Last Admin: 11/20/16 19:09 Dose: 4 mg Prednisone (Prednisone Tab) 10 mg PO DAILY [facility] Last Admin: 11/25/16 09:59 Dose: 10 mg Rosuvastatin Calcium (Crestor) 10 mg PO HS [facility] Last Admin: 11/24/16 21:00 Dose: 10 mg Fluticasone/Salmeterol (Advair Diskus 250/50) 1 puff INH RQ12 [facility] Last Admin: 11/25/16 10:27 Dose: Not Given Vitamin B Complex/Vit C/Folic Acid (Nephro-Niranjan) 1 tab PO DAILY [facility] Last Admin: 11/25/16 09:59 Dose: 1 tab - Labs Labs: 11/25/16 06:02 11/25/16 06:02 PT 12.4 SECONDS (9.7-12.2) H 11/19/16 11:38 INR 1.1 11/19/16 11:38 APTT 29 SECONDS (21-34) 11/19/16 11:38 Assessment and Plan (1) Acute systolic CHF (congestive heart failure) Status: Acute (2) Hyperkalemia Status: Acute (3) IDDM (insulin dependent diabetes mellitus) Status: Acute (4) Prophylactic measure Status: Acute (5) Pulmonary arterial hypertension Status: Acute (6) Respiratory distress Status: Acute (7) CRF (chronic renal failure) Status: Chronic (8) ESRD on dialysis Status: Acute (9) Pneumonia Status: Suspected Attending/Attestation - Attestation I have personally seen and examined this patient.: Yes I have fully participated in the care of the patient.: Yes I have reviewed all pertinent clinical information, including history, physical exam and plan: Yes Notes (Text): 11/24/16 18:17 case seen and discused [facility] staff adn resident
[2016-11-24 09:52] LABS: BASO # 0.1 K/uL (0.0-0.2); BASO % 0.4 % (0.0-2.0); EOS # 0.3 K/uL (0.0-0.7); EOS % 1.5 % (0.0-4.0); HEMATOCRIT 25.2 % (34.0-47.0); LYMPH % 5.6 % (20.0-40.0); MEAN CELL VOLUME 88.3 fL (81.0-99.0); MEAN CORPUSCULAR HGB CONC 31.7 g/dL (33.0-37.0); MEAN PLATELET VOLUME 10.3 fL (7.2-11.7); MONO # 1.6 K/uL (0.0-0.8); MONO % 8.6 % (0.0-10.0); PLATELET COUNT 278 K/uL (130-400); RED CELL DISTRIBUTION WIDTH 17.2 % (11.5-14.5); WHITE BLOOD COUNT 18.5 K/uL (4.8-10.8)
[2016-11-24 09:58] LABS: POTASSIUM 4.9 mmol/L (3.6-5.2)
[2016-11-24 10:00] LABS: BILIRUBIN,TOTAL 0.5 mg/dL (0.2-1.3); TOTAL PROTEIN 6.8 g/dL (6.3-8.3)
[2016-11-24 10:01] LABS: CALCIUM 8.9 mg/dl (8.6-10.4); MAGNESIUM 2.2 mg/dL (1.6-2.3); PHOSPHOROUS 4.7 mg/dL (2.5-4.5)
[2016-11-24] MEDS: Epoetin Alfa Dialysis 20000 UNIT/ML Inj IV SCH (10:52)
[2016-11-24] MEDS: Ferric Sodium Gluconat Complex 62.5 mg/5 ml Vial IVPB SCH (10:53)
[2016-11-24 10:55] LABS: EOSINOPHIL 2 % (0-4); NEUTROPHIL 88 % (50-75); TOTAL CELLS COUNTED 100
[2016-11-24 10:58] LABS: LARGE PLATELETS PRESENT
--- NOTE | 2016-11-24 11:59 | CP.PCM.PN ---
Subjective - Date & Time of Evaluation Date of Evaluation: 11/24/16 Time of Evaluation: 09:00 - Subjective Subjective: events noted needs heme onc eval Objective - Vital Signs/Intake and Output Vital Signs (last 24 hours): Temp Pulse Resp BP Pulse Ox 98.7 F 82 16 183/72 H 100 11/24/16 09:30 11/24/16 09:30 11/24/16 09:30 11/24/16 10:45 11/24/16 09:30 Intake and Output: 11/24/16 11/24/16 06:59 18:59 Intake Total 480 Balance 480 - Medications Medications: Current Medications Acetaminophen (Tylenol 325mg Tab) 650 mg PO Q6 PRN PRN Reason: pain Last Admin: 11/22/16 09:17 Dose: 650 mg Albuterol (Ventolin Hfa 90 Mcg/Actuation (8 G)) 1 puff IH RQID PRN PRN Reason: Wheezing Calcium Acetate (Phoslo) 667 mg PO TIDCC [facility] Last Admin: 11/24/16 08:39 Dose: 667 mg Diltiazem HCl (Cardizem Cd) 300 mg PO DAILY [facility] Last Admin: 11/23/16 09:27 Dose: 300 mg Epoetin Lucien (Procrit) 20,000 unit IV [facility] Last Admin: 11/24/16 10:52 Dose: 20,000 unit Escitalopram Oxalate (Lexapro) 5 mg PO DAILY [facility] Last Admin: 11/23/16 09:28 Dose: 5 mg Famotidine (Pepcid) 20 mg PO DAILY [facility] Last Admin: 11/23/16 09:27 Dose: 20 mg Ferric Sodium Gluconate Complex (Ferrlecit) 125 mg IVPB [facility] Stop: 11/25/16 09:01 Last Admin: 11/24/16 10:53 Dose: 125 mg Furosemide (Lasix) 80 mg PO DAILY [facility] Last Admin: 11/23/16 09:28 Dose: 80 mg Gabapentin (Neurontin) 100 mg PO HS [facility] Last Admin: 11/23/16 22:04 Dose: 100 mg Hydralazine HCl (Apresoline) 100 mg PO BID [facility] Last Admin: 11/23/16 17:21 Dose: 100 mg Hydrochlorothiazide (Hydrodiuril) 50 mg PO DAILY [facility] Last Admin: 03/26/17 09:26 Dose: 50 mg Vancomycin HCl 500 mg/ Sodium (Chloride) 100 mls @ 100 mls/hr IVPB MWF [facility] Last Admin: 11/24/16 09:05 Dose: Not Given Cefepime HCl 1 gm/ Sodium (Chloride) 100 mls @ 100 mls/hr IVPB Q24H [facility] Last Admin: 11/23/16 20:16 Dose: 100 mls/hr Insulin Aspart (Novolog Mix 70/30 (70/30 Units/Ml)) 20 units SC HS [facility] Last Admin: 11/23/16 22:09 Dose: 20 units Insulin Aspart (Novolog Mix 70/30 (70/30 Units/Ml)) 15 units SC ACB [facility] Last Admin: 11/24/16 08:32 Dose: Not Given Insulin Human Regular (Novolin R) 0 unit SC ACHS [facility] PRN Reason: Protocol Last Admin: 11/24/16 08:15 Dose: Not Given Isosorbide Mononitrate (Imdur) 60 mg PO DAILY [facility] Last Admin: 11/23/16 09:26 Dose: 60 mg Ondansetron HCl (Zofran Inj) 4 mg IVP Q4H PRN PRN Reason: Nausea/Vomiting Last Admin: 11/20/16 19:09 Dose: 4 mg Prednisone (Prednisone Tab) 10 mg PO DAILY [facility] Last Admin: 11/23/16 09:26 Dose: 10 mg Rosuvastatin Calcium (Crestor) 10 mg PO [facility] Last Admin: 11/23/16 22:04 Dose: 10 mg Fluticasone/Salmeterol (Advair Diskus 250/50) 1 puff INH RQ12 [facility] Last Admin: 11/24/16 07:38 Dose: Not Given Vitamin B Complex/Vit C/Folic Acid (Nephro-Niranjan) 1 tab PO DAILY [facility] Last Admin: 11/23/16 09:26 Dose: 1 tab - Labs Labs: 11/24/16 09:46 11/24/16 09:46 PT 12.4 SECONDS (9.7-12.2) H 11/19/16 11:38 INR 1.1 11/19/16 11:38 APTT 29 SECONDS (21-34) 11/19/16 11:38 - Constitutional Appears: Non-toxic, Cachectic, Chronically Ill - Head Exam Head Exam: NORMOCEPHALIC - Eye Exam Eye Exam: absent: Scleral icterus - ENT Exam ENT Exam: Mucous Membranes Dry, Normal External Ear Exam - Neck Exam Neck Exam: absent: Lymphadenopathy - Respiratory Exam Respiratory Exam: Decreased Breath Sounds, Clear to Ausculation Bilateral - Cardiovascular Exam Cardiovascular Exam: REGULAR RHYTHM - GI/Abdominal Exam GI & Abdominal Exam: Distended, Soft Assessment and Plan (1) Acute systolic CHF (congestive heart failure) Status: Acute (2) Anemia Status: Acute (3) Asthma attack Status: Acute (4) Atrial fibrillation with rapid ventricular response Status: Acute (5) IDDM (insulin dependent diabetes mellitus) Status: Acute (6) Renal mass Status: Acute
[2016-11-24] MEDS: Multivitamin Vitamin B Complex (Nephro-Vite) Tab PO SCH (13:29)
[2016-11-24] MEDS: diltiaZEM 300 mg/24 Hours CD Cap PO SCH (13:29)
--- NOTE | 2016-11-24 15:58 | PCM.URO ---
Urology Progress Note - Objective Lab Results Last 24 Hours: Laboratory Results - last 24 hr 11/23/16 11/23/16 11/24/16 16:18 20:49 07:08 WBC RBC Hgb Hct MCV MCH MCHC RDW Plt Count MPV Neut % (Auto) Lymph % (Auto) [place] % (Auto) Eos % (Auto) Baso % (Auto) Neut # Lymph # [place] # Eos # Baso # Neutrophils % (Manual) Band Neutrophils % Lymphocytes % (Manual) Monocytes % (Manual) Eosinophils % (Manual) Platelet Estimate Large Platelets Polychromasia Hypochromasia (manual) Poikilocytosis (manual Anisocytosis (manual) Microcytosis (manual) Macrocytosis (manual) Tear Drop Cells Ovalocytes Sodium Potassium Chloride Carbon Dioxide Anion Gap BUN Creatinine Est GFR ( Amer) Est GFR (Non-Af Amer) POC Glucose (mg/dL) 183 H 324 H 87 Random Glucose Calcium Phosphorus Magnesium Total Bilirubin AST ALT Alkaline Phosphatase Total Protein Albumin Globulin Albumin/Globulin Ratio 11/24/16 11/24/16 09:46 11:15 WBC 18.5 H RBC 2.85 L Hgb 8.0 L Hct 25.2 L MCV 88.3 MCH 28.0 MCHC 31.7 L RDW 17.2 H Plt Count 278 MPV 10.3 Neut % (Auto) 83.9 H Lymph % (Auto) 5.6 L [place] % (Auto) 8.6 Eos % (Auto) 1.5 Baso % (Auto) 0.4 Neut # 15.5 H Lymph # 1.0 [place] # 1.6 H Eos # 0.3 Baso # 0.1 Neutrophils % (Manual) 88 H Band Neutrophils % 2 Lymphocytes % (Manual) 3 L Monocytes % (Manual) 5 Eosinophils % (Manual) 2 Platelet Estimate Normal Large Platelets Present Polychromasia Slight Hypochromasia (manual) Slight Poikilocytosis (manual Slight Anisocytosis (manual) Slight Microcytosis (manual) Slight Macrocytosis (manual) Slight Tear Drop Cells Slight Ovalocytes Slight Sodium 134 Potassium 4.9 Chloride 90 L Carbon Dioxide 20 L Anion Gap 29 H BUN 82 H Creatinine 9.2 H* Est GFR ( Amer) 5 Est GFR (Non-Af Amer) 4 POC Glucose (mg/dL) 127 H Random Glucose 124 H Calcium 8.9 Phosphorus 4.7 H Magnesium 2.2 Total Bilirubin 0.5 AST 19 ALT 13 Alkaline Phosphatase 93 Total Protein 6.8 Albumin 3.4 L Globulin 3.4 Albumin/Globulin Ratio 1.0 Intake & Output: Intake & Output 11/23/16 11/24/16 11/24/16 18:59 06:59 18:59 Intake Total 500 480 100 Balance 500 480 100 Intake: Intake, IV Amount 100 Right Antecubital 100 Oral 500 480 Other: # Voids Urine, Voided 1 3 # Bowel Movements 0 0 Vital Signs: Vital Signs - 24 hr 11/23/16 11/24/16 11/24/16 23:30 00:28 07:30 Temperature 98.7 F 99.8 F H Pulse Rate 102 H 102 H 94 H Pulse Rate [ Right Brachial] Respiratory 20 20 Rate Blood Pressure 181/65 H 175/76 H Blood Pressure [Right Arm] O2 Sat by Pulse 96 97 Oximetry 11/24/16 11/24/16 11/24/16 07:45 09:15 09:30 Temperature 98.7 F 98.7 F Pulse Rate 99 H 82 Pulse Rate [ 82 Right Brachial] Respiratory 16 16 Rate Blood Pressure 118/90 Blood Pressure 111/81 [Right Arm] O2 Sat by Pulse 100 Oximetry 11/24/16 11/24/16 11/24/16 09:45 10:00 10:31 Temperature Pulse Rate Pulse Rate [ Right Brachial] Respiratory Rate Blood Pressure Blood Pressure 183/71 H 179/73 H 165/65 H [Right Arm] O2 Sat by Pulse Oximetry 11/24/16 11/24/16 11/24/16 10:45 11:15 11:45 Temperature Pulse Rate Pulse Rate [ Right Brachial] Respiratory Rate Blood Pressure Blood Pressure 183/72 H 176/68 H 150/77 [Right Arm] O2 Sat by Pulse Oximetry 11/24/16 11/24/16 11/24/16 12:15 12:30 13:30 Temperature Pulse Rate Pulse Rate [ Right Brachial] Respiratory Rate Blood Pressure 147/70 Blood Pressure 136/101 H 102/53 L [Right Arm] O2 Sat by Pulse Oximetry
--- NOTE | 2016-11-24 17:13 | CP.PCM.PN ---
Subjective - Date & Time of Evaluation Date of Evaluation: 11/24/16 Time of Evaluation: 10:20 - Subjective Subjective: clinically same Objective - Vital Signs/Intake and Output Vital Signs (last 24 hours): Temp Pulse Resp BP Pulse Ox 98 F 108 H 20 162/68 H 95 11/24/16 16:20 11/24/16 16:20 11/24/16 16:20 11/24/16 16:20 11/24/16 16:20 Intake and Output: 11/24/16 11/24/16 06:59 18:59 Intake Total 480 100 Balance 480 100 - Medications Medications: Current Medications Acetaminophen (Tylenol 325mg Tab) 650 mg PO Q6 PRN PRN Reason: pain Last Admin: 11/22/16 09:17 Dose: 650 mg Albuterol (Ventolin Hfa 90 Mcg/Actuation (8 G)) 1 puff IH RQID PRN PRN Reason: Wheezing Calcium Acetate (Phoslo) 667 mg PO TIDCC [facility] Last Admin: 11/24/16 16:42 Dose: 667 mg Diltiazem HCl (Cardizem Cd) 300 mg PO DAILY [facility] Last Admin: 11/24/16 13:29 Dose: 300 mg Epoetin Lucien (Procrit) 20,000 unit IV [facility] Last Admin: 11/24/16 10:52 Dose: 20,000 unit Escitalopram Oxalate (Lexapro) 5 mg PO DAILY [facility] Last Admin: 11/24/16 13:31 Dose: 5 mg Famotidine (Pepcid) 20 mg PO DAILY [facility] Last Admin: 11/24/16 13:29 Dose: 20 mg Ferric Sodium Gluconate Complex (Ferrlecit) 125 mg IVPB [facility] [place] Stop: 11/25/16 09:01 Last Admin: 11/24/16 10:53 Dose: 125 mg Furosemide (Lasix) 80 mg PO DAILY [facility] Last Admin: 11/24/16 13:30 Dose: 80 mg Gabapentin (Neurontin) 100 mg PO HS [facility] Last Admin: 11/23/16 22:04 Dose: 100 mg Hydralazine HCl (Apresoline) 100 mg PO BID [facility] Last Admin: 11/24/16 10:00 Dose: Not Given Hydrochlorothiazide (Hydrodiuril) 50 mg PO DAILY [facility] Last Admin: 11/24/16 13:45 Dose: 50 mg Vancomycin HCl 500 mg/ Sodium (Chloride) 100 mls @ 100 mls/hr IVPB MWF [facility] Last Admin: 11/24/16 14:43 Dose: 100 mls/hr Cefepime HCl 1 gm/ Sodium (Chloride) 100 mls @ 100 mls/hr IVPB Q24H [facility] Last Admin: 11/23/16 20:16 Dose: 100 mls/hr Insulin Aspart (Novolog Mix 70/30 (70/30 Units/Ml)) 20 units SC HS [facility] Last Admin: 11/23/16 22:09 Dose: 20 units Insulin Aspart (Novolog Mix 70/30 (70/30 Units/Ml)) 15 units SC ACB [facility] Last Admin: 11/24/16 08:32 Dose: Not Given Insulin Human Regular (Novolin R) 0 unit SC ACHS [facility] PRN Reason: Protocol Last Admin: 11/24/16 12:30 Dose: Not Given Isosorbide Mononitrate (Imdur) 60 mg PO DAILY [facility] Last Admin: 11/24/16 13:29 Dose: 60 mg Ondansetron HCl (Zofran Inj) 4 mg IVP Q4H PRN PRN Reason: Nausea/Vomiting Last Admin: 11/20/16 19:09 Dose: 4 mg Prednisone (Prednisone Tab) 10 mg PO DAILY [facility] Last Admin: 11/24/16 13:29 Dose: 10 mg Rosuvastatin Calcium (Crestor) 10 mg PO [facility] Last Admin: 11/23/16 22:04 Dose: 10 mg Fluticasone/Salmeterol (Advair Diskus 250/50) 1 puff INH RQ12 [facility] Last Admin: 11/24/16 07:38 Dose: Not Given Vitamin B Complex/Vit C/Folic Acid (Nephro-Niranjan) 1 tab PO DAILY [facility] Last Admin: 11/24/16 13:29 Dose: 1 tab - Labs Labs: 11/24/16 09:46 11/24/16 09:46 PT 12.4 SECONDS (9.7-12.2) H 11/19/16 11:38 INR 1.1 11/19/16 11:38 APTT 29 SECONDS (21-34) 11/19/16 11:38 - Constitutional Appears: Well - Head Exam Head Exam: ATRAUMATIC, NORMAL INSPECTION, NORMOCEPHALIC - Eye Exam Eye Exam: EOMI, Normal appearance, PERRL Pupil Exam: NORMAL ACCOMODATION, PERRL - ENT Exam ENT Exam: Mucous Membranes Moist, Normal Exam - Neck Exam Neck Exam: Full ROM, Normal Inspection. absent: Lymphadenopathy - Respiratory Exam Respiratory Exam: Decreased Breath Sounds - Cardiovascular Exam Cardiovascular Exam: REGULAR RHYTHM, +S1, +S2 - GI/Abdominal Exam GI & Abdominal Exam: Soft, Diminished Bowel Sounds - Rectal Exam Rectal Exam: Deferred Assessment and Plan (1) CRF (chronic renal failure) Status: Chronic (2) Hyperkalemia Status: Acute (3) ESRD on dialysis Status: Acute (4) Pneumonia Status: Suspected (5) Acute systolic CHF (congestive heart failure) Status: Acute (6) Respiratory distress Status: Acute (7) Prophylactic measure Status: Acute (8) IDDM (insulin dependent diabetes mellitus) Status: Acute (9) Pulmonary arterial hypertension Status: Acute - Assessment and Plan (Free Text) Plan: Urology consult Continue antibiotics Lovenox Hemoccult Cardizem Lasix Prednisone
[2016-11-24] MEDS: Cefepime 1 GM in Sodium Chloride 0.9% 100 ML IVPB SCH (20:08)
[2016-11-25 06:16] LABS: BASO # 0.1 K/uL (0.0-0.2); BASO % 0.4 % (0.0-2.0); EOS # 0.2 K/uL (0.0-0.7); EOS % 0.9 % (0.0-4.0); HEMATOCRIT 27.9 % (34.0-47.0); LYMPH # 1.3 K/uL (1.0-4.3); LYMPH % 6.9 % (20.0-40.0); MEAN CORPUSCULAR HEMOGLOBIN 28.6 pg (27.0-31.0); MEAN CORPUSCULAR HGB CONC 32.1 g/dL (33.0-37.0); MEAN PLATELET VOLUME 10.2 fL (7.2-11.7); MONO # 1.8 K/uL (0.0-0.8); MONO % 9.5 % (0.0-10.0); NRBC % 0.2 % (0.0-2.0); PLATELET COUNT 302 K/uL (130-400); RED CELL DISTRIBUTION WIDTH 17.2 % (11.5-14.5); WHITE BLOOD COUNT 19.4 K/uL (4.8-10.8)
[2016-11-25 06:25] LABS: POTASSIUM 4.6 mmol/L (3.6-5.2)
[2016-11-25 06:27] LABS: BILIRUBIN,TOTAL 0.7 mg/dL (0.2-1.3)
[2016-11-25 06:28] LABS: CALCIUM 8.6 mg/dl (8.6-10.4); MAGNESIUM 2.3 mg/dL (1.6-2.3); PHOSPHOROUS 4.6 mg/dL (2.5-4.5); TOTAL PROTEIN 6.8 g/dL (6.3-8.3)
[2016-11-25] MEDS: (Novolin R) Insulin Human Regular 100 units/ml vial SC SCH ×4 (08:02→21:32)
[2016-11-25] MEDS: (Novolog Mix 70/30) Insulin Aspart/Insulin Aspar 100 units/ml SC SCH ×2 (08:46→21:31)
[2016-11-25 09:28] LABS: MYELOCYTE 1 % (0-0); NEUTROPHIL 87 % (50-75); TOTAL CELLS COUNTED 100
[2016-11-25] MEDS: Multivitamin Vitamin B Complex (Nephro-Vite) Tab PO SCH (09:59)
[2016-11-25] MEDS: diltiaZEM 300 mg/24 Hours CD Cap PO SCH (10:00)
[2016-11-25] MEDS: Fluticasone-Salmeterol 250-50mcg Diskus INH SCH ×2 (10:27→20:50)
--- NOTE | 2016-11-25 10:34 | CP.PCM.PN ---
Subjective - Date & Time of Evaluation Date of Evaluation: 11/25/16 Time of Evaluation: 11:40 - Subjective Subjective: clinically same Objective - Vital Signs/Intake and Output Vital Signs (last 24 hours): Temp Pulse Resp BP Pulse Ox 99 F 78 20 124/60 96 11/25/16 08:09 11/25/16 08:09 11/25/16 08:09 11/25/16 10:00 11/25/16 08:09 Intake and Output: 11/25/16 11/25/16 06:59 18:59 Intake Total 380 Balance 380 - Medications Medications: Current Medications Acetaminophen (Tylenol 325mg Tab) 650 mg PO Q6 PRN PRN Reason: pain Last Admin: 11/22/16 09:17 Dose: 650 mg Albuterol (Ventolin Hfa 90 Mcg/Actuation (8 G)) 1 puff IH RQID PRN PRN Reason: Wheezing Calcium Acetate (Phoslo) 667 mg PO TIDCC [facility] Last Admin: 11/25/16 08:12 Dose: 667 mg Diltiazem HCl (Cardizem Cd) 300 mg PO DAILY [facility] Last Admin: 11/25/16 10:00 Dose: 300 mg Docusate Sodium (Colace) 100 mg PO TID [facility] Last Admin: 11/25/16 09:59 Dose: 100 mg Epoetin Lucien ([facility]crit) [facility] Last Admin: 11/24/16 10:52 Dose: 20,000 unit Escitalopram Oxalate (Lexapro) 5 mg PO DAILY [facility] Last Admin: 11/25/16 10:00 Dose: 5 mg Famotidine (Pepcid) 20 mg PO DAILY [facility] Last Admin: 11/25/16 09:59 Dose: 20 mg Furosemide (Lasix) 80 mg PO DAILY [facility] Last Admin: 11/25/16 10:00 Dose: 80 mg Gabapentin (Neurontin) 100 mg PO HS [facility] Last Admin: 11/24/16 21:00 Dose: 100 mg Hydralazine HCl (Apresoline) 100 mg PO BID [facility] Last Admin: 11/25/16 10:06 Dose: 100 mg Hydrochlorothiazide (Hydrodiuril) 50 mg PO DAILY [facility] Last Admin: 11/25/16 10:03 Dose: 50 mg Vancomycin HCl 500 mg/ Sodium (Chloride) 100 mls @ 100 mls/hr IVPB MWF [facility] Last Admin: 11/24/16 14:43 Dose: 100 mls/hr Cefepime HCl 1 gm/ Sodium (Chloride) 100 mls @ 100 mls/hr IVPB Q24H [facility] Last Admin: 11/24/16 20:08 Dose: 100 mls/hr Insulin Aspart (Novolog Mix 70/30 (70/30 Units/Ml)) 20 units SC HS [facility] Last Admin: 11/24/16 22:03 Dose: 20 units Insulin Aspart (Novolog Mix 70/30 (70/30 Units/Ml)) 15 units SC ACB [facility] Last Admin: 11/25/16 08:46 Dose: 15 units Insulin Human Regular (Novolin R) 0 unit SC ACHS [facility] PRN Reason: Protocol Last Admin: 11/25/16 08:02 Dose: Not Given Isosorbide Mononitrate (Imdur) 60 mg PO DAILY [facility] Last Admin: 11/25/16 09:59 Dose: 60 mg Ondansetron HCl (Zofran Inj) 4 mg IVP Q4H PRN PRN Reason: Nausea/Vomiting Last Admin: 11/20/16 19:09 Dose: 4 mg Prednisone (Prednisone Tab) 10 mg PO DAILY [facility] Last Admin: 11/25/16 09:59 Dose: 10 mg Rosuvastatin Calcium (Crestor) 10 mg PO [facility] Last Admin: 11/24/16 21:00 Dose: 10 mg Fluticasone/Salmeterol (Advair Diskus 250/50) 1 puff INH RQ12 [facility] Last Admin: 11/25/16 10:27 Dose: Not Given Vitamin B Complex/Vit C/Folic Acid (Nephro-Niranjan) 1 tab PO DAILY [facility] Last Admin: 11/25/16 09:59 Dose: 1 tab - Labs Labs: 11/25/16 06:02 11/25/16 06:02 PT 12.4 SECONDS (9.7-12.2) H 11/19/16 11:38 INR 1.1 11/19/16 11:38 APTT 29 SECONDS (21-34) 11/19/16 11:38 - Constitutional Appears: Well - Head Exam Head Exam: ATRAUMATIC, NORMAL INSPECTION, NORMOCEPHALIC - Eye Exam Eye Exam: EOMI, Normal appearance, PERRL Pupil Exam: NORMAL ACCOMODATION, PERRL - ENT Exam ENT Exam: Mucous Membranes Moist, Normal Exam - Neck Exam Neck Exam: Full ROM, Normal Inspection. absent: Lymphadenopathy - Respiratory Exam Respiratory Exam: Decreased Breath Sounds - Cardiovascular Exam Cardiovascular Exam: REGULAR RHYTHM, +S1, +S2 - GI/Abdominal Exam GI & Abdominal Exam: Soft, Diminished Bowel Sounds - Rectal Exam Rectal Exam: Deferred Assessment and Plan (1) CRF (chronic renal failure) Status: Chronic (2) Hyperkalemia Status: Acute (3) ESRD on dialysis Status: Acute (4) Pneumonia Status: Suspected (5) Acute systolic CHF (congestive heart failure) Status: Acute (6) Respiratory distress Status: Acute (7) Prophylactic measure Status: Acute (8) IDDM (insulin dependent diabetes mellitus) Status: Acute (9) Pulmonary arterial hypertension Status: Acute - Assessment and Plan (Free Text) Plan: On hemodialysis Blood sugar monitoring Continue Cardizem Continue Lasix, hydralazine Consults on board SCDs Hold Plavix and aspirin
--- NOTE | 2016-11-25 12:26 | CP.PCM.PN ---
<Korin Lott - Last Filed: 11/25/16 13:22> Subjective - Date & Time of Evaluation Date of Evaluation: 11/25/16 Time of Evaluation: 12:10 - Subjective Subjective: Cardiology Progress Note for Dr. Brenner Patient seen and examined at bedside. There were no acute overnight events as per nursing. Family was at bedside and reports that patient is confused today. Patient denies having CP, SOB, dysuria, hematuria, n/v/d, numbness/tingling or dizziness. Objective - Vital Signs/Intake and Output Vital Signs (last 24 hours): Temp Pulse Resp BP Pulse Ox 99 F 89 20 124/60 96 11/25/16 08:09 11/25/16 11:56 11/25/16 08:09 11/25/16 10:00 11/25/16 11:56 Intake and Output: 11/25/16 11/25/16 06:59 18:59 Intake Total 380 Balance 380 - Medications Medications: Current Medications Acetaminophen (Tylenol 325mg Tab) 650 mg PO Q6 PRN PRN Reason: pain Last Admin: 11/22/16 09:17 Dose: 650 mg Albuterol (Ventolin Hfa 90 Mcg/Actuation (8 G)) 1 puff IH RQID PRN PRN Reason: Wheezing Calcium Acetate (Phoslo) 667 mg PO TIDCC [facility] Last Admin: 11/25/16 08:12 Dose: 667 mg Diltiazem HCl (Cardizem Cd) 300 mg PO DAILY [facility] Last Admin: 11/25/16 10:00 Dose: 300 mg Docusate Sodium (Colace) 100 mg PO TID [facility] Last Admin: 11/25/16 09:59 Dose: 100 mg Epoetin Lucien (Procrit) 20,000 unit IV MWF [facility] Last Admin: 11/24/16 10:52 Dose: 20,000 unit Escitalopram Oxalate (Lexapro) 5 mg PO DAILY [facility] Last Admin: 11/25/16 10:00 Dose: 5 mg Famotidine (Pepcid) 20 mg PO DAILY [facility] Last Admin: 11/25/16 09:59 Dose: 20 mg Furosemide (Lasix) 80 mg PO DAILY [facility] Last Admin: 11/25/16 10:00 Dose: 80 mg Gabapentin (Neurontin) 100 mg PO HS [facility] Last Admin: 11/24/16 21:00 Dose: 100 mg Hydralazine HCl (Apresoline) 100 mg PO BID [facility] Last Admin: 11/25/16 10:06 Dose: 100 mg Hydrochlorothiazide (Hydrodiuril) 50 mg PO DAILY [facility] Last Admin: 11/25/16 10:03 Dose: 50 mg Vancomycin HCl 500 mg/ Sodium (Chloride) 100 mls @ 100 mls/hr IVPB MWF [facility] Last Admin: 11/24/16 14:43 Dose: 100 mls/hr Cefepime HCl 1 gm/ Sodium (Chloride) 100 mls @ 100 mls/hr IVPB Q24H [facility] Last Admin: 11/24/16 20:08 Dose: 100 mls/hr Insulin Aspart (Novolog Mix 70/30 (70/30 Units/Ml)) 20 units SC HS [facility] Last Admin: 11/24/16 22:03 Dose: 20 units Insulin Aspart (Novolog Mix 70/30 (70/30 Units/Ml)) 15 units SC ACB [facility] Last Admin: 11/25/16 08:46 Dose: 15 units Insulin Human Regular (Novolin R) 0 unit SC ACHS [facility] PRN Reason: Protocol Last Admin: 11/25/16 08:02 Dose: Not Given Isosorbide Mononitrate (Imdur) 60 mg PO DAILY [facility] Last Admin: 11/25/16 09:59 Dose: 60 mg Ondansetron HCl (Zofran Inj) 4 mg IVP Q4H PRN PRN Reason: Nausea/Vomiting Last Admin: 11/20/16 19:09 Dose: 4 mg Prednisone (Prednisone Tab) 10 mg PO DAILY [facility] Last Admin: 11/25/16 09:59 Dose: 10 mg Rosuvastatin Calcium (Crestor) 10 mg PO HS [facility] Last Admin: 11/24/16 21:00 Dose: 10 mg Fluticasone/Salmeterol (Advair Diskus 250/50) 1 puff INH RQ12 [facility] Last Admin: 11/25/16 10:27 Dose: Not Given Vitamin B Complex/Vit C/Folic Acid (Nephro-Niranjan) 1 tab PO DAILY [facility] Last Admin: 11/25/16 09:59 Dose: 1 tab - Labs Labs: 11/25/16 06:02 11/25/16 06:02 PT 12.4 SECONDS (9.7-12.2) H 11/19/16 11:38 INR 1.1 11/19/16 11:38 APTT 29 SECONDS (21-34) 11/19/16 11:38 - Constitutional Appears: No Acute Distress - Head Exam Head Exam: ATRAUMATIC, NORMAL INSPECTION, NORMOCEPHALIC - Eye Exam Eye Exam: Normal appearance - ENT Exam ENT Exam: Mucous Membranes Moist - Respiratory Exam Respiratory Exam: Clear to Ausculation Bilateral, NORMAL BREATHING PATTERN. absent: Rales, Rhonchi, Wheezes - Cardiovascular Exam Cardiovascular Exam: REGULAR RHYTHM, +S1, +S2. absent: Gallop, Rubs, Murmur - Extremities Exam Extremities Exam: Full ROM, Normal Inspection. absent: Calf Tenderness, Pedal Edema - Neurological Exam Neurological Exam: Alert, Awake, CN II-XII Intact - Psychiatric Exam Psychiatric exam: Normal Affect, Normal Mood - Skin Skin Exam: Dry, Normal Color, Warm Assessment and Plan - Assessment and Plan (Free Text) Assessment: This is a 66Y F with PMH CAD, COPD, ESRD on HD, HTN, DM, renal mass admitted for 1) Atrial fibrillation- both rate and rhythm under control 2) Anemia with positive stool occult blood - stable 3) Renal cell carcinoma 4) Pneumonia - improved 5) Leukocytosis - continue to be elevated at 19 6) HTN 7) CAD 8) HLD 9) ESRD- on HD M,W, Plan: - Continue Cardizem - Continue Lasix, HCTZ, Imdur and Hydralazine - Continue Crestor - Patient is able to proceed with surgical removal of renal cell carcinoma- ( benefits outweigh the risks) - Continue with Hemodialysis , W, F - Continue to hold Plavix and ASA for GI bleed GI ppx: Pepcid DVT ppx: SCDs Case seen, reviewed and discussed with Dr. Elidia Lott PGY1 <Halina Brenner - Last Filed: 01/05/17 06:17> Objective - Vital Signs/Intake and Output Vital Signs (last 24 hours): Temp Pulse Resp BP Pulse Ox 98.3 F 82 20 179/55 H 99 12/04/16 16:00 12/04/16 16:00 12/04/16 16:00 12/04/16 16:00 12/04/16 16:00 - Labs Labs: 12/02/16 07:05 12/02/16 07:05 PT 12.4 SECONDS (9.7-12.2) H 11/19/16 11:38 INR 1.1 11/19/16 11:38 APTT 29 SECONDS (21-34) 11/19/16 11:38 Assessment and Plan (1) Acute CHF Status: Acute (2) Anemia Status: Acute Attending/Attestation - Attestation I have personally seen and examined this patient.: Yes I have fully participated in the care of the patient.: Yes I have reviewed all pertinent clinical information, including history, physical exam and plan: Yes Notes (Text): 01/05/17 06:17 continue bp and rate control
--- NOTE | 2016-11-25 13:37 | CP.PCM.PN ---
Subjective - Date & Time of Evaluation Date of Evaluation: 11/25/16 Time of Evaluation: 10:00 - Subjective Subjective: PGY2 Medicine Note - Dr. Ld Frederick's Service: Patient seen and examined at bedside this AM. Patient reports right foot pain. She no longer has right flank pain. Patient knows she is to get surgery on her kidney sometime in the near future. Patient denies fever, chills, chest pain, SOB. Objective - Vital Signs/Intake and Output Vital Signs (last 24 hours): Temp Pulse Resp BP Pulse Ox 99 F 89 20 124/60 96 11/25/16 08:09 11/25/16 11:56 11/25/16 08:09 11/25/16 10:00 11/25/16 11:56 Intake and Output: 11/25/16 11/25/16 06:59 18:59 Intake Total 380 Balance 380 - Medications Medications: Current Medications Acetaminophen (Tylenol 325mg Tab) 650 mg PO Q6 PRN PRN Reason: pain Last Admin: 11/22/16 09:17 Dose: 650 mg Albuterol (Ventolin Hfa 90 Mcg/Actuation (8 G)) 1 puff IH RQID PRN PRN Reason: Wheezing Calcium Acetate (Phoslo) 667 mg PO TIDCC [facility] Last Admin: 11/25/16 13:06 Dose: 667 mg Diltiazem HCl (Cardizem Cd) 300 mg PO DAILY [facility] Last Admin: 11/25/16 10:00 Dose: 300 mg Docusate Sodium (Colace) 100 mg PO TID [facility] Last Admin: 11/25/16 09:59 Dose: 100 mg Epoetin Lucien (Procrit) 20,000 unit IV MWF [facility] Last Admin: 11/24/16 10:52 Dose: 20,000 unit Escitalopram Oxalate (Lexapro) 5 mg PO DAILY [facility] Last Admin: 11/25/16 10:00 Dose: 5 mg Famotidine (Pepcid) 20 mg PO DAILY [facility] Last Admin: 11/25/16 09:59 Dose: 20 mg Furosemide (Lasix) 80 mg PO DAILY [facility] Last Admin: 11/25/16 10:00 Dose: 80 mg Gabapentin (Neurontin) 100 mg PO HS [facility] Last Admin: 11/24/16 21:00 Dose: 100 mg Hydralazine HCl (Apresoline) 100 mg PO BID [facility] Last Admin: 11/25/16 10:06 Dose: 100 mg Hydrochlorothiazide (Hydrodiuril) 50 mg PO DAILY [facility] Last Admin: 11/25/16 10:03 Dose: 50 mg Vancomycin HCl 500 mg/ Sodium (Chloride) 100 mls @ 100 mls/hr IVPB MWF [facility] Last Admin: 11/24/16 14:43 Dose: 100 mls/hr Cefepime HCl 1 gm/ Sodium (Chloride) 100 mls @ 100 mls/hr IVPB Q24H [facility] Last Admin: 11/24/16 20:08 Dose: 100 mls/hr Insulin Aspart (Novolog Mix 70/30 (70/30 Units/Ml)) 20 units SC HS [facility] Last Admin: 11/24/16 22:03 Dose: 20 units Insulin Aspart (Novolog Mix 70/30 (70/30 Units/Ml)) 15 units SC ACB [facility] Last Admin: 11/25/16 08:46 Dose: 15 units Insulin Human Regular (Novolin R) 0 unit SC ACHS [facility] PRN Reason: Protocol Last Admin: 11/25/16 12:48 Dose: 6 unit Isosorbide Mononitrate (Imdur) 60 mg PO DAILY [facility] Last Admin: 11/25/16 09:59 Dose: 60 mg Ondansetron HCl (Zofran Inj) 4 mg IVP Q4H PRN PRN Reason: Nausea/Vomiting Last Admin: 11/20/16 19:09 Dose: 4 mg Prednisone (Prednisone Tab) 10 mg PO DAILY [facility] Last Admin: 11/25/16 09:59 Dose: 10 mg Rosuvastatin Calcium (Crestor) 10 mg PO HS [facility] Last Admin: 11/24/16 21:00 Dose: 10 mg Fluticasone/Salmeterol (Advair Diskus 250/50) 1 puff INH RQ12 [facility] Last Admin: 11/25/16 10:27 Dose: Not Given Vitamin B Complex/Vit C/Folic Acid (Nephro-Niranjan) 1 tab PO DAILY [facility] Last Admin: 11/25/16 09:59 Dose: 1 tab - Labs Labs: 11/25/16 06:02 11/25/16 06:02 PT 12.4 SECONDS (9.7-12.2) H 11/19/16 11:38 INR 1.1 11/19/16 11:38 APTT 29 SECONDS (21-34) 11/19/16 11:38 - Constitutional Appears: Non-toxic, No Acute Distress - Head Exam Head Exam: NORMAL INSPECTION - Eye Exam Eye Exam: EOMI - ENT Exam ENT Exam: Mucous Membranes Moist - Respiratory Exam Respiratory Exam: Clear to Ausculation Bilateral, NORMAL BREATHING PATTERN. absent: Rales, Rhonchi, Wheezes - Cardiovascular Exam Cardiovascular Exam: REGULAR RHYTHM, +S1, +S2. absent: Gallop, Rubs, Murmur - GI/Abdominal Exam GI & Abdominal Exam: Soft, Normal Bowel Sounds. absent: Firm, Guarding, Tenderness - Extremities Exam Extremities Exam: Normal Capillary Refill, Tenderness. absent: Pedal Edema - Neurological Exam Neurological Exam: Alert. absent: Oriented x3 (patient cannot say the year. she says she does not know) - Psychiatric Exam Psychiatric exam: Normal Affect - Skin Skin Exam: Normal Color, Warm Assessment and Plan - Assessment and Plan (Free Text) Assessment: Renal Cell Carcinoma Assessment & Plan: 11/25: Patient cleared by cardio for surgery, surgery date pending Dr. Ba's schedule 11/24: Still needs clearance for surgery, surgery date is pending 11/21: Patient will need clearance from cardiology before surgery X:ray today showed no evidence of SBO but did show stool in the colon. Give miralax 17gm twice, consider more if still no bowel movement. 11/20: Patient will most likely need Nephrectomy. 11/14/16 right kidney biopsy - renal cell carcinoma Oncology consult - Dr. Leonardo- help appreciated Per Dr. Leonardo, best course of action is handling hematoma and then excision of renal mass if urology agrees Urology consult - Dr. Ba - f/u recommendations Anemia Assessment & Plan: 11/25: Hgb 9.0, monitor 11/24: Hbg today is 8.0, consider tranfusion if it continues to drop before surgery 11/21: Stool heme occult positive. Dr. Caraballo consulted, Hbg today is 8.1, follow up iron studies tomorrow morning 11/20: Hbg is today at around 8.8, continue to monitor. Likely secondary to renal hematoma at site of biopsy Hgb 7.4 from 6.4 yesterday s/p 1unit pRBCs 1 unit transfusion today percent saturation and ferritin and reticulocyte count normal F/U stool OB Leukocyotsis Assessment & Plan: Likely secondary to steroids v. infection Afebrile UA and urine culture contaminated Hyperkalemia Assessment & Plan: On dialysis Leg pain, right Assessment & Plan: swelling improved continue current management X ray shows soft tissue swelling, doppler negative for any evidence of DVT. Will given Tylenol for pain as needed. Status: Acute Pneumonia Assessment & Plan 11/25: Continue Cefepime and Vanco ID following - Dr. Bradshaw - help appreciated 11/19: Day 8 of Zithromax and Rocephin, WBC is still high 11/13: day 2 of Zithromax and Rocephin, fever, chest pain, or cough. She does have a WBC of 16.7 today with left shift, continue to monitor WBC at 19.8 with a left shift. CXR - moderate venous congestion. bilateral hilar prominence. Bibasilar airspace opacities. small b/l pleural effusions. Upper lobe granulomatous changes. Started zithromax 500mg IVPB daily and rocephin 1gm IVPB daily 11/12/16 Status: Acute IDDM (insulin dependent diabetes mellitus) Assessment & Plan: Patient on 70/30 Novolog 15 units at night and 10 units ACB. Sliding scale insulin with medium protocol and accuchecks. Status: Acute COPD (chronic obstructive pulmonary disease) Assessment & Plan: Albuterol prn and Advair. Status: Chronic CAD (coronary artery disease) Assessment & Plan: Crestor 10mg, Aspirin 81mg, and Plavix 75mg Status: Chronic Atrial fibrillation Status: Chronic 11/25: Continue Cardizem Cardio following - Dr. Brenner - help appreciated 11/19: continue Cardizem Hep, Plavix and ASA stopped secondary to renal hematoma 11/18:continue Cardizem, Hep, Plavix and ASA 11/17: Today was in Rapid afib with RVR, she is on 300mg of Cardizem. Patient transferred to tele and cardiology, Dr. Brenner is consulted, help appreciated. Patient is on Aspirin and Plavix. Hep 5000U SC Q8 prophylaxis HR constrolled No anticoagulation besides Plavix and ASA ESRD on dialysis Assessment & Plan: Dialysis MWF Status: Chronic CHF (congestive heart failure) Assessment & Plan: Lasix 80mg PO daily. Status: Acute HTN (hypertension) Assessment & Plan: Cardizem 300mg daily, Imdur 60mg daily, Hydralazine 100mg TID Status: Chronic Prophylactic measure Assessment & Plan: Pepcid 20mg 0.25mg Xanax prn for anxiety tylenol 650mg Q6H prn for pain
--- NOTE | 2016-11-25 14:55 | PN ---
DATE: 11/25/2016 REASON FOR FOLLOWUP: Right renal cell cancer. SUBJECTIVE: The patient is lying comfortably in bed. OBJECTIVE: VITAL SIGNS: Show a temperature of 99, blood pressure is 170/60, pulse 88, respirations 18. HEENT: PERRLA. No scleral icterus. NECK: Supple. CHEST: Bilateral air entry is fair. CARDIOVASCULAR: S1, S2, regular rate and rhythm. ABDOMEN: Soft. EXTREMITIES: No edema. LABORATORY DATA: Show white count of 19.4, hemoglobin of 9, platelets of 302. BUN of 48, creatinine of 6.1. ASSESSMENT AND PLAN: A 66-year-old female with renal mass. Awaiting urology input for further manag ement. At this time, patient has leukocytosis secondary to infection which has been treated with IV antibiotics. Will discuss the case with Dr. Frederick. Whit Leonardo MD cc: [phone] TT: 11/25/2016 14:54:46 Confirmation # [id number] Dictation # [id number] mn
[2016-11-25] MEDS: Cefepime 1 GM in Sodium Chloride 0.9% 100 ML IVPB SCH (20:34)
[2016-11-26 06:18] LABS: BASO # 0.1 K/uL (0.0-0.2); BASO % 0.5 % (0.0-2.0); EOS # 0.3 K/uL (0.0-0.7); EOS % 1.5 % (0.0-4.0); HEMATOCRIT 28.6 % (34.0-47.0); LYMPH # 1.7 K/uL (1.0-4.3); LYMPH % 7.6 % (20.0-40.0); MEAN CELL VOLUME 89.1 fL (81.0-99.0); MEAN CORPUSCULAR HEMOGLOBIN 28.7 pg (27.0-31.0); MEAN CORPUSCULAR HGB CONC 32.2 g/dL (33.0-37.0); MEAN PLATELET VOLUME 9.8 fL (7.2-11.7); MONO # 2.1 K/uL (0.0-0.8); MONO % 9.4 % (0.0-10.0); NRBC % 0.1 % (0.0-2.0); PLATELET COUNT 309 K/uL (130-400); RED CELL DISTRIBUTION WIDTH 17.6 % (11.5-14.5); WHITE BLOOD COUNT 22.7 K/uL (4.8-10.8)
[2016-11-26 06:31] LABS: POTASSIUM 4.5 mmol/L (3.6-5.2)
[2016-11-26 06:34] LABS: BILIRUBIN,TOTAL 0.5 mg/dL (0.2-1.3)
[2016-11-26 06:35] LABS: CALCIUM 9.2 mg/dl (8.6-10.4)
[2016-11-26] MEDS: Fluticasone-Salmeterol 250-50mcg Diskus INH SCH ×2 (07:23→19:04)
--- NOTE | 2016-11-26 07:38 | CP.PCM.PN ---
<Korin Lott - Last Filed: 11/26/16 09:36> Subjective - Date & Time of Evaluation Date of Evaluation: 11/26/16 Time of Evaluation: 07:35 - Subjective Subjective: Cardiology Progress Note for Dr. Brenner Patient seen and examined at bedside. There were no acute overnight events as per nursing. Patient has sitter at bedside. She is noted to be confused. She reports feeling well. She denies having any pain, CP, n/v/d, constipation, SOB, numbness/tingling. Objective - Vital Signs/Intake and Output Vital Signs (last 24 hours): Temp Pulse Resp BP Pulse Ox 97.6 F 83 20 159/56 H 95 11/25/16 23:31 11/25/16 23:31 11/25/16 23:31 11/25/16 23:31 11/25/16 23:31 Intake and Output: 11/26/16 11/26/16 06:59 18:59 Intake Total 120 Balance 120 - Medications Medications: Current Medications Acetaminophen (Tylenol 325mg Tab) 650 mg PO Q6 PRN PRN Reason: pain Last Admin: 11/22/16 09:17 Dose: 650 mg Albuterol (Ventolin Hfa 90 Mcg/Actuation (8 G)) 1 puff IH RQID PRN PRN Reason: Wheezing Calcium Acetate (Phoslo) 667 mg PO TIDCC [facility] Last Admin: 11/25/16 17:18 Dose: 667 mg Diltiazem HCl (Cardizem Cd) 300 mg PO DAILY [facility] Last Admin: 11/25/16 10:00 Dose: 300 mg Docusate Sodium (Colace) 100 mg PO TID [facility] Last Admin: 11/25/16 17:18 Dose: 100 mg Epoetin Lucien (Procrit) 20,000 unit IV MWF [facility] Last Admin: 11/24/16 10:52 Dose: 20,000 unit Escitalopram Oxalate (Lexapro) 5 mg PO DAILY [facility] Last Admin: 11/25/16 10:00 Dose: 5 mg Famotidine (Pepcid) 20 mg PO DAILY [facility] Last Admin: 11/25/16 09:59 Dose: 20 mg Furosemide (Lasix) 80 mg PO DAILY [facility] Last Admin: 11/25/16 10:00 Dose: 80 mg Gabapentin (Neurontin) 100 mg PO HS [facility] Last Admin: 11/25/16 21:31 Dose: 100 mg Hydralazine HCl (Apresoline) 100 mg PO BID [facility] Last Admin: 11/25/16 17:18 Dose: 100 mg Hydrochlorothiazide (Hydrodiuril) 50 mg PO DAILY [facility] Last Admin: 11/25/16 10:03 Dose: 50 mg Vancomycin HCl 500 mg/ Sodium (Chloride) 100 mls @ 100 mls/hr IVPB MWF [facility] Last Admin: 11/24/16 14:43 Dose: 100 mls/hr Cefepime HCl 1 gm/ Sodium (Chloride) 100 mls @ 100 mls/hr IVPB Q24H [facility] Last Admin: 11/25/16 20:34 Dose: 100 mls/hr Insulin Aspart (Novolog Mix 70/30 (70/30 Units/Ml)) 20 units SC [facility] Last Admin: 11/25/16 21:31 Dose: 20 units Insulin Aspart (Novolog Mix 70/30 (70/30 Units/Ml)) 15 units SC ACB [facility] Last Admin: 11/25/16 08:46 Dose: 15 units Insulin Human Regular (Novolin R) 0 unit SC [facility] PRN Reason: Protocol Last Admin: 11/25/16 21:32 Dose: Not Given Isosorbide Mononitrate (Imdur) 60 mg PO DAILY [facility] Last Admin: 11/25/16 09:59 Dose: 60 mg Ondansetron HCl (Zofran Inj) 4 mg IVP Q4H PRN PRN Reason: Nausea/Vomiting Last Admin: 11/20/16 19:09 Dose: 4 mg Prednisone (Prednisone Tab) 10 mg PO DAILY [facility] Last Admin: 11/25/16 09:59 Dose: 10 mg Rosuvastatin Calcium (Crestor) 10 mg PO [facility] Last Admin: 11/25/16 21:31 Dose: 10 mg Fluticasone/Salmeterol (Advair Diskus 250/50) 1 puff INH RQ12 [facility] Last Admin: 11/26/16 07:23 Dose: Not Given Vitamin B Complex/Vit C/Folic Acid (Nephro-Niranjan) 1 tab PO DAILY [facility] Last Admin: 11/25/16 09:59 Dose: 1 tab - Labs Labs: 11/26/16 06:12 11/26/16 06:12 PT 12.4 SECONDS (9.7-12.2) H 11/19/16 11:38 INR 1.1 11/19/16 11:38 APTT 29 SECONDS (21-34) 11/19/16 11:38 - Constitutional Appears: No Acute Distress - Head Exam Head Exam: ATRAUMATIC, NORMAL INSPECTION, NORMOCEPHALIC - Eye Exam Eye Exam: Normal appearance Pupil Exam: NORMAL ACCOMODATION - ENT Exam ENT Exam: Mucous Membranes Moist - Neck Exam Neck Exam: Normal Inspection - Respiratory Exam Respiratory Exam: Clear to Ausculation Bilateral, NORMAL BREATHING PATTERN. absent: Rales, Rhonchi, Wheezes - Cardiovascular Exam Cardiovascular Exam: REGULAR RHYTHM, +S1, +S2. absent: Gallop, Rubs, Murmur - GI/Abdominal Exam GI & Abdominal Exam: Soft, Normal Bowel Sounds. absent: Guarding, Rigid, Tenderness, Mass, Rebound - Extremities Exam Extremities Exam: Full ROM, Normal Inspection. absent: Calf Tenderness, Pedal Edema - Neurological Exam Neurological Exam: Alert, Awake, CN II-XII Intact, Oriented x3 - Psychiatric Exam Psychiatric exam: Normal Affect, Normal Mood - Skin Skin Exam: Dry, Normal Color, Warm Assessment and Plan - Assessment and Plan (Free Text) Assessment: This is a 66Y F with PMH CAD, COPD, ESRD on HD, HTN, DM, renal mass admitted for 1) Renal cell carcinoma 2) Anemia- stable 3) Leukocytosis 4) A.fib- rate and rhythm controlled 5) ESRD on HD 6) CAD 7) HTN 8) Pneumonia- resolved Plan: - Patient awaiting date for surgical removal of renal cell carcinoma - Patient is able to proceed with surgery per cardiac standpoint- the benefits outweigh the risks - Continue Crestor and Cardizem - Hemodialysis today - Continue to hold Plavix and ASA for positive stool occult - Continue HCTZ, Imdur, Hydralazine and Lasix GI ppx: Pepcid DVT ppx: SCDs Case seen, reviewed and discussed with Dr. Elidia Lott PGY1 <Halina Brenner - Last Filed: 01/05/17 06:16> Objective - Vital Signs/Intake and Output Vital Signs (last 24 hours): Temp Pulse Resp BP Pulse Ox 98.3 F 82 20 179/55 H 99 12/04/16 16:00 12/04/16 16:00 12/04/16 16:00 12/04/16 16:00 12/04/16 16:00 - Labs Labs: 12/02/16 07:05 12/02/16 07:05 PT 12.4 SECONDS (9.7-12.2) H 11/19/16 11:38 INR 1.1 11/19/16 11:38 APTT 29 SECONDS (21-34) 11/19/16 11:38 Assessment and Plan (1) Acute CHF Status: Acute (2) Anemia Status: Acute Attending/Attestation - Attestation I have personally seen and examined this patient.: Yes I have fully participated in the care of the patient.: Yes I have reviewed all pertinent clinical information, including history, physical exam and plan: Yes Notes (Text): 01/05/17 06:16 pt confused at times stable continue bp control
[2016-11-26] MEDS: (Novolin R) Insulin Human Regular 100 units/ml vial SC SCH ×4 (08:02→21:43)
[2016-11-26] MEDS: (Novolog Mix 70/30) Insulin Aspart/Insulin Aspar 100 units/ml SC SCH ×2 (08:23→21:43)
[2016-11-26 09:01] LABS: EOSINOPHIL 1 % (0-4); NEUTROPHIL 87 % (50-75); TOTAL CELLS COUNTED 100
[2016-11-26 09:03] LABS: GIANT PLATELETS PRESENT; LARGE PLATELETS PRESENT
[2016-11-26] MEDS: Multivitamin Vitamin B Complex (Nephro-Vite) Tab PO SCH ×2 (10:00→14:00)
[2016-11-26] MEDS: diltiaZEM 300 mg/24 Hours CD Cap PO SCH ×2 (10:00→14:01)
[2016-11-26] MEDS: Epoetin Alfa Dialysis 20000 UNIT/ML Inj IV SCH (10:01)
--- NOTE | 2016-11-26 12:51 | CP.PCM.PN ---
<Pipe Mottaen H - Last Filed: 11/26/16 12:48> Subjective - Date & Time of Evaluation Date of Evaluation: 11/26/16 Time of Evaluation: 07:40 - Subjective Subjective: PGY2 Medicine Note - Dr. Ld Frederick's Service: Patient seen and examined at bedside this AM. Patient reports right foot pain. She no longer has right flank pain. Patient knows she is to get surgery on her kidney sometime in the near future. Patient denies fever, chills, chest pain, SOB. Objective - Vital Signs/Intake and Output Vital Signs (last 24 hours): Temp Pulse Resp BP Pulse Ox 98.5 F 85 20 160/66 H 100 11/26/16 09:30 11/26/16 09:30 11/26/16 09:30 11/26/16 11:00 11/26/16 09:30 Intake and Output: 11/26/16 11/26/16 06:59 18:59 Intake Total 120 Balance 120 - Medications Medications: Current Medications Acetaminophen (Tylenol 325mg Tab) 650 mg PO Q6 PRN PRN Reason: pain Last Admin: 11/22/16 09:17 Dose: 650 mg Albuterol (Ventolin Hfa 90 Mcg/Actuation (8 G)) 1 puff IH RQID PRN PRN Reason: Wheezing Calcium Acetate (Phoslo) 667 mg PO TIDCC [facility] Last Admin: 11/26/16 08:02 Dose: 667 mg Diltiazem HCl (Cardizem Cd) 300 mg PO DAILY [facility] Last Admin: 11/26/16 10:00 Dose: Not Given Docusate Sodium (Colace) 100 mg PO TID [facility] Last Admin: 11/26/16 10:00 Dose: Not Given Epoetin Lucien (Procrit) 20,000 unit IV MWF [facility] Last Admin: 11/26/16 10:01 Dose: 20,000 unit Escitalopram Oxalate (Lexapro) 5 mg PO DAILY [facility] Last Admin: 11/26/16 10:00 Dose: Not Given Famotidine (Pepcid) 20 mg PO DAILY [facility] Last Admin: 11/25/16 09:59 Dose: 20 mg Furosemide (Lasix) 80 mg PO DAILY [facility] Last Admin: 11/26/16 10:00 Dose: Not Given Gabapentin (Neurontin) 100 mg PO HS [facility] Last Admin: 11/25/16 21:31 Dose: 100 mg Hydralazine HCl (Apresoline) 100 mg PO BID [facility] Last Admin: 11/26/16 10:00 Dose: Not Given Hydrochlorothiazide (Hydrodiuril) 50 mg PO DAILY [facility] Last Admin: 11/26/16 10:00 Dose: Not Given Vancomycin HCl 500 mg/ Sodium (Chloride) 100 mls @ 100 mls/hr IVPB MWF [facility] Last Admin: 11/24/16 14:43 Dose: 100 mls/hr Cefepime HCl 1 gm/ Sodium (Chloride) 100 mls @ 100 mls/hr IVPB Q24H [facility] Last Admin: 11/25/16 20:34 Dose: 100 mls/hr Insulin Aspart (Novolog Mix 70/30 (70/30 Units/Ml)) 20 units SC [facility] Last Admin: 11/25/16 21:31 Dose: 20 units Insulin Aspart (Novolog Mix 70/30 (70/30 Units/Ml)) 15 units SC ACB [facility] Last Admin: 11/26/16 08:23 Dose: Not Given Insulin Human Regular (Novolin R) 0 unit SC [facility] PRN Reason: Protocol Last Admin: 11/26/16 11:30 Dose: Not Given Isosorbide Mononitrate (Imdur) 60 mg PO DAILY [facility] Last Admin: 11/26/16 10:00 Dose: Not Given Ondansetron HCl (Zofran Inj) 4 mg IVP Q4H PRN PRN Reason: Nausea/Vomiting Last Admin: 11/20/16 19:09 Dose: 4 mg Prednisone (Prednisone Tab) 10 mg PO DAILY [facility] Last Admin: 11/25/16 09:59 Dose: 10 mg Rosuvastatin Calcium (Crestor) 10 mg PO [facility] Last Admin: 11/25/16 21:31 Dose: 10 mg Fluticasone/Salmeterol (Advair Diskus 250/50) 1 puff INH RQ12 [facility] Last Admin: 11/26/16 07:23 Dose: Not Given Vitamin B Complex/Vit C/Folic Acid (Nephro-Niranjan) 1 tab PO DAILY [facility] Last Admin: 11/26/16 10:00 Dose: Not Given - Labs Labs: 11/26/16 06:12 11/26/16 06:12 PT 12.4 SECONDS (9.7-12.2) H 11/19/16 11:38 INR 1.1 11/19/16 11:38 APTT 29 SECONDS (21-34) 11/19/16 11:38 - Constitutional Appears: Non-toxic, No Acute Distress, Confused - Head Exam Head Exam: NORMAL INSPECTION - Eye Exam Eye Exam: EOMI - ENT Exam ENT Exam: Mucous Membranes Moist - Respiratory Exam Respiratory Exam: Clear to Ausculation Bilateral, NORMAL BREATHING PATTERN. absent: Rales, Rhonchi, Wheezes - Cardiovascular Exam Cardiovascular Exam: REGULAR RHYTHM, +S1, +S2. absent: Gallop, Rubs, Murmur - GI/Abdominal Exam GI & Abdominal Exam: Soft, Normal Bowel Sounds. absent: Tenderness - Extremities Exam Extremities Exam: absent: Pedal Edema - Neurological Exam Neurological Exam: Alert, Oriented x3 - Psychiatric Exam Psychiatric exam: Normal Affect, Normal Mood - Skin Skin Exam: Normal Color, Warm Assessment and Plan - Assessment and Plan (Free Text) Assessment: Renal Cell Carcinoma Assessment & Plan: 11/26: Patient cleared by cardio for surgery, surgery date pending Dr. Ba's schedule 11/24: Still needs clearance for surgery, surgery date is pending 11/21: Patient will need clearance from cardiology before surgery X:ray today showed no evidence of SBO but did show stool in the colon. Give miralax 17gm twice, consider more if still no bowel movement. 11/20: Patient will most likely need Nephrectomy. 11/14/16 right kidney biopsy - renal cell carcinoma Oncology consult - Dr. Leonardo- help appreciated Per Dr. Leonardo, best course of action is handling hematoma and then excision of renal mass if urology agrees Urology consult - Dr. Ba - f/u recommendations Anemia Assessment & Plan: 11/26: Hgb 9.2, monitor 11/24: Hbg today is 8.0, consider tranfusion if it continues to drop before surgery 11/21: Stool heme occult positive. Dr. Caraballo consulted, Hbg today is 8.1, follow up iron studies tomorrow morning 11/20: Hbg is today at around 8.8, continue to monitor. Likely secondary to renal hematoma at site of biopsy Hgb 7.4 from 6.4 yesterday s/p 1unit pRBCs 1 unit transfusion today percent saturation and ferritin and reticulocyte count normal F/U stool OB Leukocyotsis Assessment & Plan: Likely secondary to steroids v. infection Afebrile UA and urine culture contaminated Hyperkalemia Assessment & Plan: On dialysis Leg pain, right Assessment & Plan: swelling improved continue current management X ray shows soft tissue swelling, doppler negative for any evidence of DVT. Will given Tylenol for pain as needed. Status: Acute Pneumonia Assessment & Plan 11/26: Continue Cefepime and Vanco ID following - Dr. Bradshaw - help appreciated 11/19: Day 8 of Zithromax and Rocephin, WBC is still high 11/13: day 2 of Zithromax and Rocephin, fever, chest pain, or cough. She does have a WBC of 16.7 today with left shift, continue to monitor WBC at 19.8 with a left shift. CXR - moderate venous congestion. bilateral hilar prominence. Bibasilar airspace opacities. small b/l pleural effusions. Upper lobe granulomatous changes. Started zithromax 500mg IVPB daily and rocephin 1gm IVPB daily 11/12/16 Status: Acute IDDM (insulin dependent diabetes mellitus) Assessment & Plan: Patient on 70/30 Novolog 15 units at night and 10 units ACB. Sliding scale insulin with medium protocol and accuchecks. Status: Acute COPD (chronic obstructive pulmonary disease) Assessment & Plan: Albuterol prn and Advair. Status: Chronic CAD (coronary artery disease) Assessment & Plan: Crestor 10mg, Aspirin 81mg, and Plavix 75mg Status: Chronic Atrial fibrillation Status: Chronic 11/26: Continue Cardizem Cardio following - Dr. Brenner - help appreciated 11/19: continue Cardizem Hep, Plavix and ASA stopped secondary to renal hematoma 11/18:continue Cardizem, Hep, Plavix and ASA 11/17: Today was in Rapid afib with RVR, she is on 300mg of Cardizem. Patient transferred to tele and cardiology, Dr. Brenner is consulted, help appreciated. Patient is on Aspirin and Plavix. Hep 5000U SC Q8 prophylaxis HR constrolled No anticoagulation besides Plavix and ASA ESRD on dialysis Assessment & Plan: Dialysis MWF Status: Chronic CHF (congestive heart failure) Assessment & Plan: Lasix 80mg PO daily. Status: Acute HTN (hypertension) Assessment & Plan: Cardizem 300mg daily, Imdur 60mg daily, Hydralazine 100mg TID Status: Chronic Prophylactic measure Assessment & Plan: Pepcid 20mg 0.25mg Xanax prn for anxiety tylenol 650mg Q6H prn for pain <Kitty Frederickиринаleonard S - Last Filed: 11/27/16 19:26> Objective - Vital Signs/Intake and Output Vital Signs (last 24 hours): Temp Pulse Resp BP Pulse Ox 98.3 F 90 20 164/60 H 100 11/27/16 16:49 11/27/16 16:49 11/27/16 16:49 11/27/16 16:49 11/27/16 16:49 Intake and Output: 11/27/16 11/28/16 18:59 06:59 Intake Total 680 Balance 680 - Medications Medications: Current Medications Acetaminophen (Tylenol 325mg Tab) 650 mg PO Q6 PRN PRN Reason: pain Last Admin: 11/22/16 09:17 Dose: 650 mg Albuterol (Ventolin Hfa 90 Mcg/Actuation (8 G)) 1 puff IH RQID PRN PRN Reason: Wheezing Calcium Acetate (Phoslo) 667 mg PO TIDCC [facility] Last Admin: 11/27/16 17:22 Dose: 667 mg Diltiazem HCl (Cardizem Cd) 300 mg PO DAILY [facility] Last Admin: 11/27/16 11:00 Dose: 300 mg Docusate Sodium (Colace) 100 mg PO TID [facility] Last Admin: 11/27/16 17:22 Dose: 100 mg Epoetin Lucien (Procrit) 20,000 unit IV MWF [facility] Last Admin: 11/26/16 10:01 Dose: 20,000 unit Escitalopram Oxalate (Lexapro) 5 mg PO DAILY [facility] Last Admin: 11/27/16 11:00 Dose: 5 mg Famotidine (Pepcid) 20 mg PO DAILY [facility] Last Admin: 11/27/16 11:00 Dose: 20 mg Furosemide (Lasix) 80 mg PO DAILY [facility] Last Admin: 11/27/16 11:00 Dose: 80 mg Gabapentin (Neurontin) 100 mg PO HS [facility] Last Admin: 11/26/16 21:43 Dose: Not Given Hydralazine HCl (Apresoline) 100 mg PO BID [facility] Last Admin: 11/27/16 17:22 Dose: 100 mg Hydrochlorothiazide (Hydrodiuril) 50 mg PO DAILY [facility] Last Admin: 11/27/16 11:00 Dose: 50 mg Vancomycin HCl 500 mg/ Sodium (Chloride) 100 mls @ 100 mls/hr IVPB MWF [facility] Last Admin: 11/26/16 14:12 Dose: 100 mls/hr Cefepime HCl 1 gm/ Sodium (Chloride) 100 mls @ 100 mls/hr IVPB Q24H [facility] Last Admin: 11/26/16 21:42 Dose: 100 mls/hr Insulin Aspart (Novolog Mix 70/30 (70/30 Units/Ml)) 20 units SC HS [facility] Last Admin: 11/26/16 21:43 Dose: Not Given Insulin Aspart (Novolog Mix 70/30 (70/30 Units/Ml)) 15 units SC ACB [facility] Last Admin: 11/27/16 08:30 Dose: Not Given Insulin Human Regular (Novolin R) 0 unit SC ACHS [facility] PRN Reason: Protocol Last Admin: 11/27/16 17:22 Dose: 4 unit Isosorbide Mononitrate (Imdur) 60 mg PO DAILY [facility] Last Admin: 11/27/16 11:00 Dose: 60 mg Ondansetron HCl (Zofran Inj) 4 mg IVP Q4H PRN PRN Reason: Nausea/Vomiting Last Admin: 11/20/16 19:09 Dose: 4 mg Prednisone (Prednisone Tab) 10 mg PO DAILY [facility] Last Admin: 11/27/16 11:00 Dose: 10 mg Rosuvastatin Calcium (Crestor) 10 mg PO HS [facility] Last Admin: 11/26/16 21:42 Dose: Not Given Fluticasone/Salmeterol (Advair Diskus 250/50) 1 puff INH RQ12 [facility] Last Admin: 11/27/16 08:00 Dose: 1 puff Vitamin B Complex/Vit C/Folic Acid (Nephro-Niranjan) 1 tab PO DAILY [facility] Last Admin: 11/27/16 11:00 Dose: 1 tab - Labs Labs: 11/27/16 06:06 11/27/16 06:06 PT 12.4 SECONDS (9.7-12.2) H 11/19/16 11:38 INR 1.1 11/19/16 11:38 APTT 29 SECONDS (21-34) 11/19/16 11:38 Assessment and Plan (1) Acute systolic CHF (congestive heart failure) Status: Acute (2) Hyperkalemia Status: Acute (3) IDDM (insulin dependent diabetes mellitus) Status: Acute (4) Prophylactic measure Status: Acute (5) Pulmonary arterial hypertension Status: Acute (6) Respiratory distress Status: Acute (7) CRF (chronic renal failure) Status: Chronic (8) ESRD on dialysis Status: Acute (9) Pneumonia Status: Suspected Attending/Attestation - Attestation I have personally seen and examined this patient.: Yes I have fully participated in the care of the patient.: Yes I have reviewed all pertinent clinical information, including history, physical exam and plan: Yes Notes (Text): 11/26/16 19:26 case seen and discussed with staff and resident
--- NOTE | 2016-11-26 18:06 | CP.PCM.PN ---
Subjective - Date & Time of Evaluation Date of Evaluation: 11/26/16 Time of Evaluation: 08:00 - Subjective Subjective: AWAITING OR LEUKOCYTOSIS PERSISTS ON LOW DOSE PREDNISONE CONT D/C ANTIBIOTICS- FIRST VANCO OBSERVE FOR FEVER Objective - Vital Signs/Intake and Output Vital Signs (last 24 hours): Temp Pulse Resp BP Pulse Ox 97.9 F 93 H 20 173/75 H 97 11/26/16 15:27 11/26/16 15:48 11/26/16 15:27 11/26/16 15:27 11/26/16 15:27 Intake and Output: 11/26/16 11/26/16 06:59 18:59 Intake Total 120 Balance 120 - Medications Medications: Current Medications Acetaminophen (Tylenol 325mg Tab) 650 mg PO Q6 PRN PRN Reason: pain Last Admin: 11/22/16 09:17 Dose: 650 mg Albuterol (Ventolin Hfa 90 Mcg/Actuation (8 G)) 1 puff IH RQID PRN PRN Reason: Wheezing Calcium Acetate (Phoslo) 667 mg PO TIDCC [facility] Last Admin: 11/26/16 17:45 Dose: 667 mg Diltiazem HCl (Cardizem Cd) 300 mg PO DAILY [facility] Last Admin: 11/26/16 14:01 Dose: 300 mg Docusate Sodium (Colace) 100 mg PO TID [facility] Last Admin: 11/26/16 17:46 Dose: 100 mg Epoetin Lucien (Procrit) 20,000 unit IV MWF [facility] Last Admin: 11/26/16 10:01 Dose: 20,000 unit Escitalopram Oxalate (Lexapro) 5 mg PO DAILY [facility] Last Admin: 11/26/16 13:58 Dose: 5 mg Famotidine (Pepcid) 20 mg PO DAILY [facility] Last Admin: 11/26/16 14:01 Dose: 20 mg Furosemide (Lasix) 80 mg PO DAILY [facility] Last Admin: 11/26/16 13:59 Dose: 80 mg Gabapentin (Neurontin) 100 mg PO HS [facility] Last Admin: 11/25/16 21:31 Dose: 100 mg Hydralazine HCl (Apresoline) 100 mg PO BID [facility] Last Admin: 11/26/16 17:45 Dose: 100 mg Hydrochlorothiazide (Hydrodiuril) 50 mg PO DAILY [facility] Last Admin: 11/26/16 14:00 Dose: 50 mg Vancomycin HCl 500 mg/ Sodium (Chloride) 100 mls @ 100 mls/hr IVPB MWF [facility] Last Admin: 11/26/16 14:12 Dose: 100 mls/hr Cefepime HCl 1 gm/ Sodium (Chloride) 100 mls @ 100 mls/hr IVPB Q24H [facility] Last Admin: 11/25/16 20:34 Dose: 100 mls/hr Insulin Aspart (Novolog Mix 70/30 (70/30 Units/Ml)) 20 units SC HS [facility] Last Admin: 11/25/16 21:31 Dose: 20 units Insulin Aspart (Novolog Mix 70/30 (70/30 Units/Ml)) 15 units SC ACB [facility] Last Admin: 11/26/16 08:23 Dose: Not Given Insulin Human Regular (Novolin R) 0 unit SC ACHS [facility] PRN Reason: Protocol Last Admin: 11/26/16 17:46 Dose: Not Given Isosorbide Mononitrate (Imdur) 60 mg PO DAILY [facility] Last Admin: 11/26/16 14:00 Dose: 60 mg Ondansetron HCl (Zofran Inj) 4 mg IVP Q4H PRN PRN Reason: Nausea/Vomiting Last Admin: 11/20/16 19:09 Dose: 4 mg Prednisone (Prednisone Tab) 10 mg PO DAILY [facility] Last Admin: 11/26/16 13:59 Dose: 10 mg Rosuvastatin Calcium (Crestor) 10 mg PO HS [facility] Last Admin: 11/25/16 21:31 Dose: 10 mg Fluticasone/Salmeterol (Advair Diskus 250/50) 1 puff INH RQ12 [facility] Last Admin: 11/26/16 07:23 Dose: Not Given Vitamin B Complex/Vit C/Folic Acid (Nephro-Niranjan) 1 tab PO DAILY [facility] Last Admin: 11/26/16 14:00 Dose: 1 tab - Labs Labs: 11/26/16 06:12 11/26/16 06:12 PT 12.4 SECONDS (9.7-12.2) H 11/19/16 11:38 INR 1.1 11/19/16 11:38 APTT 29 SECONDS (21-34) 11/19/16 11:38 - Constitutional Appears: Non-toxic, Cachectic, Chronically Ill - Head Exam Head Exam: NORMOCEPHALIC - Eye Exam Eye Exam: absent: Scleral icterus - ENT Exam ENT Exam: Mucous Membranes Dry - Neck Exam Neck Exam: absent: Lymphadenopathy - Respiratory Exam Respiratory Exam: Decreased Breath Sounds, Clear to Ausculation Bilateral - Cardiovascular Exam Cardiovascular Exam: REGULAR RHYTHM, +S1, +S2 - GI/Abdominal Exam GI & Abdominal Exam: Distended, Soft. absent: Tenderness - Rectal Exam Rectal Exam: Deferred - Exam Exam: NORMAL INSPECTION Assessment and Plan (1) Acute systolic CHF (congestive heart failure) Status: Acute (2) Anemia Status: Acute (3) Asthma attack Status: Acute (4) Atrial fibrillation with rapid ventricular response Status: Acute (5) IDDM (insulin dependent diabetes mellitus) Status: Acute (6) Renal mass Status: Acute
--- NOTE | 2016-11-26 18:30 | CP.PCM.PN ---
Subjective - Date & Time of Evaluation Date of Evaluation: 11/26/16 Time of Evaluation: 11:40 - Subjective Subjective: clinically same Objective - Vital Signs/Intake and Output Vital Signs (last 24 hours): Temp Pulse Resp BP Pulse Ox 97.9 F 93 H 20 173/75 H 97 11/26/16 15:27 11/26/16 15:48 11/26/16 15:27 11/26/16 15:27 11/26/16 15:27 Intake and Output: 11/26/16 11/26/16 06:59 18:59 Intake Total 120 Balance 120 - Medications Medications: Current Medications Acetaminophen (Tylenol 325mg Tab) 650 mg PO Q6 PRN PRN Reason: pain Last Admin: 11/22/16 09:17 Dose: 650 mg Albuterol (Ventolin Hfa 90 Mcg/Actuation (8 G)) 1 puff IH RQID PRN PRN Reason: Wheezing Calcium Acetate (Phoslo) 667 mg PO TIDCC [facility] Last Admin: 11/26/16 17:45 Dose: 667 mg Diltiazem HCl (Cardizem Cd) 300 mg PO DAILY [facility] Last Admin: 11/26/16 14:01 Dose: 300 mg Docusate Sodium (Colace) 100 mg PO TID [facility] Last Admin: 11/26/16 17:46 Dose: 100 mg Epoetin Lucien (Procrit) 20,000 unit IV MWF [facility] Last Admin: 11/26/16 10:01 Dose: 20,000 unit Escitalopram Oxalate (Lexapro) 5 mg PO DAILY [facility] Last Admin: 11/26/16 13:58 Dose: 5 mg Famotidine (Pepcid) 20 mg PO DAILY [facility] Last Admin: 11/26/16 14:01 Dose: 20 mg Furosemide (Lasix) 80 mg PO DAILY [facility] Last Admin: 11/26/16 13:59 Dose: 80 mg Gabapentin (Neurontin) 100 mg PO HS [facility] Last Admin: 11/25/16 21:31 Dose: 100 mg Hydralazine HCl (Apresoline) 100 mg PO BID [facility] Last Admin: 11/26/16 17:45 Dose: 100 mg Hydrochlorothiazide (Hydrodiuril) 50 mg PO DAILY [facility] Last Admin: 11/26/16 14:00 Dose: 50 mg Vancomycin HCl 500 mg/ Sodium (Chloride) 100 mls @ 100 mls/hr IVPB MWF [facility] Last Admin: 11/26/16 14:12 Dose: 100 mls/hr Cefepime HCl 1 gm/ Sodium (Chloride) 100 mls @ 100 mls/hr IVPB Q24H [facility] Last Admin: 11/25/16 20:34 Dose: 100 mls/hr Insulin Aspart (Novolog Mix 70/30 (70/30 Units/Ml)) 20 units SC HS [facility] Last Admin: 11/25/16 21:31 Dose: 20 units Insulin Aspart (Novolog Mix 70/30 (70/30 Units/Ml)) 15 units SC ACB [facility] Last Admin: 11/26/16 08:23 Dose: Not Given Insulin Human Regular (Novolin R) 0 unit SC ACHS [facility] PRN Reason: Protocol Last Admin: 11/26/16 17:46 Dose: Not Given Isosorbide Mononitrate (Imdur) 60 mg PO DAILY [facility] Last Admin: 11/26/16 14:00 Dose: 60 mg Ondansetron HCl (Zofran Inj) 4 mg IVP Q4H PRN PRN Reason: Nausea/Vomiting Last Admin: 11/20/16 19:09 Dose: 4 mg Prednisone (Prednisone Tab) 10 mg PO DAILY [facility] Last Admin: 11/26/16 13:59 Dose: 10 mg Rosuvastatin Calcium (Crestor) 10 mg PO [facility] Last Admin: 11/25/16 21:31 Dose: 10 mg Fluticasone/Salmeterol (Advair Diskus 250/50) 1 puff INH RQ12 [facility] Last Admin: 11/26/16 07:23 Dose: Not Given Vitamin B Complex/Vit C/Folic Acid (Nephro-Niranjan) 1 tab PO DAILY [facility] Last Admin: 11/26/16 14:00 Dose: 1 tab - Labs Labs: 11/26/16 06:12 11/26/16 06:12 PT 12.4 SECONDS (9.7-12.2) H 11/19/16 11:38 INR 1.1 11/19/16 11:38 APTT 29 SECONDS (21-34) 11/19/16 11:38 - Constitutional Appears: Well - Head Exam Head Exam: ATRAUMATIC, NORMAL INSPECTION, NORMOCEPHALIC - Eye Exam Eye Exam: EOMI, Normal appearance, PERRL Pupil Exam: NORMAL ACCOMODATION, PERRL - ENT Exam ENT Exam: Mucous Membranes Moist, Normal Exam - Neck Exam Neck Exam: Full ROM, Normal Inspection. absent: Lymphadenopathy - Respiratory Exam Respiratory Exam: Decreased Breath Sounds - Cardiovascular Exam Cardiovascular Exam: REGULAR RHYTHM, +S1, +S2 - GI/Abdominal Exam GI & Abdominal Exam: Soft, Diminished Bowel Sounds - Rectal Exam Rectal Exam: Deferred Assessment and Plan (1) CRF (chronic renal failure) Status: Chronic (2) Hyperkalemia Status: Acute (3) ESRD on dialysis Status: Acute (4) Pneumonia Status: Suspected (5) Acute systolic CHF (congestive heart failure) Status: Acute (6) Respiratory distress Status: Acute (7) Prophylactic measure Status: Acute (8) IDDM (insulin dependent diabetes mellitus) Status: Acute (9) Pulmonary arterial hypertension Status: Acute - Assessment and Plan (Free Text) Plan: Continue antibiotics Surgery for renal cell carcinoma Prednisone Vitals monitoring
[2016-11-26] MEDS: Cefepime 1 GM in Sodium Chloride 0.9% 100 ML IVPB SCH (21:42)
[2016-11-27 06:26] LABS: BASO # 0.1 K/uL (0.0-0.2); BASO % 0.3 % (0.0-2.0); EOS # 0.1 K/uL (0.0-0.7); EOS % 0.5 % (0.0-4.0); HEMATOCRIT 28.5 % (34.0-47.0); LYMPH # 1.4 K/uL (1.0-4.3); LYMPH % 5.5 % (20.0-40.0); MEAN CELL VOLUME 91.2 fL (81.0-99.0); MEAN CORPUSCULAR HEMOGLOBIN 29.7 pg (27.0-31.0); MEAN CORPUSCULAR HGB CONC 32.6 g/dL (33.0-37.0); MONO # 2.2 K/uL (0.0-0.8); MONO % 8.9 % (0.0-10.0); NRBC % 0.4 % (0.0-2.0); PLATELET COUNT 259 K/uL (130-400); RED CELL DISTRIBUTION WIDTH 17.4 % (11.5-14.5); WHITE BLOOD COUNT 24.4 K/uL (4.8-10.8)
[2016-11-27 06:48] LABS: POTASSIUM 4.8 mmol/L (3.6-5.2)
[2016-11-27 06:50] LABS: BILIRUBIN,TOTAL 0.8 mg/dL (0.2-1.3); TOTAL PROTEIN 7.1 g/dL (6.3-8.3)
[2016-11-27 06:51] LABS: CALCIUM 8.8 mg/dl (8.6-10.4)
[2016-11-27] MEDS: Fluticasone-Salmeterol 250-50mcg Diskus INH SCH ×2 (08:00→20:18)
[2016-11-27] MEDS: (Novolog Mix 70/30) Insulin Aspart/Insulin Aspar 100 units/ml SC SCH ×2 (08:30→22:02)
[2016-11-27] MEDS: (Novolin R) Insulin Human Regular 100 units/ml vial SC SCH ×4 (08:30→21:51)
[2016-11-27 08:46] LABS: EOSINOPHIL 2 % (0-4); NEUTROPHIL 87 % (50-75); TOTAL CELLS COUNTED 100
--- NOTE | 2016-11-27 10:18 | CP.PCM.PN ---
<Korin Lott - Last Filed: 11/27/16 10:15> Subjective - Date & Time of Evaluation Date of Evaluation: 11/27/16 Time of Evaluation: 08:00 - Subjective Subjective: Cardiology Progress Note for Dr. Brenner Patient seen and examined at bedside. There were no acute overnight events. As per nursing, patient remains confused. The patient denies having any pain, nausea,vomiting, diarrhea, CP, SOB, vision changes, dysuria, hematuria, numbness /tingling. Objective - Vital Signs/Intake and Output Vital Signs (last 24 hours): Temp Pulse Resp BP Pulse Ox 98.1 F 92 H 18 138/86 95 11/27/16 09:00 11/27/16 09:00 11/27/16 09:00 11/27/16 09:00 11/27/16 09:00 Intake and Output: 11/27/16 11/27/16 06:59 18:59 Intake Total 220 Balance 220 - Medications Medications: Current Medications Acetaminophen (Tylenol 325mg Tab) 650 mg PO Q6 PRN PRN Reason: pain Last Admin: 11/22/16 09:17 Dose: 650 mg Albuterol (Ventolin Hfa 90 Mcg/Actuation (8 G)) 1 puff IH RQID PRN PRN Reason: Wheezing Calcium Acetate (Phoslo) 667 mg PO TIDCC [facility] Last Admin: 11/27/16 08:40 Dose: 667 mg Diltiazem HCl (Cardizem Cd) 300 mg PO DAILY [facility] Last Admin: 11/26/16 14:01 Dose: 300 mg Docusate Sodium (Colace) 100 mg PO TID [facility] Last Admin: 11/26/16 17:46 Dose: 100 mg Epoetin Lucien (Procrit) 20,000 unit IV MWF [facility] Last Admin: 11/26/16 10:01 Dose: 20,000 unit Escitalopram Oxalate (Lexapro) 5 mg PO DAILY [facility] Last Admin: 11/26/16 13:58 Dose: 5 mg Famotidine (Pepcid) 20 mg PO DAILY [facility] Last Admin: 11/26/16 14:01 Dose: 20 mg Furosemide (Lasix) 80 mg PO DAILY [facility] Last Admin: 11/26/16 13:59 Dose: 80 mg Gabapentin (Neurontin) 100 mg PO HS [facility] Last Admin: 11/26/16 21:43 Dose: Not Given Hydralazine HCl (Apresoline) 100 mg PO BID [facility] Last Admin: 11/26/16 17:45 Dose: 100 mg Hydrochlorothiazide (Hydrodiuril) 50 mg PO DAILY [facility] Last Admin: 11/26/16 14:00 Dose: 50 mg Vancomycin HCl 500 mg/ Sodium (Chloride) 100 mls @ 100 mls/hr IVPB MWF [facility] Last Admin: 11/26/16 14:12 Dose: 100 mls/hr Cefepime HCl 1 gm/ Sodium (Chloride) 100 mls @ 100 mls/hr IVPB Q24H [facility] Last Admin: 11/26/16 21:42 Dose: 100 mls/hr Insulin Aspart (Novolog Mix 70/30 (70/30 Units/Ml)) 20 units SC HS [facility] Last Admin: 11/26/16 21:43 Dose: Not Given Insulin Aspart (Novolog Mix 70/30 (70/30 Units/Ml)) 15 units SC ACB [facility] Last Admin: 11/27/16 08:30 Dose: Not Given Insulin Human Regular (Novolin R) 0 unit SC ACHS [facility] PRN Reason: Protocol Last Admin: 11/27/16 08:30 Dose: Not Given Isosorbide Mononitrate (Imdur) 60 mg PO DAILY [facility] Last Admin: 11/26/16 14:00 Dose: 60 mg Ondansetron HCl (Zofran Inj) 4 mg IVP Q4H PRN PRN Reason: Nausea/Vomiting Last Admin: 11/20/16 19:09 Dose: 4 mg Prednisone (Prednisone Tab) 10 mg PO DAILY [facility] Last Admin: 11/26/16 13:59 Dose: 10 mg Rosuvastatin Calcium (Crestor) 10 mg PO HS [facility] Last Admin: 11/26/16 21:42 Dose: Not Given Fluticasone/Salmeterol (Advair Diskus 250/50) 1 puff INH RQ12 [facility] Last Admin: 11/27/16 08:00 Dose: 1 puff Vitamin B Complex/Vit C/Folic Acid (Nephro-Niranjan) 1 tab PO DAILY [facility] Last Admin: 11/26/16 14:00 Dose: 1 tab - Labs Labs: 11/27/16 06:06 11/27/16 06:06 PT 12.4 SECONDS (9.7-12.2) H 11/19/16 11:38 INR 1.1 11/19/16 11:38 APTT 29 SECONDS (21-34) 11/19/16 11:38 - Constitutional Appears: No Acute Distress - Head Exam Head Exam: NORMAL INSPECTION, NORMOCEPHALIC - Eye Exam Eye Exam: Normal appearance Pupil Exam: NORMAL ACCOMODATION - ENT Exam ENT Exam: Mucous Membranes Moist - Neck Exam Neck Exam: Full ROM, Normal Inspection - Respiratory Exam Respiratory Exam: Clear to Ausculation Bilateral, NORMAL BREATHING PATTERN. absent: Rales, Rhonchi, Wheezes - Cardiovascular Exam Cardiovascular Exam: REGULAR RHYTHM, +S1, +S2. absent: Gallop, Rubs, Murmur - GI/Abdominal Exam GI & Abdominal Exam: Soft, Normal Bowel Sounds. absent: Rigid, Tenderness, Hernia, Mass, Rebound - Extremities Exam Extremities Exam: Full ROM, Normal Inspection - Neurological Exam Neurological Exam: Alert, Awake, CN II-XII Intact - Psychiatric Exam Psychiatric exam: Normal Affect, Normal Mood - Skin Skin Exam: Dry, Normal Color, Warm Assessment and Plan - Assessment and Plan (Free Text) Assessment: This is a 66Y F with PMH CAD, COPD, ESRD on HD, HTN, DM, renal mass admitted for 1) Renal cell carcinoma 2) Anemia- stable 3) Leukocytosis - increasing 4) A.fib- rate and rhythm controlled 5) ESRD on HD 6) CAD 7) HTN Plan: - Awaiting date for surgical removal of renal cell carcinoma - Patient is able to proceed with surgery per cardiac standpoint- the benefits outweigh the risks - Continue Cardizem, Crestor - Continue to hold Plavix and ASA for positive stool occult - HAS- BLED score of 3 - Continue HCTZ, Imdur, Hydralazine and Lasix GI ppx: Pepcid DVT ppx: SCDs Case seen, reviewed and discussed with Dr. Elidia Lott PGY1 <Halina Brenner - Last Filed: 11/27/16 20:18> Objective - Vital Signs/Intake and Output Vital Signs (last 24 hours): Temp Pulse Resp BP Pulse Ox 98.3 F 90 20 164/60 H 100 11/27/16 16:49 11/27/16 16:49 11/27/16 16:49 11/27/16 16:49 11/27/16 16:49 Intake and Output: 11/27/16 11/28/16 18:59 06:59 Intake Total 680 Balance 680 - Medications Medications: Current Medications Acetaminophen (Tylenol 325mg Tab) 650 mg PO Q6 PRN PRN Reason: pain Last Admin: 11/22/16 09:17 Dose: 650 mg Albuterol (Ventolin Hfa 90 Mcg/Actuation (8 G)) 1 puff IH RQID PRN PRN Reason: Wheezing Calcium Acetate (Phoslo) 667 mg PO TIDCC [facility] Last Admin: 11/27/16 17:22 Dose: 667 mg Diltiazem HCl (Cardizem Cd) 300 mg PO DAILY [facility] Last Admin: 11/27/16 11:00 Dose: 300 mg Docusate Sodium (Colace) 100 mg PO TID [facility] Last Admin: 11/27/16 17:22 Dose: 100 mg Epoetin Lucien (Procrit) 20,000 unit IV MWF [facility] Last Admin: 11/26/16 10:01 Dose: 20,000 unit Escitalopram Oxalate (Lexapro) 5 mg PO DAILY [facility] Last Admin: 11/27/16 11:00 Dose: 5 mg Famotidine (Pepcid) 20 mg PO DAILY [facility] Last Admin: 11/27/16 11:00 Dose: 20 mg Furosemide (Lasix) 80 mg PO DAILY [facility] Last Admin: 11/27/16 11:00 Dose: 80 mg Gabapentin (Neurontin) 100 mg PO [facility] Last Admin: 11/26/16 21:43 Dose: Not Given Hydralazine HCl (Apresoline) 100 mg PO BID [facility] Last Admin: 11/27/16 17:22 Dose: 100 mg Hydrochlorothiazide (Hydrodiuril) 50 mg PO DAILY [facility] Last Admin: 11/27/16 11:00 Dose: 50 mg Vancomycin HCl 500 mg/ Sodium (Chloride) 100 mls @ 100 mls/hr IVPB MWF [facility] Last Admin: 11/26/16 14:12 Dose: 100 mls/hr Cefepime HCl 1 gm/ Sodium (Chloride) 100 mls @ 100 mls/hr IVPB Q24H [facility] Last Admin: 11/26/16 21:42 Dose: 100 mls/hr Insulin Aspart (Novolog Mix 70/30 (70/30 Units/Ml)) 20 units SC HS [facility] Last Admin: 11/26/16 21:43 Dose: Not Given Insulin Aspart (Novolog Mix 70/30 (70/30 Units/Ml)) 15 units SC ACB [facility] Last Admin: 11/27/16 08:30 Dose: Not Given Insulin Human Regular (Novolin R) 0 unit SC ACHS [facility] PRN Reason: Protocol Last Admin: 11/27/16 17:22 Dose: 4 unit Isosorbide Mononitrate (Imdur) 60 mg PO DAILY [facility] Last Admin: 11/27/16 11:00 Dose: 60 mg Ondansetron HCl (Zofran Inj) 4 mg IVP Q4H PRN PRN Reason: Nausea/Vomiting Last Admin: 11/20/16 19:09 Dose: 4 mg Prednisone (Prednisone Tab) 10 mg PO DAILY [facility] Last Admin: 11/27/16 11:00 Dose: 10 mg Rosuvastatin Calcium (Crestor) 10 mg PO HS [facility] Last Admin: 11/26/16 21:42 Dose: Not Given Fluticasone/Salmeterol (Advair Diskus 250/50) 1 puff INH RQ12 [facility] Last Admin: 11/27/16 08:00 Dose: 1 puff Vitamin B Complex/Vit C/Folic Acid (Nephro-Niranjan) 1 tab PO DAILY [facility] Last Admin: 11/27/16 11:00 Dose: 1 tab - Labs Labs: 11/27/16 06:06 11/27/16 06:06 PT 12.4 SECONDS (9.7-12.2) H 11/19/16 11:38 INR 1.1 11/19/16 11:38 APTT 29 SECONDS (21-34) 11/19/16 11:38 Attending/Attestation - Attestation I have personally seen and examined this patient.: Yes I have fully participated in the care of the patient.: Yes I have reviewed all pertinent clinical information, including history, physical exam and plan: Yes Notes (Text): 11/27/16 20:17 Pt without complaints bp better control continue meds follow H/H
--- NOTE | 2016-11-27 10:30 | CP.PCM.PN ---
<DeltaMac H - Last Filed: 11/27/16 19:23> Subjective - Date & Time of Evaluation Date of Evaluation: 11/27/16 Time of Evaluation: 10:00 - Subjective Subjective: Dr. Ciaran Frederick service: Patient is seen and examined in room. She is comfortable but is still complaining of pain but no fever or chills. She is also denying shortness of breath, chest pain, nausea, vomiting, or diarrhea. Objective - Vital Signs/Intake and Output Vital Signs (last 24 hours): Temp Pulse Resp BP Pulse Ox 98.1 F 92 H 18 138/86 95 11/27/16 09:00 11/27/16 09:00 11/27/16 09:00 11/27/16 09:00 11/27/16 09:00 Intake and Output: 11/27/16 11/27/16 06:59 18:59 Intake Total 220 Balance 220 - Medications Medications: Current Medications Acetaminophen (Tylenol 325mg Tab) 650 mg PO Q6 PRN PRN Reason: pain Last Admin: 11/22/16 09:17 Dose: 650 mg Albuterol (Ventolin Hfa 90 Mcg/Actuation (8 G)) 1 puff IH RQID PRN PRN Reason: Wheezing Calcium Acetate (Phoslo) 667 mg PO TIDCC [facility] Last Admin: 11/27/16 08:40 Dose: 667 mg Diltiazem HCl (Cardizem Cd) 300 mg PO DAILY [facility] Last Admin: 11/26/16 14:01 Dose: 300 mg Docusate Sodium (Colace) 100 mg PO TID [facility] Last Admin: 11/26/16 17:46 Dose: 100 mg Epoetin Lucien (Procrit) 20,000 unit IV MWF [facility] Last Admin: 11/26/16 10:01 Dose: 20,000 unit Escitalopram Oxalate (Lexapro) 5 mg PO DAILY [facility] Last Admin: 11/26/16 13:58 Dose: 5 mg Famotidine (Pepcid) 20 mg PO DAILY [facility] Last Admin: 11/26/16 14:01 Dose: 20 mg Furosemide (Lasix) 80 mg PO DAILY [facility] Last Admin: 11/26/16 13:59 Dose: 80 mg Gabapentin (Neurontin) 100 mg PO HS [facility] Last Admin: 11/26/16 21:43 Dose: Not Given Hydralazine HCl (Apresoline) 100 mg PO BID [facility] Last Admin: 11/26/16 17:45 Dose: 100 mg Hydrochlorothiazide (Hydrodiuril) 50 mg PO DAILY [facility] Last Admin: 11/26/16 14:00 Dose: 50 mg Vancomycin HCl 500 mg/ Sodium (Chloride) 100 mls @ 100 mls/hr IVPB MWF [facility] Last Admin: 11/26/16 14:12 Dose: 100 mls/hr Cefepime HCl 1 gm/ Sodium (Chloride) 100 mls @ 100 mls/hr IVPB Q24H [facility] Last Admin: 11/26/16 21:42 Dose: 100 mls/hr Insulin Aspart (Novolog Mix 70/30 (70/30 Units/Ml)) 20 units SC [facility] Last Admin: 11/26/16 21:43 Dose: Not Given Insulin Aspart (Novolog Mix 70/30 (70/30 Units/Ml)) 15 units SC ACB [facility] Last Admin: 11/27/16 08:30 Dose: Not Given Insulin Human Regular (Novolin R) 0 unit SC [facility] PRN Reason: Protocol Last Admin: 11/27/16 08:30 Dose: Not Given Isosorbide Mononitrate (Imdur) 60 mg PO DAILY [facility] Last Admin: 11/26/16 14:00 Dose: 60 mg Ondansetron HCl (Zofran Inj) 4 mg IVP Q4H PRN PRN Reason: Nausea/Vomiting Last Admin: 11/20/16 19:09 Dose: 4 mg Prednisone (Prednisone Tab) 10 mg PO DAILY [facility] Last Admin: 11/26/16 13:59 Dose: 10 mg Rosuvastatin Calcium (Crestor) 10 mg PO [facility] Last Admin: 11/26/16 21:42 Dose: Not Given Fluticasone/Salmeterol (Advair Diskus 250/50) 1 puff INH RQ12 [facility] Last Admin: 11/27/16 08:00 Dose: 1 puff Vitamin B Complex/Vit C/Folic Acid (Nephro-Niranjan) 1 tab PO DAILY [facility] Last Admin: 11/26/16 14:00 Dose: 1 tab - Labs Labs: 11/27/16 06:06 11/27/16 06:06 PT 12.4 SECONDS (9.7-12.2) H 11/19/16 11:38 INR 1.1 11/19/16 11:38 APTT 29 SECONDS (21-34) 11/19/16 11:38 - Constitutional Appears: Confused - Head Exam Head Exam: NORMAL INSPECTION - Eye Exam Eye Exam: Normal appearance, PERRL. absent: Scleral icterus Pupil Exam: NORMAL ACCOMODATION - Respiratory Exam Respiratory Exam: Clear to Ausculation Bilateral, NORMAL BREATHING PATTERN. absent: Rhonchi, Wheezes - Cardiovascular Exam Cardiovascular Exam: REGULAR RHYTHM, RRR, +S1, +S2. absent: Gallop, Rubs - GI/Abdominal Exam GI & Abdominal Exam: Soft, Tenderness, Normal Bowel Sounds - Extremities Exam Extremities Exam: Normal Inspection. absent: Pedal Edema - Psychiatric Exam Psychiatric exam: Normal Affect, Normal Mood - Skin Skin Exam: Normal Color Assessment and Plan - Assessment and Plan (Free Text) Assessment: Assessment & Plan: 11/27: Patient will either need to be scheduled for surgery or discharged. 11/26: Patient cleared by cardio for surgery, surgery date pending Dr. Ba's schedule 11/24: Still needs clearance for surgery, surgery date is pending 11/21: Patient will need clearance from cardiology before surgery X:ray today showed no evidence of SBO but did show stool in the colon. Give miralax 17gm twice, consider more if still no bowel movement. 11/20: Patient will most likely need Nephrectomy. 11/14/16 right kidney biopsy - renal cell carcinoma Oncology consult - Dr. Leonardo- help appreciated Per Dr. Leonardo, best course of action is handling hematoma and then excision of renal mass if urology agrees Urology consult - Dr. Ba - f/u recommendations Anemia Assessment & Plan: 11/26: Hgb 9.2, monitor 11/24: Hbg today is 8.0, consider tranfusion if it continues to drop before surgery 11/21: Stool heme occult positive. Dr. Caraballo consulted, Hbg today is 8.1, follow up iron studies tomorrow morning 11/20: Hbg is today at around 8.8, continue to monitor. Likely secondary to renal hematoma at site of biopsy Hgb 7.4 from 6.4 yesterday s/p 1unit pRBCs 1 unit transfusion today percent saturation and ferritin and reticulocyte count normal F/U stool OB Leukocyotsis Assessment & Plan: 11/27: Still going up, will need to monitor for signs of infection Likely secondary to steroids v. infection Afebrile UA and urine culture contaminated Hyperkalemia Assessment & Plan: On dialysis Leg pain, right Assessment & Plan: swelling improved continue current management X ray shows soft tissue swelling, doppler negative for any evidence of DVT. Will given Tylenol for pain as needed. Status: Acute Pneumonia Assessment & Plan 11/26: Continue Cefepime and Vanco ID following - Dr. Bradshaw - help appreciated 11/19: Day 8 of Zithromax and Rocephin, WBC is still high 11/13: day 2 of Zithromax and Rocephin, fever, chest pain, or cough. She does have a WBC of 16.7 today with left shift, continue to monitor WBC at 19.8 with a left shift. CXR - moderate venous congestion. bilateral hilar prominence. Bibasilar airspace opacities. small b/l pleural effusions. Upper lobe granulomatous changes. Started zithromax 500mg IVPB daily and rocephin 1gm IVPB daily 11/12/16 Status: Acute IDDM (insulin dependent diabetes mellitus) Assessment & Plan: Patient on 70/30 Novolog 15 units at night and 10 units ACB. Sliding scale insulin with medium protocol and accuchecks. Status: Acute COPD (chronic obstructive pulmonary disease) Assessment & Plan: Albuterol prn and Advair. Status: Chronic CAD (coronary artery disease) Assessment & Plan: Crestor 10mg, Aspirin 81mg, and Plavix 75mg Status: Chronic Atrial fibrillation Status: Chronic 11/26: Continue Cardizem Cardio following - Dr. Brenner - help appreciated 11/19: continue Cardizem Hep, Plavix and ASA stopped secondary to renal hematoma 11/18:continue Cardizem, Hep, Plavix and ASA 11/17: Today was in Rapid afib with RVR, she is on 300mg of Cardizem. Patient transferred to [facility] and cardiology, Dr. Brenner is consulted, help appreciated. Patient is on Aspirin and Plavix. Hep 5000U SC Q8 prophylaxis HR constrolled No anticoagulation besides Plavix and ASA ESRD on dialysis Assessment & Plan: Dialysis MWF Status: Chronic CHF (congestive heart failure) Assessment & Plan: Lasix 80mg PO daily. Status: Acute HTN (hypertension) Assessment & Plan: Cardizem 300mg daily, Imdur 60mg daily, Hydralazine 100mg TID Status: Chronic Prophylactic measure Assessment & Plan: Pepcid 20mg 0.25mg Xanax prn for anxiety tylenol 650mg Q6H prn for pain <Haydee Frederick - Last Filed: 11/28/16 00:19> Objective - Vital Signs/Intake and Output Vital Signs (last 24 hours): Temp Pulse Resp BP Pulse Ox 98.3 F 90 20 164/60 H 100 11/27/16 16:49 11/27/16 16:49 11/27/16 16:49 11/27/16 16:49 11/27/16 16:49 Intake and Output: 11/27/16 11/28/16 18:59 06:59 Intake Total 680 580 Balance 680 580 - Medications Medications: Current Medications Acetaminophen (Tylenol 325mg Tab) 650 mg PO Q6 PRN PRN Reason: pain Last Admin: 11/22/16 09:17 Dose: 650 mg Albuterol (Ventolin Hfa 90 Mcg/Actuation (8 G)) 1 puff IH RQID PRN PRN Reason: Wheezing Calcium Acetate (Phoslo) 667 mg PO TIDCC [facility] Last Admin: 11/27/16 17:22 Dose: 667 mg Diltiazem HCl (Cardizem Cd) 300 mg PO DAILY [facility] Last Admin: 11/27/16 11:00 Dose: 300 mg Docusate Sodium (Colace) 100 mg PO TID [facility] Last Admin: 11/27/16 17:22 Dose: 100 mg Epoetin Lucien (Procrit) 20,000 unit IV MWF [facility] Last Admin: 11/26/16 10:01 Dose: 20,000 unit Escitalopram Oxalate (Lexapro) 5 mg PO DAILY [facility] Last Admin: 11/27/16 11:00 Dose: 5 mg Famotidine (Pepcid) 20 mg PO DAILY [facility] Last Admin: 11/27/16 11:00 Dose: 20 mg Furosemide (Lasix) 80 mg PO DAILY [facility] Last Admin: 11/27/16 11:00 Dose: 80 mg Gabapentin (Neurontin) 100 mg PO HS [facility] Last Admin: 11/27/16 22:02 Dose: 100 mg Hydralazine HCl (Apresoline) 100 mg PO BID [facility] Last Admin: 11/27/16 17:22 Dose: 100 mg Hydrochlorothiazide (Hydrodiuril) 50 mg PO DAILY [facility] Last Admin: 11/27/16 11:00 Dose: 50 mg Vancomycin HCl 500 mg/ Sodium (Chloride) 100 mls @ 100 mls/hr IVPB MWF [facility] Last Admin: 11/26/16 14:12 Dose: 100 mls/hr Cefepime HCl 1 gm/ Sodium (Chloride) 100 mls @ 100 mls/hr IVPB Q24H [facility] Last Admin: 11/27/16 20:31 Dose: 100 mls/hr Insulin Aspart (Novolog Mix 70/30 (70/30 Units/Ml)) 20 units SC HS [facility] Last Admin: 11/27/16 22:02 Dose: 20 units Insulin Aspart (Novolog Mix 70/30 (70/30 Units/Ml)) 15 units SC ACB [facility] Last Admin: 11/27/16 08:30 Dose: Not Given Insulin Human Regular (Novolin R) 0 unit SC ACHS [facility] PRN Reason: Protocol Last Admin: 11/27/16 21:51 Dose: Not Given Isosorbide Mononitrate (Imdur) 60 mg PO DAILY [facility] Last Admin: 11/27/16 11:00 Dose: 60 mg Ondansetron HCl (Zofran Inj) 4 mg IVP Q4H PRN PRN Reason: Nausea/Vomiting Last Admin: 11/20/16 19:09 Dose: 4 mg Prednisone (Prednisone Tab) 10 mg PO DAILY [facility] Last Admin: 11/27/16 11:00 Dose: 10 mg Rosuvastatin Calcium (Crestor) 10 mg PO HS [facility] Last Admin: 11/27/16 22:02 Dose: 10 mg Fluticasone/Salmeterol (Advair Diskus 250/50) 1 puff INH RQ12 [facility] Last Admin: 11/27/16 20:18 Dose: Not Given Vitamin B Complex/Vit C/Folic Acid (Nephro-Niranjan) 1 tab PO DAILY [facility] Last Admin: 11/27/16 11:00 Dose: 1 tab - Labs Labs: 11/27/16 06:06 11/27/16 06:06 PT 12.4 SECONDS (9.7-12.2) H 11/19/16 11:38 INR 1.1 11/19/16 11:38 APTT 29 SECONDS (21-34) 11/19/16 11:38 Assessment and Plan (1) Acute systolic CHF (congestive heart failure) Status: Acute (2) Hyperkalemia Status: Acute (3) IDDM (insulin dependent diabetes mellitus) Status: Acute (4) Prophylactic measure Status: Acute (5) Pulmonary arterial hypertension Status: Acute (6) Respiratory distress Status: Acute (7) CRF (chronic renal failure) Status: Chronic (8) ESRD on dialysis Status: Acute (9) Pneumonia Status: Suspected Attending/Attestation - Attestation I have personally seen and examined this patient.: Yes I have fully participated in the care of the patient.: Yes I have reviewed all pertinent clinical information, including history, physical exam and plan: Yes Notes (Text): 11/27/16 00:19 case seen and discussed with staff adn resident mx agreed
[2016-11-27] MEDS: Multivitamin Vitamin B Complex (Nephro-Vite) Tab PO SCH (11:00)
[2016-11-27] MEDS: diltiaZEM 300 mg/24 Hours CD Cap PO SCH (11:00)
--- NOTE | 2016-11-27 12:09 | CP.PCM.PN ---
Subjective - Date & Time of Evaluation Date of Evaluation: 11/27/16 Time of Evaluation: 12:40 - Subjective Subjective: clinically same Objective - Vital Signs/Intake and Output Vital Signs (last 24 hours): Temp Pulse Resp BP Pulse Ox 98.1 F 92 H 18 134/70 95 11/27/16 09:00 11/27/16 09:00 11/27/16 09:00 11/27/16 11:00 11/27/16 09:00 Intake and Output: 11/27/16 11/27/16 06:59 18:59 Intake Total 220 Balance 220 - Medications Medications: Current Medications Acetaminophen (Tylenol 325mg Tab) 650 mg PO Q6 PRN PRN Reason: pain Last Admin: 11/22/16 09:17 Dose: 650 mg Albuterol (Ventolin Hfa 90 Mcg/Actuation (8 G)) 1 puff IH RQID PRN PRN Reason: Wheezing Calcium Acetate (Phoslo) 667 mg PO TIDCC [facility] [place] Last Admin: 11/27/16 08:40 Dose: 667 mg Diltiazem HCl (Cardizem Cd) 300 mg PO DAILY [facility] [place] Last Admin: 11/27/16 11:00 Dose: 300 mg Docusate Sodium (Colace) 100 mg PO TID [facility] [place] Last Admin: 11/27/16 11:00 Dose: 100 mg Epoetin Lucien (Procrit) 20,000 unit IV MWF [facility] [place] Last Admin: 11/26/16 10:01 Dose: 20,000 unit Escitalopram Oxalate (Lexapro) 5 mg PO DAILY [facility] [place] Last Admin: 11/27/16 11:00 Dose: 5 mg Famotidine (Pepcid) 20 mg PO DAILY [facility] [place] Last Admin: 11/27/16 11:00 Dose: 20 mg Furosemide (Lasix) 80 mg PO DAILY [facility] [place] Last Admin: 11/27/16 11:00 Dose: 80 mg Gabapentin (Neurontin) 100 mg PO HS [facility] [place] Last Admin: 11/26/16 21:43 Dose: Not Given Hydralazine HCl (Apresoline) 100 mg PO BID [facility] [place] Last Admin: 11/27/16 11:00 Dose: 100 mg Hydrochlorothiazide (Hydrodiuril) 50 mg PO DAILY [facility] [place] Last Admin: 11/27/16 11:00 Dose: 50 mg Vancomycin HCl 500 mg/ Sodium (Chloride) 100 mls @ 100 mls/hr IVPB MWF [facility] [place] Last Admin: 11/26/16 14:12 Dose: 100 mls/hr Cefepime HCl 1 gm/ Sodium (Chloride) 100 mls @ 100 mls/hr IVPB Q24H [facility] [place] Last Admin: 11/26/16 21:42 Dose: 100 mls/hr Insulin Aspart (Novolog Mix 70/30 (70/30 Units/Ml)) 20 units SC HS [facility] [place] Last Admin: 11/26/16 21:43 Dose: Not Given Insulin Aspart (Novolog Mix 70/30 (70/30 Units/Ml)) 15 units SC ACB [facility] [place] Last Admin: 11/27/16 08:30 Dose: Not Given Insulin Human Regular (Novolin R) 0 unit SC ACHS [facility] PRN Reason: Protocol Last Admin: 11/27/16 08:30 Dose: Not Given Isosorbide Mononitrate (Imdur) 60 mg PO DAILY [facility] [place] Last Admin: 11/27/16 11:00 Dose: 60 mg Ondansetron HCl (Zofran Inj) 4 mg IVP Q4H PRN PRN Reason: Nausea/Vomiting Last Admin: 11/20/16 19:09 Dose: 4 mg Prednisone (Prednisone Tab) 10 mg PO DAILY [facility] [place] Last Admin: 11/27/16 11:00 Dose: 10 mg Rosuvastatin Calcium (Crestor) 10 mg PO HS [facility] [place] Last Admin: 11/26/16 21:42 Dose: Not Given Fluticasone/Salmeterol (Advair Diskus 250/50) 1 puff INH RQ12 [facility] [place] Last Admin: 11/27/16 08:00 Dose: 1 puff Vitamin B Complex/Vit C/Folic Acid (Nephro-Niranjan) 1 tab PO DAILY [facility] [place] Last Admin: 11/27/16 11:00 Dose: 1 tab - Labs Labs: 11/27/16 06:06 11/27/16 06:06 PT 12.4 SECONDS (9.7-12.2) H 11/19/16 11:38 INR 1.1 11/19/16 11:38 APTT 29 SECONDS (21-34) 11/19/16 11:38 - Constitutional Appears: Well - Head Exam Head Exam: ATRAUMATIC, NORMAL INSPECTION, NORMOCEPHALIC - Eye Exam Eye Exam: EOMI, Normal appearance, PERRL Pupil Exam: NORMAL ACCOMODATION, PERRL - ENT Exam ENT Exam: Mucous Membranes Moist, Normal Exam - Neck Exam Neck Exam: Full ROM, Normal Inspection. absent: Lymphadenopathy - Respiratory Exam Respiratory Exam: Decreased Breath Sounds - Cardiovascular Exam Cardiovascular Exam: REGULAR RHYTHM, +S1, +S2 - GI/Abdominal Exam GI & Abdominal Exam: Soft, Diminished Bowel Sounds - Rectal Exam Rectal Exam: Deferred Assessment and Plan (1) CRF (chronic renal failure) Status: Chronic (2) Hyperkalemia Status: Acute (3) ESRD on dialysis Status: Acute (4) Pneumonia Status: Suspected (5) Acute systolic CHF (congestive heart failure) Status: Acute (6) Respiratory distress Status: Acute (7) Prophylactic measure Status: Acute (8) IDDM (insulin dependent diabetes mellitus) Status: Acute (9) Pulmonary arterial hypertension Status: Acute - Assessment and Plan (Free Text) Plan: Cleared by cardio for surgery Dr. Ba Leukocytosis persist Continue cefepime and vancomycin Blood sugar control Dialysis
[2016-11-27] MEDS: Cefepime 1 GM in Sodium Chloride 0.9% 100 ML IVPB SCH (20:31)
[2016-11-28 06:08] LABS: BASO # 0.1 K/uL (0.0-0.2); BASO % 0.4 % (0.0-2.0); EOS # 0.2 K/uL (0.0-0.7); EOS % 0.8 % (0.0-4.0); HEMATOCRIT 27.6 % (34.0-47.0); LYMPH # 1.7 K/uL (1.0-4.3); LYMPH % 7.5 % (20.0-40.0); MEAN CELL VOLUME 90.7 fL (81.0-99.0); MEAN CORPUSCULAR HEMOGLOBIN 28.9 pg (27.0-31.0); MEAN CORPUSCULAR HGB CONC 31.9 g/dL (33.0-37.0); MONO # 2.2 K/uL (0.0-0.8); MONO % 9.6 % (0.0-10.0); NRBC % 0.1 % (0.0-2.0); PLATELET COUNT 270 K/uL (130-400); RED CELL DISTRIBUTION WIDTH 18.1 % (11.5-14.5); WHITE BLOOD COUNT 22.3 K/uL (4.8-10.8)
[2016-11-28 06:32] LABS: POTASSIUM 4.4 mmol/L (3.6-5.2)
[2016-11-28 06:34] LABS: BILIRUBIN,TOTAL 0.7 mg/dL (0.2-1.3)
[2016-11-28 06:35] LABS: CALCIUM 8.7 mg/dl (8.6-10.4)
[2016-11-28] MEDS ORDERED: Dextrose 50% SYRINGE Inj (50 ml) IV STA (07:13)
--- NOTE | 2016-11-28 07:18 | CP.PCM.PN ---
Subjective - Date & Time of Evaluation Date of Evaluation: 11/28/16 Time of Evaluation: 10:00 - Subjective Subjective: Dr. rFederick service: Patient seen and examined in room. Patient is confused, unable to obtain history at this time. Objective - Vital Signs/Intake and Output Vital Signs (last 24 hours): Temp Pulse Resp BP Pulse Ox 98.4 F 85 20 171/71 H 99 11/27/16 23:20 11/28/16 00:36 11/27/16 23:20 11/27/16 23:20 11/27/16 23:20 Intake and Output: 11/28/16 11/28/16 06:59 18:59 Intake Total 580 Balance 580 - Medications Medications: Current Medications Acetaminophen (Tylenol 325mg Tab) 650 mg PO Q6 PRN PRN Reason: pain Last Admin: 11/22/16 09:17 Dose: 650 mg Albuterol (Ventolin Hfa 90 Mcg/Actuation (8 G)) 1 puff IH RQID PRN PRN Reason: Wheezing Calcium Acetate (Phoslo) 667 mg PO TIDCC [facility] Last Admin: 11/27/16 17:22 Dose: 667 mg Diltiazem HCl (Cardizem Cd) 300 mg PO DAILY [facility] Last Admin: 11/27/16 11:00 Dose: 300 mg Docusate Sodium (Colace) 100 mg PO TID [facility] Last Admin: 11/27/16 17:22 Dose: 100 mg Epoetin Lucien (Procrit) 20,000 unit IV MWF [facility] Last Admin: 11/26/16 10:01 Dose: 20,000 unit Escitalopram Oxalate (Lexapro) 5 mg PO DAILY [facility] Last Admin: 11/27/16 11:00 Dose: 5 mg Famotidine (Pepcid) 20 mg PO DAILY [facility] Last Admin: 11/27/16 11:00 Dose: 20 mg Furosemide (Lasix) 80 mg PO DAILY [facility] Last Admin: 11/27/16 11:00 Dose: 80 mg Gabapentin (Neurontin) 100 mg PO HS [facility] Last Admin: 11/27/16 22:02 Dose: 100 mg Hydralazine HCl (Apresoline) 100 mg PO BID [facility] Last Admin: 11/27/16 17:22 Dose: 100 mg Hydrochlorothiazide (Hydrodiuril) 50 mg PO DAILY [facility] Last Admin: 11/27/16 11:00 Dose: 50 mg Vancomycin HCl 500 mg/ Sodium (Chloride) 100 mls @ 100 mls/hr IVPB MWF [facility] Last Admin: 11/26/16 14:12 Dose: 100 mls/hr Cefepime HCl 1 gm/ Sodium (Chloride) 100 mls @ 100 mls/hr IVPB Q24H [facility] Last Admin: 11/27/16 20:31 Dose: 100 mls/hr Insulin Aspart (Novolog Mix 70/30 (70/30 Units/Ml)) 20 units SC HS [facility] Last Admin: 11/27/16 22:02 Dose: 20 units Insulin Aspart (Novolog Mix 70/30 (70/30 Units/Ml)) 15 units SC ACB [facility] Last Admin: 11/27/16 08:30 Dose: Not Given Insulin Human Regular (Novolin R) 0 unit SC ACHS [facility] PRN Reason: Protocol Last Admin: 11/27/16 21:51 Dose: Not Given Isosorbide Mononitrate (Imdur) 60 mg PO DAILY [facility] Last Admin: 11/27/16 11:00 Dose: 60 mg Ondansetron HCl (Zofran Inj) 4 mg IVP Q4H PRN PRN Reason: Nausea/Vomiting Last Admin: 11/20/16 19:09 Dose: 4 mg Prednisone (Prednisone Tab) 10 mg PO DAILY [facility] Last Admin: 11/27/16 11:00 Dose: 10 mg Rosuvastatin Calcium (Crestor) 10 mg PO HS [facility] Last Admin: 11/27/16 22:02 Dose: 10 mg Fluticasone/Salmeterol (Advair Diskus 250/50) 1 puff INH RQ12 [facility] Last Admin: 11/27/16 20:18 Dose: Not Given Vitamin B Complex/Vit C/Folic Acid (Nephro-Niranjan) 1 tab PO DAILY [facility] Last Admin: 11/27/16 11:00 Dose: 1 tab - Labs Labs: 11/28/16 05:58 11/28/16 05:58 PT 12.4 SECONDS (9.7-12.2) H 11/19/16 11:38 INR 1.1 11/19/16 11:38 APTT 29 SECONDS (21-34) 11/19/16 11:38 - Constitutional Appears: Non-toxic, No Acute Distress - Head Exam Head Exam: ATRAUMATIC, NORMAL INSPECTION - Eye Exam Eye Exam: Normal appearance - ENT Exam ENT Exam: Mucous Membranes Moist - Respiratory Exam Respiratory Exam: Clear to Ausculation Bilateral. absent: Rhonchi, Wheezes - Cardiovascular Exam Cardiovascular Exam: REGULAR RHYTHM, RRR, +S1, +S2. absent: Gallop, Rubs - Extremities Exam Extremities Exam: Normal Inspection. absent: Pedal Edema - Psychiatric Exam Psychiatric exam: Normal Affect, Normal Mood - Skin Skin Exam: Dry, Normal Color Assessment and Plan - Assessment and Plan (Free Text) Assessment: Assessment & Plan: 11/28: Awaiting surgery date 11/27: Patient will either need to be scheduled for surgery or discharged. 11/26: Patient cleared by cardio for surgery, surgery date pending Dr. Ba's schedule 11/24: Still needs clearance for surgery, surgery date is pending 11/21: Patient will need clearance from cardiology before surgery X:ray today showed no evidence of SBO but did show stool in the colon. Give miralax 17gm twice, consider more if still no bowel movement. 11/20: Patient will most likely need Nephrectomy. 11/14/16 right kidney biopsy - renal cell carcinoma Oncology consult - Dr. Leonrado- help appreciated Per Dr. Leonardo, best course of action is handling hematoma and then excision of renal mass if urology agrees Urology consult - Dr. Ba - f/u recommendations Anemia Assessment & Plan: 11/26: Hgb 9.2, monitor 11/24: Hbg today is 8.0, consider tranfusion if it continues to drop before surgery 11/21: Stool heme occult positive. Dr. Caraballo consulted, Hbg today is 8.1, follow up iron studies tomorrow morning 11/20: Hbg is today at around 8.8, continue to monitor. Likely secondary to renal hematoma at site of biopsy Hgb 7.4 from 6.4 yesterday s/p 1unit pRBCs 1 unit transfusion today percent saturation and ferritin and reticulocyte count normal F/U stool OB Leukocyotsis Assessment & Plan: 11/27: Still going up, will need to monitor for signs of infection Likely secondary to steroids v. infection Afebrile UA and urine culture contaminated Hyperkalemia Assessment & Plan: On dialysis Leg pain, right Assessment & Plan: swelling improved continue current management X ray shows soft tissue swelling, doppler negative for any evidence of DVT. Will given Tylenol for pain as needed. Status: Acute Pneumonia Assessment & Plan 11/26: Continue Cefepime and Vanco ID following - Dr. Bradshaw - help appreciated 11/19: Day 8 of Zithromax and Rocephin, WBC is still high 11/13: day 2 of Zithromax and Rocephin, fever, chest pain, or cough. She does have a WBC of 16.7 today with left shift, continue to monitor WBC at 19.8 with a left shift. CXR - moderate venous congestion. bilateral hilar prominence. Bibasilar airspace opacities. small b/l pleural effusions. Upper lobe granulomatous changes. Started zithromax 500mg IVPB daily and rocephin 1gm IVPB daily 11/12/16 Status: Acute IDDM (insulin dependent diabetes mellitus) Assessment & Plan: Patient on 70/30 Novolog 15 units at night and 10 units ACB. Sliding scale insulin with medium protocol and accuchecks. Status: Acute COPD (chronic obstructive pulmonary disease) Assessment & Plan: Albuterol prn and Advair. Status: Chronic CAD (coronary artery disease) Assessment & Plan: Crestor 10mg, Aspirin 81mg, and Plavix 75mg Status: Chronic Atrial fibrillation Status: Chronic 11/26: Continue Cardizem Cardio following - Dr. Brenner - help appreciated 11/19: continue Cardizem Hep, Plavix and ASA stopped secondary to renal hematoma 11/18:continue Cardizem, Hep, Plavix and ASA 11/17: Today was in Rapid afib with RVR, she is on 300mg of Cardizem. Patient transferred to tele and cardiology, Dr. Brenner is consulted, help appreciated. Patient is on Aspirin and Plavix. Hep 5000U SC Q8 prophylaxis HR constrolled No anticoagulation besides Plavix and ASA ESRD on dialysis Assessment & Plan: Dialysis MWF Status: Chronic CHF (congestive heart failure) Assessment & Plan: Lasix 80mg PO daily. Status: Acute HTN (hypertension) Assessment & Plan: Cardizem 300mg daily, Imdur 60mg daily, Hydralazine 100mg TID Status: Chronic Prophylactic measure Assessment & Plan: Pepcid 20mg 0.25mg Xanax prn for anxiety tylenol 650mg Q6H prn for pain
[2016-11-28] MEDS: (Novolog Mix 70/30) Insulin Aspart/Insulin Aspar 100 units/ml SC SCH ×2 (07:39→21:18)
[2016-11-28] MEDS: (Novolin R) Insulin Human Regular 100 units/ml vial SC SCH ×5 (07:40→22:01)
--- NOTE | 2016-11-28 07:48 | CP.PCM.PN ---
<Korin Lott - Last Filed: 11/28/16 07:58> Subjective - Date & Time of Evaluation Date of Evaluation: 11/28/16 Time of Evaluation: 07:30 - Subjective Subjective: Cardiology Progress Note for Dr. Brenner Patient seen and examined at bedside. There were no acute overnight events as per nursing. She denies having any CP, SOB, n/v/d, numbness or tingling. She is confused. She is oriented to person and place, but not time. Objective - Vital Signs/Intake and Output Vital Signs (last 24 hours): Temp Pulse Resp BP Pulse Ox 98.4 F 85 20 171/71 H 99 11/27/16 23:20 11/28/16 00:36 11/27/16 23:20 11/27/16 23:20 11/27/16 23:20 Intake and Output: 11/28/16 11/28/16 06:59 18:59 Intake Total 580 Balance 580 - Medications Medications: Current Medications Acetaminophen (Tylenol 325mg Tab) 650 mg PO Q6 PRN PRN Reason: pain Last Admin: 11/22/16 09:17 Dose: 650 mg Albuterol (Ventolin Hfa 90 Mcg/Actuation (8 G)) 1 puff IH RQID PRN PRN Reason: Wheezing Calcium Acetate (Phoslo) 667 mg PO TIDCC [facility] Last Admin: 11/27/16 17:22 Dose: 667 mg Diltiazem HCl (Cardizem Cd) 300 mg PO DAILY [facility] Last Admin: 11/27/16 11:00 Dose: 300 mg Docusate Sodium (Colace) 100 mg PO TID [facility] Last Admin: 11/27/16 17:22 Dose: 100 mg Epoetin Lucien (Procrit) 20,000 unit IV MWF [facility] Last Admin: 11/26/16 10:01 Dose: 20,000 unit Escitalopram Oxalate (Lexapro) 5 mg PO DAILY [facility] Last Admin: 11/27/16 11:00 Dose: 5 mg Famotidine (Pepcid) 20 mg PO DAILY [facility] Last Admin: 11/27/16 11:00 Dose: 20 mg Furosemide (Lasix) 80 mg PO DAILY [facility] Last Admin: 11/27/16 11:00 Dose: 80 mg Gabapentin (Neurontin) 100 mg PO HS [facility] Last Admin: 11/27/16 22:02 Dose: 100 mg Hydralazine HCl (Apresoline) 100 mg PO BID [facility] Last Admin: 11/27/16 17:22 Dose: 100 mg Hydrochlorothiazide (Hydrodiuril) 50 mg PO DAILY [facility] Last Admin: 11/27/16 11:00 Dose: 50 mg Vancomycin HCl 500 mg/ Sodium (Chloride) 100 mls @ 100 mls/hr IVPB MWF [facility] Last Admin: 11/26/16 14:12 Dose: 100 mls/hr Cefepime HCl 1 gm/ Sodium (Chloride) 100 mls @ 100 mls/hr IVPB Q24H [facility] Last Admin: 11/27/16 20:31 Dose: 100 mls/hr Insulin Aspart (Novolog Mix 70/30 (70/30 Units/Ml)) 20 units SC HS [facility] Last Admin: 11/27/16 22:02 Dose: 20 units Insulin Aspart (Novolog Mix 70/30 (70/30 Units/Ml)) 15 units SC ACB [facility] Last Admin: 11/28/16 07:39 Dose: Not Given Insulin Human Regular (Novolin R) 0 unit SC ACHS [facility] PRN Reason: Protocol Last Admin: 11/28/16 07:40 Dose: Not Given Isosorbide Mononitrate (Imdur) 60 mg PO DAILY [facility] Last Admin: 11/27/16 11:00 Dose: 60 mg Ondansetron HCl (Zofran Inj) 4 mg IVP Q4H PRN PRN Reason: Nausea/Vomiting Last Admin: 11/20/16 19:09 Dose: 4 mg Prednisone (Prednisone Tab) 10 mg PO DAILY [facility] Last Admin: 11/27/16 11:00 Dose: 10 mg Rosuvastatin Calcium (Crestor) 10 mg PO HS [facility] Last Admin: 11/27/16 22:02 Dose: 10 mg Fluticasone/Salmeterol (Advair Diskus 250/50) 1 puff INH RQ12 [facility] Last Admin: 11/27/16 20:18 Dose: Not Given Vitamin B Complex/Vit C/Folic Acid (Nephro-Niranjan) 1 tab PO DAILY [facility] Last Admin: 11/27/16 11:00 Dose: 1 tab - Labs Labs: 11/28/16 05:58 11/28/16 05:58 PT 12.4 SECONDS (9.7-12.2) H 03/22/17 11:38 INR 1.1 11/19/16 11:38 APTT 29 SECONDS (21-34) 11/19/16 11:38 - Constitutional Appears: No Acute Distress - Head Exam Head Exam: ATRAUMATIC, NORMAL INSPECTION, NORMOCEPHALIC - Eye Exam Eye Exam: Normal appearance Pupil Exam: NORMAL ACCOMODATION - ENT Exam ENT Exam: Mucous Membranes Moist - Neck Exam Neck Exam: Normal Inspection - Respiratory Exam Respiratory Exam: Clear to Ausculation Bilateral, NORMAL BREATHING PATTERN. absent: Rales, Rhonchi, Wheezes - Cardiovascular Exam Cardiovascular Exam: REGULAR RHYTHM, +S1, +S2. absent: Gallop, Rubs, Murmur - GI/Abdominal Exam GI & Abdominal Exam: Soft, Normal Bowel Sounds. absent: Rigid, Tenderness, Hernia, Mass, Rebound - Extremities Exam Extremities Exam: Normal Inspection. absent: Calf Tenderness, Pedal Edema - Neurological Exam Neurological Exam: Alert, Awake, CN II-XII Intact. absent: Oriented x3 - Psychiatric Exam Psychiatric exam: Normal Affect - Skin Skin Exam: Dry, Normal Color, Warm Assessment and Plan - Assessment and Plan (Free Text) Assessment: This is a 66Y F with PMH CAD, COPD, ESRD on HD, HTN, DM, renal mass admitted for 1) Renal cell carcinoma 2) Anemia- stable 3) Leukocytosis - increasing 4) A.fib- rate and rhythm controlled 5) ESRD on HD 6) CAD 7) HTN Plan: - Patient continues to await surgery date for removal of renal cell carcinoma - Patient is able to proceed with surgery per cardiac standpoint- the benefits outweigh the risks - Continue Cardizem, Crestor - Continue HCTZ, Imdur, Hydralazine and Lasix - Continue to hold Plavix and ASA for positive stool occult - Continue to monitor H/H GI ppx: Pepcid DVT ppx: SCDs Case seen, reviewed and discussed with Dr. Elidia Lott PGY1 <Halina Brenner - Last Filed: 11/29/16 07:59> Objective - Vital Signs/Intake and Output Vital Signs (last 24 hours): Temp Pulse Resp BP Pulse Ox 97.7 F 79 20 165/66 H 96 11/29/16 07:00 11/29/16 07:00 11/29/16 07:00 11/29/16 07:00 11/29/16 07:00 Intake and Output: 11/29/16 11/29/16 06:59 18:59 Intake Total 450 Balance 450 - Medications Medications: Current Medications Acetaminophen (Tylenol 325mg Tab) 650 mg PO Q6 PRN PRN Reason: pain Last Admin: 11/29/16 00:40 Dose: 650 mg Albuterol (Ventolin Hfa 90 Mcg/Actuation (8 G)) 1 puff IH RQID PRN PRN Reason: Wheezing Calcium Acetate (Phoslo) 667 mg PO TIDCC [facility] Last Admin: 11/28/16 17:26 Dose: 667 mg Diltiazem HCl (Cardizem Cd) 300 mg PO DAILY [facility] Last Admin: 11/28/16 13:07 Dose: 300 mg Docusate Sodium (Colace) 100 mg PO TID [facility] Last Admin: 11/28/16 17:26 Dose: 100 mg Epoetin Lucien (Procrit) 20,000 unit IV [facility] Last Admin: 11/28/16 12:01 Dose: 20,000 unit Escitalopram Oxalate (Lexapro) 5 mg PO DAILY [facility] Last Admin: 11/28/16 13:07 Dose: 5 mg Famotidine (Pepcid) 20 mg PO DAILY [facility] Last Admin: 11/28/16 13:07 Dose: 20 mg Furosemide (Lasix) 80 mg PO DAILY [facility] Last Admin: 11/28/16 13:08 Dose: 80 mg Gabapentin (Neurontin) [address] [facility] Last Admin: 11/28/16 21:18 Dose: 100 mg Hydralazine HCl (Apresoline) 100 mg PO BID [facility] Last Admin: 11/28/16 17:26 Dose: 100 mg Hydrochlorothiazide (Hydrodiuril) 50 mg PO DAILY [facility] Last Admin: 11/28/16 13:09 Dose: 50 mg Vancomycin HCl 500 mg/ Sodium (Chloride) 100 mls @ 100 mls/hr IVPB MWF [facility] Last Admin: 11/28/16 12:56 Dose: 100 mls/hr Cefepime HCl 1 gm/ Sodium (Chloride) 100 mls @ 100 mls/hr IVPB Q24H [facility] Last Admin: 11/28/16 20:12 Dose: 100 mls/hr Insulin Aspart (Novolog Mix 70/30 (70/30 Units/Ml)) 20 units SC HS [facility] Last Admin: 11/28/16 21:18 Dose: 20 units Insulin Aspart (Novolog Mix 70/30 (70/30 Units/Ml)) 15 units SC ACB [facility] Last Admin: 11/28/16 07:39 Dose: Not Given Insulin Human Regular (Novolin R) 0 unit SC ACHS [facility] PRN Reason: Protocol Last Admin: 11/28/16 22:01 Dose: 4 unit Isosorbide Mononitrate (Imdur) 60 mg PO DAILY [facility] Last Admin: 11/28/16 13:06 Dose: 60 mg Ondansetron HCl (Zofran Inj) 4 mg IVP Q4H PRN PRN Reason: Nausea/Vomiting Last Admin: 11/20/16 19:09 Dose: 4 mg Prednisone (Prednisone Tab) 10 mg PO DAILY [facility] Last Admin: 11/28/16 13:07 Dose: 10 mg Rosuvastatin Calcium (Crestor) 10 mg PO HS [facility] Last Admin: 11/28/16 21:18 Dose: 10 mg Fluticasone/Salmeterol (Advair Diskus 250/50) 1 puff INH RQ12 [facility] Last Admin: 11/28/16 19:10 Dose: 1 puff Vitamin B Complex/Vit C/Folic Acid (Nephro-Niranjan) 1 tab PO DAILY [facility] Last Admin: 11/28/16 13:07 Dose: 1 tab - Labs Labs: 11/28/16 05:58 11/28/16 05:58 PT 12.4 SECONDS (9.7-12.2) H 11/19/16 11:38 INR 1.1 11/19/16 11:38 APTT 29 SECONDS (21-34) 11/19/16 11:38 Attending/Attestation - Attestation I have personally seen and examined this patient.: Yes I have fully participated in the care of the patient.: Yes I have reviewed all pertinent clinical information, including history, physical exam and plan: Yes Notes (Text): 11/29/16 07:58 pt bp still high continue dialysis
[2016-11-28 08:31] LABS: EOSINOPHIL 1 % (0-4); NEUTROPHIL 80 % (50-75); TOTAL CELLS COUNTED 100
[2016-11-28 08:32] LABS: LARGE PLATELETS PRESENT
[2016-11-28] MEDS: Fluticasone-Salmeterol 250-50mcg Diskus INH SCH ×2 (08:32→19:10)
--- NOTE | 2016-11-28 10:10 | CP.PCM.PN ---
Subjective - Date & Time of Evaluation Date of Evaluation: 11/28/16 Time of Evaluation: 12:00 - Subjective Subjective: clinically same Objective - Vital Signs/Intake and Output Vital Signs (last 24 hours): Temp Pulse Resp BP Pulse Ox 98 F 87 16 150/86 100 11/28/16 09:00 11/28/16 09:00 11/28/16 09:00 11/28/16 09:00 11/28/16 09:00 Intake and Output: 11/28/16 11/28/16 06:59 18:59 Intake Total 580 Balance 580 - Medications Medications: Current Medications Acetaminophen (Tylenol 325mg Tab) 650 mg PO Q6 PRN PRN Reason: pain Last Admin: 11/22/16 09:17 Dose: 650 mg Albuterol (Ventolin Hfa 90 Mcg/Actuation (8 G)) 1 puff IH RQID PRN PRN Reason: Wheezing Calcium Acetate (Phoslo) 667 mg PO TIDCC [facility] Last Admin: 11/28/16 08:08 Dose: 667 mg Diltiazem HCl (Cardizem Cd) 300 mg PO DAILY [facility] Last Admin: 11/27/16 11:00 Dose: 300 mg Docusate Sodium (Colace) 100 mg PO TID [facility] Last Admin: 11/27/16 17:22 Dose: 100 mg Epoetin Lucien ([facility]) [facility] Last Admin: 11/26/16 10:01 Dose: 20,000 unit Escitalopram Oxalate (Lexapro) 5 mg PO DAILY [facility] Last Admin: 11/27/16 11:00 Dose: 5 mg Famotidine (Pepcid) 20 mg PO DAILY [facility] Last Admin: 11/27/16 11:00 Dose: 20 mg Furosemide (Lasix) 80 mg PO DAILY [facility] Last Admin: 11/27/16 11:00 Dose: 80 mg Gabapentin (Neurontin) 100 mg PO HS [facility] Last Admin: 11/27/16 22:02 Dose: 100 mg Hydralazine HCl (Apresoline) 100 mg PO BID [facility] Last Admin: 11/27/16 17:22 Dose: 100 mg Hydrochlorothiazide (Hydrodiuril) 50 mg PO DAILY [facility] Last Admin: 11/27/16 11:00 Dose: 50 mg Vancomycin HCl 500 mg/ Sodium (Chloride) 100 mls @ 100 mls/hr IVPB MWF [facility] Last Admin: 11/26/16 14:12 Dose: 100 mls/hr Cefepime HCl 1 gm/ Sodium (Chloride) 100 mls @ 100 mls/hr IVPB Q24H [facility] Last Admin: 11/27/16 20:31 Dose: 100 mls/hr Insulin Aspart (Novolog Mix 70/30 (70/30 Units/Ml)) 20 units SC HS [facility] Last Admin: 11/27/16 22:02 Dose: 20 units Insulin Aspart (Novolog Mix 70/30 (70/30 Units/Ml)) 15 units SC ACB [facility] Last Admin: 11/28/16 07:39 Dose: Not Given Insulin Human Regular (Novolin R) 0 unit SC ACHS [facility] PRN Reason: Protocol Last Admin: 11/28/16 07:40 Dose: Not Given Isosorbide Mononitrate (Imdur) 60 mg PO DAILY [facility] Last Admin: 11/27/16 11:00 Dose: 60 mg Ondansetron HCl (Zofran Inj) 4 mg IVP Q4H PRN PRN Reason: Nausea/Vomiting Last Admin: 11/20/16 19:09 Dose: 4 mg Prednisone (Prednisone Tab) 10 mg PO DAILY [facility] Last Admin: 11/27/16 11:00 Dose: 10 mg Rosuvastatin Calcium (Crestor) 10 mg PO HS [facility] Last Admin: 11/27/16 22:02 Dose: 10 mg Fluticasone/Salmeterol (Advair Diskus 250/50) 1 puff INH RQ12 [facility] Last Admin: 11/28/16 08:32 Dose: 1 puff Vitamin B Complex/Vit C/Folic Acid (Nephro-Niranjan) 1 tab PO DAILY [facility] Last Admin: 11/27/16 11:00 Dose: 1 tab - Labs Labs: 11/28/16 05:58 11/28/16 05:58 PT 12.4 SECONDS (9.7-12.2) H 11/19/16 11:38 INR 1.1 11/19/16 11:38 APTT 29 SECONDS (21-34) 11/19/16 11:38 - Constitutional Appears: Well - Head Exam Head Exam: ATRAUMATIC, NORMAL INSPECTION, NORMOCEPHALIC - Eye Exam Eye Exam: EOMI, Normal appearance, PERRL Pupil Exam: NORMAL ACCOMODATION, PERRL - ENT Exam ENT Exam: Mucous Membranes Moist, Normal Exam - Neck Exam Neck Exam: Full ROM, Normal Inspection. absent: Lymphadenopathy - Respiratory Exam Respiratory Exam: Decreased Breath Sounds - Cardiovascular Exam Cardiovascular Exam: REGULAR RHYTHM, +S1, +S2 - GI/Abdominal Exam GI & Abdominal Exam: Soft, Diminished Bowel Sounds - Rectal Exam Rectal Exam: Deferred Assessment and Plan (1) CRF (chronic renal failure) Status: Chronic (2) Hyperkalemia Status: Acute (3) ESRD on dialysis Status: Acute (4) Pneumonia Status: Suspected (5) Acute systolic CHF (congestive heart failure) Status: Acute (6) Respiratory distress Status: Acute (7) Prophylactic measure Status: Acute (8) IDDM (insulin dependent diabetes mellitus) Status: Acute (9) Pulmonary arterial hypertension Status: Acute - Assessment and Plan (Free Text) Plan: Awaiting surgery date for his renal cell carcinoma Continue Cardizem Crestor Hold Plavix and aspirin Continue antihypertensive meds Continue diabetes meds Consults
[2016-11-28] MEDS: Epoetin Alfa Dialysis 20000 UNIT/ML Inj IV SCH (12:01)
[2016-11-28] MEDS: diltiaZEM 300 mg/24 Hours CD Cap PO SCH (13:07)
[2016-11-28] MEDS: Multivitamin Vitamin B Complex (Nephro-Vite) Tab PO SCH (13:07)
[2016-11-28] MEDS: Cefepime 1 GM in Sodium Chloride 0.9% 100 ML IVPB SCH (20:12)
[2016-11-29] MEDS ORDERED: Dextrose 50% SYRINGE Inj (50 ml) IV STA (03:16)
[2016-11-29 08:14] LABS: BASO # 0.1 K/uL (0.0-0.2); BASO % 0.5 % (0.0-2.0); EOS # 0.3 K/uL (0.0-0.7); EOS % 1.3 % (0.0-4.0); HEMATOCRIT 28.1 % (34.0-47.0); LYMPH # 1.8 K/uL (1.0-4.3); LYMPH % 9.2 % (20.0-40.0); MEAN CORPUSCULAR HEMOGLOBIN 28.4 pg (27.0-31.0); MEAN CORPUSCULAR HGB CONC 30.9 g/dL (33.0-37.0); MEAN PLATELET VOLUME 10.5 fL (7.2-11.7); MONO # 1.6 K/uL (0.0-0.8); MONO % 8.6 % (0.0-10.0); NRBC % 0.2 % (0.0-2.0); PLATELET COUNT 232 K/uL (130-400); RED CELL DISTRIBUTION WIDTH 18.8 % (11.5-14.5); WHITE BLOOD COUNT 19.3 K/uL (4.8-10.8)
[2016-11-29] MEDS: (Novolin R) Insulin Human Regular 100 units/ml vial SC SCH ×4 (08:24→22:02)
[2016-11-29] MEDS: (Novolog Mix 70/30) Insulin Aspart/Insulin Aspar 100 units/ml SC SCH ×2 (08:25→21:51)
[2016-11-29 08:27] LABS: POTASSIUM 4.4 mmol/L (3.6-5.2)
[2016-11-29 08:29] LABS: BILIRUBIN,TOTAL 0.3 mg/dL (0.2-1.3); TOTAL PROTEIN 7.1 g/dL (6.3-8.3)
[2016-11-29 08:30] LABS: CALCIUM 8.7 mg/dl (8.6-10.4)
--- NOTE | 2016-11-29 09:06 | CP.PCM.PN ---
Subjective - Date & Time of Evaluation Date of Evaluation: 11/29/16 Time of Evaluation: 08:20 - Subjective Subjective: no complaints stable Objective - Vital Signs/Intake and Output Vital Signs (last 24 hours): Temp Pulse Resp BP Pulse Ox 97.7 F 79 20 165/66 H 96 11/29/16 08:50 11/29/16 07:00 11/29/16 07:00 11/29/16 07:00 11/29/16 07:00 Intake and Output: 11/29/16 11/29/16 06:59 18:59 Intake Total 450 Balance 450 - Medications Medications: Current Medications Acetaminophen (Tylenol 325mg Tab) 650 mg PO Q6 PRN PRN Reason: pain Last Admin: 11/29/16 08:50 Dose: 650 mg Albuterol (Ventolin Hfa 90 Mcg/Actuation (8 G)) 1 puff IH RQID PRN PRN Reason: Wheezing Calcium Acetate (Phoslo) 667 mg PO TIDCC [facility] Last Admin: 11/29/16 08:44 Dose: 667 mg Diltiazem HCl (Cardizem Cd) 300 mg PO DAILY [facility] Last Admin: 11/28/16 13:07 Dose: 300 mg Docusate Sodium (Colace) 100 mg PO TID [facility] Last Admin: 11/28/16 17:26 Dose: 100 mg Epoetin Lucien (Procrit) 20,000 unit IV MWF [facility] Last Admin: 11/28/16 12:01 Dose: 20,000 unit Escitalopram Oxalate (Lexapro) 5 mg PO DAILY [facility] Last Admin: 11/28/16 13:07 Dose: 5 mg Famotidine (Pepcid) 20 mg PO DAILY [facility] Last Admin: 11/28/16 13:07 Dose: 20 mg Furosemide (Lasix) 80 mg PO DAILY [facility] Last Admin: 11/28/16 13:08 Dose: 80 mg Gabapentin (Neurontin) 100 mg PO HS [facility] Last Admin: 11/28/16 21:18 Dose: 100 mg Hydralazine HCl (Apresoline) 100 mg PO BID [facility] Last Admin: 11/28/16 17:26 Dose: 100 mg Hydrochlorothiazide (Hydrodiuril) 50 mg PO DAILY [facility] Last Admin: 11/28/16 13:09 Dose: 50 mg Vancomycin HCl 500 mg/ Sodium (Chloride) 100 mls @ 100 mls/hr IVPB MWF [facility] Last Admin: 11/28/16 12:56 Dose: 100 mls/hr Cefepime HCl 1 gm/ Sodium (Chloride) 100 mls @ 100 mls/hr IVPB Q24H [facility] Last Admin: 11/28/16 20:12 Dose: 100 mls/hr Insulin Aspart (Novolog Mix 70/30 (70/30 Units/Ml)) 20 units SC HS [facility] Last Admin: 11/28/16 21:18 Dose: 20 units Insulin Aspart (Novolog Mix 70/30 (70/30 Units/Ml)) 15 units SC ACB [facility] Last Admin: 11/29/16 08:25 Dose: Not Given Insulin Human Regular (Novolin R) 0 unit SC ACHS [facility] PRN Reason: Protocol Last Admin: 11/29/16 08:24 Dose: Not Given Isosorbide Mononitrate (Imdur) 60 mg PO DAILY [facility] Last Admin: 11/28/16 13:06 Dose: 60 mg Ondansetron HCl (Zofran Inj) 4 mg IVP Q4H PRN PRN Reason: Nausea/Vomiting Last Admin: 11/20/16 19:09 Dose: 4 mg Prednisone (Prednisone Tab) 10 mg PO DAILY [facility] Last Admin: 11/28/16 13:07 Dose: 10 mg Rosuvastatin Calcium (Crestor) 10 mg PO HS [facility] Last Admin: 11/28/16 21:18 Dose: 10 mg Fluticasone/Salmeterol (Advair Diskus 250/50) 1 puff INH RQ12 [facility] Last Admin: 11/28/16 19:10 Dose: 1 puff Vitamin B Complex/Vit C/Folic Acid (Nephro-Niranjan) 1 tab PO DAILY [facility] Last Admin: 11/28/16 13:07 Dose: 1 tab - Labs Labs: 11/29/16 08:03 11/29/16 08:03 PT 12.4 SECONDS (9.7-12.2) H 11/19/16 11:38 INR 1.1 11/19/16 11:38 APTT 29 SECONDS (21-34) 11/19/16 11:38 - Constitutional Appears: Non-toxic - Head Exam Head Exam: NORMOCEPHALIC - Eye Exam Eye Exam: Normal appearance - ENT Exam ENT Exam: Mucous Membranes Moist - Respiratory Exam Respiratory Exam: Clear to Ausculation Bilateral - Cardiovascular Exam Cardiovascular Exam: Murmur - GI/Abdominal Exam GI & Abdominal Exam: Soft - Exam External exam: NORMAL EXTERNAL EXAM Speculum exam: Tissue - Extremities Exam Extremities Exam: Normal Inspection - Neurological Exam Neurological Exam: Alert, Awake - Psychiatric Exam Psychiatric exam: Normal Mood - Skin Skin Exam: Warm Assessment and Plan (1) Acute CHF Assessment & Plan: pt with anemia continue rate control for afib Status: Acute (2) Anemia Status: Acute
[2016-11-29] MEDS: Fluticasone-Salmeterol 250-50mcg Diskus INH SCH (09:36)
[2016-11-29 10:18] LABS: GIANT PLATELETS PRESENT; LARGE PLATELETS PRESENT; NEUTROPHIL 80 % (50-75); TOTAL CELLS COUNTED 100
[2016-11-29 10:19] LABS: SPHEROCYTES SLIGHT
[2016-11-29] MEDS: Multivitamin Vitamin B Complex (Nephro-Vite) Tab PO SCH (11:03)
[2016-11-29] MEDS: diltiaZEM 300 mg/24 Hours CD Cap PO SCH (11:04)
--- NOTE | 2016-11-29 14:35 | CP.PCM.PN ---
Subjective - Date & Time of Evaluation Date of Evaluation: 11/29/16 Time of Evaluation: 09:00 - Subjective Subjective: clinically same Objective - Vital Signs/Intake and Output Vital Signs (last 24 hours): Temp Pulse Resp BP Pulse Ox 97.7 F 79 20 165/66 H 96 11/29/16 08:50 11/29/16 07:00 11/29/16 07:00 11/29/16 11:04 11/29/16 07:00 Intake and Output: 11/29/16 11/29/16 06:59 18:59 Intake Total 450 Balance 450 - Medications Medications: Current Medications Acetaminophen (Tylenol 325mg Tab) 650 mg PO Q6 PRN PRN Reason: pain Last Admin: 11/29/16 08:50 Dose: 650 mg Albuterol (Ventolin Hfa 90 Mcg/Actuation (8 G)) 1 puff IH RQID PRN PRN Reason: Wheezing Calcium Acetate (Phoslo) 667 mg PO TIDCC [facility] Last Admin: 11/29/16 13:00 Dose: 667 mg Diltiazem HCl (Cardizem Cd) 300 mg PO DAILY [facility] Last Admin: 11/29/16 11:04 Dose: 300 mg Docusate Sodium (Colace) 100 mg PO TID [facility] Last Admin: 11/29/16 11:03 Dose: 100 mg Epoetin Lucien (Procrit) 20,000 unit IV MWF [facility] Last Admin: 11/28/16 12:01 Dose: 20,000 unit Escitalopram Oxalate (Lexapro) 5 mg PO DAILY [facility] Last Admin: 11/29/16 11:03 Dose: 5 mg Famotidine (Pepcid) 20 mg PO DAILY [facility] Last Admin: 11/29/16 11:04 Dose: 20 mg Furosemide (Lasix) 80 mg PO DAILY [facility] Last Admin: 11/29/16 11:04 Dose: 80 mg Gabapentin (Neurontin) 100 mg PO HS [facility] Last Admin: 11/28/16 21:18 Dose: 100 mg Hydralazine HCl (Apresoline) 100 mg PO BID [facility] Last Admin: 11/29/16 11:03 Dose: 100 mg Hydrochlorothiazide (Hydrodiuril) 50 mg PO DAILY [facility] Last Admin: 11/29/16 11:03 Dose: 50 mg Vancomycin HCl 500 mg/ Sodium (Chloride) 100 mls @ 100 mls/hr IVPB MWF [facility] Last Admin: 11/28/16 12:56 Dose: 100 mls/hr Cefepime HCl 1 gm/ Sodium (Chloride) 100 mls @ 100 mls/hr IVPB Q24H [facility] Last Admin: 11/28/16 20:12 Dose: 100 mls/hr Insulin Aspart (Novolog Mix 70/30 (70/30 Units/Ml)) 20 units SC HS [facility] Last Admin: 11/28/16 21:18 Dose: 20 units Insulin Aspart (Novolog Mix 70/30 (70/30 Units/Ml)) 15 units SC ACB [facility] Last Admin: 11/29/16 08:25 Dose: Not Given Insulin Human Regular (Novolin R) 0 unit SC ACHS [facility] PRN Reason: Protocol Last Admin: 11/29/16 12:59 Dose: 4 unit Isosorbide Mononitrate (Imdur) 60 mg PO DAILY [facility] Last Admin: 11/29/16 11:03 Dose: 60 mg Ondansetron HCl (Zofran Inj) 4 mg IVP Q4H PRN PRN Reason: Nausea/Vomiting Last Admin: 11/20/16 19:09 Dose: 4 mg Prednisone (Prednisone Tab) 10 mg PO DAILY [facility] Last Admin: 11/29/16 11:04 Dose: 10 mg Rosuvastatin Calcium (Crestor) 10 mg PO HS [facility] Last Admin: 11/28/16 21:18 Dose: 10 mg Fluticasone/Salmeterol (Advair Diskus 250/50) 1 puff INH RQ12 [facility] Last Admin: 11/29/16 09:36 Dose: Not Given Vitamin B Complex/Vit C/Folic Acid (Nephro-Niranjan) 1 tab PO DAILY [facility] Last Admin: 11/29/16 11:03 Dose: 1 tab - Labs Labs: 11/29/16 08:03 11/29/16 08:03 PT 12.4 SECONDS (9.7-12.2) H 11/19/16 11:38 INR 1.1 11/19/16 11:38 APTT 29 SECONDS (21-34) 11/19/16 11:38 Assessment and Plan (1) CRF (chronic renal failure) Status: Chronic (2) Hyperkalemia Status: Acute (3) ESRD on dialysis Status: Acute (4) Pneumonia Status: Suspected (5) Acute systolic CHF (congestive heart failure) Status: Acute (6) Respiratory distress Status: Acute (7) Prophylactic measure Status: Acute (8) IDDM (insulin dependent diabetes mellitus) Status: Acute (9) Pulmonary arterial hypertension Status: Acute - Assessment and Plan (Free Text) Plan: Continue same Heart rate controlled Monitor H/H Consults as advised Dr. Ba
[2016-11-29] MEDS: Cefepime 1 GM in Sodium Chloride 0.9% 100 ML IVPB SCH (20:49)
[2016-11-30] MEDS: Fluticasone-Salmeterol 250-50mcg Diskus INH SCH ×2 (08:12→19:38)
[2016-11-30 08:30] LABS: BASO # 0.1 K/uL (0.0-0.2); BASO % 0.3 % (0.0-2.0); EOS # 0.3 K/uL (0.0-0.7); EOS % 1.2 % (0.0-4.0); HEMATOCRIT 27.8 % (34.0-47.0); LYMPH # 1.8 K/uL (1.0-4.3); LYMPH % 8.3 % (20.0-40.0); MEAN CELL VOLUME 92.1 fL (81.0-99.0); MEAN CORPUSCULAR HEMOGLOBIN 28.2 pg (27.0-31.0); MEAN CORPUSCULAR HGB CONC 30.7 g/dL (33.0-37.0); MEAN PLATELET VOLUME 10.7 fL (7.2-11.7); MONO # 1.7 K/uL (0.0-0.8); MONO % 8.1 % (0.0-10.0); NRBC % 0.1 % (0.0-2.0); PLATELET COUNT 240 K/uL (130-400); RED CELL DISTRIBUTION WIDTH 19.5 % (11.5-14.5); WHITE BLOOD COUNT 21.4 K/uL (4.8-10.8)
[2016-11-30 08:44] LABS: BILIRUBIN,TOTAL 0.4 mg/dL (0.2-1.3); TOTAL PROTEIN 7.1 g/dL (6.3-8.3)
[2016-11-30 08:45] LABS: CALCIUM 8.7 mg/dl (8.6-10.4)
[2016-11-30] MEDS: (Novolin R) Insulin Human Regular 100 units/ml vial SC SCH ×4 (08:51→21:22)
[2016-11-30] MEDS: (Novolog Mix 70/30) Insulin Aspart/Insulin Aspar 100 units/ml SC SCH ×2 (08:51→21:23)
[2016-11-30 09:04] LABS: EOSINOPHIL 1 % (0-4); NEUTROPHIL 80 % (50-75); TOTAL CELLS COUNTED 100
[2016-11-30 09:07] LABS: SPHEROCYTES SLIGHT
[2016-11-30 09:08] LABS: LARGE PLATELETS PRESENT
[2016-11-30] MEDS: diltiaZEM 300 mg/24 Hours CD Cap PO SCH (09:25)
[2016-11-30] MEDS: Multivitamin Vitamin B Complex (Nephro-Vite) Tab PO SCH (11:37)
--- NOTE | 2016-11-30 14:18 | CP.PCM.PN ---
Subjective - Date & Time of Evaluation Date of Evaluation: 11/30/16 Time of Evaluation: 13:45 - Subjective Subjective: tolerating po no cp Objective - Vital Signs/Intake and Output Vital Signs (last 24 hours): Temp Pulse Resp BP Pulse Ox 98.9 F 88 20 170/63 H 96 11/30/16 08:00 11/30/16 08:00 11/30/16 08:00 11/30/16 09:24 11/30/16 08:00 Intake and Output: 11/30/16 11/30/16 06:59 18:59 Intake Total 250 Balance 250 - Medications Medications: Current Medications Acetaminophen (Tylenol 325mg Tab) 650 mg PO Q6 PRN PRN Reason: pain Last Admin: 11/29/16 23:32 Dose: 650 mg Albuterol (Ventolin Hfa 90 Mcg/Actuation (8 G)) 1 puff IH RQID PRN PRN Reason: Wheezing Calcium Acetate (Phoslo) 667 mg PO TIDCC [facility] Last Admin: 11/30/16 12:27 Dose: 667 mg Diltiazem HCl (Cardizem Cd) 300 mg PO DAILY [facility] Last Admin: 11/30/16 09:25 Dose: 300 mg Docusate Sodium (Colace) 100 mg PO TID [facility] Last Admin: 11/30/16 14:15 Dose: 100 mg Epoetin Lucien (Procrit) 20,000 unit IV MWF [facility] Last Admin: 11/28/16 12:01 Dose: 20,000 unit Escitalopram Oxalate (Lexapro) 5 mg PO DAILY [facility] Last Admin: 11/30/16 09:25 Dose: 5 mg Famotidine (Pepcid) 20 mg PO DAILY [facility] Last Admin: 11/30/16 09:25 Dose: 20 mg Furosemide (Lasix) 80 mg PO DAILY [facility] Last Admin: 11/30/16 09:24 Dose: 80 mg Gabapentin (Neurontin) 100 mg PO HS [facility] Last Admin: 11/29/16 21:49 Dose: 100 mg Hydralazine HCl (Apresoline) 100 mg PO BID [facility] Last Admin: 11/30/16 09:25 Dose: 100 mg Hydrochlorothiazide (Hydrodiuril) 50 mg PO DAILY [facility] Last Admin: 11/30/16 09:25 Dose: 50 mg Vancomycin HCl 500 mg/ Sodium (Chloride) 100 mls @ 100 mls/hr IVPB MWF [facility] Last Admin: 11/28/16 12:56 Dose: 100 mls/hr Cefepime HCl 1 gm/ Sodium (Chloride) 100 mls @ 100 mls/hr IVPB Q24H [facility] Last Admin: 11/29/16 20:49 Dose: 100 mls/hr Insulin Aspart (Novolog Mix 70/30 (70/30 Units/Ml)) 20 units SC HS [facility] Last Admin: 11/29/16 21:51 Dose: 20 units Insulin Aspart (Novolog Mix 70/30 (70/30 Units/Ml)) 15 units SC ACB [facility] Last Admin: 11/30/16 08:51 Dose: 15 units Insulin Human Regular (Novolin R) 0 unit SC ACHS [facility] PRN Reason: Protocol Last Admin: 11/30/16 12:21 Dose: 6 unit Isosorbide Mononitrate (Imdur) 60 mg PO DAILY [facility] Last Admin: 11/30/16 09:25 Dose: 60 mg Ondansetron HCl (Zofran Inj) 4 mg IVP Q4H PRN PRN Reason: Nausea/Vomiting Last Admin: 11/20/16 19:09 Dose: 4 mg Prednisone (Prednisone Tab) 10 mg PO DAILY [facility] Last Admin: 11/30/16 09:25 Dose: 10 mg Rosuvastatin Calcium (Crestor) 10 mg PO HS [facility] Last Admin: 11/29/16 21:49 Dose: 10 mg Fluticasone/Salmeterol (Advair Diskus 250/50) 1 puff INH RQ12 [facility] Last Admin: 11/30/16 08:12 Dose: 1 puff Vitamin B Complex/Vit C/Folic Acid (Nephro-Niranjan) 1 tab PO DAILY [facility] Last Admin: 11/30/16 11:37 Dose: 1 tab - Labs Labs: 11/30/16 08:17 11/30/16 08:17 PT 12.4 SECONDS (9.7-12.2) H 11/19/16 11:38 INR 1.1 11/19/16 11:38 APTT 29 SECONDS (21-34) 11/19/16 11:38 - Constitutional Appears: Well - Head Exam Head Exam: ATRAUMATIC - Eye Exam Eye Exam: Normal appearance - ENT Exam ENT Exam: Mucous Membranes Moist - Respiratory Exam Respiratory Exam: Clear to Ausculation Bilateral - Cardiovascular Exam Cardiovascular Exam: REGULAR RHYTHM - GI/Abdominal Exam GI & Abdominal Exam: Soft - Exam External exam: NORMAL EXTERNAL EXAM - Extremities Exam Extremities Exam: Normal Inspection - Neurological Exam Neurological Exam: Awake - Psychiatric Exam Psychiatric exam: Normal Affect - Skin Skin Exam: Normal Color Assessment and Plan (1) Acute CHF Assessment & Plan: continue rate contro and dialyasis for fluid removal Status: Acute (2) Atrial fibrillation with rapid ventricular response Status: Acute
--- NOTE | 2016-11-30 16:07 | CP.PCM.PN ---
Subjective - Date & Time of Evaluation Date of Evaluation: 11/30/16 Time of Evaluation: 08:00 - Subjective Subjective: awaiting for urology Objective - Vital Signs/Intake and Output Vital Signs (last 24 hours): Temp Pulse Resp BP Pulse Ox 98.5 F 82 20 166/65 H 96 11/30/16 15:00 11/30/16 15:00 11/30/16 15:00 11/30/16 15:00 11/30/16 15:00 Intake and Output: 11/30/16 11/30/16 06:59 18:59 Intake Total 250 400 Balance 250 400 - Medications Medications: Current Medications Acetaminophen (Tylenol 325mg Tab) 650 mg PO Q6 PRN PRN Reason: pain Last Admin: 11/29/16 23:32 Dose: 650 mg Albuterol (Ventolin Hfa 90 Mcg/Actuation (8 G)) 1 puff IH RQID PRN PRN Reason: Wheezing Calcium Acetate (Phoslo) 667 mg PO TIDCC [facility] Last Admin: 11/30/16 12:27 Dose: 667 mg Diltiazem HCl (Cardizem Cd) 300 mg PO DAILY [facility] Last Admin: 11/30/16 09:25 Dose: 300 mg Docusate Sodium (Colace) 100 mg PO TID [facility] Last Admin: 11/30/16 14:15 Dose: 100 mg Epoetin Lucien (Procrit) 20,000 unit IV MWF [facility] Last Admin: 11/28/16 12:01 Dose: 20,000 unit Escitalopram Oxalate (Lexapro) 5 mg PO DAILY [facility] Last Admin: 11/30/16 09:25 Dose: 5 mg Famotidine (Pepcid) 20 mg PO DAILY [facility] Last Admin: 11/30/16 09:25 Dose: 20 mg Furosemide (Lasix) 80 mg PO DAILY [facility] Last Admin: 11/30/16 09:24 Dose: 80 mg Gabapentin (Neurontin) 100 mg PO HS [facility] Last Admin: 11/29/16 21:49 Dose: 100 mg Hydralazine HCl (Apresoline) 100 mg PO BID [facility] Last Admin: 11/30/16 09:25 Dose: 100 mg Hydrochlorothiazide (Hydrodiuril) 50 mg PO DAILY [facility] Last Admin: 11/30/16 09:25 Dose: 50 mg Vancomycin HCl 500 mg/ Sodium (Chloride) 100 mls @ 100 mls/hr IVPB MWF [facility] Last Admin: 11/28/16 12:56 Dose: 100 mls/hr Cefepime HCl 1 gm/ Sodium (Chloride) 100 mls @ 100 mls/hr IVPB Q24H [facility] Last Admin: 11/29/16 20:49 Dose: 100 mls/hr Insulin Aspart (Novolog Mix 70/30 (70/30 Units/Ml)) 20 units SC HS [facility] Last Admin: 11/29/16 21:51 Dose: 20 units Insulin Aspart (Novolog Mix 70/30 (70/30 Units/Ml)) 15 units SC ACB [facility] Last Admin: 11/30/16 08:51 Dose: 15 units Insulin Human Regular (Novolin R) 0 unit SC ACHS [facility] PRN Reason: Protocol Last Admin: 11/30/16 12:21 Dose: 6 unit Isosorbide Mononitrate (Imdur) 60 mg PO DAILY [facility] Last Admin: 11/30/16 09:25 Dose: 60 mg Ondansetron HCl (Zofran Inj) 4 mg IVP Q4H PRN PRN Reason: Nausea/Vomiting Last Admin: 11/20/16 19:09 Dose: 4 mg Prednisone (Prednisone Tab) 10 mg PO DAILY [facility] Last Admin: 11/30/16 09:25 Dose: 10 mg Rosuvastatin Calcium (Crestor) 10 mg PO HS [facility] Last Admin: 11/29/16 21:49 Dose: 10 mg Fluticasone/Salmeterol (Advair Diskus 250/50) 1 puff INH RQ12 [facility] Last Admin: 11/30/16 08:12 Dose: 1 puff Vitamin B Complex/Vit C/Folic Acid (Nephro-Niranjan) 1 tab PO DAILY [facility] Last Admin: 11/30/16 11:37 Dose: 1 tab - Labs Labs: 11/30/16 08:17 11/30/16 08:17 PT 12.4 SECONDS (9.7-12.2) H 11/19/16 11:38 INR 1.1 11/19/16 11:38 APTT 29 SECONDS (21-34) 11/19/16 11:38 Assessment and Plan (1) CRF (chronic renal failure) Status: Chronic (2) Hyperkalemia Status: Acute (3) ESRD on dialysis Status: Acute (4) Pneumonia Status: Suspected (5) Acute systolic CHF (congestive heart failure) Status: Acute (6) Respiratory distress Status: Acute (7) Prophylactic measure Status: Acute (8) IDDM (insulin dependent diabetes mellitus) Status: Acute (9) Pulmonary arterial hypertension Status: Acute - Assessment and Plan (Free Text) Plan: On hemodialysis Continue antibiotics Blood sugar control Dr. Jesenia Gaines Prednisone
[2016-11-30] MEDS: Cefepime 1 GM in Sodium Chloride 0.9% 100 ML IVPB SCH (21:26)
--- NOTE | 2016-12-01 07:13 | CP.PCM.PN ---
<Korin Lott - Last Filed: 12/01/16 07:52> Subjective - Date & Time of Evaluation Date of Evaluation: 12/01/16 Time of Evaluation: 07:30 - Subjective Subjective: Cardiology Progress Note for Dr. Brenner Patient seen and examined at bedside. There were no acute overnight events. She does not have any complaints today. She denies CP, SOB, n/v/d, numbness/tingling , dysuria or hematuria. Objective - Vital Signs/Intake and Output Vital Signs (last 24 hours): Temp Pulse Resp BP Pulse Ox 98.1 F 81 20 149/64 98 11/30/16 23:27 11/30/16 23:30 11/30/16 23:27 11/30/16 23:27 11/30/16 23:27 Intake and Output: 12/01/16 12/01/16 06:59 18:59 Intake Total 200 Balance 200 - Medications Medications: Current Medications Acetaminophen (Tylenol 325mg Tab) 650 mg PO Q6 PRN PRN Reason: pain Last Admin: 11/29/16 23:32 Dose: 650 mg Albuterol (Ventolin Hfa 90 Mcg/Actuation (8 G)) 1 puff IH RQID PRN PRN Reason: Wheezing Calcium Acetate (Phoslo) 667 mg PO TIDCC [facility] Last Admin: 11/30/16 17:57 Dose: 667 mg Diltiazem HCl (Cardizem Cd) 300 mg PO DAILY [facility] Last Admin: 11/30/16 09:25 Dose: 300 mg Docusate Sodium (Colace) 100 mg PO TID [facility] Last Admin: 11/30/16 17:58 Dose: 100 mg Epoetin Lucien (Procrit) 20,000 unit IV MWF [facility] Last Admin: 11/28/16 12:01 Dose: 20,000 unit Escitalopram Oxalate (Lexapro) 5 mg PO DAILY [facility] Last Admin: 11/30/16 09:25 Dose: 5 mg Famotidine (Pepcid) 20 mg PO DAILY [facility] Last Admin: 11/30/16 09:25 Dose: 20 mg Furosemide (Lasix) 80 mg PO DAILY [facility] Last Admin: 11/30/16 09:24 Dose: 80 mg Gabapentin (Neurontin) 100 mg PO HS [facility] Last Admin: 11/30/16 21:24 Dose: 100 mg Hydralazine HCl (Apresoline) 100 mg PO TID [facility] Hydrochlorothiazide (Hydrodiuril) 50 mg PO DAILY [facility] Last Admin: 11/30/16 09:25 Dose: 50 mg Vancomycin HCl 500 mg/ Sodium (Chloride) 100 mls @ 100 mls/hr IVPB MWF [facility] Last Admin: 11/28/16 12:56 Dose: 100 mls/hr Cefepime HCl 1 gm/ Sodium (Chloride) 100 mls @ 100 mls/hr IVPB Q24H [facility] Last Admin: 11/30/16 21:26 Dose: 100 mls/hr Insulin Aspart (Novolog Mix 70/30 (70/30 Units/Ml)) 20 units SC HS [facility] Last Admin: 11/30/16 21:23 Dose: 20 units Insulin Aspart (Novolog Mix 70/30 (70/30 Units/Ml)) 15 units SC ACB [facility] Last Admin: 11/30/16 08:51 Dose: 15 units Insulin Human Regular (Novolin R) 0 unit SC ACHS [facility] PRN Reason: Protocol Last Admin: 11/30/16 21:22 Dose: 4 unit Isosorbide Mononitrate (Imdur) 60 mg PO DAILY [facility] Last Admin: 11/30/16 09:25 Dose: 60 mg Ondansetron HCl (Zofran Inj) 4 mg IVP Q4H PRN PRN Reason: Nausea/Vomiting Last Admin: 11/20/16 19:09 Dose: 4 mg Prednisone (Prednisone Tab) 10 mg PO DAILY [facility] Last Admin: 11/30/16 09:25 Dose: 10 mg Rosuvastatin Calcium (Crestor) 10 mg PO HS [facility] Last Admin: 11/30/16 21:24 Dose: 10 mg Fluticasone/Salmeterol (Advair Diskus 250/50) 1 puff INH RQ12 [facility] Last Admin: 11/30/16 19:38 Dose: 1 puff Vitamin B Complex/Vit C/Folic Acid (Nephro-Niranjan) 1 tab PO DAILY [facility] Last Admin: 11/30/16 11:37 Dose: 1 tab - Labs Labs: 11/30/16 08:17 11/30/16 08:17 PT 12.4 SECONDS (9.7-12.2) H 11/19/16 11:38 INR 1.1 11/19/16 11:38 APTT 29 SECONDS (21-34) 11/19/16 11:38 - Constitutional Appears: No Acute Distress - Head Exam Head Exam: ATRAUMATIC, NORMAL INSPECTION, NORMOCEPHALIC - Eye Exam Eye Exam: Normal appearance Pupil Exam: NORMAL ACCOMODATION - Respiratory Exam Respiratory Exam: Clear to Ausculation Bilateral, NORMAL BREATHING PATTERN. absent: Rales, Rhonchi, Wheezes - Cardiovascular Exam Cardiovascular Exam: REGULAR RHYTHM, +S1, +S2. absent: Gallop, Rubs, Murmur - GI/Abdominal Exam GI & Abdominal Exam: Soft, Normal Bowel Sounds. absent: Tenderness, Mass, Rebound - Extremities Exam Extremities Exam: Normal Inspection. absent: Calf Tenderness, Pedal Edema - Neurological Exam Neurological Exam: Alert, Awake, CN II-XII Intact - Skin Skin Exam: Dry, Normal Color, Warm Assessment and Plan - Assessment and Plan (Free Text) Assessment: This is a 66Y F with PMH CAD, COPD, ESRD on HD, HTN, DM admitted for 1) Renal cell carcinoma 2) Anemia 3) Leukocytosis 4) A.fib- rate and rhythm controlled 5) ESRD on HD (MWF) 6) CAD 7) HTN Plan: - Continue hemodialysis MWF - Continue Cardizem, Imdur, Lasix, HCTZ and Hydralazine - Continue Crestor - Patient continues to await surgery date for removal of renal cell carcinoma - Patient is able to proceed with surgery per cardiac standpoint- the benefits outweigh the risks - Continue to hold Plavix and ASA for anemia and positive stool occult blood - Continue to monitor CBC GI ppx: Pepcid DVT ppx: SCDs Case seen, reviewed and discussed with Dr. Elidia Lott PGY1 <Halina Brenner - Last Filed: 01/05/17 06:11> Objective - Vital Signs/Intake and Output Vital Signs (last 24 hours): Temp Pulse Resp BP Pulse Ox 98.3 F 82 20 179/55 H 99 12/04/16 16:00 12/04/16 16:00 12/04/16 16:00 12/04/16 16:00 12/04/16 16:00 - Labs Labs: 12/02/16 07:05 12/02/16 07:05 PT 12.4 SECONDS (9.7-12.2) H 11/19/16 11:38 INR 1.1 11/19/16 11:38 APTT 29 SECONDS (21-34) 11/19/16 11:38 Attending/Attestation - Attestation I have personally seen and examined this patient.: Yes I have fully participated in the care of the patient.: Yes I have reviewed all pertinent clinical information, including history, physical exam and plan: Yes Notes (Text): 01/05/17 06:11 no events overnight continue bp meds
[2016-12-01 07:15] LABS: BASO # 0.1 K/uL (0.0-0.2); BASO % 0.3 % (0.0-2.0); EOS # 0.2 K/uL (0.0-0.7); EOS % 1.2 % (0.0-4.0); HEMATOCRIT 25.9 % (34.0-47.0); LYMPH # 1.3 K/uL (1.0-4.3); LYMPH % 6.5 % (20.0-40.0); MEAN CELL VOLUME 90.8 fL (81.0-99.0); MEAN CORPUSCULAR HEMOGLOBIN 28.3 pg (27.0-31.0); MEAN CORPUSCULAR HGB CONC 31.1 g/dL (33.0-37.0); MEAN PLATELET VOLUME 11.3 fL (7.2-11.7); MONO # 1.9 K/uL (0.0-0.8); MONO % 9.3 % (0.0-10.0); PLATELET COUNT 235 K/uL (130-400); RED CELL DISTRIBUTION WIDTH 19.4 % (11.5-14.5); WHITE BLOOD COUNT 20.2 K/uL (4.8-10.8)
[2016-12-01 07:47] LABS: POTASSIUM 5.4 mmol/L (3.6-5.2)
[2016-12-01 07:49] LABS: BILIRUBIN,TOTAL 0.6 mg/dL (0.2-1.3)
[2016-12-01 07:50] LABS: CALCIUM 8.5 mg/dl (8.6-10.4)
[2016-12-01] MEDS: (Novolin R) Insulin Human Regular 100 units/ml vial SC SCH ×4 (08:42→21:38)
[2016-12-01] MEDS: (Novolog Mix 70/30) Insulin Aspart/Insulin Aspar 100 units/ml SC SCH ×2 (08:42→21:38)
[2016-12-01] MEDS: Fluticasone-Salmeterol 250-50mcg Diskus INH SCH ×2 (08:54→20:03)
[2016-12-01 09:18] LABS: NEUTROPHIL 87 % (50-75); TOTAL CELLS COUNTED 100
--- NOTE | 2016-12-01 09:43 | CP.PCM.PN ---
Addendum entered and electronically signed by Keysha Motta DO 12/01/16 13: 53: Pending JOS[facility] placement Original Note: <Keysha Motta - Last Filed: 12/01/16 09:40> Subjective - Date & Time of Evaluation Date of Evaluation: 12/01/16 Time of Evaluation: 07:55 - Subjective Subjective: PGY2 Medicine Note - Dr. Frederick's service: Patient seen and examined in room. Patient says she feels well but is anxious about when she will be having surgery. Patient eating well. Patient denies pain. Objective - Vital Signs/Intake and Output Vital Signs (last 24 hours): Temp Pulse Resp BP Pulse Ox 98.7 F 93 H 16 182/69 H 100 12/01/16 08:50 12/01/16 08:50 12/01/16 08:50 12/01/16 08:50 12/01/16 08:50 Intake and Output: 12/01/16 12/01/16 06:59 18:59 Intake Total 500 Balance 500 - Medications Medications: Current Medications Acetaminophen (Tylenol 325mg Tab) 650 mg PO Q6 PRN PRN Reason: pain Last Admin: 11/29/16 23:32 Dose: 650 mg Albuterol (Ventolin Hfa 90 Mcg/Actuation (8 G)) 1 puff IH RQID PRN PRN Reason: Wheezing Calcium Acetate (Phoslo) 667 mg PO TIDCC [facility] Last Admin: 12/01/16 08:45 Dose: Not Given Diltiazem HCl (Cardizem Cd) 300 mg PO DAILY [facility] Last Admin: 11/30/16 09:25 Dose: 300 mg Docusate Sodium (Colace) 100 mg PO TID [facility] Last Admin: 11/30/16 17:58 Dose: 100 mg Epoetin Lucien (Procrit) 20,000 unit IV MWF [facility] Last Admin: 11/28/16 12:01 Dose: 20,000 unit Escitalopram Oxalate (Lexapro) 5 mg PO DAILY [facility] Last Admin: 11/30/16 09:25 Dose: 5 mg Famotidine (Pepcid) 20 mg PO DAILY [facility] Last Admin: 11/30/16 09:25 Dose: 20 mg Furosemide (Lasix) 80 mg PO DAILY [facility] Last Admin: 11/30/16 09:24 Dose: 80 mg Gabapentin (Neurontin) 100 mg PO [facility] Last Admin: 11/30/16 21:24 Dose: 100 mg Hydralazine HCl (Apresoline) 100 mg PO TID [facility] Hydrochlorothiazide (Hydrodiuril) 50 mg PO DAILY [facility] Last Admin: 11/30/16 09:25 Dose: 50 mg Vancomycin HCl 500 mg/ Sodium (Chloride) 100 mls @ 100 mls/hr IVPB MWF [facility] Last Admin: 11/28/16 12:56 Dose: 100 mls/hr Cefepime HCl 1 gm/ Sodium (Chloride) 100 mls @ 100 mls/hr IVPB Q24H [facility] Last Admin: 11/30/16 21:26 Dose: 100 mls/hr Insulin Aspart (Novolog Mix 70/30 (70/30 Units/Ml)) 20 units SC [facility] Last Admin: 11/30/16 21:23 Dose: 20 units Insulin Aspart (Novolog Mix 70/30 (70/30 Units/Ml)) 15 units SC ACB [facility] Last Admin: 12/01/16 08:42 Dose: 15 units Insulin Human Regular (Novolin R) 0 unit SC ACHS [facility] PRN Reason: Protocol Last Admin: 12/01/16 08:42 Dose: 6 unit Isosorbide Mononitrate (Imdur) 60 mg PO DAILY [facility] Last Admin: 11/30/16 09:25 Dose: 60 mg Ondansetron HCl (Zofran Inj) 4 mg IVP Q4H PRN PRN Reason: Nausea/Vomiting Last Admin: 11/20/16 19:09 Dose: 4 mg Prednisone (Prednisone Tab) 10 mg PO DAILY [facility] Last Admin: 11/30/16 09:25 Dose: 10 mg Rosuvastatin Calcium (Crestor) 10 mg PO [facility] Last Admin: 11/30/16 21:24 Dose: 10 mg Fluticasone/Salmeterol (Advair Diskus 250/50) 1 puff INH RQ12 [facility] Last Admin: 12/01/16 08:54 Dose: Not Given Vitamin B Complex/Vit C/Folic Acid (Nephro-Niranjan) 1 tab PO DAILY [facility] Last Admin: 11/30/16 11:37 Dose: 1 tab - Labs Labs: 12/01/16 06:46 12/01/16 06:46 PT 12.4 SECONDS (9.7-12.2) H 03/22/17 11:38 INR 1.1 11/19/16 11:38 APTT 29 SECONDS (21-34) 11/19/16 11:38 - Constitutional Appears: Non-toxic, No Acute Distress - Head Exam Head Exam: NORMAL INSPECTION - Eye Exam Eye Exam: EOMI - ENT Exam ENT Exam: Mucous Membranes Moist - Respiratory Exam Respiratory Exam: Clear to Ausculation Bilateral, NORMAL BREATHING PATTERN. absent: Rales, Rhonchi, Wheezes - Cardiovascular Exam Cardiovascular Exam: REGULAR RHYTHM, +S1, +S2. absent: Gallop, Rubs, Murmur - GI/Abdominal Exam GI & Abdominal Exam: Soft, Normal Bowel Sounds. absent: Distended, Firm, Tenderness - Extremities Exam Extremities Exam: absent: Pedal Edema - Neurological Exam Neurological Exam: Alert, Awake - Psychiatric Exam Psychiatric exam: Normal Affect, Normal Mood - Skin Skin Exam: Normal Color, Warm Assessment and Plan - Assessment and Plan (Free Text) Assessment: Renal Cell carcinoma 12/01: Awaiting surgery date. May discharge to [facility]. 11/28: Awaiting surgery date 11/27: Patient will either need to be scheduled for surgery or discharged. 11/26: Patient cleared by cardio for surgery, surgery date pending Dr. Ba's schedule 11/24: Still needs clearance for surgery, surgery date is pending 11/21: Patient will need clearance from cardiology before surgery X:ray today showed no evidence of SBO but did show stool in the colon. Give miralax 17gm twice, consider more if still no bowel movement. 11/20: Patient will most likely need Nephrectomy. 11/14/16 right kidney biopsy - renal cell carcinoma Oncology consult - Dr. Leonardo- help appreciated Per Dr. Leonardo, best course of action is handling hematoma and then excision of renal mass if urology agrees Urology consult - Dr. Ba - f/u recommendations Anemia Assessment & Plan: 12/01: Hgb 8.1 - dropping, f/u abdominal CT for renal hematoma. possible transfusion if Hgb continues to drop 11/26: Hgb 9.2, monitor 11/24: Hbg today is 8.0, consider tranfusion if it continues to drop before surgery 11/21: Stool heme occult positive. Dr. Caraballo consulted, Hbg today is 8.1, follow up iron studies tomorrow morning 11/20: Hbg is today at around 8.8, continue to monitor. Likely secondary to renal hematoma at site of biopsy Hgb 7.4 from 6.4 yesterday s/p 1unit pRBCs 1 unit transfusion today percent saturation and ferritin and reticulocyte count normal F/U stool OB Leukocyotsis Assessment & Plan: 12/01: Persistent elevation 11/27: Still going up, will need to monitor for signs of infection Likely secondary to steroids v. infection Afebrile UA and urine culture contaminated Hyperkalemia Assessment & Plan: On dialysis Leg pain, right Assessment & Plan: swelling improved continue current management X ray shows soft tissue swelling, doppler negative for any evidence of DVT. Will given Tylenol for pain as needed. Status: Acute Pneumonia Assessment & Plan 12/01: Continue Cefepime and Vanco ID following - Dr. Bradshaw - help appreciated 11/19: Day 8 of Zithromax and Rocephin, WBC is still high 11/13: day 2 of Zithromax and Rocephin, fever, chest pain, or cough. She does have a WBC of 16.7 today with left shift, continue to monitor WBC at 19.8 with a left shift. CXR - moderate venous congestion. bilateral hilar prominence. Bibasilar airspace opacities. small b/l pleural effusions. Upper lobe granulomatous changes. Started zithromax 500mg IVPB daily and rocephin 1gm IVPB daily 11/12/16 Status: Acute IDDM (insulin dependent diabetes mellitus) Assessment & Plan: Patient on 70/30 Novolog 15 units at night and 10 units ACB. Sliding scale insulin with medium protocol and accuchecks. Status: Acute COPD (chronic obstructive pulmonary disease) Assessment & Plan: Albuterol prn and Advair. Status: Chronic CAD (coronary artery disease) Assessment & Plan: Crestor 10mg, Aspirin 81mg, and Plavix 75mg Status: Chronic Atrial fibrillation Status: Chronic 12/01: Continue Cardizem Cardio following - Dr. Brenner - help appreciated 11/19: continue Cardizem Hep, Plavix and ASA stopped secondary to renal hematoma 11/18:continue Cardizem, Hep, Plavix and ASA 11/17: Today was in Rapid afib with RVR, she is on 300mg of Cardizem. Patient transferred to [facility] and cardiology, Dr. Brenner is consulted, help appreciated. Patient is on Aspirin and Plavix. Hep 5000U SC Q8 prophylaxis HR constrolled No anticoagulation besides Plavix and ASA ESRD on dialysis Assessment & Plan: Dialysis MWF Status: Chronic CHF (congestive heart failure) Assessment & Plan: Lasix 80mg PO daily. Status: Acute HTN (hypertension) Assessment & Plan: Cardizem 300mg daily, Imdur 60mg daily, Hydralazine 100mg TID Status: Chronic Prophylactic measure Assessment & Plan: Pepcid 20mg 0.25mg Xanax prn for anxiety tylenol 650mg Q6H prn for pain <Haydee Frederick S - Last Filed: 12/01/16 23:21> Objective - Vital Signs/Intake and Output Vital Signs (last 24 hours): Temp Pulse Resp BP Pulse Ox 97.7 F 86 16 126/57 L 100 12/01/16 11:40 12/01/16 13:15 12/01/16 11:40 12/01/16 13:15 12/01/16 11:40 Intake and Output: 12/01/16 12/02/16 18:59 06:59 Intake Total 450 Balance 450 - Medications Medications: Current Medications Acetaminophen (Tylenol 325mg Tab) 650 mg PO Q6 PRN PRN Reason: pain Last Admin: 11/29/16 23:32 Dose: 650 mg Albuterol (Ventolin Hfa 90 Mcg/Actuation (8 G)) 1 puff IH RQID PRN PRN Reason: Wheezing Calcium Acetate (Phoslo) 667 mg PO TIDCC [facility] Last Admin: 12/01/16 17:18 Dose: 667 mg Diltiazem HCl (Cardizem Cd) 300 mg PO DAILY [facility] Last Admin: 12/01/16 13:30 Dose: 300 mg Docusate Sodium (Colace) 100 mg PO TID [facility] Last Admin: 12/01/16 17:18 Dose: 100 mg Epoetin Lucien (Procrit) 20,000 unit IV MWF [facility] Last Admin: 12/01/16 12:01 Dose: 20,000 unit Escitalopram Oxalate (Lexapro) 5 mg PO DAILY [facility] Last Admin: 12/01/16 13:29 Dose: 5 mg Famotidine (Pepcid) 20 mg PO DAILY [facility] Last Admin: 12/01/16 10:52 Dose: Not Given Furosemide (Lasix) 80 mg PO DAILY [facility] Last Admin: 12/01/16 10:51 Dose: Not Given Gabapentin (Neurontin) 100 mg PO HS [facility] Last Admin: 12/01/16 21:38 Dose: 100 mg Hydralazine HCl (Apresoline) 100 mg PO TID [facility] Last Admin: 12/01/16 17:18 Dose: 100 mg Hydrochlorothiazide (Hydrodiuril) 50 mg PO DAILY [facility] Last Admin: 12/01/16 10:51 Dose: Not Given Vancomycin HCl 500 mg/ Sodium (Chloride) 100 mls @ 100 mls/hr IVPB MWF [facility] Last Admin: 12/01/16 13:07 Dose: 100 mls/hr Cefepime HCl 1 gm/ Sodium (Chloride) 100 mls @ 100 mls/hr IVPB Q24H [facility] Last Admin: 12/01/16 20:00 Dose: Not Given Insulin Aspart (Novolog Mix 70/30 (70/30 Units/Ml)) 20 units SC [facility] Last Admin: 12/01/16 21:38 Dose: 20 units Insulin Aspart (Novolog Mix 70/30 (70/30 Units/Ml)) 15 units SC ACB [facility] Last Admin: 12/01/16 08:42 Dose: 15 units Insulin Human Regular (Novolin R) 0 unit SC ACHS [facility] PRN Reason: Protocol Last Admin: 12/01/16 21:38 Dose: Not Given Isosorbide Mononitrate (Imdur) 60 mg PO DAILY [facility] Last Admin: 12/01/16 10:51 Dose: Not Given Ondansetron HCl (Zofran Inj) 4 mg IVP Q4H PRN PRN Reason: Nausea/Vomiting Last Admin: 11/20/16 19:09 Dose: 4 mg Prednisone (Prednisone Tab) 10 mg PO DAILY [facility] Last Admin: 12/01/16 13:28 Dose: 10 mg Rosuvastatin Calcium (Crestor) 10 mg PO [facility] Last Admin: 12/01/16 21:37 Dose: 10 mg Fluticasone/Salmeterol (Advair Diskus 250/50) 1 puff INH RQ12 [facility] Last Admin: 12/01/16 20:03 Dose: 1 puff Vitamin B Complex/Vit C/Folic Acid (Nephro-Niranjan) 1 tab PO DAILY [facility] Last Admin: 12/01/16 13:29 Dose: 1 tab - Labs Labs: 12/01/16 06:46 12/01/16 06:46 PT 12.4 SECONDS (9.7-12.2) H 11/19/16 11:38 INR 1.1 11/19/16 11:38 APTT 29 SECONDS (21-34) 11/19/16 11:38 Assessment and Plan (1) Acute systolic CHF (congestive heart failure) Status: Acute (2) Hyperkalemia Status: Acute (3) IDDM (insulin dependent diabetes mellitus) Status: Acute (4) Prophylactic measure Status: Acute (5) Pulmonary arterial hypertension Status: Acute (6) Respiratory distress Status: Acute (7) CRF (chronic renal failure) Status: Chronic (8) ESRD on dialysis Status: Acute (9) Pneumonia Status: Suspected Attending/Attestation - Attestation I have personally seen and examined this patient.: Yes I have fully participated in the care of the patient.: Yes I have reviewed all pertinent clinical information, including history, physical exam and plan: Yes Notes (Text): 12/01/16 23:21 caseseen and discussed with staff and resident mx as agreed
--- NOTE | 2016-12-01 10:49 | CP.PCM.PN ---
Subjective - Date & Time of Evaluation Date of Evaluation: 12/01/16 Time of Evaluation: 07:00 - Subjective Subjective: This is a 66Y F with PMH CAD, COPD, ESRD on HD, HTN, DM admitted for 1) Renal cell carcinoma 2) Anemia 3) Leukocytosis 4) A.fib- rate and rhythm controlled 5) ESRD on HD ([facility]) 6) CAD 7) HTN Objective - Vital Signs/Intake and Output Vital Signs (last 24 hours): Temp Pulse Resp BP Pulse Ox 98.7 F 93 H 16 157/56 H 100 12/01/16 08:50 12/01/16 08:50 12/01/16 08:50 12/01/16 09:35 12/01/16 08:50 Intake and Output: 12/01/16 12/01/16 06:59 18:59 Intake Total 500 Balance 500 - Medications Medications: Current Medications Acetaminophen (Tylenol 325mg Tab) 650 mg PO Q6 PRN PRN Reason: pain Last Admin: 11/29/16 23:32 Dose: 650 mg Albuterol (Ventolin Hfa 90 Mcg/Actuation (8 G)) 1 puff IH RQID PRN PRN Reason: Wheezing Calcium Acetate (Phoslo) 667 mg PO TIDCC [facility] Last Admin: 12/01/16 08:45 Dose: Not Given Diltiazem HCl (Cardizem Cd) 300 mg PO DAILY [facility] Last Admin: 11/30/16 09:25 Dose: 300 mg Docusate Sodium (Colace) 100 mg PO TID [facility] Last Admin: 11/30/16 17:58 Dose: 100 mg Epoetin Lucien (Procrit) 20,000 unit IV [facility] Last Admin: 11/28/16 12:01 Dose: 20,000 unit Escitalopram Oxalate (Lexapro) 5 mg PO DAILY [facility] Last Admin: 11/30/16 09:25 Dose: 5 mg Famotidine (Pepcid) 20 mg PO DAILY [facility] Last Admin: 11/30/16 09:25 Dose: 20 mg Furosemide (Lasix) 80 mg PO DAILY [facility] Last Admin: 11/30/16 09:24 Dose: 80 mg Gabapentin (Neurontin) 100 mg PO HS [facility] Last Admin: 11/30/16 21:24 Dose: 100 mg Hydralazine HCl (Apresoline) 100 mg PO TID [facility] Hydrochlorothiazide (Hydrodiuril) 50 mg PO DAILY [facility] Last Admin: 11/30/16 09:25 Dose: 50 mg Vancomycin HCl 500 mg/ Sodium (Chloride) 100 mls @ 100 mls/hr IVPB MWF [facility] Last Admin: 11/28/16 12:56 Dose: 100 mls/hr Cefepime HCl 1 gm/ Sodium (Chloride) 100 mls @ 100 mls/hr IVPB Q24H [facility] Last Admin: 11/30/16 21:26 Dose: 100 mls/hr Insulin Aspart (Novolog Mix 70/30 (70/30 Units/Ml)) 20 units SC HS [facility] Last Admin: 11/30/16 21:23 Dose: 20 units Insulin Aspart (Novolog Mix 70/30 (70/30 Units/Ml)) 15 units SC ACB [facility] Last Admin: 12/01/16 08:42 Dose: 15 units Insulin Human Regular (Novolin R) 0 unit SC ACHS [facility] PRN Reason: Protocol Last Admin: 12/01/16 08:42 Dose: 6 unit Isosorbide Mononitrate (Imdur) 60 mg PO DAILY [facility] Last Admin: 11/30/16 09:25 Dose: 60 mg Ondansetron HCl (Zofran Inj) 4 mg IVP Q4H PRN PRN Reason: Nausea/Vomiting Last Admin: 11/20/16 19:09 Dose: 4 mg Prednisone (Prednisone Tab) 10 mg PO DAILY [facility] Last Admin: 11/30/16 09:25 Dose: 10 mg Rosuvastatin Calcium (Crestor) [address] [facility] Last Admin: 11/30/16 21:24 Dose: 10 mg Fluticasone/Salmeterol (Advair Diskus 250/50) 1 puff INH RQ12 [facility] Last Admin: 12/01/16 08:54 Dose: Not Given Vitamin B Complex/Vit C/Folic Acid (Nephro-Niranjan) 1 tab PO DAILY [facility] Last Admin: 11/30/16 11:37 Dose: 1 tab - Labs Labs: 12/01/16 06:46 12/01/16 06:46 PT 12.4 SECONDS (9.7-12.2) H 11/19/16 11:38 INR 1.1 11/19/16 11:38 APTT 29 SECONDS (21-34) 03/22/17 11:38 - Constitutional Appears: Non-toxic, Cachectic, Chronically Ill - Head Exam Head Exam: NORMOCEPHALIC - Eye Exam Eye Exam: absent: Scleral icterus - Neck Exam Neck Exam: absent: Lymphadenopathy - Respiratory Exam Respiratory Exam: Decreased Breath Sounds - Cardiovascular Exam Cardiovascular Exam: REGULAR RHYTHM - GI/Abdominal Exam GI & Abdominal Exam: Distended, Soft - Rectal Exam Rectal Exam: Deferred - Exam Exam: NORMAL INSPECTION - Extremities Exam Extremities Exam: absent: Calf Tenderness, Pedal Edema - Back Exam Back Exam: absent: CVA tenderness (L), CVA tenderness (R) Assessment and Plan (1) Acute systolic CHF (congestive heart failure) Status: Acute (2) Anemia Status: Acute (3) Asthma attack Status: Acute (4) Atrial fibrillation with rapid ventricular response Status: Acute (5) IDDM (insulin dependent diabetes mellitus) Status: Acute (6) Renal mass Status: Acute - Assessment and Plan (Free Text) Assessment: consider d/c antibiotics as cultures negative
[2016-12-01] MEDS: diltiaZEM 300 mg/24 Hours CD Cap PO SCH ×2 (10:50→13:30)
[2016-12-01] MEDS: Multivitamin Vitamin B Complex (Nephro-Vite) Tab PO SCH ×2 (10:52→13:29)
[2016-12-01] MEDS: Epoetin Alfa Dialysis 20000 UNIT/ML Inj IV SCH (12:01)
--- NOTE | 2016-12-01 18:15 | CP.PCM.PN ---
Subjective - Date & Time of Evaluation Date of Evaluation: 12/01/16 Time of Evaluation: 09:00 - Subjective Subjective: clinically same Objective - Vital Signs/Intake and Output Vital Signs (last 24 hours): Temp Pulse Resp BP Pulse Ox 97.7 F 86 16 126/57 L 100 12/01/16 11:40 12/01/16 13:15 12/01/16 11:40 12/01/16 13:15 12/01/16 11:40 Intake and Output: 12/01/16 12/01/16 06:59 18:59 Intake Total 500 450 Balance 500 450 - Medications Medications: Current Medications Acetaminophen (Tylenol 325mg Tab) 650 mg PO Q6 PRN PRN Reason: pain Last Admin: 11/29/16 23:32 Dose: 650 mg Albuterol (Ventolin Hfa 90 Mcg/Actuation (8 G)) 1 puff IH RQID PRN PRN Reason: Wheezing Calcium Acetate (Phoslo) 667 mg PO TIDCC [facility] Last Admin: 12/01/16 17:18 Dose: 667 mg Diltiazem HCl (Cardizem Cd) 300 mg PO DAILY [facility] Last Admin: 12/01/16 13:30 Dose: 300 mg Docusate Sodium (Colace) 100 mg PO TID [facility] Last Admin: 12/01/16 17:18 Dose: 100 mg Epoetin Lucien (Procrit) 20,000 unit IV MWF [facility] Last Admin: 12/01/16 12:01 Dose: 20,000 unit Escitalopram Oxalate (Lexapro) 5 mg PO DAILY [facility] Last Admin: 12/01/16 13:29 Dose: 5 mg Famotidine (Pepcid) 20 mg PO DAILY [facility] Last Admin: 12/01/16 10:52 Dose: Not Given Furosemide (Lasix) 80 mg PO DAILY [facility] Last Admin: 12/01/16 10:51 Dose: Not Given Gabapentin (Neurontin) 100 mg PO HS [facility] Last Admin: 11/30/16 21:24 Dose: 100 mg Hydralazine HCl (Apresoline) 100 mg PO TID [facility] Last Admin: 12/01/16 17:18 Dose: 100 mg Hydrochlorothiazide (Hydrodiuril) 50 mg PO DAILY [facility] Last Admin: 12/01/16 10:51 Dose: Not Given Vancomycin HCl 500 mg/ Sodium (Chloride) 100 mls @ 100 mls/hr IVPB MWF [facility] Last Admin: 12/01/16 13:07 Dose: 100 mls/hr Cefepime HCl 1 gm/ Sodium (Chloride) 100 mls @ 100 mls/hr IVPB Q24H [facility] Last Admin: 11/30/16 21:26 Dose: 100 mls/hr Insulin Aspart (Novolog Mix 70/30 (70/30 Units/Ml)) 20 units SC HS [facility] Last Admin: 11/30/16 21:23 Dose: 20 units Insulin Aspart (Novolog Mix 70/30 (70/30 Units/Ml)) 15 units SC ACB [facility] Last Admin: 12/01/16 08:42 Dose: 15 units Insulin Human Regular (Novolin R) 0 unit SC ACHS [facility] PRN Reason: Protocol Last Admin: 12/01/16 17:19 Dose: 12 unit Isosorbide Mononitrate (Imdur) 60 mg PO DAILY [facility] Last Admin: 12/01/16 10:51 Dose: Not Given Ondansetron HCl (Zofran Inj) 4 mg IVP Q4H PRN PRN Reason: Nausea/Vomiting Last Admin: 11/20/16 19:09 Dose: 4 mg Prednisone (Prednisone Tab) 10 mg PO DAILY [facility] Last Admin: 12/01/16 13:28 Dose: 10 mg Rosuvastatin Calcium (Crestor) 10 mg PO HS [facility] Last Admin: 11/30/16 21:24 Dose: 10 mg Fluticasone/Salmeterol (Advair Diskus 250/50) 1 puff INH RQ12 [facility] Last Admin: 12/01/16 08:54 Dose: Not Given Vitamin B Complex/Vit C/Folic Acid (Nephro-Niranjan) 1 tab PO DAILY [facility] Last Admin: 12/01/16 13:29 Dose: 1 tab - Labs Labs: 12/01/16 06:46 12/01/16 06:46 PT 12.4 SECONDS (9.7-12.2) H 11/19/16 11:38 INR 1.1 11/19/16 11:38 APTT 29 SECONDS (21-34) 11/19/16 11:38 Assessment and Plan (1) CRF (chronic renal failure) Status: Chronic (2) Hyperkalemia Status: Acute (3) ESRD on dialysis Status: Acute (4) Pneumonia Status: Suspected (5) Acute systolic CHF (congestive heart failure) Status: Acute (6) Respiratory distress Status: Acute (7) Prophylactic measure Status: Acute (8) IDDM (insulin dependent diabetes mellitus) Status: Acute (9) Pulmonary arterial hypertension Status: Acute - Assessment and Plan (Free Text) Plan: cultures are negative May discontinue antibiotics Blood sugar monitoring Cardizem Prednisone Consults
[2016-12-01] MEDS: Cefepime 1 GM in Sodium Chloride 0.9% 100 ML IVPB SCH (20:00)
[2016-12-02 07:22] LABS: BASO # 0.1 K/uL (0.0-0.2); BASO % 0.3 % (0.0-2.0); EOS # 0.2 K/uL (0.0-0.7); EOS % 1.1 % (0.0-4.0); HEMATOCRIT 27.2 % (34.0-47.0); LYMPH # 1.5 K/uL (1.0-4.3); LYMPH % 7.9 % (20.0-40.0); MEAN CELL VOLUME 92.2 fL (81.0-99.0); MEAN CORPUSCULAR HEMOGLOBIN 28.3 pg (27.0-31.0); MEAN CORPUSCULAR HGB CONC 30.7 g/dL (33.0-37.0); MEAN PLATELET VOLUME 11.4 fL (7.2-11.7); MONO # 2.1 K/uL (0.0-0.8); MONO % 11.5 % (0.0-10.0); PLATELET COUNT 218 K/uL (130-400); RED CELL DISTRIBUTION WIDTH 20.5 % (11.5-14.5); WHITE BLOOD COUNT 18.6 K/uL (4.8-10.8)
[2016-12-02 07:23] LABS: POTASSIUM 4.8 mmol/L (3.6-5.2)
[2016-12-02 07:26] LABS: BILIRUBIN,TOTAL 0.3 mg/dL (0.2-1.3); TOTAL PROTEIN 6.7 g/dL (6.3-8.3)
[2016-12-02 07:27] LABS: CALCIUM 8.5 mg/dl (8.6-10.4)
[2016-12-02] MEDS: Albuterol HFA 90 mcg/actuation (8 g) IH PRN ×2 (08:44→19:48)
[2016-12-02] MEDS: Fluticasone-Salmeterol 250-50mcg Diskus INH SCH ×2 (08:44→19:49)
[2016-12-02 08:58] LABS: NEUTROPHIL 80 % (50-75); NUCLEATED RED BLOOD CELL 1 % (0-0); TOTAL CELLS COUNTED 100
[2016-12-02 08:59] LABS: LARGE PLATELETS PRESENT
[2016-12-02] MEDS: (Novolog Mix 70/30) Insulin Aspart/Insulin Aspar 100 units/ml SC SCH ×2 (09:02→21:29)
[2016-12-02] MEDS: (Novolin R) Insulin Human Regular 100 units/ml vial SC SCH ×4 (09:02→22:18)
[2016-12-02] MEDS: diltiaZEM 300 mg/24 Hours CD Cap PO SCH (09:12)
[2016-12-02] MEDS: Multivitamin Vitamin B Complex (Nephro-Vite) Tab PO SCH (09:13)
--- NOTE | 2016-12-02 12:03 | CP.PCM.PN ---
<Korin Lott - Last Filed: 12/02/16 12:56> Subjective - Date & Time of Evaluation Date of Evaluation: 12/02/16 Time of Evaluation: 11:20 - Subjective Subjective: Cardiology Progress Note for Dr. Brenner Patient seen and examined at bedside. There were no acute overnight events. Patient is confused, but denies having any pain, CP, SOB, dysuria, hematuria, numbness/tingling, n/v/d. Objective - Vital Signs/Intake and Output Vital Signs (last 24 hours): Temp Pulse Resp BP Pulse Ox 98.1 F 80 20 169/67 H 100 12/02/16 09:29 12/02/16 09:29 12/02/16 09:29 12/02/16 09:29 12/02/16 09:29 Intake and Output: 12/02/16 12/02/16 06:59 18:59 Intake Total 300 Balance 300 - Medications Medications: Current Medications Acetaminophen (Tylenol 325mg Tab) 650 mg PO Q6 PRN PRN Reason: pain Last Admin: 11/29/16 23:32 Dose: 650 mg Albuterol (Ventolin Hfa 90 Mcg/Actuation (8 G)) 1 puff IH RQID PRN PRN Reason: Wheezing Last Admin: 12/02/16 08:44 Dose: 1 puff Calcium Acetate (Phoslo) 667 mg PO TIDCC [facility] Last Admin: 12/02/16 09:01 Dose: 667 mg Diltiazem HCl (Cardizem Cd) 300 mg PO DAILY [facility] Last Admin: 12/02/16 09:12 Dose: 300 mg Docusate Sodium (Colace) 100 mg PO TID [facility] Last Admin: 12/02/16 09:11 Dose: 100 mg Epoetin Lucien (Procrit) 20,000 unit IV MWF [facility] Last Admin: 12/01/16 12:01 Dose: 20,000 unit Escitalopram Oxalate (Lexapro) 5 mg PO DAILY [facility] Last Admin: 12/02/16 09:12 Dose: 5 mg Famotidine (Pepcid) 20 mg PO DAILY [facility] Last Admin: 12/02/16 09:11 Dose: 20 mg Furosemide (Lasix) 80 mg PO DAILY [facility] Last Admin: 12/02/16 09:13 Dose: 80 mg Gabapentin (Neurontin) 100 mg PO HS [facility] Last Admin: 12/01/16 21:38 Dose: 100 mg Hydralazine HCl (Apresoline) 100 mg PO TID [facility] Last Admin: 12/02/16 09:11 Dose: 100 mg Hydrochlorothiazide (Hydrodiuril) 50 mg PO DAILY [facility] Last Admin: 12/02/16 09:11 Dose: 50 mg Vancomycin HCl 500 mg/ Sodium (Chloride) 100 mls @ 100 mls/hr IVPB MWF [facility] Last Admin: 12/01/16 13:07 Dose: 100 mls/hr Cefepime HCl 1 gm/ Sodium (Chloride) 100 mls @ 100 mls/hr IVPB Q24H [facility] Last Admin: 12/01/16 20:00 Dose: Not Given Insulin Aspart (Novolog Mix 70/30 (70/30 Units/Ml)) 20 units SC [facility] Last Admin: 12/01/16 21:38 Dose: 20 units Insulin Aspart (Novolog Mix 70/30 (70/30 Units/Ml)) 15 units SC ACB [facility] Last Admin: 12/02/16 09:02 Dose: 15 units Insulin Human Regular (Novolin R) 0 unit SC [facility] PRN Reason: Protocol Last Admin: 12/02/16 09:02 Dose: Not Given Isosorbide Mononitrate (Imdur) 60 mg PO DAILY [facility] Last Admin: 12/02/16 09:10 Dose: 60 mg Ondansetron HCl (Zofran Inj) 4 mg IVP Q4H PRN PRN Reason: Nausea/Vomiting Last Admin: 11/20/16 19:09 Dose: 4 mg Prednisone (Prednisone Tab) 10 mg PO DAILY [facility] Last Admin: 12/02/16 09:10 Dose: 10 mg Rosuvastatin Calcium (Crestor) 10 mg PO [facility] Last Admin: 12/01/16 21:37 Dose: 10 mg Fluticasone/Salmeterol (Advair Diskus 250/50) 1 puff INH RQ12 [facility] Last Admin: 12/02/16 08:44 Dose: 1 puff Vitamin B Complex/Vit C/Folic Acid (Nephro-Niranjan) 1 tab PO DAILY [facility] Last Admin: 12/02/16 09:13 Dose: 1 tab - Labs Labs: 12/02/16 07:05 12/02/16 07:05 PT 12.4 SECONDS (9.7-12.2) H 11/19/16 11:38 INR 1.1 11/19/16 11:38 APTT 29 SECONDS (21-34) 11/19/16 11:38 - Constitutional Appears: No Acute Distress - Head Exam Head Exam: ATRAUMATIC, NORMAL INSPECTION, NORMOCEPHALIC - Eye Exam Eye Exam: Normal appearance Pupil Exam: NORMAL ACCOMODATION - ENT Exam ENT Exam: Mucous Membranes Moist - Neck Exam Neck Exam: Full ROM - Respiratory Exam Respiratory Exam: Clear to Ausculation Bilateral, NORMAL BREATHING PATTERN. absent: Rales, Rhonchi, Wheezes - Cardiovascular Exam Cardiovascular Exam: REGULAR RHYTHM, +S1, +S2. absent: Gallop, Rubs, Murmur - GI/Abdominal Exam GI & Abdominal Exam: Soft, Normal Bowel Sounds. absent: Rigid, Tenderness, Mass , Rebound - Extremities Exam Extremities Exam: Normal Inspection. absent: Calf Tenderness, Pedal Edema - Neurological Exam Neurological Exam: Alert, Awake, CN II-XII Intact. absent: Oriented x3 - Skin Skin Exam: Dry, Normal Color, Warm Assessment and Plan - Assessment and Plan (Free Text) Assessment: This is a 66Y F with PMH CAD, COPD, ESRD on HD, HTN, DM admitted for 1) Renal cell carcinoma 2) Anemia- stable 3) Leukocytosis (afebrile) 4) A.fib- rate and rhythm controlled 5) ESRD on HD (MWF) 6) CAD 7) HTN Plan: - Continue to hold ASA and Plavix - Continue to monitor H/H- Hgb stable - Continue HD schedule - Continue BP meds: Cardizem, Imdur, Lasix, Hydralazine, HCTZ - Continue Crestor - Patient should proceed with removal of RCC (benefits outweigh risks) - still awaiting surgery date. GI ppx: Pepcid DVT ppx: SCDs Case seen, reviewed and discussed with Dr. Elidia Lott PGY1 <Halina Brenner - Last Filed: 01/05/17 06:11> Objective - Vital Signs/Intake and Output Vital Signs (last 24 hours): Temp Pulse Resp BP Pulse Ox 98.3 F 82 20 179/55 H 99 12/04/16 16:00 12/04/16 16:00 12/04/16 16:00 12/04/16 16:00 12/04/16 16:00 - Labs Labs: 12/02/16 07:05 12/02/16 07:05 PT 12.4 SECONDS (9.7-12.2) H 11/19/16 11:38 INR 1.1 11/19/16 11:38 APTT 29 SECONDS (21-34) 11/19/16 11:38 Attending/Attestation - Attestation I have personally seen and examined this patient.: Yes I have fully participated in the care of the patient.: Yes I have reviewed all pertinent clinical information, including history, physical exam and plan: Yes Notes (Text): 01/05/17 06:10 still confused feeling better continue bp meds
--- NOTE | 2016-12-02 12:42 | CP.PCM.PN ---
<Frieda Villanueva - Last Filed: 12/02/16 13:57> Subjective - Date & Time of Evaluation Date of Evaluation: 12/02/16 Time of Evaluation: 10:05 - Subjective Subjective: Medicine Progress Note- Dr Trung Frederick's service Patient seen and examined. Patient states that she feels well today and that she is in no acute distress. Denies chest pain, fever, chills, nausea, vomiting , difficulty urinating, diarrhea, abdominal pain, and palpitations. Objective - Vital Signs/Intake and Output Vital Signs (last 24 hours): Temp Pulse Resp BP Pulse Ox 98.1 F 80 20 169/67 H 100 12/02/16 09:29 12/02/16 11:58 12/02/16 09:29 12/02/16 09:29 12/02/16 09:29 Intake and Output: 12/02/16 12/02/16 06:59 18:59 Intake Total 300 Balance 300 - Medications Medications: Current Medications Acetaminophen (Tylenol 325mg Tab) 650 mg PO Q6 PRN PRN Reason: pain Last Admin: 11/29/16 23:32 Dose: 650 mg Albuterol (Ventolin Hfa 90 Mcg/Actuation (8 G)) 1 puff IH RQID PRN PRN Reason: Wheezing Last Admin: 12/02/16 08:44 Dose: 1 puff Calcium Acetate (Phoslo) 667 mg PO TIDCC [facility] Last Admin: 12/02/16 12:37 Dose: 667 mg Diltiazem HCl (Cardizem Cd) 300 mg PO DAILY [facility] Last Admin: 12/02/16 09:12 Dose: 300 mg Docusate Sodium (Colace) 100 mg PO TID [facility] Last Admin: 12/02/16 09:11 Dose: 100 mg Epoetin Lucien (Procrit) 20,000 unit IV MWF [facility] Last Admin: 12/01/16 12:01 Dose: 20,000 unit Escitalopram Oxalate (Lexapro) 5 mg PO DAILY [facility] Last Admin: 12/02/16 09:12 Dose: 5 mg Famotidine (Pepcid) 20 mg PO DAILY [facility] Last Admin: 12/02/16 09:11 Dose: 20 mg Furosemide (Lasix) 80 mg PO DAILY [facility] Last Admin: 12/02/16 09:13 Dose: 80 mg Gabapentin (Neurontin) 100 mg PO HS [facility] Last Admin: 12/01/16 21:38 Dose: 100 mg Hydralazine HCl (Apresoline) 100 mg PO TID [facility] Last Admin: 12/02/16 09:11 Dose: 100 mg Hydrochlorothiazide (Hydrodiuril) 50 mg PO DAILY [facility] Last Admin: 12/02/16 09:11 Dose: 50 mg Vancomycin HCl 500 mg/ Sodium (Chloride) 100 mls @ 100 mls/hr IVPB MWF [facility] Last Admin: 12/01/16 13:07 Dose: 100 mls/hr Cefepime HCl 1 gm/ Sodium (Chloride) 100 mls @ 100 mls/hr IVPB Q24H [facility] Last Admin: 12/01/16 20:00 Dose: Not Given Insulin Aspart (Novolog Mix 70/30 (70/30 Units/Ml)) 20 units SC [facility] Last Admin: 12/01/16 21:38 Dose: 20 units Insulin Aspart (Novolog Mix 70/30 (70/30 Units/Ml)) 15 units SC ACB [facility] Last Admin: 12/02/16 09:02 Dose: 15 units Insulin Human Regular (Novolin R) 0 unit SC [facility] PRN Reason: Protocol Last Admin: 12/02/16 12:37 Dose: 2 unit Isosorbide Mononitrate (Imdur) 60 mg PO DAILY [facility] Last Admin: 12/02/16 09:10 Dose: 60 mg Ondansetron HCl (Zofran Inj) 4 mg IVP Q4H PRN PRN Reason: Nausea/Vomiting Last Admin: 11/20/16 19:09 Dose: 4 mg Prednisone (Prednisone Tab) 10 mg PO DAILY [facility] Last Admin: 12/02/16 09:10 Dose: 10 mg Rosuvastatin Calcium (Crestor) 10 mg PO [facility] Last Admin: 12/01/16 21:37 Dose: 10 mg Fluticasone/Salmeterol (Advair Diskus 250/50) 1 puff INH RQ12 [facility] Last Admin: 12/02/16 08:44 Dose: 1 puff Vitamin B Complex/Vit C/Folic Acid (Nephro-Niranjan) 1 tab PO DAILY [facility] Last Admin: 12/02/16 09:13 Dose: 1 tab - Labs Labs: 12/02/16 07:05 12/02/16 07:05 PT 12.4 SECONDS (9.7-12.2) H 11/19/16 11:38 INR 1.1 11/19/16 11:38 APTT 29 SECONDS (21-34) 11/19/16 11:38 - Constitutional Appears: Non-toxic, No Acute Distress - Head Exam Head Exam: ATRAUMATIC, NORMOCEPHALIC - Eye Exam Eye Exam: EOMI, Normal appearance - ENT Exam ENT Exam: Mucous Membranes Moist - Neck Exam Neck Exam: Normal Inspection - Respiratory Exam Respiratory Exam: Clear to Ausculation Bilateral, NORMAL BREATHING PATTERN. absent: Accessory Muscle Use, Rhonchi, Wheezes, Respiratory Distress, Stridor - Cardiovascular Exam Cardiovascular Exam: REGULAR RHYTHM, +S1, +S2 - GI/Abdominal Exam GI & Abdominal Exam: Soft, Normal Bowel Sounds - Extremities Exam Extremities Exam: Normal Inspection. absent: Pedal Edema - Back Exam Back Exam: NORMAL INSPECTION - Neurological Exam Neurological Exam: Alert, Awake, Oriented x3 - Psychiatric Exam Psychiatric exam: Normal Affect, Normal Mood - Skin Skin Exam: Dry, Normal Color, Warm Assessment and Plan - Assessment and Plan (Free Text) Assessment: Renal Cell carcinoma 12/02: Awaiting surgery date. May discharge to [facility] when bed ready. 11/27: Patient will either need to be scheduled for surgery or discharged. 11/26: Patient cleared by cardio for surgery, surgery date pending Dr. Ba's schedule 11/21: Patient will need clearance from cardiology before surgery X:ray today showed no evidence of SBO but did show stool in the colon. Give miralax 17gm twice, consider more if still no bowel movement. 11/14/16 right kidney biopsy - renal cell carcinoma Oncology consult - Dr. Leonardo- help appreciated Per Dr. Leonardo, best course of action is handling hematoma and then excision of renal mass if urology agrees Urology consult - Dr. Ba - f/u recommendations Anemia Assessment & Plan: 12/02: Hgb 8.4 - increased from 8.1 yesterday. Stable, continue to monitor. 11/26: Hgb 9.2, monitor 11/24: Hbg today is 8.0, consider tranfusion if it continues to drop before surgery 11/21: Stool heme occult positive. Dr. Caraballo consulted, Hbg today is 8.1, follow up iron studies tomorrow morning 11/20: Hbg is today at around 8.8, continue to monitor. Likely secondary to renal hematoma at site of biopsy. s/p 1 u transfusion on admission. Percent saturation and ferritin and reticulocyte count normal Leukocyotsis Assessment & Plan: 12/02: Persistent elevation, stable. Likely secondary to malignancy. No signs of infection, vital signs stable. Afebrile UA and urine culture contaminated Hyperkalemia Assessment & Plan: On dialysis, continue management Leg pain, right Assessment & Plan: swelling improved continue current management X ray shows soft tissue swelling, doppler negative for any evidence of DVT. Will given Tylenol for pain as needed. Status: Acute Pneumonia Assessment & Plan 12/02: Continue Cefepime and Vanco ID following - Dr. Bradshaw - help appreciated CXR - moderate venous congestion. bilateral hilar prominence. Bibasilar airspace opacities. small b/l pleural effusions. Upper lobe granulomatous changes. Started zithromax 500mg IVPB daily and rocephin 1gm IVPB daily 11/12/16 Status: Acute IDDM (insulin dependent diabetes mellitus) Assessment & Plan: Patient on 70/30 Novolog 15 units at night and 10 units ACB. Sliding scale insulin with medium protocol and accuchecks. Status: Acute COPD (chronic obstructive pulmonary disease) Assessment & Plan: Albuterol prn and Advair. Status: Chronic CAD (coronary artery disease) Assessment & Plan: Crestor 10mg, Aspirin 81mg, and Plavix 75mg Status: Chronic Atrial fibrillation Status: Chronic 12/02: Continue Cardizem Cardio following - Dr. Brenner - help appreciated 11/19: continue Cardizem Hep, Plavix and ASA stopped secondary to renal hematoma 11/18: continue Cardizem, Hep, Plavix and ASA 11/17: Today was in Rapid afib with RVR, she is on 300mg of Cardizem. Patient transferred to tele and cardiology, Dr. Brenner is consulted, help appreciated. Patient is on Aspirin and Plavix. Hep 5000U SC Q8 prophylaxis HR constrolled No anticoagulation besides Plavix and ASA ESRD on dialysis Assessment & Plan: Dialysis MWF Status: Chronic CHF (congestive heart failure) Assessment & Plan: Lasix 80mg PO daily. Status: Acute HTN (hypertension) Assessment & Plan: Cardizem 300mg daily, Imdur 60mg daily, Hydralazine 100mg TID Status: Chronic Prophylactic measure Assessment & Plan: Pepcid 20mg 0.25mg Xanax prn for anxiety tylenol 650mg Q6H prn for pain All management and orders per Dr Trung Frederick. Will discuss with attending. <Haydee Frederick - Last Filed: 12/02/16 18:58> Objective - Vital Signs/Intake and Output Vital Signs (last 24 hours): Temp Pulse Resp BP Pulse Ox 99.0 F 95 H 20 164/65 H 98 12/02/16 15:06 12/02/16 16:59 12/02/16 15:06 12/02/16 15:06 12/02/16 15:06 Intake and Output: 12/02/16 12/02/16 06:59 18:59 Intake Total 300 400 Output Total 2 Balance 300 398 - Medications Medications: Current Medications Acetaminophen (Tylenol 325mg Tab) 650 mg PO Q6 PRN PRN Reason: pain Last Admin: 11/29/16 23:32 Dose: 650 mg Albuterol (Ventolin Hfa 90 Mcg/Actuation (8 G)) 1 puff IH RQID PRN PRN Reason: Wheezing Last Admin: 12/02/16 08:44 Dose: 1 puff Calcium Acetate (Phoslo) 667 mg PO TIDCC [facility] Last Admin: 12/02/16 17:41 Dose: 667 mg Diltiazem HCl (Cardizem Cd) 300 mg PO DAILY [facility] Last Admin: 12/02/16 09:12 Dose: 300 mg Docusate Sodium (Colace) 100 mg PO TID [facility] Last Admin: 12/02/16 17:41 Dose: 100 mg Epoetin Lucien (Procrit) 20,000 unit IV MWF [facility] Last Admin: 12/01/16 12:01 Dose: 20,000 unit Escitalopram Oxalate (Lexapro) 5 mg PO DAILY [facility] Last Admin: 12/02/16 09:12 Dose: 5 mg Famotidine (Pepcid) 20 mg PO DAILY [facility] Last Admin: 12/02/16 09:11 Dose: 20 mg Furosemide (Lasix) 80 mg PO DAILY [facility] Last Admin: 12/02/16 09:13 Dose: 80 mg Gabapentin (Neurontin) 100 mg PO HS [facility] Last Admin: 12/01/16 21:38 Dose: 100 mg Hydralazine HCl (Apresoline) 100 mg PO TID [facility] Last Admin: 12/02/16 14:37 Dose: 100 mg Hydrochlorothiazide (Hydrodiuril) 50 mg PO DAILY [facility] Last Admin: 12/02/16 09:11 Dose: 50 mg Vancomycin HCl 500 mg/ Sodium (Chloride) 100 mls @ 100 mls/hr IVPB MWF [facility] Last Admin: 12/01/16 13:07 Dose: 100 mls/hr Cefepime HCl 1 gm/ Sodium (Chloride) 100 mls @ 100 mls/hr IVPB Q24H [facility] Last Admin: 12/01/16 20:00 Dose: Not Given Insulin Aspart (Novolog Mix 70/30 (70/30 Units/Ml)) 20 units SC HS [facility] Last Admin: 12/01/16 21:38 Dose: 20 units Insulin Aspart (Novolog Mix 70/30 (70/30 Units/Ml)) 15 units SC ACB [facility] Last Admin: 12/02/16 09:02 Dose: 15 units Insulin Human Regular (Novolin R) 0 unit SC ACHS [facility] PRN Reason: Protocol Last Admin: 12/02/16 17:39 Dose: 12 unit Isosorbide Mononitrate (Imdur) 60 mg PO DAILY [facility] Last Admin: 12/02/16 09:10 Dose: 60 mg Ondansetron HCl (Zofran Inj) 4 mg IVP Q4H PRN PRN Reason: Nausea/Vomiting Last Admin: 11/20/16 19:09 Dose: 4 mg Prednisone (Prednisone Tab) 10 mg PO DAILY [facility] Last Admin: 12/02/16 09:10 Dose: 10 mg Rosuvastatin Calcium (Crestor) 10 mg PO HS [facility] Last Admin: 12/01/16 21:37 Dose: 10 mg Fluticasone/Salmeterol (Advair Diskus 250/50) 1 puff INH RQ12 [facility] Last Admin: 12/02/16 08:44 Dose: 1 puff Vitamin B Complex/Vit C/Folic Acid (Nephro-Niranjan) 1 tab PO DAILY [facility] Last Admin: 12/02/16 09:13 Dose: 1 tab - Labs Labs: 12/02/16 07:05 12/02/16 07:05 PT 12.4 SECONDS (9.7-12.2) H 11/19/16 11:38 INR 1.1 11/19/16 11:38 APTT 29 SECONDS (21-34) 11/19/16 11:38 Assessment and Plan (1) Acute systolic CHF (congestive heart failure) Status: Acute (2) Hyperkalemia Status: Acute (3) IDDM (insulin dependent diabetes mellitus) Status: Acute (4) Prophylactic measure Status: Acute (5) Pulmonary arterial hypertension Status: Acute (6) Respiratory distress Status: Acute (7) CRF (chronic renal failure) Status: Chronic (8) ESRD on dialysis Status: Acute (9) Pneumonia Status: Suspected Attending/Attestation - Attestation I have personally seen and examined this patient.: Yes I have fully participated in the care of the patient.: Yes I have reviewed all pertinent clinical information, including history, physical exam and plan: Yes Notes (Text): 12/02/16 18:58 case seen and discussed iht staff and resident
--- NOTE | 2016-12-02 19:00 | CP.PCM.PN ---
Subjective - Date & Time of Evaluation Date of Evaluation: 12/02/16 Time of Evaluation: 07:00 - Subjective Subjective: clinically same Objective - Vital Signs/Intake and Output Vital Signs (last 24 hours): Temp Pulse Resp BP Pulse Ox 99.0 F 95 H 20 164/65 H 98 12/02/16 15:06 12/02/16 16:59 12/02/16 15:06 12/02/16 15:06 12/02/16 15:06 Intake and Output: 12/02/16 12/02/16 06:59 18:59 Intake Total 300 400 Output Total 2 Balance 300 398 - Medications Medications: Current Medications Acetaminophen (Tylenol 325mg Tab) 650 mg PO Q6 PRN PRN Reason: pain Last Admin: 11/29/16 23:32 Dose: 650 mg Albuterol (Ventolin Hfa 90 Mcg/Actuation (8 G)) 1 puff IH RQID PRN PRN Reason: Wheezing Last Admin: 12/02/16 08:44 Dose: 1 puff Calcium Acetate (Phoslo) 667 mg PO TIDCC [facility] Last Admin: 12/02/16 17:41 Dose: 667 mg Diltiazem HCl (Cardizem Cd) 300 mg PO DAILY [facility] Last Admin: 12/02/16 09:12 Dose: 300 mg Docusate Sodium (Colace) 100 mg PO TID [facility] Last Admin: 12/02/16 17:41 Dose: 100 mg Epoetin Lucien (Procrit) 20,000 unit IV MWF [facility] Last Admin: 12/01/16 12:01 Dose: 20,000 unit Escitalopram Oxalate (Lexapro) 5 mg PO DAILY [facility] Last Admin: 12/02/16 09:12 Dose: 5 mg Famotidine (Pepcid) 20 mg PO DAILY [facility] Last Admin: 12/02/16 09:11 Dose: 20 mg Furosemide (Lasix) 80 mg PO DAILY [facility] Last Admin: 12/02/16 09:13 Dose: 80 mg Gabapentin (Neurontin) 100 mg PO HS [facility] Last Admin: 12/01/16 21:38 Dose: 100 mg Hydralazine HCl (Apresoline) 100 mg PO TID [facility] Last Admin: 12/02/16 14:37 Dose: 100 mg Hydrochlorothiazide (Hydrodiuril) 50 mg PO DAILY [facility] Last Admin: 12/02/16 09:11 Dose: 50 mg Vancomycin HCl 500 mg/ Sodium (Chloride) 100 mls @ 100 mls/hr IVPB MWF [facility] Last Admin: 12/01/16 13:07 Dose: 100 mls/hr Cefepime HCl 1 gm/ Sodium (Chloride) 100 mls @ 100 mls/hr IVPB Q24H [facility] Last Admin: 12/01/16 20:00 Dose: Not Given Insulin Aspart (Novolog Mix 70/30 (70/30 Units/Ml)) 20 units SC HS [facility] Last Admin: 12/01/16 21:38 Dose: 20 units Insulin Aspart (Novolog Mix 70/30 (70/30 Units/Ml)) 15 units SC ACB [facility] Last Admin: 12/02/16 09:02 Dose: 15 units Insulin Human Regular (Novolin R) 0 unit SC ACHS [facility] PRN Reason: Protocol Last Admin: 12/02/16 17:39 Dose: 12 unit Isosorbide Mononitrate (Imdur) 60 mg PO DAILY [facility] Last Admin: 12/02/16 09:10 Dose: 60 mg Ondansetron HCl (Zofran Inj) 4 mg IVP Q4H PRN PRN Reason: Nausea/Vomiting Last Admin: 11/20/16 19:09 Dose: 4 mg Prednisone (Prednisone Tab) 10 mg PO DAILY [facility] Last Admin: 12/02/16 09:10 Dose: 10 mg Rosuvastatin Calcium (Crestor) 10 mg PO [facility] Last Admin: 12/01/16 21:37 Dose: 10 mg Fluticasone/Salmeterol (Advair Diskus 250/50) 1 puff INH RQ12 [facility] Last Admin: 12/02/16 08:44 Dose: 1 puff Vitamin B Complex/Vit C/Folic Acid (Nephro-Niranjan) 1 tab PO DAILY [facility] Last Admin: 12/02/16 09:13 Dose: 1 tab - Labs Labs: 12/02/16 07:05 12/02/16 07:05 PT 12.4 SECONDS (9.7-12.2) H 11/19/16 11:38 INR 1.1 11/19/16 11:38 APTT 29 SECONDS (21-34) 11/19/16 11:38 - Constitutional Appears: Well - Head Exam Head Exam: ATRAUMATIC, NORMAL INSPECTION, NORMOCEPHALIC - Eye Exam Eye Exam: EOMI, Normal appearance, PERRL Pupil Exam: NORMAL ACCOMODATION, PERRL - ENT Exam ENT Exam: Mucous Membranes Moist, Normal Exam - Neck Exam Neck Exam: Full ROM, Normal Inspection. absent: Lymphadenopathy - Respiratory Exam Respiratory Exam: Decreased Breath Sounds - Cardiovascular Exam Cardiovascular Exam: REGULAR RHYTHM, +S1, +S2 - GI/Abdominal Exam GI & Abdominal Exam: Soft, Diminished Bowel Sounds - Rectal Exam Rectal Exam: Deferred Assessment and Plan (1) CRF (chronic renal failure) Status: Chronic (2) Hyperkalemia Status: Acute (3) ESRD on dialysis Status: Acute (4) Pneumonia Status: Suspected (5) Acute systolic CHF (congestive heart failure) Status: Acute (6) Respiratory distress Assessment & Plan: [id number] subacute viktoriya same jameel zamora urologist to do surg Status: Acute (7) Prophylactic measure Status: Acute (8) IDDM (insulin dependent diabetes mellitus) Status: Acute (9) Pulmonary arterial hypertension Status: Acute - Assessment and Plan (Free Text) Plan: Awaiting surgery Dr. Ba Heart rate control Blood sugar monitoring
[2016-12-02] MEDS: Cefepime 1 GM in Sodium Chloride 0.9% 100 ML IVPB SCH (21:29)
--- NOTE | 2016-12-03 07:40 | CP.PCM.PN ---
<Korin Lott - Last Filed: 12/03/16 09:02> Subjective - Date & Time of Evaluation Date of Evaluation: 12/03/16 Time of Evaluation: 07:35 - Subjective Subjective: Cardiology Progress Note for Dr. Brenner Patient seen and examined at bedside. As per nursing, there were no acute overnight events, but patient continues to be confused. She does not know the date or her location. She denies having n/v/d, vision changes, CP, SOB, abdominal pain, dysuria or hematuria. Objective - Vital Signs/Intake and Output Vital Signs (last 24 hours): Temp Pulse Resp BP Pulse Ox 99.0 F 95 H 20 164/65 H 98 12/02/16 15:06 12/03/16 02:11 12/02/16 15:06 12/02/16 15:06 12/02/16 15:06 Intake and Output: 12/03/16 12/03/16 06:59 18:59 Intake Total 520 Balance 520 - Medications Medications: Current Medications Acetaminophen (Tylenol 325mg Tab) 650 mg PO Q6 PRN PRN Reason: pain Last Admin: 11/29/16 23:32 Dose: 650 mg Albuterol (Ventolin Hfa 90 Mcg/Actuation (8 G)) 1 puff IH RQID PRN PRN Reason: Wheezing Last Admin: 12/02/16 19:48 Dose: 1 puff Calcium Acetate (Phoslo) 667 mg PO TIDCC [facility] Last Admin: 12/02/16 17:41 Dose: 667 mg Diltiazem HCl (Cardizem Cd) 300 mg PO DAILY [facility] Last Admin: 12/02/16 09:12 Dose: 300 mg Docusate Sodium (Colace) 100 mg PO TID [facility] Last Admin: 12/02/16 17:41 Dose: 100 mg Epoetin Lucien (Procrit) 20,000 unit IV MWF [facility] Last Admin: 12/01/16 12:01 Dose: 20,000 unit Escitalopram Oxalate (Lexapro) 5 mg PO DAILY [facility] Last Admin: 12/02/16 09:12 Dose: 5 mg Famotidine (Pepcid) 20 mg PO DAILY [facility] Last Admin: 12/02/16 09:11 Dose: 20 mg Furosemide (Lasix) 80 mg PO DAILY [facility] Last Admin: 12/02/16 09:13 Dose: 80 mg Gabapentin (Neurontin) 100 mg PO HS [facility] Last Admin: 12/02/16 21:28 Dose: 100 mg Hydralazine HCl (Apresoline) 100 mg PO TID [facility] Last Admin: 12/02/16 18:00 Dose: 100 mg Hydrochlorothiazide (Hydrodiuril) 50 mg PO DAILY [facility] Last Admin: 12/02/16 09:11 Dose: 50 mg Vancomycin HCl 500 mg/ Sodium (Chloride) 100 mls @ 100 mls/hr IVPB MWF [facility] Last Admin: 12/01/16 13:07 Dose: 100 mls/hr Cefepime HCl 1 gm/ Sodium (Chloride) 100 mls @ 100 mls/hr IVPB Q24H [facility] Last Admin: 12/02/16 21:29 Dose: 100 mls/hr Insulin Aspart (Novolog Mix 70/30 (70/30 Units/Ml)) 20 units SC [facility] Last Admin: 12/02/16 21:29 Dose: 20 units Insulin Aspart (Novolog Mix 70/30 (70/30 Units/Ml)) 15 units SC ACB [facility] Last Admin: 12/02/16 09:02 Dose: 15 units Insulin Human Regular (Novolin R) 0 unit SC [facility] PRN Reason: Protocol Last Admin: 12/02/16 22:18 Dose: Not Given Isosorbide Mononitrate (Imdur) 60 mg PO DAILY [facility] Last Admin: 12/02/16 09:10 Dose: 60 mg Ondansetron HCl (Zofran Inj) 4 mg IVP Q4H PRN PRN Reason: Nausea/Vomiting Last Admin: 11/20/16 19:09 Dose: 4 mg Prednisone (Prednisone Tab) 10 mg PO DAILY [facility] Last Admin: 12/02/16 09:10 Dose: 10 mg Rosuvastatin Calcium (Crestor) 10 mg PO [facility] Last Admin: 12/02/16 21:29 Dose: 10 mg Fluticasone/Salmeterol (Advair Diskus 250/50) 1 puff INH RQ12 [facility] Last Admin: 12/02/16 19:49 Dose: 1 puff Vitamin B Complex/Vit C/Folic Acid (Nephro-Niranjan) 1 tab PO DAILY [facility] Last Admin: 12/02/16 09:13 Dose: 1 tab - Labs Labs: 12/02/16 07:05 12/02/16 07:05 PT 12.4 SECONDS (9.7-12.2) H 11/19/16 11:38 INR 1.1 11/19/16 11:38 APTT 29 SECONDS (21-34) 11/19/16 11:38 - Constitutional Appears: No Acute Distress - Head Exam Head Exam: ATRAUMATIC, NORMAL INSPECTION, NORMOCEPHALIC - Eye Exam Eye Exam: Normal appearance, PERRL Pupil Exam: NORMAL ACCOMODATION, PERRL - ENT Exam ENT Exam: Mucous Membranes Moist - Neck Exam Neck Exam: Full ROM - Respiratory Exam Respiratory Exam: Clear to Ausculation Bilateral, NORMAL BREATHING PATTERN. absent: Rales, Rhonchi, Wheezes - Cardiovascular Exam Cardiovascular Exam: REGULAR RHYTHM, +S1, +S2. absent: Gallop, Rubs, Murmur - GI/Abdominal Exam GI & Abdominal Exam: Soft, Normal Bowel Sounds. absent: Rigid, Tenderness, Mass , Rebound - Extremities Exam Extremities Exam: Full ROM, Normal Inspection. absent: Calf Tenderness, Pedal Edema - Neurological Exam Neurological Exam: Alert, Awake, CN II-XII Intact. absent: Oriented x3 - Skin Skin Exam: Dry, Normal Color, Warm Assessment and Plan - Assessment and Plan (Free Text) Assessment: This is a 66Y F with PMH CAD, COPD, ESRD on HD, HTN, DM admitted for 1) Renal cell carcinoma- awaiting date for surgical removal 2) Anemia- stable 3) Leukocytosis (afebrile- can be secondary to renal cell carcinoma) 4) A.fib- rate and rhythm controlled 5) ESRD on HD (MWF) 6) CAD 7) HTN Plan: - Continue Crestor - Pt will have hemodialysis today - Continue Imdur, Lasix, Cardizem, HCTZ and Hydralazine - Patient able to proceed with surgical removal of renal cell carcinoma- benefits outweigh the risks - Continue to monitor Hgb - Continue to hold ASA and Plavix due to positive stool occult blood and HAS- BLED score of 3 GI ppx: Pepcid DVT ppx: SCDs Case seen, reviewed and discussed with Dr. Elidia Lott PGY1 <Halina Brenner - Last Filed: 12/04/16 06:27> Objective - Vital Signs/Intake and Output Vital Signs (last 24 hours): Temp Pulse Resp BP Pulse Ox 98.8 F 93 H 20 161/64 H 100 12/04/16 00:00 12/04/16 00:00 12/04/16 00:00 12/04/16 00:00 12/04/16 00:00 Intake and Output: 12/03/16 12/04/16 18:59 06:59 Intake Total 400 Balance 400 - Medications Medications: Current Medications Acetaminophen (Tylenol 325mg Tab) 650 mg PO Q6 PRN PRN Reason: pain Last Admin: 11/29/16 23:32 Dose: 650 mg Albuterol (Ventolin Hfa 90 Mcg/Actuation (8 G)) 1 puff IH RQID PRN PRN Reason: Wheezing Last Admin: 12/02/16 19:48 Dose: 1 puff Calcium Acetate (Phoslo) 667 mg PO TIDCC [facility] Last Admin: 12/03/16 17:27 Dose: 667 mg Diltiazem HCl (Cardizem Cd) 300 mg PO DAILY [facility] Last Admin: 12/03/16 13:19 Dose: 300 mg Docusate Sodium (Colace) 100 mg PO TID [facility] Last Admin: 12/03/16 17:26 Dose: 100 mg Epoetin Lucien (Procrit) 20,000 unit IV MWF [facility] Last Admin: 12/03/16 10:57 Dose: 20,000 unit Escitalopram Oxalate (Lexapro) 5 mg PO DAILY [facility] Last Admin: 12/03/16 13:19 Dose: 5 mg Famotidine (Pepcid) 20 mg PO DAILY [facility] Last Admin: 12/03/16 13:18 Dose: 20 mg Furosemide (Lasix) 80 mg PO DAILY [facility] Last Admin: 12/03/16 10:49 Dose: Not Given Gabapentin (Neurontin) 100 mg PO HS [facility] Last Admin: 12/03/16 21:30 Dose: 100 mg Hydralazine HCl (Apresoline) 100 mg PO TID [facility] Last Admin: 12/03/16 17:26 Dose: 100 mg Hydrochlorothiazide (Hydrodiuril) 50 mg PO DAILY [facility] Last Admin: 12/03/16 10:47 Dose: Not Given Vancomycin HCl 500 mg/ Sodium (Chloride) 100 mls @ 100 mls/hr IVPB MWF [facility] Last Admin: 12/03/16 13:19 Dose: 100 mls/hr Cefepime HCl 1 gm/ Sodium (Chloride) 100 mls @ 100 mls/hr IVPB Q24H [facility] Last Admin: 12/03/16 21:31 Dose: 100 mls/hr Insulin Aspart (Novolog Mix 70/30 (70/30 Units/Ml)) 20 units SC HS [facility] Last Admin: 12/03/16 21:30 Dose: 20 units Insulin Aspart (Novolog Mix 70/30 (70/30 Units/Ml)) 15 units SC ACB [facility] Last Admin: 12/03/16 08:53 Dose: 15 units Insulin Human Regular (Novolin R) 0 unit SC ACHS [facility] PRN Reason: Protocol Last Admin: 12/03/16 16:30 Dose: Not Given Isosorbide Mononitrate (Imdur) 60 mg PO DAILY [facility] Last Admin: 12/03/16 13:19 Dose: 60 mg Ondansetron HCl (Zofran Inj) 4 mg IVP Q4H PRN PRN Reason: Nausea/Vomiting Last Admin: 11/20/16 19:09 Dose: 4 mg Prednisone (Prednisone Tab) 10 mg PO DAILY [facility] Last Admin: 12/03/16 13:18 Dose: 10 mg Rosuvastatin Calcium (Crestor) 10 mg PO HS [facility] Last Admin: 12/03/16 21:27 Dose: 10 mg Fluticasone/Salmeterol (Advair Diskus 250/50) 1 puff INH RQ12 [facility] Last Admin: 12/03/16 19:03 Dose: Not Given Vitamin B Complex/Vit C/Folic Acid (Nephro-Niranjan) 1 tab PO DAILY [facility] Last Admin: 12/03/16 10:49 Dose: Not Given - Labs Labs: 12/02/16 07:05 12/02/16 07:05 PT 12.4 SECONDS (9.7-12.2) H 11/19/16 11:38 INR 1.1 11/19/16 11:38 APTT 29 SECONDS (21-34) 11/19/16 11:38 Attending/Attestation - Attestation I have personally seen and examined this patient.: Yes I have fully participated in the care of the patient.: Yes I have reviewed all pertinent clinical information, including history, physical exam and plan: Yes Notes (Text): 12/04/16 06:27 Pt tolerating po continue dialysis and bp meds
[2016-12-03] MEDS: Fluticasone-Salmeterol 250-50mcg Diskus INH SCH ×2 (08:19→19:03)
[2016-12-03] MEDS: (Novolin R) Insulin Human Regular 100 units/ml vial SC SCH ×3 (08:34→16:30)
[2016-12-03] MEDS: (Novolog Mix 70/30) Insulin Aspart/Insulin Aspar 100 units/ml SC SCH ×2 (08:53→21:30)
--- NOTE | 2016-12-03 10:33 | CP.PCM.PN ---
Addendum entered and electronically signed by Frieda Villanueva DO 12/03/16 14:38 : Per ID Dr Bradshaw previous note, discontinue antibiotics considering cultures negative. Original Note: <Frieda Villanueva - Last Filed: 12/03/16 14:34> Subjective - Date & Time of Evaluation Date of Evaluation: 12/03/16 Time of Evaluation: 10:32 - Subjective Subjective: Patient seen and examined. Patient is to be discharged to [facility] today and should follow up with Dr Ba regarding outpatient surgery. Denies fever, chills, nausea, vomiting, abdominal pain, chest pain, and shortness of breath. Objective - Vital Signs/Intake and Output Vital Signs (last 24 hours): Temp Pulse Resp BP Pulse Ox 98.3 F 101 H 18 179/68 H 96 12/03/16 09:05 12/03/16 09:05 12/03/16 09:05 12/03/16 10:05 12/03/16 09:05 Intake and Output: 12/03/16 12/03/16 06:59 18:59 Intake Total 520 Balance 520 - Medications Medications: Current Medications Acetaminophen (Tylenol 325mg Tab) 650 mg PO Q6 PRN PRN Reason: pain Last Admin: 11/29/16 23:32 Dose: 650 mg Albuterol (Ventolin Hfa 90 Mcg/Actuation (8 G)) 1 puff IH RQID PRN PRN Reason: Wheezing Last Admin: 12/02/16 19:48 Dose: 1 puff Calcium Acetate (Phoslo) 667 mg PO TIDCC [facility] Last Admin: 12/03/16 08:53 Dose: Not Given Diltiazem HCl (Cardizem Cd) 300 mg PO DAILY [facility] Last Admin: 12/02/16 09:12 Dose: 300 mg Docusate Sodium (Colace) 100 mg PO TID [facility] Last Admin: 12/02/16 17:41 Dose: 100 mg Epoetin Lucien (Procrit) 20,000 unit IV MWF [facility] Last Admin: 12/01/16 12:01 Dose: 20,000 unit Escitalopram Oxalate (Lexapro) 5 mg PO DAILY [facility] Last Admin: 12/02/16 09:12 Dose: 5 mg Famotidine (Pepcid) 20 mg PO DAILY [facility] Last Admin: 12/02/16 09:11 Dose: 20 mg Furosemide (Lasix) 80 mg PO DAILY [facility] Last Admin: 12/02/16 09:13 Dose: 80 mg Gabapentin (Neurontin) 100 mg PO [facility] Last Admin: 12/02/16 21:28 Dose: 100 mg Hydralazine HCl (Apresoline) 100 mg PO TID [facility] Last Admin: 12/02/16 18:00 Dose: 100 mg Hydrochlorothiazide (Hydrodiuril) 50 mg PO DAILY [facility] Last Admin: 12/02/16 09:11 Dose: 50 mg Vancomycin HCl 500 mg/ Sodium (Chloride) 100 mls @ 100 mls/hr IVPB MWF [facility] Last Admin: 12/01/16 13:07 Dose: 100 mls/hr Cefepime HCl 1 gm/ Sodium (Chloride) 100 mls @ 100 mls/hr IVPB Q24H [facility] Last Admin: 12/02/16 21:29 Dose: 100 mls/hr Insulin Aspart (Novolog Mix 70/30 (70/30 Units/Ml)) 20 units SC HS [facility] Last Admin: 12/02/16 21:29 Dose: 20 units Insulin Aspart (Novolog Mix 70/30 (70/30 Units/Ml)) 15 units SC ACB [facility] Last Admin: 12/03/16 08:53 Dose: 15 units Insulin Human Regular (Novolin R) 0 unit SC [facility] PRN Reason: Protocol Last Admin: 12/03/16 08:34 Dose: Not Given Isosorbide Mononitrate (Imdur) 60 mg PO DAILY [facility] Last Admin: 12/02/16 09:10 Dose: 60 mg Ondansetron HCl (Zofran Inj) 4 mg IVP Q4H PRN PRN Reason: Nausea/Vomiting Last Admin: 11/20/16 19:09 Dose: 4 mg Prednisone (Prednisone Tab) 10 mg PO DAILY [facility] Last Admin: 12/02/16 09:10 Dose: 10 mg Rosuvastatin Calcium (Crestor) 10 mg PO [facility] Last Admin: 12/02/16 21:29 Dose: 10 mg Fluticasone/Salmeterol (Advair Diskus 250/50) 1 puff INH RQ12 [facility] Last Admin: 12/03/16 08:19 Dose: 1 puff Vitamin B Complex/Vit C/Folic Acid (Nephro-Niranjan) 1 tab PO DAILY [facility] Last Admin: 12/02/16 09:13 Dose: 1 tab - Labs Labs: 12/02/16 07:05 12/02/16 07:05 PT 12.4 SECONDS (9.7-12.2) H 11/19/16 11:38 INR 1.1 11/19/16 11:38 APTT 29 SECONDS (21-34) 11/19/16 11:38 - Constitutional Appears: Non-toxic, No Acute Distress - Head Exam Head Exam: ATRAUMATIC, NORMOCEPHALIC - Eye Exam Eye Exam: EOMI, Normal appearance - ENT Exam ENT Exam: Mucous Membranes Moist - Neck Exam Neck Exam: Normal Inspection - Respiratory Exam Respiratory Exam: Clear to Ausculation Bilateral, NORMAL BREATHING PATTERN - Cardiovascular Exam Cardiovascular Exam: +S1, +S2. absent: Bradycardia, Tachycardia - GI/Abdominal Exam GI & Abdominal Exam: Normal Bowel Sounds - Extremities Exam Extremities Exam: Normal Inspection - Back Exam Back Exam: NORMAL INSPECTION - Neurological Exam Neurological Exam: Alert, Oriented x3 - Psychiatric Exam Psychiatric exam: Normal Affect, Normal Mood - Skin Skin Exam: Dry, Intact, Normal Color, Warm Assessment and Plan - Assessment and Plan (Free Text) Assessment: Renal Cell carcinoma 12/03: Awaiting surgery date. May discharge to [facility] when bed ready. 11/27: Patient will either need to be scheduled for surgery or discharged. 11/26: Patient cleared by cardio for surgery, surgery date pending Dr. Ba's schedule 11/21: Patient will need clearance from cardiology before surgery X:ray today showed no evidence of SBO but did show stool in the colon. Give miralax 17gm twice, consider more if still no bowel movement. 11/14/16 right kidney biopsy - renal cell carcinoma Oncology consult - Dr. Leonardo- help appreciated Per Dr. Leonardo, best course of action is handling hematoma and then excision of renal mass if urology agrees Urology consult - Dr. Ba - f/u recommendations Anemia Assessment & Plan: 12/03: Hgb Stable, continue to monitor. 11/26: Hgb 9.2, monitor 11/24: Hbg today is 8.0, consider tranfusion if it continues to drop before surgery 11/21: Stool heme occult positive. Dr. Caraballo consulted, Hbg today is 8.1, follow up iron studies tomorrow morning 11/20: Hbg is today at around 8.8, continue to monitor. Likely secondary to renal hematoma at site of biopsy. s/p 1 u transfusion on admission. Percent saturation and ferritin and reticulocyte count normal Leukocyotsis Assessment & Plan: 12/03: Persistent elevation, stable. Likely secondary to malignancy. No signs of infection, vital signs stable. Afebrile UA and urine culture contaminated Hyperkalemia Assessment & Plan: On dialysis, continue management Leg pain, right Assessment & Plan: swelling improved continue current management X ray shows soft tissue swelling, doppler negative for any evidence of DVT. Will given Tylenol for pain as needed. Status: Acute Pneumonia Assessment & Plan Treated with Cefepime and Vanco ID following - Dr. Bradshaw - help appreciated CXR - moderate venous congestion. bilateral hilar prominence. Bibasilar airspace opacities. small b/l pleural effusions. Upper lobe granulomatous changes. Started zithromax 500mg IVPB daily and rocephin 1gm IVPB daily 11/12/16 Status: Acute IDDM (insulin dependent diabetes mellitus) Assessment & Plan: Patient on 70/30 Novolog 15 units at night and 10 units ACB. Sliding scale insulin with medium protocol and accuchecks. Status: Acute COPD (chronic obstructive pulmonary disease) Assessment & Plan: Albuterol prn and Advair. Status: Chronic CAD (coronary artery disease) Assessment & Plan: Crestor 10mg, Aspirin 81mg, and Plavix 75mg Status: Chronic Atrial fibrillation Status: Chronic Continue Cardizem Cardio following - Dr. Brenner - help appreciated 11/19: continue Cardizem Hep, Plavix and ASA stopped secondary to renal hematoma 11/18: continue Cardizem, Hep, Plavix and ASA 11/17: Today was in Rapid afib with RVR, she is on 300mg of Cardizem. Patient transferred to tele and cardiology, Dr. Brenner is consulted, help appreciated. Patient is on Aspirin and Plavix. Hep 5000U SC Q8 prophylaxis HR constrolled No anticoagulation besides Plavix and ASA ESRD on dialysis Assessment & Plan: Dialysis MWF Status: Chronic CHF (congestive heart failure) Assessment & Plan: Lasix 80mg PO daily. Status: Acute HTN (hypertension) Assessment & Plan: Cardizem 300mg daily, Imdur 60mg daily, Hydralazine 100mg TID Status: Chronic Prophylactic measure Assessment & Plan: Pepcid 20mg 0.25mg Xanax prn for anxiety tylenol 650mg Q6H prn for pain All management and orders per Dr Trung Frederick. Will discuss with attending. <Haydee Frederick S - Last Filed: 12/03/16 22:40> Objective - Vital Signs/Intake and Output Vital Signs (last 24 hours): Temp Pulse Resp BP Pulse Ox 97.8 F 97 H 18 181/64 H 100 12/03/16 12:05 12/03/16 13:16 12/03/16 12:05 12/03/16 13:16 12/03/16 12:05 Intake and Output: 12/03/16 12/04/16 18:59 06:59 Intake Total 400 Balance 400 - Medications Medications: Current Medications Acetaminophen (Tylenol 325mg Tab) 650 mg PO Q6 PRN PRN Reason: pain Last Admin: 11/29/16 23:32 Dose: 650 mg Albuterol (Ventolin Hfa 90 Mcg/Actuation (8 G)) 1 puff IH RQID PRN PRN Reason: Wheezing Last Admin: 12/02/16 19:48 Dose: 1 puff Calcium Acetate (Phoslo) 667 mg PO TIDCC [facility] Last Admin: 12/03/16 17:27 Dose: 667 mg Diltiazem HCl (Cardizem Cd) 300 mg PO DAILY [facility] Last Admin: 12/03/16 13:19 Dose: 300 mg Docusate Sodium (Colace) 100 mg PO TID [facility] Last Admin: 12/03/16 17:26 Dose: 100 mg Epoetin Lucien (Procrit) 20,000 unit IV MWF [facility] Last Admin: 12/03/16 10:57 Dose: 20,000 unit Escitalopram Oxalate (Lexapro) 5 mg PO DAILY [facility] Last Admin: 12/03/16 13:19 Dose: 5 mg Famotidine (Pepcid) 20 mg PO DAILY [facility] Last Admin: 12/03/16 13:18 Dose: 20 mg Furosemide (Lasix) 80 mg PO DAILY [facility] Last Admin: 12/03/16 10:49 Dose: Not Given Gabapentin (Neurontin) 100 mg PO HS [facility] Last Admin: 12/03/16 21:30 Dose: 100 mg Hydralazine HCl (Apresoline) 100 mg PO TID [facility] Last Admin: 12/03/16 17:26 Dose: 100 mg Hydrochlorothiazide (Hydrodiuril) 50 mg PO DAILY [facility] Last Admin: 12/03/16 10:47 Dose: Not Given Vancomycin HCl 500 mg/ Sodium (Chloride) 100 mls @ 100 mls/hr IVPB MWF [facility] Last Admin: 12/03/16 13:19 Dose: 100 mls/hr Cefepime HCl 1 gm/ Sodium (Chloride) 100 mls @ 100 mls/hr IVPB Q24H [facility] Last Admin: 12/03/16 21:31 Dose: 100 mls/hr Insulin Aspart (Novolog Mix 70/30 (70/30 Units/Ml)) 20 units SC [facility] Last Admin: 12/03/16 21:30 Dose: 20 units Insulin Aspart (Novolog Mix 70/30 (70/30 Units/Ml)) 15 units SC ACB [facility] Last Admin: 12/03/16 08:53 Dose: 15 units Insulin Human Regular (Novolin R) 0 unit SC ACHS [facility] PRN Reason: Protocol Last Admin: 12/03/16 16:30 Dose: Not Given Isosorbide Mononitrate (Imdur) 60 mg PO DAILY [facility] Last Admin: 12/03/16 13:19 Dose: 60 mg Ondansetron HCl (Zofran Inj) 4 mg IVP Q4H PRN PRN Reason: Nausea/Vomiting Last Admin: 11/20/16 19:09 Dose: 4 mg Prednisone (Prednisone Tab) 10 mg PO DAILY [facility] Last Admin: 12/03/16 13:18 Dose: 10 mg Rosuvastatin Calcium (Crestor) 10 mg PO [facility] Last Admin: 12/03/16 21:27 Dose: 10 mg Fluticasone/Salmeterol (Advair Diskus 250/50) 1 puff INH RQ12 [facility] Last Admin: 12/03/16 19:03 Dose: Not Given Vitamin B Complex/Vit C/Folic Acid (Nephro-Niranjan) 1 tab PO DAILY [facility] Last Admin: 12/03/16 10:49 Dose: Not Given - Labs Labs: 12/02/16 07:05 12/02/16 07:05 PT 12.4 SECONDS (9.7-12.2) H 11/19/16 11:38 INR 1.1 11/19/16 11:38 APTT 29 SECONDS (21-34) 11/19/16 11:38 Assessment and Plan (1) Acute systolic CHF (congestive heart failure) Status: Acute (2) Hyperkalemia Status: Acute (3) IDDM (insulin dependent diabetes mellitus) Status: Acute (4) Prophylactic measure Status: Acute (5) Pulmonary arterial hypertension Status: Acute (6) Respiratory distress Status: Acute (7) CRF (chronic renal failure) Status: Chronic (8) ESRD on dialysis Status: Acute (9) Pneumonia Status: Suspected Attending/Attestation - Attestation I have personally seen and examined this patient.: Yes I have fully participated in the care of the patient.: Yes I have reviewed all pertinent clinical information, including history, physical exam and plan: Yes Notes (Text): 12/03/16 22:40 case seen and discuse mike jenkinsn resdient mx as agreed
[2016-12-03] MEDS: diltiaZEM 300 mg/24 Hours CD Cap PO SCH ×2 (10:47→13:19)
[2016-12-03] MEDS: Multivitamin Vitamin B Complex (Nephro-Vite) Tab PO SCH (10:49)
[2016-12-03] MEDS: Epoetin Alfa Dialysis 20000 UNIT/ML Inj IV SCH (10:57)
--- NOTE | 2016-12-03 17:55 | CP.PCM.PN ---
Subjective - Date & Time of Evaluation Date of Evaluation: 12/03/16 Time of Evaluation: 09:00 - Subjective Subjective: clinically same Objective - Vital Signs/Intake and Output Vital Signs (last 24 hours): Temp Pulse Resp BP Pulse Ox 97.8 F 97 H 18 181/64 H 100 12/03/16 12:05 12/03/16 13:16 12/03/16 12:05 12/03/16 13:16 12/03/16 12:05 Intake and Output: 12/03/16 12/03/16 06:59 18:59 Intake Total 520 400 Balance 520 400 - Medications Medications: Current Medications Acetaminophen (Tylenol 325mg Tab) 650 mg PO Q6 PRN PRN Reason: pain Last Admin: 11/29/16 23:32 Dose: 650 mg Albuterol (Ventolin Hfa 90 Mcg/Actuation (8 G)) 1 puff IH RQID PRN PRN Reason: Wheezing Last Admin: 12/02/16 19:48 Dose: 1 puff Calcium Acetate (Phoslo) 667 mg PO TIDCC [facility] Last Admin: 12/03/16 17:27 Dose: 667 mg Diltiazem HCl (Cardizem Cd) 300 mg PO DAILY [facility] Last Admin: 12/03/16 13:19 Dose: 300 mg Docusate Sodium (Colace) 100 mg PO TID [facility] Last Admin: 12/03/16 17:26 Dose: 100 mg Epoetin Lucien (Procrit) 20,000 unit IV MWF [facility] Last Admin: 12/03/16 10:57 Dose: 20,000 unit Escitalopram Oxalate (Lexapro) 5 mg PO DAILY [facility] Last Admin: 12/03/16 13:19 Dose: 5 mg Famotidine (Pepcid) 20 mg PO DAILY [facility] Last Admin: 12/03/16 13:18 Dose: 20 mg Furosemide (Lasix) 80 mg PO DAILY [facility] Last Admin: 12/03/16 10:49 Dose: Not Given Gabapentin (Neurontin) 100 mg PO HS [facility] Last Admin: 12/02/16 21:28 Dose: 100 mg Hydralazine HCl (Apresoline) 100 mg PO TID [facility] Last Admin: 12/03/16 17:26 Dose: 100 mg Hydrochlorothiazide (Hydrodiuril) 50 mg PO DAILY [facility] Last Admin: 12/03/16 10:47 Dose: Not Given Vancomycin HCl 500 mg/ Sodium (Chloride) 100 mls @ 100 mls/hr IVPB MWF [facility] Last Admin: 12/03/16 13:19 Dose: 100 mls/hr Cefepime HCl 1 gm/ Sodium (Chloride) 100 mls @ 100 mls/hr IVPB Q24H [facility] Last Admin: 12/02/16 21:29 Dose: 100 mls/hr Insulin Aspart (Novolog Mix 70/30 (70/30 Units/Ml)) 20 units SC HS [facility] Last Admin: 12/02/16 21:29 Dose: 20 units Insulin Aspart (Novolog Mix 70/30 (70/30 Units/Ml)) 15 units SC ACB [facility] Last Admin: 12/03/16 08:53 Dose: 15 units Insulin Human Regular (Novolin R) 0 unit SC ACHS [facility] PRN Reason: Protocol Last Admin: 12/03/16 13:17 Dose: 2 unit Isosorbide Mononitrate (Imdur) 60 mg PO DAILY [facility] Last Admin: 12/03/16 13:19 Dose: 60 mg Ondansetron HCl (Zofran Inj) 4 mg IVP Q4H PRN PRN Reason: Nausea/Vomiting Last Admin: 11/20/16 19:09 Dose: 4 mg Prednisone (Prednisone Tab) 10 mg PO DAILY [facility] Last Admin: 12/03/16 13:18 Dose: 10 mg Rosuvastatin Calcium (Crestor) 10 mg PO HS [facility] Last Admin: 12/02/16 21:29 Dose: 10 mg Fluticasone/Salmeterol (Advair Diskus 250/50) 1 puff INH RQ12 [facility] Last Admin: 12/03/16 08:19 Dose: 1 puff Vitamin B Complex/Vit C/Folic Acid (Nephro-Niranjan) 1 tab PO DAILY [facility] Last Admin: 12/03/16 10:49 Dose: Not Given - Labs Labs: 12/02/16 07:05 12/02/16 07:05 PT 12.4 SECONDS (9.7-12.2) H 11/19/16 11:38 INR 1.1 11/19/16 11:38 APTT 29 SECONDS (21-34) 11/19/16 11:38 - Constitutional Appears: Well - Head Exam Head Exam: ATRAUMATIC, NORMAL INSPECTION, NORMOCEPHALIC - Eye Exam Eye Exam: EOMI, Normal appearance, PERRL Pupil Exam: NORMAL ACCOMODATION, PERRL - ENT Exam ENT Exam: Mucous Membranes Moist, Normal Exam - Neck Exam Neck Exam: Full ROM, Normal Inspection. absent: Lymphadenopathy - Respiratory Exam Respiratory Exam: Decreased Breath Sounds - Cardiovascular Exam Cardiovascular Exam: REGULAR RHYTHM, +S1, +S2 - GI/Abdominal Exam GI & Abdominal Exam: Soft, Diminished Bowel Sounds - Rectal Exam Rectal Exam: Deferred Assessment and Plan (1) CRF (chronic renal failure) Status: Chronic (2) Hyperkalemia Status: Acute (3) ESRD on dialysis Status: Acute (4) Pneumonia Status: Suspected (5) Acute systolic CHF (congestive heart failure) Status: Acute (6) Respiratory distress Status: Acute (7) Prophylactic measure Status: Acute (8) IDDM (insulin dependent diabetes mellitus) Status: Acute (9) Pulmonary arterial hypertension Status: Acute - Assessment and Plan (Free Text) Plan: Plan discharge patient to [facility] Continue all medications Follow-up with urologist Follow-up with oncologist
[2016-12-03] MEDS: Cefepime 1 GM in Sodium Chloride 0.9% 100 ML IVPB SCH (21:31)
[2016-12-04 03:55] VITALS: RESP 20
--- NOTE | 2016-12-04 07:46 | CP.PCM.PN ---
<Korin Lott - Last Filed: 12/04/16 08:46> Subjective - Date & Time of Evaluation Date of Evaluation: 12/04/16 Time of Evaluation: 07:25 - Subjective Subjective: Cardiology Progress Note for Dr. Brenner Patient seen and examined at bedside. There were no acute overnight events. She is tolerating her diet. She reports feeling well. Denies pain, SOB, CP, numbness /tingling, n/v/d. Objective - Vital Signs/Intake and Output Vital Signs (last 24 hours): Temp Pulse Resp BP Pulse Ox 98.8 F 89 20 155/65 H 98 12/04/16 06:00 12/04/16 06:00 12/04/16 06:00 12/04/16 06:00 12/04/16 06:00 Intake and Output: 12/04/16 12/04/16 06:59 18:59 Intake Total 300 Balance 300 - Medications Medications: Current Medications Acetaminophen (Tylenol 325mg Tab) 650 mg PO Q6 PRN PRN Reason: pain Last Admin: 11/29/16 23:32 Dose: 650 mg Albuterol (Ventolin Hfa 90 Mcg/Actuation (8 G)) 1 puff IH RQID PRN PRN Reason: Wheezing Last Admin: 12/02/16 19:48 Dose: 1 puff Calcium Acetate (Phoslo) 667 mg PO TIDCC [facility] Last Admin: 12/03/16 17:27 Dose: 667 mg Diltiazem HCl (Cardizem Cd) 300 mg PO DAILY [facility] Last Admin: 12/03/16 13:19 Dose: 300 mg Docusate Sodium (Colace) 100 mg PO TID [facility] Last Admin: 12/03/16 17:26 Dose: 100 mg Epoetin Lucien (Procrit) 20,000 unit IV MWF [facility] Last Admin: 12/03/16 10:57 Dose: 20,000 unit Escitalopram Oxalate (Lexapro) 5 mg PO DAILY [facility] Last Admin: 12/03/16 13:19 Dose: 5 mg Famotidine (Pepcid) 20 mg PO DAILY [facility] Last Admin: 12/03/16 13:18 Dose: 20 mg Furosemide (Lasix) 80 mg PO DAILY [facility] Last Admin: 12/03/16 10:49 Dose: Not Given Gabapentin (Neurontin) 100 mg PO HS [facility] Last Admin: 12/03/16 21:30 Dose: 100 mg Hydralazine HCl (Apresoline) 100 mg PO TID [facility] Last Admin: 12/03/16 17:26 Dose: 100 mg Hydrochlorothiazide (Hydrodiuril) 50 mg PO DAILY [facility] Last Admin: 12/03/16 10:47 Dose: Not Given Vancomycin HCl 500 mg/ Sodium (Chloride) 100 mls @ 100 mls/hr IVPB MWF [facility] Last Admin: 12/03/16 13:19 Dose: 100 mls/hr Cefepime HCl 1 gm/ Sodium (Chloride) 100 mls @ 100 mls/hr IVPB Q24H [facility] Last Admin: 12/03/16 21:31 Dose: 100 mls/hr Insulin Aspart (Novolog Mix 70/30 (70/30 Units/Ml)) 20 units SC [facility] Last Admin: 12/03/16 21:30 Dose: 20 units Insulin Aspart (Novolog Mix 70/30 (70/30 Units/Ml)) 15 units SC ACB [facility] Last Admin: 12/03/16 08:53 Dose: 15 units Insulin Human Regular (Novolin R) 0 unit SC [facility] PRN Reason: Protocol Last Admin: 12/03/16 16:30 Dose: Not Given Isosorbide Mononitrate (Imdur) 60 mg PO DAILY [facility] Last Admin: 12/03/16 13:19 Dose: 60 mg Ondansetron HCl (Zofran Inj) 4 mg IVP Q4H PRN PRN Reason: Nausea/Vomiting Last Admin: 11/20/16 19:09 Dose: 4 mg Prednisone (Prednisone Tab) 10 mg PO DAILY [facility] Last Admin: 12/03/16 13:18 Dose: 10 mg Rosuvastatin Calcium (Crestor) 10 mg PO [facility] Last Admin: 12/03/16 21:27 Dose: 10 mg Fluticasone/Salmeterol (Advair Diskus 250/50) 1 puff INH RQ12 [facility] Last Admin: 12/03/16 19:03 Dose: Not Given Vitamin B Complex/Vit C/Folic Acid (Nephro-Niranjan) 1 tab PO DAILY [facility] Last Admin: 12/03/16 10:49 Dose: Not Given - Labs Labs: 12/02/16 07:05 12/02/16 07:05 PT 12.4 SECONDS (9.7-12.2) H 11/19/16 11:38 INR 1.1 11/19/16 11:38 APTT 29 SECONDS (21-34) 11/19/16 11:38 - Constitutional Appears: No Acute Distress - Head Exam Head Exam: ATRAUMATIC, NORMAL INSPECTION, NORMOCEPHALIC - Eye Exam Eye Exam: Normal appearance Pupil Exam: NORMAL ACCOMODATION - ENT Exam ENT Exam: Mucous Membranes Moist - Neck Exam Neck Exam: Full ROM, Normal Inspection - Respiratory Exam Respiratory Exam: Clear to Ausculation Bilateral, NORMAL BREATHING PATTERN. absent: Rhonchi, Wheezes, Respiratory Distress, Stridor - Cardiovascular Exam Cardiovascular Exam: REGULAR RHYTHM, +S1, +S2. absent: Diastolic murmur, Gallop , Rubs - GI/Abdominal Exam GI & Abdominal Exam: Soft, Normal Bowel Sounds. absent: Rigid, Tenderness, Mass , Rebound - Extremities Exam Extremities Exam: Full ROM, Normal Inspection. absent: Calf Tenderness, Pedal Edema - Neurological Exam Neurological Exam: Alert, Awake, CN II-XII Intact - Psychiatric Exam Psychiatric exam: Normal Affect, Normal Mood - Skin Skin Exam: Dry, Normal Color, Warm Assessment and Plan - Assessment and Plan (Free Text) Assessment: This is a 66Y F with PMH CAD, COPD, ESRD on HD, HTN, DM admitted for 1) Renal cell carcinoma- awaiting date for removal 2) Anemia (stable) 3) Leukocytosis (afebrile) 4) A.fib- rate and rhythm controlled 5) ESRD on HD (MWF) 6) CAD 7) HTN Plan: - Continue hemodialysis as scheduled (MWF) - Continue to hold ASA and Plavix and monitor H/H - Continue Cardizem, Crestor, HCTZ, Hydralazine, Imdur and Lasix - Patient able to proceed with surgical removal of renal cell carcinoma- benefits outweigh the risks GI ppx: Pepcid DVT ppx: SCDs Thank you for the consult. We will be signing off at this time. Please re- consult if needed. Case seen, reviewed and discussed with Dr. Elidia Lott PGY1 <Halina Brenner - Last Filed: 01/05/17 06:10> Objective - Vital Signs/Intake and Output Vital Signs (last 24 hours): Temp Pulse Resp BP Pulse Ox 98.3 F 82 20 179/55 H 99 12/04/16 16:00 12/04/16 16:00 12/04/16 16:00 12/04/16 16:00 12/04/16 16:00 - Labs Labs: 12/02/16 07:05 12/02/16 07:05 PT 12.4 SECONDS (9.7-12.2) H 11/19/16 11:38 INR 1.1 11/19/16 11:38 APTT 29 SECONDS (21-34) 11/19/16 11:38 Attending/Attestation - Attestation I have personally seen and examined this patient.: Yes I have fully participated in the care of the patient.: Yes I have reviewed all pertinent clinical information, including history, physical exam and plan: Yes Notes (Text): 01/05/17 06:09 feling well better bp tolerating dialysis for d/c
[2016-12-04] MEDS: Fluticasone-Salmeterol 250-50mcg Diskus INH SCH (07:52)
[2016-12-04] MEDS: (Novolin R) Insulin Human Regular 100 units/ml vial SC SCH ×3 (08:29→16:41)
[2016-12-04] MEDS: (Novolog Mix 70/30) Insulin Aspart/Insulin Aspar 100 units/ml SC SCH (08:30)
[2016-12-04] MEDS: Multivitamin Vitamin B Complex (Nephro-Vite) Tab PO SCH (09:55)
[2016-12-04] MEDS: diltiaZEM 300 mg/24 Hours CD Cap PO SCH (09:55)
--- NOTE | 2016-12-04 11:47 | CP.PCM.PN ---
Subjective - Date & Time of Evaluation Date of Evaluation: 12/04/16 Time of Evaluation: 09:00 - Subjective Subjective: Dr. Frederick Service: Patient reports she has no new complaints of pain, fever, chills, nausea, vomiting, diarrhea, chest pain, or shortness of breath. Objective - Vital Signs/Intake and Output Vital Signs (last 24 hours): Temp Pulse Resp BP Pulse Ox 98.4 F 89 20 168/74 H 95 12/04/16 08:00 12/04/16 08:00 12/04/16 08:00 12/04/16 09:56 12/04/16 08:00 Intake and Output: 12/04/16 12/04/16 06:59 18:59 Intake Total 300 Balance 300 - Medications Medications: Current Medications Acetaminophen (Tylenol 325mg Tab) 650 mg PO Q6 PRN PRN Reason: pain Last Admin: 11/29/16 23:32 Dose: 650 mg Albuterol (Ventolin Hfa 90 Mcg/Actuation (8 G)) 1 puff IH RQID PRN PRN Reason: Wheezing Last Admin: 12/02/16 19:48 Dose: 1 puff Calcium Acetate (Phoslo) 667 mg PO TIDCC [facility] Last Admin: 12/04/16 08:56 Dose: 667 mg Diltiazem HCl (Cardizem Cd) 300 mg PO DAILY [facility] Last Admin: 12/04/16 09:55 Dose: 300 mg Docusate Sodium (Colace) 100 mg PO TID [facility] Last Admin: 12/04/16 09:56 Dose: 100 mg Epoetin Lucien (Procrit) 20,000 unit IV MWF [facility] Last Admin: 12/03/16 10:57 Dose: 20,000 unit Escitalopram Oxalate (Lexapro) 5 mg PO DAILY [facility] Last Admin: 12/04/16 09:55 Dose: 5 mg Famotidine (Pepcid) 20 mg PO DAILY [facility] Last Admin: 12/04/16 09:59 Dose: 20 mg Furosemide (Lasix) 80 mg PO DAILY [facility] Last Admin: 12/04/16 09:56 Dose: 80 mg Gabapentin (Neurontin) 100 mg PO HS [facility] Last Admin: 12/03/16 21:30 Dose: 100 mg Hydralazine HCl (Apresoline) 100 mg PO TID [facility] Last Admin: 12/04/16 09:55 Dose: 100 mg Vancomycin HCl 500 mg/ Sodium (Chloride) 100 mls @ 100 mls/hr IVPB MWF [facility] Last Admin: 12/03/16 13:19 Dose: 100 mls/hr Cefepime HCl 1 gm/ Sodium (Chloride) 100 mls @ 100 mls/hr IVPB Q24H [facility] Last Admin: 12/03/16 21:31 Dose: 100 mls/hr Insulin Aspart (Novolog Mix 70/30 (70/30 Units/Ml)) 20 units SC HS [facility] Last Admin: 12/03/16 21:30 Dose: 20 units Insulin Aspart (Novolog Mix 70/30 (70/30 Units/Ml)) 15 units SC ACB [facility] Last Admin: 12/04/16 08:30 Dose: Not Given Insulin Human Regular (Novolin R) 0 unit SC ACHS [facility] PRN Reason: Protocol Last Admin: 12/04/16 08:29 Dose: Not Given Isosorbide Mononitrate (Imdur) 60 mg PO DAILY [facility] Last Admin: 12/04/16 09:55 Dose: 60 mg Ondansetron HCl (Zofran Inj) 4 mg IVP Q4H PRN PRN Reason: Nausea/Vomiting Last Admin: 11/20/16 19:09 Dose: 4 mg Prednisone (Prednisone Tab) 10 mg PO DAILY [facility] Last Admin: 12/04/16 09:56 Dose: 10 mg Rosuvastatin Calcium (Crestor) 10 mg PO [facility] Last Admin: 12/03/16 21:27 Dose: 10 mg Fluticasone/Salmeterol (Advair Diskus 250/50) 1 puff INH RQ12 [facility] Last Admin: 12/04/16 07:52 Dose: Not Given - Labs Labs: 12/02/16 07:05 12/02/16 07:05 PT 12.4 SECONDS (9.7-12.2) H 11/19/16 11:38 INR 1.1 11/19/16 11:38 APTT 29 SECONDS (21-34) 11/19/16 11:38 - Constitutional Appears: Non-toxic, No Acute Distress - Head Exam Head Exam: NORMAL INSPECTION - Eye Exam Eye Exam: Normal appearance - ENT Exam ENT Exam: Normal Exam - Neck Exam Neck Exam: Normal Inspection - Respiratory Exam Respiratory Exam: Clear to Ausculation Bilateral - Cardiovascular Exam Cardiovascular Exam: REGULAR RHYTHM, RRR - GI/Abdominal Exam GI & Abdominal Exam: Soft, Normal Bowel Sounds - Extremities Exam Extremities Exam: Normal Inspection. absent: Pedal Edema - Back Exam Back Exam: NORMAL INSPECTION Assessment and Plan - Assessment and Plan (Free Text) Assessment: Renal Cell carcinoma 12/04: Patient discharged to [facility] 12/03: Awaiting surgery date. May discharge to [facility] when bed ready. 11/27: Patient will either need to be scheduled for surgery or discharged. 11/26: Patient cleared by cardio for surgery, surgery date pending Dr. Ba's schedule 11/21: Patient will need clearance from cardiology before surgery X:ray today showed no evidence of SBO but did show stool in the colon. Give miralax 17gm twice, consider more if still no bowel movement. 11/14/16 right kidney biopsy - renal cell carcinoma Oncology consult - Dr. Leonardo- help appreciated Per Dr. Leonardo, best course of action is handling hematoma and then excision of renal mass if urology agrees Urology consult - Dr. Ba - f/u recommendations Anemia Assessment & Plan: 12/03: Hgb Stable, continue to monitor. 11/26: Hgb 9.2, monitor 11/24: Hbg today is 8.0, consider tranfusion if it continues to drop before surgery 11/21: Stool heme occult positive. Dr. Caraballo consulted, Hbg today is 8.1, follow up iron studies tomorrow morning 11/20: Hbg is today at around 8.8, continue to monitor. Likely secondary to renal hematoma at site of biopsy. s/p 1 u transfusion on admission. Percent saturation and ferritin and reticulocyte count normal Leukocyotsis Assessment & Plan: 12/03: Persistent elevation, stable. Likely secondary to malignancy. No signs of infection, vital signs stable. Afebrile UA and urine culture contaminated Hyperkalemia Assessment & Plan: On dialysis, continue management Leg pain, right Assessment & Plan: swelling improved continue current management X ray shows soft tissue swelling, doppler negative for any evidence of DVT. Will given Tylenol for pain as needed. Status: Acute Pneumonia Assessment & Plan Treated with Cefepime and Vanco ID following - Dr. Bradshaw - help appreciated CXR - moderate venous congestion. bilateral hilar prominence. Bibasilar airspace opacities. small b/l pleural effusions. Upper lobe granulomatous changes. Started zithromax 500mg IVPB daily and rocephin 1gm IVPB daily 11/12/16 Status: Acute IDDM (insulin dependent diabetes mellitus) Assessment & Plan: Patient on 70/30 Novolog 15 units at night and 10 units ACB. Sliding scale insulin with medium protocol and accuchecks. Status: Acute COPD (chronic obstructive pulmonary disease) Assessment & Plan: Albuterol prn and Advair. Status: Chronic CAD (coronary artery disease) Assessment & Plan: Crestor 10mg, Aspirin 81mg, and Plavix 75mg Status: Chronic Atrial fibrillation Status: Chronic Continue Cardizem Cardio following - Dr. Brenner - help appreciated 11/19: continue Cardizem Hep, Plavix and ASA stopped secondary to renal hematoma 11/18: continue Cardizem, Hep, Plavix and ASA 11/17: Today was in Rapid afib with RVR, she is on 300mg of Cardizem. Patient transferred to tele and cardiology, Dr. Brenner is consulted, help appreciated. Patient is on Aspirin and Plavix. Hep 5000U SC Q8 prophylaxis HR constrolled No anticoagulation besides Plavix and ASA ESRD on dialysis Assessment & Plan: Dialysis MWF Status: Chronic CHF (congestive heart failure) Assessment & Plan: Lasix 80mg PO daily. Status: Acute HTN (hypertension) Assessment & Plan: Cardizem 300mg daily, Imdur 60mg daily, Hydralazine 100mg TID Status: Chronic Prophylactic measure Assessment & Plan: Pepcid 20mg 0.25mg Xanax prn for anxiety tylenol 650mg Q6H prn for pain All management and orders per Dr Trung Frederick. Will discuss with attending.
[2016-12-04 16:35] VITALS: BP 179/55; PULSE 82; TEMP 98.3; O2SAT 99
== END 2016-12-04 17:26 | DRG 686 ==
LOC: C.ER 10:00 → C.9E 14:21 → C.3T 15:03 → C.6T 11-17 17:41 → C.3T 11-28 20:06
PROVIDERS: ADMIT Internal Medicine Nephrology; ATTEND Internal Medicine Nephrology
PROC: 5A1D60Z (ICD-10-PCS; principal; 2016-11-12)
PROC: 0TB04ZX Excision of Right Kidney, Percutaneous Endoscopic Approach, Diagnostic (ICD-10-PCS; 2016-11-14)
DX: C64.1 Malignant neoplasm of right kidney, except renal pelvis (principal); N18.6 End stage renal disease; I50.23 Acute on chronic systolic (congestive) heart failure; J18.9 Pneumonia, unspecified organism; E11.22 Type 2 diabetes mellitus with diabetic chronic kidney disease; I27.2 Other secondary pulmonary hypertension; E11.65 Type 2 diabetes mellitus with hyperglycemia; J45.901 Unspecified asthma with (acute) exacerbation; I13.2 Hypertensive heart and chronic kidney disease with heart failure and with stage 5 chronic kidney disease, or end stage renal disease; K92.1 Melena; I48.91 Unspecified atrial fibrillation; M79.661 Pain in right lower leg; E87.5 Hyperkalemia; J44.9 Chronic obstructive pulmonary disease, unspecified; Z99.2 Dependence on renal dialysis; Z79.4 Long term (current) use of insulin; Z87.891 Personal history of nicotine dependence; D63.1 Anemia in chronic kidney disease; I25.10 Atherosclerotic heart disease of native coronary artery without angina pectoris; E78.00 Pure hypercholesterolemia, unspecified; K59.00 Constipation, unspecified